=== PATIENT | female | born 1995 | race Caucasian/White ===

== ENCOUNTER 2017-10-11 16:46 | Emergency (ER) | payer OTHER ==
[2017-10-11 16:55] VITALS: BP 107/71
--- NOTE | 2017-10-11 17:21 | ED ---
General Adult HPI - General Chief complaint: Fever Stated complaint: poss MRSA problem Source: patient Mode of arrival: ambulatory Limitations: no limitations - History of Present Illness Initial comments: Dictation was produced using [employer] dictation software. please excuse any grammatical, word or spelling errors. Chief Complaint: 21-year-old with past medical history of dwarfism presents with URI symptoms. History of Present Illness: Patient states she's been having these symptoms for approximately 2 days. Her symptoms started off as nasal congestion. She states that today she has been having worsening nasal congestion, cough. States she's been feeling hot for which she took Tylenol and Motrin. Patient has no other complaints at this time. Patient denies any chest pain. The ROS documented in this emergency department record has been reviewed and confirmed by me. Those systems with pertinent positive or negative responses have been documented in the HPI. All other systems are other negative and/or noncontributory. - Related Data Home Medications Medication Instructions Recorded Confirmed Ciprofloxacin-Dexameth [Ciprodex 3 drops BOTH EARS DAILY PRN 10/11/17 10/11/17 Otic Susp] Loratadine-Pseudoeph 10-240 mg 1 tab PO DAILY PRN 10/11/17 10/11/17 [Claritin-D 24 Hr] Sertraline HCl [Zoloft] 25 mg PO HS 10/11/17 10/11/17 diphenhydrAMINE HCL [Children's 50 mg PO HS PRN 10/11/17 10/11/17 Benadryl Allergy] Previous Rx's Medication Instructions Recorded Amoxic-Pot Clav 875-125Mg 1 tab PO Q12HR 5 Days #10 tablet 10/11/17 [Augmentin 875-125] Fluticasone Nasal [place] [Flonase 1 spray EA NOSTRIL DAILY #1 bottle 10/11/17 Nasal [place]] Allergies Allergy/AdvReac Type Severity Reaction Status Date / Time Iodinated Contrast- Oral and Allergy Anaphylaxis Verified 10/11/17 17:03 IV Dye [Iodinated Contrast Media - IV Dye] Review of Systems ROS Statement: Those systems with pertinent positive or pertinent negative responses have been documented in the HPI. ROS Other: All systems not noted in ROS Statement are negative. Past Medical History Past Medical History: No Reported History Additional Past Medical History / Comment(s): ANXIETY History of Any Multi-Drug Resistant Organisms: None Reported Past Surgical History: Back Surgery, Ear Surgery Past Psychological History: Anxiety Smoking Status: Never smoker Past Alcohol Use History: None Reported Past Drug Use History: None Reported General Exam - General Exam Comments Initial Comments: PHYSICAL EXAM: General Impression: Alert and oriented x3, not in acute distress HEENT: Normocephalic atraumatic, extra-ocular movements intact, pupils equal and reactive to light bilaterally, mucous membranes moist, dried mucus around the naris, TMs show no effusion Cardiovascular: Heart regular rate and rhythm, S1&S2 audible, no murmurs, rubs or gallops Chest: Lungs clear to auscultation bilaterally, no rhonchi, no wheeze, no rales Abdomen: Bowel sounds present, abdomen soft, non-tender, non-distended, no organomegaly Musculoskeletal: Pulses present and equal in all extremities, no peripheral edema, midline lower lumbar scar without any erythema or drainage Motor: Power 5/5 bilaterally, no focal deficits noted Neurological: CN II-XII grossly intact, no focal motor or sensory deficits noted Skin: Intact with no visualized rashes Psych: Normal affect and mood Limitations: no limitations Course Vital Signs 10/11/17 16:50 Temperature 98.4 F Pulse Rate 104 H Respiratory 18 Rate Blood Pressure 107/71 O2 Sat by Pulse 100 Oximetry Medical Decision Making - Medical Decision Making ED course: 21-year-old female with clinical presentation consistent with viral URI. Patient has been having symptoms for 2 days. Vital signs upon arrival shows heart rate of 104, rest of vital signs within acceptable limits. Patient is well-appearing. Repeat vital signs are improved. She prescription for Flonase. She is given a prescription for Augmentin to be taken in a wait-and- see approach. She is told to fill prescription should she continue worsening or persistent symptoms in 5 days. She is understandable agreeable to disposition. She is told to follow-up with primary care physician upon discharge. Disposition Clinical Impression: URI (upper respiratory infection) Disposition: HOME SELF-CARE Condition: Good Instructions: Upper Respiratory Infection (ED) Prescriptions: Amoxic-Pot Clav 875-125Mg [Augmentin 875-125] 1 tab PO Q12HR 5 Days #10 tablet Fluticasone Nasal [place] [Flonase Nasal [place]] 1 spray EA NOSTRIL DAILY #1 bottle Is patient prescribed a controlled substance at d/c from ED?: No Referrals: Nieves,Lyla, MD [Primary Care Provider] - 1-2 days Decision Time: 17:21
[2017-10-11 17:26] VITALS: PULSE 86; TEMP 100.4
[2017-10-11 17:29] VITALS: RESP 16
== END 2017-10-11 17:30 | disposition home or self-care (01) ==
LOC: EC 16:46
DX: J06.9 Acute upper respiratory infection, unspecified (principal); F41.9 Anxiety disorder, unspecified; Z79.899 Other long term (current) drug therapy; Z91.041 Radiographic dye allergy status
CPT/HCPCS: 99283

== ENCOUNTER → 2017-11-09 | Outpatient (CLI) | payer OTHER ==
--- NOTE | 2017-11-09 09:18 | US ---
EXAMINATION TYPE: US abdomen complete DATE OF EXAM: 11/09/2017 COMPARISON: NONE CLINICAL HISTORY: R10.11 Right upper quadrant pain. Diarrhea for 3 weeks, abdominal pain, vomiting EXAM MEASUREMENTS: Liver Length: 11.4 cm Gallbladder Wall: 0.2 cm CBD: 0.3 cm Spleen: 10.2 cm Right Kidney: 10.2 x 4.0 x 4.7 cm Left Kidney: 9.7 x 4.8 x 5.2 cm Pancreas: Head and proximal body appear normal. Pills. Bowel gas. Liver: appears wnl Gallbladder: no evidence of stones Evidence for sonographic Fernandez's sign: no CBD: wnl Spleen: isoechoic area near hilum = 1.6 x 1.3 x 1.5cm, probable accessory spleen Right Kidney: Simple cystic area mid kidney = 2.3 x 1.9 x 2.1cm Left Kidney: no evidence of hydronephrosis or mass as visualized Upper IVC: wnl Abd Aorta: visualized portions appear wnl IMPRESSION: 1. Right renal cyst.
== END | disposition home or self-care (01) ==
LOC: RADUSWWP 08:05
PROVIDERS: ATTEND Internal Medicine
DX: N28.1 Cyst of kidney, acquired (principal)
CPT/HCPCS: 76700

== ENCOUNTER → 2018-01-18 | Outpatient (CLI) | payer OTHER ==
[2018-01-18 16:38] LABS: Gliadin AB IgA, Unit 0.6 U/mL
== END | disposition home or self-care (01) ==
LOC: LABWHC1 07:38
PROVIDERS: ATTEND Internal Medicine Gastroenterology
DX: K52.9 Noninfective gastroenteritis and colitis, unspecified (principal)
CPT/HCPCS: 36415; 83516

== ENCOUNTER 2020-08-24 | Inpatient (IN) | payer OTHER, MEDICAID | END 2020-08-30 12:05 | disposition home or self-care (01) | DRG 885 | PROVIDERS: ADMIT Psychiatry & Neurology Psychiatry | CPT/HCPCS: 36415; 80053; 80143; 80179; 80306; 80320; 81025; 82075; 85025; 87635; 93005; 96360; 96361; 99285 ==

== ENCOUNTER 2023-07-16 13:28 | Inpatient (IN) | payer MEDICAID, OTHER ==
--- NOTE | 2023-07-16 14:36 | ED ---
General Adult HPI - General Chief complaint: Psychiatric Symptoms Stated complaint: Suicidal Time Seen by Provider: 07/16/23 13:40 Source: patient, RN notes reviewed, old records reviewed Mode of arrival: EMS Limitations: no limitations - History of Present Illness Initial comments: This is a 27-year-old female who presents to the emergency department stating that she has been contemplating suicide lately. Patient states her mother 2 years ago and she immediately moved to [place] and now that she is back in town and reminds her that her mother has gone and she is trying to deal with it but she states she is unable to do anything because she is nonstop crying. Patient went to [facility] today and they sent her to the emergency department. Patien t denies any physical complaints today. Patient denies being sick in any way patient denies any nausea vomiting. Patient Nuys chest pain difficulty breathing or shortness of breath. Patient has any abdominal pain. Patient states she does not have any specific plan and she has made no attempt to harm herself but she cannot stop thinking about trying to hurt herself. - Related Data Home Medications Medication Instructions Recorded Confirmed Albuterol Sulfate [Proair Hfa] 2 puff INHALATION RT-Q6H PRN 08/24/20 07/16/23 Acamprosate Calcium [Campral] 666 mg PO TID 07/16/23 07/16/23 Cholecalciferol (Vitamin D3) 50 mcg PO DAILY 07/16/23 07/16/23 [Vitamin D3 (50 Mcg = 2000 Iu)] Fluticasone/Vilanterol 1 puff INHALATION RT-DAILY 07/16/23 07/16/23 [Fluticasone-Vilanterol 100-25] Meloxicam [Mobic] 15 mg PO DAILY 07/16/23 07/16/23 Omeprazole 20 mg PO DAILY 07/16/23 07/16/23 Ondansetron [Zofran] 4 mg PO DAILY 07/16/23 07/16/23 Rimegepant Sulfate [Nurtec Odt] 75 mg PO DAILY PRN 07/16/23 07/16/23 Sertraline [Zoloft] 75 mg PO DAILY 07/16/23 07/16/23 lamoTRIgine [lamoTRIgine ODT See Taper PO DIRECTED 07/16/23 07/16/23 ([place]) Dose Pack] tiZANidine [Zanaflex] 2 mg PO HS PRN 07/16/23 07/16/23 Allergies Allergy/AdvReac Type Severity Reaction Status Date / Time Iodinated Contrast Media Allergy Anaphylaxis Verified 07/16/23 14:28 [Iodinated Contrast Media - IV Dye] Review of Systems ROS Statement: Those systems with pertinent positive or pertinent negative responses have been documented in the HPI. ROS Other: All systems not noted in ROS Statement are negative. Past Medical History Past Medical History: No Reported History Additional Past Medical History / Comment(s): ANXIETY History of Any Multi-Drug Resistant Organisms: None Reported Date of last positivie culture/infection: 2016 Past Surgical History: Back Surgery, Ear Surgery Past Psychological History: Anxiety Smoking Status: Never smoker General Exam - General Exam Comments Initial Comments: GENERAL: Patient is well-developed and well-nourished. Patient is nontoxic and well- hydrated and is in no acute distress. ENT: Neck is soft and supple. No significant lymphadenopathy is noted. Oropharynx is clear. Moist mucous membranes. Neck has full range of motion without eliciting any pain. EYES: The sclera were anicteric and conjunctiva were pink and moist. Extraocular movements were intact and pupils were equal round and reactive to light. Eyelids were unremarkable. PULMONARY: Unlabored respirations. Good breath sounds bilaterally. No audible rales rhonchi or wheezing was noted. CARDIOVASCULAR: There is a regular rate and rhythm without any murmurs gallops or rubs. ABDOMEN: Soft and nontender with normal bowel sounds. SKIN: Skin is clear with no lesions or rashes and otherwise unremarkable. NEUROLOGIC: Patient is alert and oriented x3. Cranial nerves II through XII are grossly intact. Motor and sensory are also intact. Normal speech, volume and content. Symmetrical smile. MUSCULOSKELETAL: Normal extremities with adequate strength and full range of motion. LYMPHATICS: No significant lymphadenopathy is noted PSYCHIATRIC: Patient states she is suicidal and cannot stop crying. Patient has no plan Limitations: no limitations Course Vital Signs 07/16/23 13:31 Temperature 98.4 F Pulse Rate 74 Respiratory 12 Rate Blood Pressure 108/67 O2 Sat by Pulse 96 Oximetry Medical Decision Making - Medical Decision Making Was pt. sent in by a medical professional or institution (, PA, COMPUTER BUILDER, urgent care, hospital, or detention...) When possible be specific @ -No Did you speak to anyone other than the patient for history (EMS, parent, family, police, friend...)? What history was obtained from this source @ -No Did you review nursing and triage notes (agree or disagree)? Why? @ -I reviewed and agree with nursing and triage notes Were old charts reviewed (outside hosp., previous admission, EMS record, old EKG, old radiological studies, urgent care reports/EKG's, detention records)? Report findings @ -No old charts were reviewed Differential Diagnosis (chest pain, altered mental status, abdominal pain women, abdominal pain men, vaginal bleeding, weakness, fever, dyspnea, syncope, headache, dizziness, GI bleed, back pain, seizure, CVA, palpatations, mental health, musculoskeletal)? @ -Differential Mental Health Depression, anxiety, bipolar, psychosis, schizophrenia, borderline personality, situational depression, adjustment disorder, behavioral disorder, brain tumor, malingering, substance abuse, encephalopathy, medication reaction, dementia, hypothyroidism, degenerative neurologic disorder, lupus.... This is not meant to be all-inclusive list EKG interpreted by me (3pts min.). @ -As above X-rays interpreted by me (1pt min.). @ -None done CT interpreted by me (1pt min.). @ -None done U/S interpreted by me (1pt. min.). @ -None done What testing was considered but not performed or refused? (CT, X-rays, U/S, labs)? Why? @ -None What meds were considered but not given or refused? Why? @ -None Did you discuss the management of the patient with other professionals (professionals i.e. , PA, COMPUTER BUILDER, lab, RT, psych nurse, social science analyst, driller multiple spindle, teacher, small business banking officer, caseworker intake)? Give summary @ -I spoke with the EPS nurse and she spoke with a psychiatrist and it was determined the patient needed to be admitted Was smoking cessation discussed for >3mins.? @ -No Was critical care preformed (if so, how long)? @ -35 minutes Were there social determinants of health that impacted care today? How? (Homelessness, low income, unemployed, alcoholism, drug addiction, transporta tion, low edu. Level, literacy, decrease access to med. care, long-term, rehab)? @ -No Was there de-escalation of care discussed even if they declined (Discuss DNR or withdrawal of care, Hospice)? DNR status @ -No What co-morbidities impacted this encounter? (DM, HTN, Smoking, COPD, CAD, Cancer, CVA, ARF, Chemo, Hep., AIDS, mental health diagnosis, sleep apnea, morbid obesity)? @ -None Was patient admitted / discharged? Hospital course, mention meds given and route, prescriptions, significant lab abnormalities, going to OR and other pertinent info. @ -Patient will be admitted to the psychiatric rubin Undiagnosed new problem with uncertain prognosis? @ -No Drug Therapy requiring intensive monitoring for toxicity (Heparin, Nitro, Insulin, Cardizem)? @ -No Were any procedures done? @ -No Diagnosis/symptom? @ -Suicidal ideations, depression Acute, or Chronic, or Acute on Chronic? @ -Acute Uncomplicated (without systemic symptoms) or Complicated (systemic symptoms)? @ -Complicated Side effects of treatment? @ -No Exacerbation, Progression, or Severe Exacerbation? @ -No Poses a threat to life or bodily function? How? (Chest pain, [place], [place], pneumonia, PE, COPD, DKA, ARF, appy, cholecystitis, CVA, Diverticulitis, Homicidal, Suicidal, threat to staff... and all critical care pts) @ -Wrist this can lead to a patient making a suicidal attempt and dying Disposition Clinical Impression: Suicidal ideations, Depression Disposition: ADMITTED IP TO THIS HOSP Referrals: Ludmila Christiansen MD [Primary Care Provider] - 1-2 days Time of Disposition: 16:49
[2023-07-16] MEDS ORDERED: MAGNESIUM HYDROXIDE 2,400 MG/30 ML CUP PO PRN (18:49)
[2023-07-16] MEDS ORDERED: ACETAMINOPHEN TAB 325 MG TAB PO PRN (18:49)
[2023-07-16] MEDS ORDERED: MAG HYDROX/AL HYDROX/SIMETH 355 ML BOTTLE PO PRN (18:49)
[2023-07-16] MEDS ORDERED: IBUPROFEN 600 MG TAB PO PRN (18:49)
[2023-07-16] MEDS ORDERED: LORazepam 2 MG/ML INJ IM PRN (18:53)
[2023-07-16] MEDS ORDERED: HALOPERIDOL LACTATE 5 MG/ML 1 ML VIAL IM PRN (18:53)
[2023-07-16] MEDS ORDERED: haloperidoL 5 MG TAB PO PRN (18:53)
[2023-07-16] MEDS ORDERED: methocarbamoL 750 MG TAB PO PRN (18:57)
[2023-07-16] MEDS: LORazepam 1 MG TAB PO PRN (20:10)
[2023-07-16 20:15] VITALS: RESP 16
[2023-07-16] MEDS: SERTRALINE 25 MG TAB PO SCH (21:22)
[2023-07-16] MEDS: ACAMPROSATE CALCIUM 333 MG TABLET.DR PO SCH (21:23)
[2023-07-16 21:30] LABS: Appearance,Urine Cloudy (Clear); Bacteria,Urine Occasional /hpf; Bilirubin,Urine Negative (Negative); Blood,Urine Moderate (Negative); Color,Urine Yellow; Glucose,Urine (UA) Negative (Negative); Leukocyte Esterase,Urine Trace (Negative); Mucus,Urine Many /hpf; Nitrite,Urine Negative (Negative); PH, Urine 5.5 (5.0-8.0); Protein,Urine Trace (Negative); RBC,Urine 11 /hpf (0-5); Specific Gravity,Urine 1.023 (1.001-1.035); Urobilinogen,Urine <2.0 mg/dL (<2.0)
[2023-07-16 21:33] LABS: Squamous Epithelial Cell,Urine 6 /hpf (0-4); WBC,Urine 1 /hpf (0-5)
[2023-07-16 21:36] LABS: Ketones,Urine 3+ (Negative)
[2023-07-16 21:40] LABS: Amphetamine Screen,Urine Not Detected (NotDetected); Barbiturate Screen,Urine Not Detected (NotDetected); Benzodiazepines Screen,Urine Not Detected (NotDetected); Cocaine Screen,Urine Not Detected (NotDetected); Methadone Screen, Urine Not Detected (NotDetected); Opiate Screen,Urine Not Detected (NotDetected); Oxycodone Screen, Urine Not Detected (NotDetected); Phencyclidine Screen,Urine Not Detected (NotDetected); Tricyclic Antidepressant,Urine Not Detected (NotDetected); Urn Cannabinoid Scrn Detected (NotDetected)
--- NOTE | 2023-07-17 01:20 | P.CONS ---
History of Present Illness - Reason for Consult Consult date: 07/17/23 - History of Present Illness The patient is a 27-year-old female with a PMH of hydrocephalus (unknown cause) status post LP shunt placement, asthma, and bipolar disorder who had presented to the emergency room with complaints of depression and suicidal ideation. The patient was admitted to the mental health unit where she was seen and evaluated accompanied by mental health unit RN. Patient reports that her mother recently passed and that she has been having a hard time coping. She reported long-term unchanged lower back pain for which she has been following with her neurologist who also manages her outpatient. She denied experiencing any additional complaints. Reports recreational tobacco, marijuana, and alcohol use. States that she drinks too much but did not wish to quantify but states that she drinks daily. Reports smoking 1 to 2 packs of cigarettes daily. Denied experiencing chest discomfort, shortness of breath, fever, chills, cough, nausea, vomiting, abdominal pain, diarrhea. Review of systems: Pertinent positives and negatives as discussed in HPI, a complete review of systems was performed and all other systems are negative. Physical examination: General: non toxic, no distress, appears at stated age, morbidly obese Derm: no unusual rashes/lesions, no unusual ecchymoses, warm, dry Head: atraumatic, normocephalic, symmetric Eyes: EOMI, no lid lag, anicteric sclera ENT: Nose and ears atraumatic, no thrush, no pharyngeal erythema Neck: trachea midline, supple Mouth: no lip lesion, mucus membranes moist Cardiovascular: S1S2 reg, no murmur, no edema Lungs: CTA bilateral, no rhonchi, no rales , no accessory muscle use Abdominal: soft, nontender to palpation, no guarding Ext: no gross muscle atrophy, no contractures, Neuro: No gross focal neuro deficits noted Psych: Alert, oriented, appropriate affect Assessment: Marijuana and alcohol abuse Chronic conditions: Hydrocephalus status post LP shunt placement, asthma Depression and suicidal ideation and history of bipolar disorder Imaging: None performed Data Review: Reviewed with urine toxicology positive for marijuana Plan: Advised patient on importance of cessation Monitor for signs of withdrawal from alcohol Resume patient's home inhaler doses Defer management of depression and suicidal ideation to the primary psychiatry service Thank you for allowing us to participate in the care of this patient. We will follow peripherally. Do not hesitate to contact us with questions. Someone can be reached from the [facility] hospitalist group at all hours of the day at [phone]. Past Medical History Past Medical History: Asthma Additional Past Medical History / Comment(s): ANXIETY, back surgery, shunt d/t hydrocephalus History of Any Multi-Drug Resistant Organisms: None Reported Year Discovered:: 2016 Past Surgical History: Back Surgery, Ear Surgery Past Psychological History: Anxiety Additional Psychological History / Comment(s): BPD Smoking Status: Current every day smoker Past Drug Use History: Marijuana Medications and Allergies Home Medications Medication Instructions Recorded Confirmed Type Albuterol Sulfate [Proair Hfa] 2 puff INHALATION RT-Q6H PRN 08/24/20 07/16/23 History Acamprosate Calcium [Campral] 666 mg PO TID 07/16/23 07/16/23 History Cholecalciferol (Vitamin D3) 50 mcg PO DAILY 07/16/23 07/16/23 History [Vitamin D3 (50 Mcg = 2000 Iu)] Fluticasone/Vilanterol 1 puff INHALATION RT-DAILY 07/16/23 07/16/23 History [Fluticasone-Vilanterol 100-25] Meloxicam [Mobic] 15 mg PO DAILY 07/16/23 07/16/23 History Omeprazole 20 mg PO DAILY 07/16/23 07/16/23 History Ondansetron [Zofran] 4 mg PO DAILY 07/16/23 07/16/23 History Rimegepant Sulfate [Nurtec Odt] 75 mg PO DAILY PRN 07/16/23 07/16/23 History Sertraline [Zoloft] 75 mg PO DAILY 07/16/23 07/16/23 History lamoTRIgine [lamoTRIgine ODT See Taper PO DIRECTED 07/16/23 07/16/23 History ([place]) Dose Pack] tiZANidine [Zanaflex] 2 mg PO HS PRN 07/16/23 07/16/23 History Allergies Allergy/AdvReac Type Severity Reaction Status Date / Time Iodinated Contrast Media Allergy Anaphylaxis Verified 07/16/23 14:28 [Iodinated Contrast Media - IV Dye] Physical Exam Vitals: Vital Signs Temp Pulse Pulse Resp BP BP Pulse Ox 07/16/23 19:47 97.8 F 70 16 118/73 96 07/16/23 18:53 76 18 111/69 96 07/16/23 13:31 98.4 F 74 12 108/67 96 Intake and Output 07/16/23 07/16/23 07/17/23 14:59 22:59 06:59 Other: Weight 59.874 kg 59.024 kg Results Labs: Abnormal Lab Results - Last 24 Hours (Table) 07/16/23 07/16/23 Range/Units 21:11 21:11 Urine Appearance Cloudy H (Clear) Urine Protein Trace H (Negative) Urine Ketones 3+ H (Negative) Urine Blood Moderate H (Negative) Ur Leukocyte Esterase Trace H (Negative) Urine RBC 11 H (0-5) /hpf Ur Squamous Epith Cells 6 H (0-4) /hpf Urine Bacteria Occasional H (None) /hpf Urine Mucus Many H (None) /hpf U Marijuana (THC) Screen Detected H (NotDetected)
[2023-07-17 05:19] VITALS: BP 110/81; PULSE 99; TEMP 98.2
[2023-07-17] MEDS: NICOTINE 14MG/24HR PATCH TRANSDERM SCH (08:14)
[2023-07-17] MEDS: CHOLECALCIFEROL 25 MCG (1000 IU) TABLET PO SCH (08:15)
[2023-07-17] MEDS ORDERED: PROCHLORPERAZINE 5 MG TAB PO PRN (08:33)
[2023-07-17] MEDS: ONDANSETRON ODT 4 MG TAB PO PRN (08:40)
[2023-07-17] MEDS: PANTOPRAZOLE 40 MG TABLET PO SCH (08:45)
[2023-07-17] MEDS ORDERED: HALOPERIDOL LACTATE 5 MG/ML 1 ML VIAL IM PRN (09:13)
[2023-07-17] MEDS ORDERED: LORazepam 2 MG/ML INJ IM PRN (09:16)
[2023-07-17] MEDS: MELOXICAM 7.5 MG TAB PO SCH (11:47)
[2023-07-17 11:48] LABS: Basophils % (A) 0 %; Eosinophils # (A) 0.1 k/uL (0-0.7); Eosinophils % (A) 1 %; HCT 42.3 % (34.0-46.0); HGB 13.5 gm/dL (11.4-16.0); Lymphocytes # (A) 1.8 k/uL (1.0-4.8); Lymphocytes % (A) 17 %; MCH 29.9 pg (25.0-35.0); MCHC 31.8 g/dL (31.0-37.0); MCV 94.1 fL (80.0-100.0); Mean Platelet Volume 8.4; Monocytes # (A) 0.5 k/uL (0-1.0); Monocytes % (A) 5 %; Neutrophils # (A) 7.9 k/uL (1.3-7.7); Neutrophils % (A) 75 %; Platelet Count 334 k/uL (150-450); RBC 4.49 m/uL (3.80-5.40); RDW 13.5 % (11.5-15.5); WBC 10.5 k/uL (3.8-10.6)
[2023-07-17 12:12] LABS: ALT 14 U/L (4-34); AST 28 U/L (14-36); African American GFR (CKD) >90 (>60 ml/min/1.73 sqM); Albumin 4.7 g/dL (3.5-5.0); Alkaline Phosphatase 81 U/L (38-126); Anion Gap 13 mmol/L; Blood Urea Nitrogen 13 mg/dL (7-17); Calcium 9.5 mg/dL (8.4-10.2); Carbon Dioxide 16 mmol/L (22-30); Chloride 112 mmol/L (98-107); Glucose 77 mg/dL (74-99); Non-African American GFR(CKD) >90 (>60 ml/min/1.73 sqM); Sodium 141 mmol/L (137-145); Total Bilirubin 0.9 mg/dL (0.2-1.3); Total Protein 8.2 g/dL (6.3-8.2)
[2023-07-17 12:31] LABS: Potassium 4.9 mmol/L (3.5-5.1)
[2023-07-17] MEDS: LORazepam 0.5 MG TAB PO PRN (14:14)
[2023-07-17 15:53] LABS: Chol/HDL Ratio 3.38 Ratio; LDL Cholesterol,Calculated 95.4 mg/dL (0.0-131.0); VLDL Calculation 18.64 mg/dL (5.00-40.00)
[2023-07-17] MEDS ORDERED: hydrOXYzine HCL 10 MG TAB PO PRN (16:00)
[2023-07-17] MEDS: busPIRone HCl 10 MG TAB PO SCH (16:08)
[2023-07-17] MEDS: ALBUTEROL INHALER 60 PUFF/8 GM INHALER (MHU) INHALATION PRN (20:40)
--- NOTE | 2023-07-17 21:56 | P.HP ---
Psychiatric H&P - . H&P Date: 07/17/23 History & Physical: Allergies Allergy/AdvReac Type Severity Reaction Status Date / Time Iodinated Contrast Media Allergy Anaphylaxis Verified 07/16/23 14:28 [Iodinated Contrast Media - IV Dye] Vital Signs Temp 98.2 F 07/17/23 05:09 Pulse 99 07/17/23 05:09 Resp 16 07/17/23 05:09 BP 110/81 07/17/23 05:09 Pulse Ox 97 07/17/23 05:09 FiO2 Intake & Output 07/17/23 07/17/23 07/18/23 06:59 18:59 06:59 Weight 59.024 kg Laboratory Last Values WBC 10.5 k/uL (3.8-10.6) 07/17/23 11:28 RBC 4.49 m/uL (3.80-5.40) 07/17/23 11:28 Hgb 13.5 gm/dL (11.4-16.0) 07/17/23 11:28 Hct 42.3 % (34.0-46.0) 07/17/23 11:28 MCV 94.1 fL (80.0-100.0) 07/17/23 11:28 MCH 29.9 pg (25.0-35.0) 07/17/23 11:28 MCHC 31.8 g/dL (31.0-37.0) 07/17/23 11:28 RDW 13.5 % (11.5-15.5) 07/17/23 11:28 Plt Count 334 k/uL (150-450) 07/17/23 11:28 MPV 8.4 07/17/23 11:28 Neutrophils % 75 % 07/17/23 11:28 Lymphocytes % 17 % 07/17/23 11:28 Monocytes % 5 % 07/17/23 11:28 Eosinophils % 1 % 07/17/23 11:28 Basophils % 0 % 07/17/23 11:28 Neutrophils # 7.9 k/uL (1.3-7.7) H 07/17/23 11:28 Lymphocytes # 1.8 k/uL (1.0-4.8) 07/17/23 11:28 Monocytes # 0.5 k/uL (0-1.0) 07/17/23 11:28 Eosinophils # 0.1 k/uL (0-0.7) 07/17/23 11:28 Basophils # 0.0 k/uL (0-0.2) 07/17/23 11:28 Sodium 141 mmol/L (137-145) 07/17/23 11:28 Potassium 4.9 mmol/L (3.5-5.1) 07/17/23 11:28 Chloride 112 mmol/L (98-107) H 07/17/23 11:28 Carbon Dioxide 16 mmol/L (22-30) L 07/17/23 11:28 Anion Gap 13 mmol/L 07/17/23 11:28 BUN 13 mg/dL (7-17) 07/17/23 11:28 Creatinine 0.43 mg/dL (0.52-1.04) L 07/17/23 11:28 Est GFR (CKD-EPI)AfAm >90 (>60 ml/min/1.73 sqM) 07/17/23 11:28 Est GFR (CKD-EPI)NonAf >90 (>60 ml/min/1.73 sqM) 07/17/23 11:28 Glucose 77 mg/dL (74-99) 07/17/23 11:[address] Glu mg/dL 103 mg/dL 07/17/23 11:28 Hemoglobin A1c 5.2 % (<=6.0) 07/17/23 11:28 Calcium 9.5 mg/dL (8.4-10.2) 07/17/23 11:28 Total Bilirubin 0.9 mg/dL (0.2-1.3) 07/17/23 11:28 AST 28 U/L (14-36) 07/17/23 11:28 ALT 14 U/L (4-34) 07/17/23 11:28 Alkaline Phosphatase 81 U/L (38-126) 07/17/23 11:28 Total Protein 8.2 g/dL (6.3-8.2) 07/17/23 11:28 Albumin 4.7 g/dL (3.5-5.0) 07/17/23 11:28 Triglycerides 93.20 mg/dL (0.00-149.00) 07/17/23 11:28 Cholesterol 162.00 mg/dL (0.00-200.00) 07/17/23 11:28 LDL Cholesterol, Calc 95.4 mg/dL (0.0-131.0) 07/17/23: VLDL Cholesterol, Calc 18.64 mg/dL (5.00-40.00) 07/17/23 11: HDL Cholesterol 48.00 mg/dL (40.00-60.00) 07/17/23: Cholesterol/HDL Ratio 3.38 Ratio 07/17/23: TSH 0.692 mIU/L (0.465-4.680) 07/17/23 11:28 Urine Color Yellow 07/16/23 21:11 Urine Appearance Cloudy (Clear) H 07/16/23 21:11 Urine pH 5.5 (5.0-8.0) 07/16/23 21:11 Ur Specific [place] 1.023 (1.001-1.035) 07/16/23 21:11 Urine Protein Trace (Negative) H 07/16/23 21:11 Urine Glucose (UA) Negative (Negative) 07/16/23 21:11 Urine Ketones 3+ (Negative) H 07/16/23 21:11 Urine Blood Moderate (Negative) H 07/16/23 21:11 Urine Nitrite Negative (Negative) 07/16/23 21:11 Urine Bilirubin Negative (Negative) 07/16/23 21:11 Urine Urobilinogen <2.0 mg/dL (<2.0) 07/16/23 21:11 Ur Leukocyte Esterase Trace (Negative) H 07/16/23 21:11 Urine RBC 11 /hpf (0-5) H 07/16/23 21:11 Urine WBC 1 /hpf (0-5) 07/16/23 21:11 Ur Squamous Epith Cells 6 /hpf (0-4) H 07/16/23 21:11 Urine Bacteria Occasional /hpf (None) H 07/16/23 21:11 Urine Mucus Many /hpf (None) H 07/16/23 21:11 Urine HCG, Qual Not Detected (Not Detectd) 07/16/23 21:11 Urine Opiates Screen Not Detected (NotDetected) 07/16/23 21:11 Ur Oxycodone Screen Not Detected (NotDetected) 07/16/23 21:11 Urine Methadone Screen Not Detected (NotDetected) 07/16/23 21:11 Ur Barbiturates Screen Not Detected (NotDetected) 07/16/23 21:11 U Tricyclic Antidepress Not Detected (NotDetected) 07/16/23 21:11 Ur Phencyclidine Scrn Not Detected (NotDetected) 07/16/23 21:11 Ur Amphetamines Screen Not Detected (NotDetected) 07/16/23 21:11 U Methamphetamines Scrn Not Detected (NotDetected) 07/16/23 21:11 U Benzodiazepines Scrn Not Detected (NotDetected) 07/16/23 21:11 Urine Cocaine Screen Not Detected (NotDetected) 07/16/23 21:11 U Marijuana (THC) Screen Detected (NotDetected) H 07/16/23 21:11 SARS-CoV-2 (PCR) Not Detected (Not Detectd) 07/16/23 16:13 07/17/23 21:55 Psychiatric Evaluation Identifying Data: Ms. Skinner is a 27 years old, single female, who is currently homeless. Chief Complaint: I cant stop crying History of Psychiatric Illness- History of Present Illness: The patient noted that she has been crying all the time. She indicated that she was staying with her sister but she kicked her out of the home. The patient noted that she has been experiencing symptoms of crying spells, low mood, decreased appetite, poor sleep, loss of motivation, loss of interest, guilt feelings, feelings of worthless and suicidal ideations. The patient noted she has been taking Zoloft 75 mg once a day and Lamictal. She noted that she takes Lamictal for her mood disorder and Absence seizures. Her Lamictal has been held at this time because she has to get an EEG. The patient noted that she started s eeking help for depression at age 13. She has been under out-pt treatment since then. She has been to [facility] and [facility]. She has gone to out-pt follow-up off and on. The patient noted that she has had multiple psychiatric admissions in the past. She has been admitted for depression and suicidal behavior. The patient noted that her last suicidal behavior was 2 years ago. The patient noted that her adopted mother then. She moved to her mothers best friend in [place]. As per patient, she got kicked out by her because she did not get SSI. She came back and started living with her, who put her out and does not want her back. The patient is trying to get SSI. She also wants to go to senior care, I have no place to live. The patient noted that she has been diagnosed with depressive disorder and BPD. She has been on Li, Trazodone, Zoloft, Prozac and Paxil in the past. Past Psychiatric History: As stated above. Leading questions: The patient admitted to Depression and Anxiety. Denied SI or HI. Admitted to paranoia people are watching her, out to get her. Denied A/V hallucinations. Drugs and alcohol history: Admitted to Alcohol and THC abuse. Tobacco use: Past Medical history: Seizure Disorder, Hydrocephalus post shunt placement. Chronic backache, Asthma. Family History of Psychiatric Disorder: One cousin suffered from depression and committed suicide. Sister suffers from depression. Social History and Family History: The patient was born and raised in [place]. She grew-up with 3 biological sisters and here adopted sisters. She was taken away from her parents at age [age]. OTC: Allergies Objective: MSE: Alert and attentive. Orientation times three Dressed and Groomed: Appropriately. Pleasant and cooperative. Psychomotor Activity: Normal. Speech: Normal in tone, quality, and quantity. Mood: Depressed. Affect: Sad and labile. SI or HI: None. Perceptual disturbance: None. Thought Content: The patient feels Paranoid. No other delusional thinking noted. Thought Process: Normal. Cognition: Intact Judgment and Insight: Poor. AIMS: Normal Labs: Available labs reviewed. Diagnosis: Depressive disorder, Unspecified. BPD Plan and Recommendations: Continue current Medications. Monitor MS and side effects of medications and adjust medications accordingly. Provide supportive psychotherapy and psychoeducation. The patient provided Substance abuse counseling. Smoke cessation therapy. The patient to see a therapist on a regular basis once a week/ attend [facility]. CBC with Diff, CMP, TSH, Lipid Profile, HbA1c, EKG, Test ordered. Medication Consent with explanation of risk/benefits and side effects: Explained and obtained.
[2023-07-17] MEDS: LORazepam 2 MG/ML INJ IM STA (22:04)
== END 2023-07-17 21:44 | disposition home or self-care (01) | DRG 753 ==
LOC: EC 13:28 → 3MHU 18:44 → UNDODISIN 07-17 21:49
PROVIDERS: ADMIT Psychiatry & Neurology Psychiatry; ATTEND Psychiatry & Neurology Psychiatry
DX: F31.9 Bipolar disorder, unspecified (principal); G91.9 Hydrocephalus, unspecified; G40.A09 Absence epileptic syndrome, not intractable, without status epilepticus; R45.851 Suicidal ideations; J45.909 Unspecified asthma, uncomplicated; F12.10 Cannabis abuse, uncomplicated; F10.10 Alcohol abuse, uncomplicated; E66.01 Morbid (severe) obesity due to excess calories; Z68.39 Body mass index [BMI] 39.0-39.9, adult; F60.3 Borderline personality disorder; Z11.52 Encounter for screening for COVID-19; F41.9 Anxiety disorder, unspecified; G89.29 Other chronic pain; M54.50 Low back pain, unspecified; F17.210 Nicotine dependence, cigarettes, uncomplicated; Z71.6 Tobacco abuse counseling; Z59.00 Homelessness unspecified; Z59.12 Inadequate housing utilities; Z59.41 Food insecurity; Z59.82 Transportation insecurity; Z79.51 Long term (current) use of inhaled steroids; Z79.1 Long term (current) use of non-steroidal anti-inflammatories (NSAID); Z79.899 Other long term (current) drug therapy; Z98.2 Presence of cerebrospinal fluid drainage device; Z91.041 Radiographic dye allergy status
CPT/HCPCS: 80053; 80061; 80306; 81001; 81025; 82075; 83036; 84443; 85025; 87635; 93005; 99291

== ENCOUNTER 2023-07-17 21:36 | Inpatient (IN) | payer OTHER ==
[2023-07-17] MEDS ORDERED: NALOXONE 0.4 MG/ML 1 ML VIAL IV PRN (22:27)
[2023-07-17] MEDS ORDERED: ALPRAZolam 0.5 MG TAB PO PRN (22:28)
[2023-07-17] MEDS ORDERED: IPRATROPIUM-ALBUTEROL 3 ML NEB INHALATION PRN (22:28)
[2023-07-17] MEDS ORDERED: Potassium Replacement Protocol 1 EACH MISC MISCELLANE PRN (22:28)
[2023-07-17] MEDS ORDERED: Magnesium Replacement Protocol 1 EACH MISC MISCELLANE PRN (22:28)
[2023-07-17] MEDS: LORazepam 1 MG/0.5 ML VIAL ONE (22:32)
[2023-07-17] MEDS: levETIRAcetam IV 2,000 MG in SODIUM CHLORIDE 0.9% 250 ML IVPB ONE (22:49)
[2023-07-17] MEDS ORDERED: LORazepam 2 MG/ML INJ IV STA (22:59)
--- NOTE | 2023-07-17 22:59 | CT ---
EXAMINATION TYPE: CT brain wo con CT DLP: 1183.4 mGycm, Automated exposure control for dose reduction was used. DATE OF EXAM: 07/17/2023 9:58 PM COMPARISON: 01/26/2014. CLINICAL INDICATION:Female, 27 years old with history of seizure, fall, pt has h/o absent seizures an d had 3-4 seizures tonight and then had a grand mal seizure. unsure if she has hit her head at all. TECHNIQUE: Brain: Axial CT images of the brain were obtained with coronal and sagittal reformats created and rev iewed. Contrast used: None. Oral contrast used: None. FINDINGS: Brain: Extra-axial spaces: No abnormal extra-axial fluid collections. Dural calcifications are present. Ventricular system: Ventriculostomy tubing tip terminating near midline in the right lateral ventricl e. Tubing appears intact. No evidence of hydrocephalus Cerebral parenchyma: No acute intraparenchymal hemorrhage or mass effect. The pickett-white junction is well differentiated. Cerebellum: Unremarkable. Mass effect: No evidence of midline shift. Intracranial vasculature: Atherosclerotic calcifications of the intracranial vessels. Soft tissues: Normal. Calvarium/osseous structures: No depressed skull fracture. Paranasal sinuses and mastoid air cells: Mild scattered paranasal sinus disease. Visualized orbits: Orbital contents are intact. IMPRESSION: 1. No acute intracranial process. 2. Ventriculostomy changes without evidence for hydrocephalus.
--- NOTE | 2023-07-17 23:00 | P.HPIM ---
History of Present Illness H&P Date: 07/17/23 Chief Complaint: Status epilepticus 27-year-old female with bipolar disorder, hydrocephalus status post shunt, seizure disorder off antiseizure meds Patient was admitted to the mental health unit last night for depression and suicidal ideation for further management by psych She is known to have hydrocephalus status post shunt she also reported history of seizure type absence seizure currently off medications due to schedule testing as an outpatient. While on the mental health unit 18 was activated for a unwitnessed seizure patient was found in the hallway assumed that she hit her head on the ground she seemed to have an absence seizure but then was followed by tonic-clonic seizure it was aborted by IM Ativan but then patient continues to have absent seizures or witnessed while 18 and myself at bedside followed by postictal confusion Patient reports some headache over the right occipital region and left temporal region, denies any new or focal neurodeficits. Patient currently not on any antiseizure meds she reports that they have been held for scheduled outpatient treatment she has not had any seizures in a while Patient denies any fevers chills upper respiratory infection symptoms abdominal pain chest pain nausea vomiting changes in bowel or urinary habits review of systems Pertinent positives as noted in HPI. All other systems were reviewed and are negative on exam Patient had multiple witnessed absence seizure while at bedside doing physical exam and assessment these episodes were followed by postictal confusion Constitutional: No acute distress, conversant, pleasant Eyes: Anicteric sclerae, moist conjunctiva, Pupils equal round reactive to light ENMT: NC/AT Oropharynx clear, no erythema, or exudates Neck: Supple, no masses, or JVD No carotid bruits No thyromegaly Lungs: Clear to auscultation Clear to percussion Normal respiratory effort, no accessory muscle use Cardiovascular: Heart regular in rate and rhythm, No murmurs, gallops, or rubs No peripheral edema Abdominal: Soft Nontender, no guarding, rebound or rigidity Abdomen moving with respiration Normoactive bowel sounds Extremities: No digital cyanosis No clubbing Pedal pulses intact and symmetrical Radial pulses intact and symmetrical No calf tenderness Psychiatric: Alert and oriented to person, place and time Neuro Muscles Strength 4/5 in all 4 extremities Sensation to light touch grossly present throughout Cranial nerves II-XII grossly intact Past Medical History Past Medical History: Asthma Additional Past Medical History / Comment(s): ANXIETY, back surgery, shunt d/t hydrocephalus History of Any Multi-Drug Resistant Organisms: None Reported Date of last positivie culture/infection: 2016 Past Surgical History: Back Surgery, Ear Surgery Past Psychological History: Anxiety Additional Psychological History / Comment(s): BPD Smoking Status: Current every day smoker Past Drug Use History: Marijuana Medications and Allergies Home Medications Medication Instructions Recorded Confirmed Type Albuterol Sulfate [Proair Hfa] 2 puff INHALATION RT-Q6H PRN 08/24/20 07/16/23 History Acamprosate Calcium [Campral] 666 mg PO TID 07/16/23 07/16/23 History Cholecalciferol (Vitamin D3) 50 mcg PO DAILY 07/16/23 07/16/23 History [Vitamin D3 (50 Mcg = 2000 Iu)] Fluticasone/Vilanterol 1 puff INHALATION RT-DAILY 07/16/23 07/16/23 History [Fluticasone-Vilanterol 100-25] Meloxicam [Mobic] 15 mg PO DAILY 07/16/23 07/16/23 History Omeprazole 20 mg PO DAILY 07/16/23 07/16/23 History Ondansetron [Zofran] 4 mg PO DAILY 07/16/23 07/16/23 History Rimegepant Sulfate [Nurtec Odt] 75 mg PO DAILY PRN 07/16/23 07/16/23 History Sertraline [Zoloft] 75 mg PO DAILY 07/16/23 07/16/23 History lamoTRIgine [lamoTRIgine ODT See Taper PO DIRECTED 07/16/23 07/16/23 History ([place]) Dose Pack] tiZANidine [Zanaflex] 2 mg PO HS PRN 07/16/23 07/16/23 History Allergies Allergy/AdvReac Type Severity Reaction Status Date / Time Iodinated Contrast Media Allergy Anaphylaxis Verified 07/16/23 14:28 [Iodinated Contrast Media - IV Dye] Physical Exam Vitals: Intake and Output 07/17/23 07/17/23 07/17/23 06:59 14:59 22:59 Other: Weight 59.02 kg Assessment and Plan Assessment: 27-year-old female hydrocephalus status post shunt, seizure disorder of antiseizure meds, depression suicidal ideation had witnessed seizure on the mental health unit I evaluated the patient at bedside discussed the case with on-call mental health unit staff accepted the admission for status epilepticus for further neurologic workup with anticipated length of stay more than 2 midnights Status epilepticus [id number] episodes of absence seizure followed by postictal confusion Ativan 2 mg IV push as needed Loading with Keppra IV piggyback 2000 mg Start Keppra 1000 mg p.o. twice daily Psych eval Neuro evaluation CT of the brain without contrast pending Fall precautions Suicide precautions Continue with neurochecks every hour Check CBC BMP liver enzymes Depression with suicidal ideation Management per psych Continue psych medications the patient was taking on the mental health unit History of asthma DuoNeb as needed Full code DVT prophylaxis heparin subcu 3 times daily GI prophylaxis Protonix 40 mg p.o. daily
[2023-07-17] MEDS ORDERED: LORazepam 1 MG/0.5 ML VIAL IV PRN (23:01)
[2023-07-17] MEDS: LORazepam 1 MG/0.5 ML VIAL IV STA ×2 (23:10→23:27)
[2023-07-17] MEDS: SODIUM CHLORIDE 0.9% IVPB ONE (23:28)
[2023-07-17] MEDS: PHENYTOIN SODIUM IVPB ONE (23:28)
[2023-07-17] MEDS: HEPARIN SODIUM,PORCINE 5,000 UNIT/ML 1 ML VIAL SQ SCH (23:51)
[2023-07-18 00:07] LABS: Basophils % (A) 0 %; Eosinophils # (A) 0.1 k/uL (0-0.7); Eosinophils % (A) 1 %; HCT 37.4 % (34.0-46.0); HGB 12.4 gm/dL (11.4-16.0); Lymphocytes # (A) 3.3 k/uL (1.0-4.8); Lymphocytes % (A) 32 %; MCH 30.8 pg (25.0-35.0); MCHC 33.1 g/dL (31.0-37.0); Monocytes # (A) 0.7 k/uL (0-1.0); Monocytes % (A) 7 %; Neutrophils # (A) 6.1 k/uL (1.3-7.7); Neutrophils % (A) 59 %; Platelet Count 263 k/uL (150-450); RBC 4.02 m/uL (3.80-5.40); RDW 13.4 % (11.5-15.5); WBC 10.3 k/uL (3.8-10.6)
[2023-07-18 00:23] LABS: African American GFR (CKD) >90 (>60 ml/min/1.73 sqM); Anion Gap 9 mmol/L; Blood Urea Nitrogen 13 mg/dL (7-17); Calcium 8.8 mg/dL (8.4-10.2); Carbon Dioxide 20 mmol/L (22-30); Chloride 111 mmol/L (98-107); Glucose 82 mg/dL (74-99); Non-African American GFR(CKD) >90 (>60 ml/min/1.73 sqM); Potassium 3.4 mmol/L (3.5-5.1); Sodium 140 mmol/L (137-145)
[2023-07-18] MEDS ORDERED: Potassium Replacement Protocol 1 EACH MISC MISCELLANE PRN (01:13)
[2023-07-18] MEDS: propofoL 100 ML IV ONE (01:21)
[2023-07-18 01:28] LABS: ABG Base Excess -4.4 mmol/L; ABG HCO3 22 mmol/L (21-25); ABG Oxygen Saturation 100.2 % (94-97); ABG PCO2 45 mmHg (35-45); ABG PO2 311 mmHg (83-108); Allen Test Performed? Yes
[2023-07-18] MEDS: MIDAZOLAM HCL 50 MG in SODIUM CHLORIDE 0.9% 40 ML IV SCH (01:30)
[2023-07-18] MEDS: SODIUM CHLORIDE 0.9% 500 ML 500 ML IV ONE ×2 (01:49→04:49)
--- NOTE | 2023-07-18 01:59 | XR ---
EXAM: XR Chest, 1 View CLINICAL HISTORY: ITS.REASON XR Reason: intubation TECHNIQUE: Frontal view of the chest. COMPARISON: No relevant prior studies available. FINDINGS: There is an endotracheal tube in place proximally 49 mm above the carroll. There is a NG tube in place at the distal tip in the body of the stomach. There is a right LAW WRITER shunt tubing overlying the chest wall and abdomen. Lungs: Moderate to heavy peribronchial thickening of the central and lower lobe bronchi with patchy opacities at the lung bases. No consolidation. Pleural space: Unremarkable. No pneumothorax. Heart: Unremarkable. No cardiomegaly. Mediastinum: Unremarkable. Normal mediastinal contour. Bones/joints: Unremarkable. No acute fracture. IMPRESSION: Findings concerning for bronchitis with mild lower lobe infiltrates. Tubes and lines as above.
[2023-07-18 02:02] LABS: Glucose,Whole Blood 107 mg/dL (70-110)
[2023-07-18] MEDS: POTASSIUM BICARBONATE/CIT AC 20 MEQ TABLET.EFF NG-TUBE SCH ×2 (02:09→09:36)
--- NOTE | 2023-07-18 02:45 | P.CNPUL ---
History of Present Illness Consult date: 07/18/23 Requesting physician: Romero Schmidt Reason for consult: other (Status epilepticus, ICU management) Chief complaint: Suicidal ideation, seizures History of present illness: Patient is a 27-year-old white female with past medical history significant for asthma, seizure disorder, hydrocephalus status post BACK GRINDER shunt, bipolar disorder and major depression, migraines, and alcohol use disorder. Patient presented to the emergency room back on 07/16/2023 with suicidal ideation. She was sent in from [facility] to be admitted for inpatient psych evaluation. No actual suicidal attempts were reported. Patient was admitted to the [facility] unit. Late last night, a rapid response was called for seizures. Patient reportedly was found on the ground in the hallway. The sound physician that responded to the event, noted possible absence seizure's. These progressed to generalized tonic-clonic activity. She was given several doses of Ativan, a total of 7 mg, with no significant response. She was also loaded with Keppra and Dilantin per direction of the neurologist. Despite these pharmacological interventions, she continues to have seizure like activity. She is currently moved to the intensive care unit. She continues to have intermittent generalized tonic-clonic seizures every 2 to 5 minutes. Lasting approximately 30 seconds to 1 minute. No complete recovery in between. Moving all 4 extremities. Eyes are midline without nystagmus. No tongue biting. No urinary or fecal incontinence. Currently, appears postictal and will occasionally answer simple commands. On room air. SpO2 96%. No reported aspiration events. Remaining vital signs are also stable. Neurologist was consulted, who recommends intubation and sedation until seizures can be controlled. MONUMENT SETTER responded the bedside, performed rapid sequence intubation. Postintubation chest x-ray demonstrates endotracheal tube tip above the carroll and below the clavicle. Nasogastric tube courses below the diaphragm could be advanced at least 5 cm. Current ventilator settings include assist-control, respiratory rate 16, tidal volume 300, FiO2 100%, PEEP of 5. Postintubation ABG shows a PaO2 of 311, pCO2 of 45, pH of 7.3. FiO2 was appropriately weaned. She is sedated with propofol which is currently at 50 mcg/kg/min. She is currently asynchronous with mechanical ventilator and breath stacking. Peak airway pressures 28. CT of the brain was carried out which did not show any acute intracranial process. There was a ventriculostomy changes without evidence of hydrocephalus list. Urine toxicology screen positive for marijuana, but are otherwise unremarkable. No fevers. Recently started on BuSpar, and also on Zoloft. CBC unremarkable, no leukocytosis. Most recent BMP: Includes a sodium 140, potassium 3.4, chloride 111, serum bicarb 20, BUN 13, creatinine 0.46, glucose 82. Patient has no family or next of kin listed in the EMR. She is listed as homeless. We will attempt to reach out for possible contacts. Review of Systems ROS unobtainable: due to mental status Past Medical History Past Medical History: Asthma Additional Past Medical History / Comment(s): ANXIETY, back surgery, shunt d/t hydrocephalus History of Any Multi-Drug Resistant Organisms: None Reported Date of last positivie culture/infection: 2016 Past Surgical History: Back Surgery, Ear Surgery Past Psychological History: Anxiety Additional Psychological History / Comment(s): BPD Smoking Status: Current every day smoker Past Drug Use History: Marijuana Medications and Allergies Home Medications Medication Instructions Recorded Confirmed Type Albuterol Sulfate [Proair Hfa] 2 puff INHALATION RT-Q6H PRN 08/24/20 07/18/23 History Acamprosate Calcium [Campral] 666 mg PO TID 07/16/23 07/18/23 History Cholecalciferol (Vitamin D3) 50 mcg PO DAILY 07/16/23 07/18/23 History [Vitamin D3 (50 Mcg = 2000 Iu)] Fluticasone/Vilanterol 1 puff INHALATION RT-DAILY 07/16/23 07/18/23 History [Fluticasone-Vilanterol 100-25] Meloxicam [Mobic] 15 mg PO DAILY 07/16/23 07/18/23 History Omeprazole 20 mg PO DAILY 07/16/23 07/18/23 History Ondansetron [Zofran] 4 mg PO DAILY 07/16/23 07/18/23 History Rimegepant Sulfate [Nurtec Odt] 75 mg PO DAILY PRN 07/16/23 07/18/23 History Sertraline [Zoloft] 75 mg PO DAILY 07/16/23 07/18/23 History lamoTRIgine [lamoTRIgine ODT See Taper PO DIRECTED 07/16/23 07/18/23 History ([place]) Dose Pack] tiZANidine [Zanaflex] 2 mg PO HS PRN 07/16/23 07/18/23 History Allergies Allergy/AdvReac Type Severity Reaction Status Date / Time Iodinated Contrast Media Allergy Anaphylaxis Verified 07/16/23 14:28 [Iodinated Contrast Media - IV Dye] Physical Exam Vitals: Vital Signs FiO2 07/18/23 01:34 50 07/18/23 00:46 100 07/18/23 00:07 100 07/18/23 00:00 100 Intake and Output 07/17/23 07/17/23 07/18/23 14:59 22:59 06:59 Intake Total 30 Output Total 60 Balance -30 Intake: IV 30 KVO NS 30 Output: Urine 60 Other: Weight 59.02 kg GENERAL EXAM: 27-year-old white female with dwarfism. Currently, lethargic and will follow simple commands alternating with periods of generalized tonic-clonic activity as described in HPI. HEAD: Normocephalic and atraumatic EYES: Normal reaction of pupils, equal size. No nystagmus. NOSE: Clear with pink turbinates. THROAT: No erythema or exudates. NECK: No masses, no JVD. CHEST: No chest wall deformity. LUNGS: Equal air entry with no crackles, wheeze, rhonchi or dullness. On room air. No conversational dyspnea or accessory muscle use.. CVS: S1 and S2 normal with no audible murmur, regular rhythm. No extra heart sounds ABDOMEN: No hepatosplenomegaly, active bowel sounds, no guarding or rigidity. SPINE: No scoliosis or deformity SKIN: No rashes CENTRAL NERVOUS SYSTEM: Generalized tonic-clonic activity noted, all 4 extremities involved, no tongue biting, no urinary or fecal incontinence. Seizure activity last 30 seconds to 1 minute. Recurring every 2 to 5 minutes and alternating with periods of minimal responsiveness. Pupils midline without nystagmus. Reactive to light. No nuchal rigidity. Afebrile. EXTREMITIES: There is no peripheral edema, clubbing, or cyanosis. Peripheral pulses are intact. Results - Laboratory Findings CBC and BMP: 07/18/23 05:51 07/18/23 05:51 ABG ABG pH 7.30 (7.35-7.45) L 07/18/23 01:20 ABG pCO2 45 mmHg (35-45) 07/18/23 01:20 ABG pO2 311 mmHg (83-108) H 07/18/23 01:20 ABG O2 Saturation 100.2 % (94-97) H 07/18/23 01:20 Abnormal lab findings: Abnormal Labs 07/17/23 07/18/23 23:07 01:20 ABG pH 7.30 L ABG pO2 311 H ABG O2 Saturation 100.2 H Potassium 3.4 L Chloride 111 H Carbon Dioxide 20 L Creatinine 0.46 L - Diagnostic Findings Chest x-ray: image reviewed Assessment and Plan Assessment: Status epilepticus, patient was reportedly instructed to stop outpatient antiepileptic medications, while admitted to inpatient mental health unit, she developed intermittent generalized tonic-clonic activity without complete recovery between episodes. She was initially treated with multiple doses of Ativan, total of 7 mg, without significant response. She was also loaded with 1 g of Keppra and 1 g of Dilantin by direction of her neurologist. This failed to terminate patient's seizure activity. Patient was transferred to the intensive care unit where she was intubated for airway protection and sedated. Mechanical ventilator management, secondary to above History of seizure disorder, reportedly not on any antiepileptic medications on arrival to the hospital. History of hydrocephalus, status post BACK GRINDER shunt History of alcohol use disorder, acamprosate listed as home medication Suicidal ideation History of bipolar disorder and major depression History of migraines History of asthma, not currently active Marijuana use Dwarfism and short stature Plan: Patient was transferred to the intensive care unit and ultimately intubated for airway protection Patient will remain on the mechanical ventilator until we can get adequate control of seizures. Postintubation chest x-ray reviewed, endotracheal tube in satisfactory position, advance NG tube approximately 5-10 cm. Continue current ventilator settings. Ventilator order set ordered. Propofol for sedation, may need adjunct sedation if she remains asynchronous with the ventilator. Neurologist was consulted for management of patient's antiepileptic medications CT of the brain noted, obtain EEG, Initiate seizure precautions, Urine toxicology screen only positive for marijuana, Afebrile Prognosis is guarded. Unfortunately, no family or contacts are listed. My supervising physician was updated on patient condition and plan I have personally seen and examined the patient, performed the documentation and the assessment and plan as written. Number of minutes spent on the visit:20 This is a joint evaluation that was done along with the nurse practitioner. I was involved in the patient's care yesterday evening after the patient was noted to have repeated episodes of seizures on the psychiatric floor. The patient received a total of 7 mg of Ativan and the patient was also loaded with Dilantin and Keppra and despite that she continues to have episodes of intermittent tonic-clonic seizure activity. At that point, the patient was intubated and placed on mechanical ventilator this morning the patient is on a combination of propofol which is running at 50 mcg/kg/min and Versed running at 3 mg an hour. The patient did encounter some hypotension the patient is currently on low-dose norepinephrine at 0.04 mcg/kg/min. She is currently on a mechanical ventilator on assist-control mode at rate of 16 with a tidal volume of 300 and FiO2 of 40% with a PEEP of 5. The patient is also normal sed rate of 75 cc an hour. She was given total of 2 L of IV fluid bolus following intubation. Morning blood gas showed a pH of 7.3 with a pCO2 of 45 and a pO2 of 311 and FiO2 is being weaned down. EEG is in progress. No active tonic clonic seizure activity is witnessed this morning. Neurology has been consulted. The patient is currently intubated on mechanical ventilator. To be continued for now. She is receiving 1.5 g every 12 hours. This is a critical care evaluation. Line will be established. Time with Patient: Greater than 30
[2023-07-18] MEDS: SODIUM CHLORIDE 0.9% 1,000 ML IV ONE (03:07)
[2023-07-18] MEDS: IPRATROPIUM-ALBUTEROL 3 ML NEB INHALATION SCH (04:01)
[2023-07-18] MEDS: NOREPINEPHRINE 4 MG in SODIUM CHLORIDE 0.9% 250 ML IV SCH (06:18)
[2023-07-18] MEDS: PANTOPRAZOLE 40 MG TABLET PO SCH (06:27)
[2023-07-18 06:49] LABS: Basophils # (A) 0.1 k/uL (0-0.2); Basophils % (A) 1 %; Eosinophils % (A) 0 %; HCT 34.3 % (34.0-46.0); HGB 10.8 gm/dL (11.4-16.0); Lymphocytes # (A) 1.6 k/uL (1.0-4.8); Lymphocytes % (A) 16 %; MCH 30.5 pg (25.0-35.0); MCHC 31.4 g/dL (31.0-37.0); Mean Platelet Volume 7.6; Monocytes # (A) 0.5 k/uL (0-1.0); Monocytes % (A) 5 %; Neutrophils # (A) 7.6 k/uL (1.3-7.7); Neutrophils % (A) 78 %; Platelet Count 235 k/uL (150-450); RBC 3.54 m/uL (3.80-5.40); RDW 13.5 % (11.5-15.5); WBC 9.8 k/uL (3.8-10.6)
[2023-07-18 06:51] LABS: Glucose,Whole Blood 110 mg/dL (70-110)
[2023-07-18 06:57] LABS: African American GFR (CKD) >90 (>60 ml/min/1.73 sqM); Anion Gap 7 mmol/L; Blood Urea Nitrogen 9 mg/dL (7-17); Calcium 7.5 mg/dL (8.4-10.2); Carbon Dioxide 16 mmol/L (22-30); Chloride 119 mmol/L (98-107); Glucose 103 mg/dL (74-99); Non-African American GFR(CKD) >90 (>60 ml/min/1.73 sqM); Potassium 3.6 mmol/L (3.5-5.1); Sodium 142 mmol/L (137-145)
[2023-07-18] MEDS ORDERED: levETIRAcetam 500 MG TAB PO SCH (09:00)
[2023-07-18] MEDS ORDERED: LORazepam 1 MG/0.5 ML VIAL IV PRN ×2 (09:14→14:53)
[2023-07-18] MEDS: levETIRAcetam IV 500 MG/5 ML VIAL IVP SCH (09:33)
[2023-07-18] MEDS: CHLORHEXIDINE GLUCONATE 15 ML CUP MUCOUS MEM SCH (09:38)
[2023-07-18] MEDS: SERTRALINE 50 MG TAB PO SCH (09:39)
[2023-07-18] MEDS: THIAMINE 100 MG TAB PO SCH (09:39)
[2023-07-18] MEDS: busPIRone HCl 10 MG TAB PO SCH (09:39)
[2023-07-18] MEDS: ACAMPROSATE CALCIUM 333 MG TABLET.DR PO SCH (09:40)
[2023-07-18] MEDS: SODIUM CHLORIDE 0.9% 1,000 ML IV SCH (09:45)
[2023-07-18 11:43] LABS: Glucose,Whole Blood 96 mg/dL (70-110)
--- NOTE | 2023-07-18 12:17 | P.PN ---
Subjective Progress Note Date: 07/18/23 Hospital Course: 27-year-old female with history of seizure disorder off of antiepileptics, hyd rocephalus status post shunt, bipolar disorder presented from mental health unit for status epilepticus. Patient was admitted to mental health unit for depression and suicidal ideation on 07/16/2023. Patient was noted to have multiple episodes of absence seizure, rapid response was called. She was given multiple doses of IV Ativan, and continued to have seizure-like activity, and also has some generalized tonic-clonic activity. She was taken to the ICU, loaded with Keppra and Dilantin, and was intubated for airway protection. Currently patient is in the medical ICU intubated and sedated. Undergoing further workup. Head CT was completed, did not show any acute process, ventriculostomy changes without evidence of hydrocephalus. Subjective: Seen and examined at bedside. Currently intubated and sedated. Pertinent positives and negatives as discussed above, a complete review of sys tems was performed and all other systems are negative. Vitals Signs Reviewed. General: Intubated sedated Derm: Warm, dry Head: Atraumatic, normocephalic, symmetric Eyes: Pupils equal and reactive Mouth: No lip lesion, mucus membranes moist Cardiovascular: S1S2 reg, no murmur Lungs: CTA bilateral, no rhonchi, no rales, no accessory muscle use, intubated mechanically ventilated Abdominal: Soft, no appreciable organomegaly Ext: No contractures Neuro: Sedated Psych: Unable to assess Data Reviewed Today: Pertinent Labs: WBC 9.8, hemoglobin 10.8, bicarb 16, no anion gap 7, creatinine 0.4, glucose range between 96-1 03, lactate 0.7 Imaging: Chest x-ray independently interpreted no significant opacities noted. EKG independently interpreted, shows sinus rhythm. Assessment and Plan: Active: Status epilepticus History of seizure disorder, reportedly off of her antiepileptics History of hydrocephalus status post shunt -Discussed management with neurology, EEG was negative, however patient was on Versed and propofol drip. -Will continue to wean down propofol and Versed and monitor for any seizure activities, if there are seizure activities, patient may need to be transferred for long-term EEG monitoring -On Keppra IV 1500 mg every 12 hours -Also on Levophed, likely in the setting of propofol use, continue to wean -On normal saline at 75 cc an hour -Ativan as needed IV for seizures Bipolar disorder Anxiety disorder Depression with suicidal ideation -On BuSpar 10 3 times daily, Zoloft 75 daily -Thiamine 100 mg daily Asthma -DuoNebs every 4 hours, and as needed DVT ppx: Subcu heparin Code status: Full code Anticipated discharge place: Pending clinical course Anticipated discharge time: Pending clinical course Objective - Vital Signs Vital signs: Vital Signs Temp 97.7 F 07/18/23 07:45 Pulse 76 07/18/23 12:03 Resp 24 07/18/23 11:00 BP 102/63 07/18/23 11:00 Pulse Ox 100 07/18/23 11:00 FiO2 40 07/18/23 12:06 Intake & Output 07/17/23 07/18/23 07/18/23 18:59 06:59 18:59 Intake Total 2165.608 192.524 Output Total 265 140 Balance 1900.608 52.524 Weight 60 kg Intake: IV 2100 20 KVO NS 100 20 Sodium Chloride 0.9% 1, 1000 000 ml @ 999 mls/hr IV . Q1H1M ONE Rx#:[id number] Sodium Chloride 0.9% 500 1000 ml 500 ml @ 999 mls/hr IV .Q31M ONE Rx#:[id number] Intake, IV Titration 65.608 172.524 Amount Midazolam HCl 50 mg In 7.0 Sodium Chloride 0.9% 40 ml @ 1 MG/HR 1 mls/hr IV .Q24H LA NENA Rx#:[id number] Norepinephrine 4 mg In 22.524 Sodium Chloride 0.9% 250 ml @ 0.03 MCG/KG/MIN 6. 746 mls/hr IV .Q24H LA NENA Rx#:[id number] Sodium Chloride 0.9% 1, 150 000 ml @ 75 mls/hr IV . [id number] LA NENA Rx#:[id number] propofoL 1,000 mg In 58.608 Empty Bag 1 bag @ 15 MCG/ KG/MIN 5.312 mls/hr IV . [id number] LA NENA Rx#:[id number] Output: Urine 265 140 Other: Voiding Method Indwelling Catheter - Labs CBC & Chem 7: 07/18/23 05:51 07/18/23 05:51 Labs: Abnormal Lab Results - Last 24 Hours (Table) 07/17/23 07/18/23 07/18/23 Range/Units 23:07 01:20 05:51 RBC 3.54 L (3.80-5.40) m/uL Hgb 10.8 L (11.4-16.0) gm/dL ABG pH 7.30 L (7.35-7.45) ABG pO2 311 H (83-108) mmHg ABG O2 Saturation 100.2 H (94-97) % Potassium 3.4 L (3.5-5.1) mmol/L Chloride 111 H (98-107) mmol/L Carbon Dioxide 20 L (22-30) mmol/L Creatinine 0.46 L (0.52-1.04) mg/dL Glucose (74-99) mg/dL Calcium (8.4-10.2) mg/dL 07/18/23 Range/Units 05:51 RBC (3.80-5.40) m/uL Hgb (11.4-16.0) gm/dL ABG pH (7.35-7.45) ABG pO2 (83-108) mmHg ABG O2 Saturation (94-97) % Potassium (3.5-5.1) mmol/L Chloride 119 H (98-107) mmol/L Carbon Dioxide 16 L (22-30) mmol/L Creatinine 0.40 L (0.52-1.04) mg/dL Glucose 103 H (74-99) mg/dL Calcium 7.5 L (8.4-10.2) mg/dL Microbiology - Last 24 Hours (Table) 07/18/23 00:45 Gram Stain - Preliminary Sputum
--- NOTE | 2023-07-18 13:44 | P.PCN ---
Date of Procedure: 07/18/23 Operative Findings: Central Line Procedure Note Central Line Location: [x] Right or [_] Left [_] Internal Jugular Vein or [_] Subclavian Vein or [x] Femoral Vein Consent: [_] Consent was obtained from prior to the procedure. Indications, risks and benefits were discussed prior to the procedure. [x_] The procedure was performed emergently and the permission was implied because of the emergent nature. The [facility] Central Line Insertion Practices form was completed during and immediately following the procedure. A time out was performed. My hands were washed immediately prior to the procedure. I wore a surgical cap, mask with protective eyewear, full gown and sterile gloves throughout the procedure. The patient was placed in Trendelenburg position. The Left chest was prepped using chlorhexidine scrub and draped in sterile fashion using a three quarter sheet drape and sterile towels. Skin preparation was allowed to dry prior to skin puncture. Anatomic landmarks were identified. Anesthesia was achieved over the vein using 1% lidocaine. The introducer needle was inserted into the vein. Venous blood was withdrawn. The syringe was removed and a guidewire was advanced into the introducer needle. A small incision was made at the skin surface with a scalpel and the introducer needle was exchanged for a dilator over the guidewire. After appropriate dilation was obtained, the dilator was exchanged over the wire for an antimicrobial coated central venous catheter. The wire was removed and the catheter was sutured in place . A biopatch was placed at the insertion site. A sterile op-site was placed over the catheter and biopatch. The patient tolerated the procedure without any hemodynamic compromise. At time of procedure completion, all ports aspirated and flushed properly.
--- NOTE | 2023-07-18 14:08 | P.CNNES ---
History of Present Illness Consult date: 07/18/23 Requesting physician: Romero Schmidt Reason for Consult: seizures History of Present Illness: This is a 27-year-old woman with history of seizure disorder, hydrocephalus status post shunt, bipolar, depression, migraine and alcohol disorder who initially presented emergency department on 07/16/2023 for suicidal ideation that was admitted to inpatient psych then was had to be transferred to the ICU for seizure. History was obtained from medical record and ICU team. Patient was sent from [facility] to be admitted to inpatient psychiatry evaluation. As a result the patient was admitted to the inpatient mental health and it seems that today at nighttime rapid response was called for seizure. It is reported that she was found on the ground in the hallway in the inpatient psych and it was felt the patient was having possible absence seizure. The seizures has progressed to tonic-clonic seizure-like activity and she was giving several Ativan without any improvement. She received a total of 7 mg as well as was given Keppra 2 g. I was notified by the ICU team about this patient when she was transferred to the unit and I notified them that if she continues to have seizure to give 3 mg of Ativan and she repeated within 5 minutes and she continues to give her Dilantin and to intubate and sedate the patient. Seems the patient continued to have seizure-like activity and she was having intermitt ent generalized tonic-clonic seizures every 2 to 5 minutes lasting 30 seconds to 1 minute and no complete recovery in between. She was moving all extremities. Seems that her eyes were midline without nystagmus no tongue biting no urinary or bowel incontinence and it was appeared that she was in postictal with occasional answers simple commands. As a result the patient was intubated on vent and she was placed on IV propofol and IV Versed. The IV Propofol was at 50mcg/kg/min and IV Versed was at 3mg/hour. No further seizure activity this morning. I was notified by the ICU team yesterday night that her seizure medication was being tapered to discontinued and she is can to get an EEG as an outpatient. She has underlying history of hydrocephalus with a shunt. She is on lamotrigine with a taper dose. Some of the workup during this hospital visit consisted of: Patient is afebrile Sodium is 142, serum glucose is 103, plasma lactic acid vein is 0.7 today at 3 AM Calcium on presentation was 8.8. Magnesium is 2.0. The head is reported as no acute intracranial process. Ventriculostomy changes without evidence for hydrocephalus. History reviewed the CT and I agree there is no acute or subacute changes. The patient does have tape of the ventriculostomy on the right side Review of Systems Limited but the positive and negative as per HPI. Past Medical History Past Medical History: Asthma Additional Past Medical History / Comment(s): ANXIETY, back surgery, shunt d/t hydrocephalus History of Any Multi-Drug Resistant Organisms: None Reported Date of last positivie culture/infection: 2017 MDRO Source:: back Past Surgical History: Back Surgery, Ear Surgery Additional Past Surgical History / Comment(s): Back surgery X2; one when she was 7; another when she ws 20 Past Anesthesia/Blood Transfusion Reactions: No Reported Reaction Past Psychological History: Anxiety Additional Psychological History / Comment(s): BPD Smoking Status: Current every day smoker Past Drug Use History: Marijuana - Past Family History Father History Unknown: Yes Mother History Unknown: Yes Medications and Allergies Home Medications Medication Instructions Recorded Confirmed Type Albuterol Sulfate [Proair Hfa] 2 puff INHALATION RT-Q6H PRN 08/24/20 07/18/23 History Acamprosate Calcium [Campral] 666 mg PO TID 07/16/23 07/18/23 History Cholecalciferol (Vitamin D3) 50 mcg PO DAILY 07/16/23 07/18/23 History [Vitamin D3 (50 Mcg = 2000 Iu)] Fluticasone/Vilanterol 1 puff INHALATION RT-DAILY 07/16/23 07/18/23 History [Fluticasone-Vilanterol 100-25] Meloxicam [Mobic] 15 mg PO DAILY 07/16/23 07/18/23 History Omeprazole 20 mg PO DAILY 07/16/23 07/18/23 History Ondansetron [Zofran] 4 mg PO DAILY 07/16/23 07/18/23 History Rimegepant Sulfate [Nurtec Odt] 75 mg PO DAILY PRN 07/16/23 07/18/23 History Sertraline [Zoloft] 75 mg PO DAILY 07/16/23 07/18/23 History lamoTRIgine [lamoTRIgine ODT See Taper PO DIRECTED 07/16/23 07/18/23 History ([place]) Dose Pack] tiZANidine [Zanaflex] 2 mg PO HS PRN 07/16/23 07/18/23 History Allergies Allergy/AdvReac Type Severity Reaction Status Date / Time Iodinated Contrast Media Allergy Anaphylaxis Verified 07/16/23 14:28 [Iodinated Contrast Media - IV Dye] Physical Examination - Vital Signs Vital Signs: Vital Signs Temp Pulse Pulse Resp BP BP Pulse Ox 07/18/23 13:00 117 H 23 112/57 100 07/18/23 12:30 98 22 104/58 100 07/18/23 12:19 99 07/18/23 12:06 07/18/23 12:03 76 07/18/23 12:00 98.5 F 79 17 97/61 99 07/18/23 11:30 82 20 102/58 100 07/18/23 11:00 89 24 102/63 100 07/18/23 10:40 93 30 H 115/83 95 07/18/23 10:20 73 16 103/66 99 07/18/23 10:00 73 16 103/61 98 07/18/23 09:40 81 16 101/57 100 07/18/23 09:20 81 20 107/62 100 07/18/23 09:00 77 22 107/61 100 07/18/23 08:45 87 22 115/61 100 07/18/23 08:30 90 19 109/64 100 07/18/23 08:15 86 23 76/59 100 07/18/23 08:03 07/18/23 08:00 80 18 97/58 100 07/18/23 07:54 74 07/18/23 07:53 07/18/23 07:45 97.7 F 65 16 100/59 99 07/18/23 07:30 64 16 95/56 100 07/18/23 07:15 66 16 98/56 99 07/18/23 07:00 66 16 93/57 99 07/18/23 06:45 70 16 93/56 99 07/18/23 06:30 71 16 89/45 99 07/18/23 06:00 85 17 93/65 98 07/18/23 05:30 81 16 86/48 100 07/18/23 05:00 87 16 91/51 99 07/18/23 04:44 85 07/18/23 04:30 91 16 98/54 99 07/18/23 04:01 67 07/18/23 04:00 64 16 93/52 100 07/18/23 03:00 75 17 81/52 99 07/18/23 02:00 79 74 15 84/48 79/46 99 07/18/23 01:34 07/18/23 01:00 98 19 100/72 99 07/18/23 00:46 07/18/23 00:00 91 19 100/72 96 07/17/23 23:00 76 20 105/89 96 07/17/23 22:15 98.5 F 110 H 20 105/73 95 FiO2 07/18/23 13:00 07/18/23 12:30 07/18/23 12:19 07/18/23 12:06 40 07/18/23 12:03 07/18/23 12:00 40 07/18/23 11:30 07/18/23 11:00 07/18/23 10:40 07/18/23 10:20 07/18/23 10:00 07/18/23 09:40 07/18/23 09:20 07/18/23 09:00 07/18/23 08:45 07/18/23 08:30 07/18/23 08:15 40 07/18/23 08:03 40 07/18/23 08:00 50 07/18/23 07:54 07/18/23 07:53 40 07/18/23 07:45 07/18/23 07:30 07/18/23 07:15 07/18/23 07:00 07/18/23 06:45 07/18/23 06:30 07/18/23 06:00 07/18/23 05:30 07/18/23 05:00 07/18/23 04:44 07/18/23 04:30 07/18/23 04:01 07/18/23 04:00 50 07/18/23 03:00 07/18/23 02:00 50 07/18/23 01:34 50 07/18/23 01:00 50 07/18/23 00:46 100 07/18/23 00:00 100 07/17/23 23:00 07/17/23 22:15 Intake and Output 07/17/23 07/18/23 07/18/23 22:59 06:59 14:59 Intake Total 2165.608 410.623 Output Total 265 180 Balance 1900.608 230.623 Intake: IV 2100 20 KVO NS 100 20 Sodium Chloride 0.9% 1, 1000 000 ml @ 999 mls/hr IV . Q1H1M [facility] Rx#:[id number] Sodium Chloride 0.9% 500 1000 ml 500 ml @ 999 mls/hr IV .Q31M [facility] Rx#:[id number] Intake, IV Titration 65.608 390.623 Amount Midazolam HCl 50 mg In 7.0 20.5 Sodium Chloride 0.9% 40 ml @ 1 MG/HR 1 mls/hr IV .Q24H [facility] Rx#:[id number] Norepinephrine 4 mg In 45.123 Sodium Chloride 0.9% 250 ml @ 0.03 MCG/KG/MIN 6. 746 mls/hr IV .Q24H [facility] Rx#:[id number] Sodium Chloride 0.9% 1, 225 000 ml @ 75 mls/hr IV . [id number] [facility] Rx#:[id number] propofoL 1,000 mg In 58.608 100 Empty Bag 1 bag @ 15 MCG/ KG/MIN 5.312 mls/hr IV . [id number] [facility] Rx#:[id number] Output: Urine 265 180 Other: Voiding Method Indwelling Catheter Weight 59.02 kg 60 kg 60 kg General: Lying in bed and does not appear in acute distress. Resp: Intubated on ventilator. Neuro: Patient is comatose. Is on IV Versed and IV Propofol. Pupils are midline and is 2mm and reactive to light. No facial weakness. Is breathing over the vent. Has positive adolph and cough. Decrease tone throughout. No jerking or spontaneous movement. Results - Laboratory Findings CBC and BMP: 07/18/23 05:51 07/18/23 05:51 Abnormal Lab Findings: Abnormal Labs 07/17/23 07/18/23 07/18/23 23:07 01:20 05:51 RBC 3.54 L Hgb 10.8 L ABG pH 7.30 L ABG pO2 311 H ABG O2 Saturation 100.2 H Potassium 3.4 L Chloride 111 H Carbon Dioxide 20 L Creatinine 0.46 L Glucose Calcium 07/18/23 05:51 RBC Hgb ABG pH ABG pO2 ABG O2 Saturation Potassium Chloride 119 H Carbon Dioxide 16 L Creatinine 0.40 L Glucose 103 H Calcium 7.5 L Assessment and Plan Assessment: This is a 27-year-old woman with history of seizure disorder off antiepileptic, hydrocephalus s/p shunt, bipolar who initially was admitted to the mental health unit for depression and suicidal ideation on 07/16/2023 was transferred to the ICU recurrent seizure-like activity and was reported she had numerous ones and she reported she had absence seizure that led into a generalized tonic-clonic seizure without any resolution of her seizure with Ativan or Keppra seem that the patient was and clinical status epilepticus. Status epilepticus (clinically). So far her labs so remarkable for patient to be with status epilepticus and had GTC and plasma lactic acid vein is normal. CT head is unremarkable for acute process. Intubated on a ventilator and is on sedation due to above History of seizure disorder and is not on any antiepileptic drugs. Recent depression and suicidal ideation Hydrocephalus s/p shunt Dwarf Bipolar Major depression Alcohol use Plan: Routine EEG is completed and preliminary report is no seizure. I notified the nurse to start tapering off the sedation and if any continued seizure will consider transfer for extermination supervisor EEG. Yesterday the patient received Keppra 2 g as well as Dilantin 1000 mg. Currently she is on Keppra 1500 mg IV every 12 hours. Seizure precautions seizure pads Will defer the rest of the medical management to primary and other specialists Plan discussed with ICU team as well as her primary team Thank for the consultation I spent a total of 60 minutes on care. Time with Patient: Greater than 30
[2023-07-18] MEDS: ACETAMINOPHEN TAB 325 MG TAB PO PRN (16:00)
[2023-07-18 17:46] LABS: Glucose,Whole Blood 129 mg/dL (70-110)
--- NOTE | 2023-07-18 23:01 | EEG ---
ELECTROENCEPHALOGRAM REPORT CLINICAL HISTORY: This is a 27-year-old woman with history of seizure, who was in the mental health unit and had recurrent seizures and was felt she was in status epilepticus. As a result, the patient was intubated on a ventilator and placed on sedation. EEG is obtained to evaluate for seizure epileptiform activity. RELEVANT MEDICATIONS: 1. IV propofol. 2. IV Versed. 3. Phenytoin. 4. Keppra. 5. Ativan. EEG TYPE: A routine 21-channel EEG with video using the 10/20 electrode placement system. DESCRIPTION: The patient is intubated on a ventilator. The background consists of nyh-ed-sdwrckno voltage of 11 hertz activity and sometimes intermixed with delta activity. There is no physiological stage 2 sleep architecture. There is no focal slowing. Diffuse excessive beta activity. Interictal and ictal is none. ACTIVATION PROCEDURE: Photic stimulation did not evoke a posterior driving response. There is no abnormality during the photic stimulation. Hyperventilation is not performed. CLINICAL INTERPRETATION: This is an abnormal routine EEG. The background slowing is suggestive of mild encephalopathy. There is no focal slowing, epileptiform discharge, or seizure on the EEG. The excessive beta activity is likely due to medication effect (Ativan, Versed, and propofol). Clinical correlation is recommended. MMODL / IJN: [id number] / MTDD
[2023-07-18 23:45] LABS: Glucose,Whole Blood 130 mg/dL (70-110)
[2023-07-19] MEDS: SODIUM CHLORIDE 0.9% 250 ML IV SCH (04:44)
[2023-07-19 05:47] LABS: Basophils % (A) 0 %; Eosinophils # (A) 0.2 k/uL (0-0.7); Eosinophils % (A) 2 %; HCT 30.9 % (34.0-46.0); HGB 10.3 gm/dL (11.4-16.0); Lymphocytes # (A) 1.8 k/uL (1.0-4.8); Lymphocytes % (A) 20 %; MCH 31.8 pg (25.0-35.0); MCHC 33.5 g/dL (31.0-37.0); Mean Platelet Volume 9.2; Monocytes # (A) 0.6 k/uL (0-1.0); Monocytes % (A) 6 %; Neutrophils % (A) 70 %; Platelet Count 187 k/uL (150-450); RBC 3.25 m/uL (3.80-5.40); RDW 13.7 % (11.5-15.5); WBC 8.6 k/uL (3.8-10.6)
[2023-07-19 06:44] LABS: African American GFR (CKD) >90 (>60 ml/min/1.73 sqM); Anion Gap 5 mmol/L; Blood Urea Nitrogen 4 mg/dL (7-17); Calcium 8.5 mg/dL (8.4-10.2); Carbon Dioxide 21 mmol/L (22-30); Chloride 118 mmol/L (98-107); Glucose 76 mg/dL (74-99); Non-African American GFR(CKD) >90 (>60 ml/min/1.73 sqM); Potassium 3.5 mmol/L (3.5-5.1); Sodium 144 mmol/L (137-145)
[2023-07-19 06:44] LABS: Glucose,Whole Blood 81 mg/dL (70-110)
[2023-07-19] MEDS: POTASSIUM BICARBONATE/CIT AC 20 MEQ TABLET.EFF NG-TUBE SCH (08:30)
[2023-07-19] MEDS: PANTOPRAZOLE 40 MG/10 ML VIAL IVP SCH (08:31)
--- NOTE | 2023-07-19 09:18 | XR ---
EXAMINATION TYPE: XR chest 1V portable DATE OF EXAM: 07/19/2023 5:43 AM CLINICAL INDICATION:Female, 27 years old with history of Tube placement; [facility] COMPARISON: Chest radiographs from 17/04/2023 TECHNIQUE: XR chest 1V portable Frontal view of the chest. FINDINGS: Lungs/Pleura: There is no evidence of pleural effusion, focal consolidation, or pneumothorax. Pulmonary vascularity: Unremarkable. Heart/mediastinum: Cardiomediastinal silhouette is prominent in size. Musculoskeletal: No acute osseous pathology. Other findings: None Lines/Tubes: Endotracheal tube with distal tip 5.5 cm above the carroll. Nasogastric tube with its distal tip and side-port projecting under the diaphragm. Ventriculoperitoneal shunt tubing noted along the right aspect of the radiograph. IMPRESSION: Low lung volumes with a generalized hazy appearance which could represent atelectasis versus pulmonar y edema correlate with serum BNP.
[2023-07-19] MEDS: ONDANSETRON 4 MG/2 ML VIAL IVP PRN (11:43)
[2023-07-19 12:04] LABS: Glucose,Whole Blood 87 mg/dL (70-110)
--- NOTE | 2023-07-19 12:50 | P.PN ---
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 Patient presented to the emergency room back on 07/16/2023 with suicidal ideation. She was sent in from [facility] to be admitted for inpatient psych evaluation. No actual suicidal attempts were reported. Patient was admitted to the [facility] mental health unit. Late last night, a rapid response was called for seizures. Patient reportedly was found on the ground in the hallway. The sound physician that responded to the event, noted possible absence seizure's. These progressed to generalized tonic-clonic activity. She was given several doses of Ativan, a total of 7 mg, with no significant response. She was also loaded with Keppra and Dilantin per direction of the neurologist. Despite these pharmacological interventions, she continues to have seizure like activity. She is currently moved to the intensive care unit. She continues to have intermittent generaliz ed tonic-clonic seizures every 2 to 5 minutes. Lasting approximately 30 seconds to 1 minute. No complete recovery in between. Moving all 4 extremities. Eyes are midline without nystagmus. No tongue biting. No urinary or fecal incontinence. Currently, appears postictal and will occasionally answer simple commands. On room air. SpO2 96%. No reported aspiration events. Remaining vital signs are also stable. Neurologist was consulted, who recommends intubation and sedation until seizures can be controlled. CHIEF COMMERCIAL OFFICER responded the bedside, performed rapid sequence intubation. Postintubation chest x-ray demonstrates endotracheal tube tip above the carroll and below the clavicle. Nasogastric tube courses below the diaphragm could be advanced at least 5 cm. Current ventilator settings include assist-control, respiratory rate 16, tidal volume 300, FiO2 100%, PEEP of 5. Postintubation ABG shows a PaO2 of 311, pCO2 of 45, pH of 7.3. FiO2 was appropriately weaned. She is sedated with propofol which is currently at 50 mcg/kg/min. She is currently asynchronous with mechanical ventilator and breath stacking. Peak airway pressures 28. CT of the brain was carried out which did not show any acute intracranial process. There was a ventriculostomy changes without evidence of hydrocephalus list. Urine toxicology screen positive for marijuana, but are otherwise unremarkable. No fevers. Recently started on BuSpar, and also on Zoloft. CBC unremarkable, no leukocytosis. Most recent BMP: Includes a sodium 140, potassium 3.4, chloride 111, serum bicarb 20, BUN 13, creatinine 0.46, glucose 82. Patient has no family or next of kin listed in the EMR. She is listed as homeless. We will attempt to reach out for possible contacts. On today's evaluation of 07/19/2023, patient is being seen for a follow-up. Remains dependent on mechanical ventilator. Remains on propofol which is running at 50 mcg/kg/min. No seizure activity has been noted. No tonic or clonic activity. The patient has some tremor especially when she is stimulated. Nurse at infusion has been discontinued. Pressors have been discontinued and the patient is currently off norepinephrine and she is on normal citrate of 75 cc an hour. While being on the mechanical ventilator, she is on assist-control mode with a rate of 60, tidal volume of 300, FiO2 of 40% with a PEEP of 5. Overall fluid balance is +835 cc over the past 24 hours. Blood gas was not obtained this morning as the patient is a difficult poke. Will monitor the end- tidal CO2. The patient remains on Keppra 1.5 g every 12 hours. IV fluids are in the form of normal saline at 75 cc an hour. She is afebrile. Blood work from today shows a white cell count of 8.6 with a hemoglobin 10.3 and a platelet count of 187. BUN is at 4 mg of 0.31 and a sodium level is at 144. EEG from yesterday showed no seizure activity. Neurology on the case. Objective - Vital Signs Vital signs: Vital Signs Temp 99.3 F 07/18/23 15:30 Pulse 62 07/19/23 08:00 Resp 16 07/19/23 07:00 BP 92/61 07/19/23 07:00 Pulse Ox 100 07/19/23 07:00 FiO2 40 07/19/23 07:24 Intake & Output 07/18/23 07/19/23 07/19/23 18:59 06:59 18:59 Intake Total 7132.647 8119.879 116.55 Output Total 1135 403 20 Balance -85.530 910.879 96.55 Weight 60 kg Intake: IV 20 1075 75 KVO NS 20 Sodium Chloride 0.9% 1, 1075 75 000 ml @ 75 mls/hr IV . [id number] [facility] Rx#:[id number] Intake, IV Titration 1029.470 158.879 31.55 Amount Midazolam HCl 50 mg In 23.067 25.15 31.55 Sodium Chloride 0.9% 40 ml @ 1 MG/HR 1 mls/hr IV .Q24H [facility] Rx#:[id number] Norepinephrine 4 mg In 56.403 33.729 Sodium Chloride 0.9% 250 ml @ 0.03 MCG/KG/MIN 6. 746 mls/hr IV .Q24H [facility] Rx#:[id number] Sodium Chloride 0.9% 1, 750 000 ml @ 75 mls/hr IV . [id number] [facility] Rx#:[id number] propofoL 1,000 mg In 200 100 Empty Bag 1 bag @ 15 MCG/ KG/MIN 5.312 mls/hr IV . 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 Currently, lethargic and will follow simple commands alternating with periods of generalized tonic-clonic activity as described in HPI. HEAD: Normocephalic and atraumatic EYES: Normal reaction of pupils, equal size. No nystagmus. NOSE: Clear with pink turbinates. THROAT: No erythema or exudates. NECK: No masses, no JVD. CHEST: No chest wall deformity. LUNGS: Equal air entry with no crackles, wheeze, rhonchi or dullness. On room air. No conversational dyspnea or accessory muscle use.. CVS: S1 and S2 normal with no audible murmur, regular rhythm. No extra heart sounds ABDOMEN: No hepatosplenomegaly, active bowel sounds, no guarding or rigidity. SPINE: No scoliosis or deformity SKIN: No rashes CENTRAL NERVOUS SYSTEM: Generalized tonic-clonic activity noted, all 4 extremities involved, no tongue biting, no urinary or fecal incontinence. Seizure activity last 30 seconds to 1 minute. Recurring every 2 to 5 minutes and alternating with periods of minimal responsiveness. Pupils midline without nystagmus. Reactive to light. No nuchal rigidity. Afebrile. EXTREMITIES: There is no peripheral edema, clubbing, or cyanosis. Peripheral pulses are intact. - Labs CBC & Chem 7: 07/19/23 05:35 07/19/23 05:35 Labs: Abnormal Lab Results - Last 24 Hours (Table) 07/18/23 07/18/23 07/18/23 Range/Units 05:51 17:45 23:44 RBC (3.80-5.40) m/uL Hgb (11.4-16.0) gm/dL Hct (34.0-46.0) % Chloride (98-107) mmol/L Carbon Dioxide (22-30) mmol/L BUN (7-17) mg/dL Creatinine (0.52-1.04) mg/dL POC Glucose (mg/dL) 129 H 130 H (70-110) mg/dL Prolactin 40.700 H (2.800-29.200) ng/mL 07/19/23 07/19/23 Range/Units 05:35 05:35 RBC 3.25 L (3.80-5.40) m/uL Hgb 10.3 L (11.4-16.0) gm/dL Hct 30.9 L (34.0-46.0) % Chloride 118 H (98-107) mmol/L Carbon Dioxide 21 L (22-30) mmol/L BUN 4 L (7-17) mg/dL Creatinine 0.31 L (0.52-1.04) mg/dL POC Glucose (mg/dL) (70-110) mg/dL Prolactin (2.800-29.200) ng/mL Microbiology - Last 24 Hours (Table) 07/18/23 00:45 Gram Stain - Preliminary Sputum Assessment and Plan Assessment: Status epilepticus, patient was reportedly instructed to stop outpatient antiepileptic medications, while admitted to inpatient mental health unit, she developed intermittent generalized tonic-clonic activity without complete recovery between episodes. She was initially treated with multiple doses of Ativan, total of 7 mg, without significant response. She was also loaded with 1 g of Keppra and 1 g of Dilantin by direction of her neurologist. This failed to terminate patient's seizure activity. Patient was transferred to the intensive care unit where she was intubated for airway protection and sedated. This morning, the patient remains intubated on the mechanical ventilator. Versed drip has been discontinued and the patient is on propofol. The patient on IV Keppra. EEG was done yesterday that showed no evidence of any active seizures. Mechanical ventilator management, secondary to above, currently stable with adequate oxygenation History of seizure disorder, reportedly not on any antiepileptic medications on arrival to the hospital. 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 CT of the brain noted, EEG was negative for any active seizures, continue seizure precautions, Urine toxicology screen only positive for marijuana, Afebrile We may start enteral feeding if the patient is unable to wean off the mechanical ventilator today. Neurology on the case Continue supportive care This is a critical care evaluation. Will collaborate care with neurology. Will make further recommendations based on her progress. This evaluation was done more than 30 minutes. Time with Patient: Greater than 30
--- NOTE | 2023-07-19 13:34 | P.PN ---
Subjective Progress Note Date: 07/19/23 I am following with patient and she continues to be intubated on ventilator and is on IV sedation (IV Propofol and Versed). Per nurse she has intermittent episode of arms shaking and dilated pupils even with sedation off. Objective - Vital Signs Vital signs: Vital Signs Temp 98 F 07/19/23 12:00 Pulse 78 07/19/23 13:00 Resp 16 07/19/23 13:00 BP 92/62 07/19/23 13:00 Pulse Ox 99 07/19/23 13:00 FiO2 40 07/19/23 12:00 Intake & Output 07/18/23 07/19/23 07/19/23 18:59 06:59 18:59 Intake Total 0581.848 3813.879 799.932 Output Total 1135 403 455 Balance -85.530 910.879 344.932 Weight 60 kg Intake: IV 20 1075 525 KVO NS 20 Sodium Chloride 0.9% 1, 1075 525 000 ml @ 75 mls/hr IV . [id number] [facility] Rx#:[id number] Intake, IV Titration 1029.470 158.879 88.932 Amount Midazolam HCl 50 mg In 23.067 25.15 35.40 Sodium Chloride 0.9% 40 ml @ 1 MG/HR 1 mls/hr IV .Q24H [facility] Rx#:[id number] Norepinephrine 4 mg In 56.403 33.729 Sodium Chloride 0.9% 250 ml @ 0.03 MCG/KG/MIN 6. 746 mls/hr IV .Q24H [facility] Rx#:[id number] Sodium Chloride 0.9% 1, 750 000 ml @ 75 mls/hr IV . [id number] [facility] Rx#:[id number] propofoL 1,000 mg In 200 100 53.532 Empty Bag 1 bag @ 15 MCG/ KG/MIN 5.312 mls/hr IV . [id number] [facility] Rx#:[id number] Tube Feeding 50 56 Other 30 130 Output: Urine 535 403 255 Emesis 200 Oral Regurgitation 600 Other: Voiding Method Indwelling Catheter Indwelling Catheter Indwelling Catheter - Exam General: Lying in bed and does not appear in acute distress. Resp: Intubated on ventilator. Neuro: Patient is comatose. Is on IV Propofol. IV Versed is held for few hours. Pupils are midline and is 2mm and reactive to light. Then with suctioning the pupils are 5mm and reactive to light. No facial weakness. Is breathing over the vent. Has positive adolph and cough. Decrease tone throughout. No jerking or spontaneous movement. Some of the workup during this hospital visit consisted of: Patient is afebrile Sodium is 142, serum glucose is 103, plasma lactic acid vein is 0.7 Prolactin is 40.7 Calcium on presentation was 8.8. Magnesium is 2.0. CT head is reported as no acute intracranial process. Ventriculostomy changes without evidence for hydrocephalus. History reviewed the CT and I agree there is no acute or subacute changes. The patient does have tape of the ventriculostomy on the right side Routine EEG: Is abnormal. The background slowing is suggestive of mild encephalopathy. There is no focal slowing, epileptiform discharge or seizure on EEG. The excessive beta activity is likely due to medication effect (Ativan, Versed and Propofol). - Labs CBC & Chem 7: 07/19/23 05:35 07/19/23 05:35 Labs: Abnormal Lab Results - Last 24 Hours (Table) 07/18/23 07/18/23 07/18/23 Range/Units 05:51 17:45 23:44 RBC (3.80-5.40) m/uL Hgb (11.4-16.0) gm/dL Hct (34.0-46.0) % Chloride (98-107) mmol/L Carbon Dioxide (22-30) mmol/L BUN (7-17) mg/dL Creatinine (0.52-1.04) mg/dL POC Glucose (mg/dL) 129 H 130 H (70-110) mg/dL Prolactin 40.700 H (2.800-29.200) ng/mL 07/19/23 07/19/23 Range/Units 05:35 05:35 RBC 3.25 L (3.80-5.40) m/uL Hgb 10.3 L (11.4-16.0) gm/dL Hct 30.9 L (34.0-46.0) % Chloride 118 H (98-107) mmol/L Carbon Dioxide 21 L (22-30) mmol/L BUN 4 L (7-17) mg/dL Creatinine 0.31 L (0.52-1.04) mg/dL POC Glucose (mg/dL) (70-110) mg/dL Prolactin (2.800-29.200) ng/mL Microbiology - Last 24 Hours (Table) 07/18/23 00:45 Gram Stain - Preliminary Sputum Assessment and Plan Assessment: This is a 27-year-old woman with history of seizure disorder off antiepileptic, hydrocephalus s/p shunt, bipolar who initially was admitted to the mental health unit for depression and suicidal ideation on 07/16/2023 was transferred to the ICU recurrent seizure-like activity and was reported she had numerous ones and she reported she had absence seizure that led into a generalized tonic-clonic seizure without any resolution of her seizure with Ativan or Keppra seem that the patient was and clinical status epilepticus. Status epilepticus (clinically). So far her labs so remarkable for patient to be with status epilepticus and had GTC and plasma lactic acid vein is normal and unsure if patient had nonepileptic seizures. CT head is unremarkable for acute process. EEG was mild encephalopathy but no seizure or discharges. Intubated on a ventilator and is on sedation due to above History of seizure disorder and is not on any antiepileptic drugs. It seems she had blank stares and work-up and was told no seizures (adopted father notified nurse). Recent depression and suicidal ideation Hydrocephalus s/p shunt Dwarf Bipolar Major depression Alcohol use Plan: Will get a repeat EEG. Please hold sedation as much as possible. If any continued seizure will consider transfer for manager intermediate EEG.Currently she is on Keppra 1500 mg IV every 12 hours. Seizure precautions seizure pads Will defer the rest of the medical management to primary and other specialists Plan discussed with ICU team as well as her primary team. Time with Patient: Less than 30
--- NOTE | 2023-07-19 13:53 | P.PN ---
Subjective Progress Note Date: 07/19/23 Hospital Course: 27-year-old female with history of seizure disorder off of antiepileptics, hydr ocephalus status post shunt, bipolar disorder presented from mental health unit for status epilepticus. Patient was admitted to mental health unit for depression and suicidal ideation on 07/16/2023. Patient was noted to have multiple episodes of absence seizure, rapid response was called. She was given multiple doses of IV Ativan, and continued to have seizure-like activity, and also has some generalized tonic-clonic activity. She was taken to the ICU, loaded with Keppra and Dilantin, and was intubated for airway protection. Currently patient is in the medical ICU intubated and sedated. Undergoing further workup. Head CT was completed, did not show any acute process, ventriculostomy changes without evidence of hydrocephalus. Patient does have a prior history of pseudoseizures. Was extensively worked up outpatient, negative for any seizure disorder. Currently weaning off of sedation, repeat EEG pending. Subjective: Seen and examined at bedside. Currently intubated and sedated. Pertinent positives and negatives as discussed above, a complete review of systems was performed and all other systems are negative. Vitals Signs Reviewed. General: Intubated sedated Derm: Warm, dry Head: Atraumatic, normocephalic, symmetric Eyes: Pupils equal and reactive Mouth: No lip lesion, mucus membranes moist Cardiovascular: S1S2 reg, no murmur Lungs: CTA bilateral, no rhonchi, no rales, no accessory muscle use, intubated mechanically ventilated Abdominal: Soft, no appreciable organomegaly Ext: No contractures Neuro: Sedated Psych: Unable to assess Data Reviewed Today: Pertinent Labs: WBC 8.6, hemoglobin 10.3, creatinine 0.31, bicarb 21, blood sugars range between 81-1 30, prolactin 40.7 Imaging: Chest x-ray independently interpreted, shows interstitial opacities Assessment and Plan: Active: Questionable status epilepticus History of pseudoseizures History of hydrocephalus status post shunt Normocytic anemia, likely related to frequent blood draws, acute illness -Discussed management with neurology, wean off of propofol, patient already off of Versed, repeat EEG. Continue Keppra 1500 IV every 12 hours, -Vasopressors -On normal saline at 75 cc an hour, consider discontinuing if worsening respiratory function -Ativan as needed IV for seizures Bipolar disorder Anxiety disorder Depression with suicidal ideation -On BuSpar 10 3 times daily, Zoloft 75 daily -Thiamine 100 mg daily -Psychiatry consulted Asthma -DuoNebs every 4 hours, and as needed DVT ppx: Subcu heparin Code status: Full code Anticipated discharge place: Pending clinical course Anticipated discharge time: Pending clinical course Objective - Vital Signs Vital signs: Vital Signs Temp 98 F 07/19/23 12:00 Pulse 78 07/19/23 13:00 Resp 16 07/19/23 13:00 BP 92/62 07/19/23 13:00 Pulse Ox 99 07/19/23 13:00 FiO2 40 07/19/23 12:00 Intake & Output 07/18/23 07/19/23 07/19/23 18:59 06:59 18:59 Intake Total 7237.990 7134.879 799.932 Output Total 1135 403 455 Balance -85.530 910.879 344.932 Weight 60 kg 60 kg Intake: IV 20 1075 525 KVO NS 20 Sodium Chloride 0.9% 1, 1075 525 000 ml @ 75 mls/hr IV . [id number] [facility] Rx#:[id number] Intake, IV Titration 1029.470 158.879 88.932 Amount Midazolam HCl 50 mg In 23.067 25.15 35.40 Sodium Chloride 0.9% 40 ml @ 1 MG/HR 1 mls/hr IV .Q24H [facility] Rx#:[id number] Norepinephrine 4 mg In 56.403 33.729 Sodium Chloride 0.9% 250 ml @ 0.03 MCG/KG/MIN 6. 746 mls/hr IV .Q24H [facility] Rx#:[id number] Sodium Chloride 0.9% 1, 750 000 ml @ 75 mls/hr IV . [id number] [facility] Rx#:[id number] propofoL 1,000 mg In 200 100 53.532 Empty Bag 1 bag @ 15 MCG/ KG/MIN 5.312 mls/hr IV . [id number] [facility] Rx#:[id number] Tube Feeding 50 56 Other 30 130 Output: Urine 535 403 255 Emesis 200 Oral Regurgitation 600 Other: Voiding Method Indwelling Catheter Indwelling Catheter Indwelling Catheter - Labs CBC & Chem 7: 07/19/23 05:35 07/19/23 05:35 Labs: Abnormal Lab Results - Last 24 Hours (Table) 07/18/23 07/18/23 07/18/23 Range/Units 05:51 17:45 23:44 RBC (3.80-5.40) m/uL Hgb (11.4-16.0) gm/dL Hct (34.0-46.0) % Chloride (98-107) mmol/L Carbon Dioxide (22-30) mmol/L BUN (7-17) mg/dL Creatinine (0.52-1.04) mg/dL POC Glucose (mg/dL) 129 H 130 H (70-110) mg/dL Prolactin 40.700 H (2.800-29.200) ng/mL 07/19/23 07/19/23 Range/Units 05:35 05:35 RBC 3.25 L (3.80-5.40) m/uL Hgb 10.3 L (11.4-16.0) gm/dL Hct 30.9 L (34.0-46.0) % Chloride 118 H (98-107) mmol/L Carbon Dioxide 21 L (22-30) mmol/L BUN 4 L (7-17) mg/dL Creatinine 0.31 L (0.52-1.04) mg/dL POC Glucose (mg/dL) (70-110) mg/dL Prolactin (2.800-29.200) ng/mL Microbiology - Last 24 Hours (Table) 07/18/23 00:45 Gram Stain - Preliminary Sputum
[2023-07-19 17:47] LABS: Glucose,Whole Blood 77 mg/dL (70-110)
--- NOTE | 2023-07-19 20:34 | EEG ---
ELECTROENCEPHALOGRAM REPORT CLINICAL HISTORY: This is a 27-year-old woman with history of seizure, who is in the mental health unit and had recurrent seizures and was felt to be in status epilepticus. As a result, she was intubated on a ventilator and is placed on sedation. The video EEG is obtained to evaluate for seizure epileptiform activity. RELEVANT MEDICATIONS: IV propofol and IV Versed, which was briefly discontinued during this examination. Also, the patient is on Keppra. EEG TYPE: A routine 21-channel EEG with video using the 10/20 electrode placement system. DESCRIPTION: The patient is intubated on a ventilator. The background consists of var-qy-opjejuqd voltage of 9.5 to 10.5 hertz activity that is well modulated, and well sustained. There is no physiological stage 2 sleep architecture. At times, the background consists of diffuse nonrhythmic delta activity. There is no focal slowing. Interictal and ictal is, during the study, the patient has bilateral arm shaken as well as leg shaken, but arms were more prominent than the legs and she opened her eyes during the study. Episode of arm shaking and leg shaking happened around 14.50 minutes of recording of the study. Electrographically, background consists of 8.5 to 9.5 hertz activity intermixed with delta activity. No electrographic seizure noted or epileptiform discharges. ACTIVATION PROCEDURE: Photic stimulation and hyperventilation are not performed. CLINICAL INTERPRETATION: This is an abnormal routine EEG. The background slowing is suggestive of mild encephalopathy. The patient's episode that was recorded is not epileptic, in which the patient had arm shaking as well as leg shaking and again it was nonepileptic in nature. No seizures noted during the study or epileptiform discharges. Clinical correlation is recommended. MMODL / IJN: [id number] / MTDD
[2023-07-20 00:26] LABS: Glucose,Whole Blood 78 mg/dL (70-110)
[2023-07-20 05:03] LABS: Basophils % (A) 0 %; Eosinophils # (A) 0.1 k/uL (0-0.7); Eosinophils % (A) 1 %; HCT 31.2 % (34.0-46.0); HGB 10.4 gm/dL (11.4-16.0); Lymphocytes # (A) 1.3 k/uL (1.0-4.8); Lymphocytes % (A) 15 %; MCH 32.2 pg (25.0-35.0); MCHC 33.5 g/dL (31.0-37.0); Mean Platelet Volume 7.9; Monocytes # (A) 0.5 k/uL (0-1.0); Monocytes % (A) 5 %; Neutrophils % (A) 78 %; Platelet Count 206 k/uL (150-450); RBC 3.25 m/uL (3.80-5.40); RDW 13.8 % (11.5-15.5); WBC 8.9 k/uL (3.8-10.6)
[2023-07-20 05:21] LABS: African American GFR (CKD) >90 (>60 ml/min/1.73 sqM); Anion Gap 7 mmol/L; Blood Urea Nitrogen <2 mg/dL (7-17); Calcium 7.9 mg/dL (8.4-10.2); Carbon Dioxide 20 mmol/L (22-30); Chloride 113 mmol/L (98-107); Glucose 69 mg/dL (74-99); Non-African American GFR(CKD) >90 (>60 ml/min/1.73 sqM); Sodium 140 mmol/L (137-145)
[2023-07-20 05:24] LABS: Potassium 2.7 mmol/L (3.5-5.1)
[2023-07-20 05:47] LABS: Glucose,Whole Blood 72 mg/dL (70-110)
[2023-07-20] MEDS: POTASSIUM CHLORIDE 20 MEQ in WATER FOR INJECTION 1 100ML.BAG IVPB SCH ×2 (05:57→16:09)
[2023-07-20] MEDS: SODIUM CHLORIDE 0.9% 1,000 ML IV SCH (09:44)
[2023-07-20] MEDS: FUROSEMIDE 10 MG/ML 4 ML VIAL IV STA (09:44)
[2023-07-20] MEDS: MAGNESIUM SULFATE-D5W PMX 1 GM in DEXTROSE/WATER 1 100ML.BAG IVPB ONE (09:44)
[2023-07-20] MEDS: DEXMEDETOMIDINE/0.9% NACL(PMX) 400 MCG in EMPTY BAG 1 BAG IV SCH (10:39)
--- NOTE | 2023-07-20 11:00 | XR ---
EXAMINATION TYPE: XR chest 1V portable DATE OF EXAM: 07/20/2023 5:40 AM CLINICAL INDICATION:Female, 27 years old with history of Tube placement; [facility] COMPARISON: Chest radiographs from 07/16/2023. TECHNIQUE: XR chest 1V portable Frontal view of the chest. FINDINGS: Lungs/Pleura: There is no evidence of pleural effusion, focal consolidation, or pneumothorax. Pulmonary vascularity: Pulmonary vascular congestion. Heart/mediastinum: Cardiomediastinal silhouette is unremarkable. Musculoskeletal: No acute osseous pathology. Other findings: None Lines/Tubes: Endotracheal tube with distal tip 5.8 cm above the carroll. Nasogastric tube with its distal tip and side-port projecting under the diaphragm. Ventriculoperitoneal shunt tubing noted along the right aspect of the radiograph. IMPRESSION: 1. Endotracheal tube in high position consider advancement of 3 submitted images for optimal placeme nt. 2. Nasogastric tube in appropriate position. 3. Diffuse haziness the lungs correlate for pulmonary edema
[2023-07-20 11:59] LABS: Glucose,Whole Blood 73 mg/dL (70-110)
[2023-07-20 12:09] LABS: Glucose,Whole Blood 75 mg/dL (70-110)
[2023-07-20 12:09] LABS: Glucose,Whole Blood 110 mg/dL (70-110)
--- NOTE | 2023-07-20 12:36 | P.PN ---
Subjective Progress Note Date: 07/20/23 Patient is a 27-year-old white female with past medical history significant for asthma, seizure disorder, hydrocephalus status post [employer] shunt, bipolar disorder and major depression, migraines, and alcohol use disorder. Patient presented to the emergency room back on 07/16/2023 with suicidal ideation. She was sent in from [facility] to be admitted for inpatient psych evaluation. No actual suicidal attempts were reported. Patient was admitted to the [facility] mental health unit. Late last night, a rapid response was called for seizures. Patient reportedly was found on the ground in the hallway. The sound physician that responded to the event, noted possible absence seizure's. These progressed to generalized tonic-clonic activity. She was given several doses of Ativan, a total of 7 mg, with no significant response. She was also loaded with Keppra and Dilantin per direction of the neurologist. Despite these pharmacological interventions, she continues to have seizure like activity. She is currently moved to the intensive care unit. She continues to have intermittent generaliz ed tonic-clonic seizures every 2 to 5 minutes. Lasting approximately 30 seconds to 1 minute. No complete recovery in between. Moving all 4 extremities. Eyes are midline without nystagmus. No tongue biting. No urinary or fecal incontinence. Currently, appears postictal and will occasionally answer simple commands. On room air. SpO2 96%. No reported aspiration events. Remaining vital signs are also stable. Neurologist was consulted, who recommends intubation and sedation until seizures can be controlled. PEDIATRIC GENETIC COUNSELOR responded the bedside, performed rapid sequence intubation. Postintubation chest x-ray demonstrates endotracheal tube tip above the carroll and below the clavicle. Nasogastric tube courses below the diaphragm could be advanced at least 5 cm. Current ventilator settings include assist-control, respiratory rate 16, tidal volume 300, FiO2 100%, PEEP of 5. Postintubation ABG shows a PaO2 of 311, pCO2 of 45, pH of 7.3. FiO2 was appropriately weaned. She is sedated with propofol which is currently at 50 mcg/kg/min. She is currently asynchronous with mechanical ventilator and breath stacking. Peak airway pressures 28. CT of the brain was carried out which did not show any acute intracranial process. There was a ventriculostomy changes without evidence of hydrocephalus list. Urine toxicology screen positive for marijuana, but are otherwise unremarkable. No fevers. Recently started on BuSpar, and also on Zoloft. CBC unremarkable, no leukocytosis. Most recent BMP: Includes a sodium 140, potassium 3.4, chloride 111, serum bicarb 20, BUN 13, creatinine 0.46, glucose 82. Patient has no family or next of kin listed in the EMR. She is listed as homeless. We will attempt to reach out for possible contacts. On today's evaluation of 07/19/2023, patient is being seen for a follow-up. Remains dependent on mechanical ventilator. Remains on propofol which is running at 50 mcg/kg/min. No seizure activity has been noted. No tonic or clonic activity. The patient has some tremor especially when she is stimulated. Nurse at infusion has been discontinued. Pressors have been discontinued and the patient is currently off norepinephrine and she is on normal citrate of 75 cc an hour. While being on the mechanical ventilator, she is on assist-control mode with a rate of 60, tidal volume of 300, FiO2 of 40% with a PEEP of 5. Overall fluid balance is +835 cc over the past 24 hours. Blood gas was not obtained this morning as the patient is a difficult poke. Will monitor the end- tidal CO2. The patient remains on Keppra 1.5 g every 12 hours. IV fluids are in the form of normal saline at 75 cc an hour. She is afebrile. Blood work from today shows a white cell count of 8.6 with a hemoglobin 10.3 and a platelet count of 187. BUN is at 4 mg of 0.31 and a sodium level is at 144. EEG from yesterday showed no seizure activity. Neurology on the case. 07/20/2023, the patient is being seen for a follow-up. Remains intubated on the mechanical ventilator. Sedation holiday was given and the patient became quite restless, asynchronous with mechanical ventilator, tachypneic and tachycardic and was having excessive tremors. Based on that, the patient was placed back on sedation and this morning she remains on propofol at 40 mcg/kg/min and Versed 4 mg an hour. A repeat EEG was done while the patient on the Versed and the patient does not show any seizure activity. While on the mechanical ventilator, she is on assist-control mode with rate of 60, tidal volume 300, FiO2 of 40% with a PEEP of 5. End-tidal CO2 is 37. IV fluids currently running at 75 cc an hour and the patient is on vital high-protein at rate of 16 cc an hour. The patient had a follow-up chest x-ray today that showed smaller lung volumes and evidence of increased pulm vascular markings. ET tube is around 5 cm above the carroll. NG tube is in place. There is also a [employer] shunt in place. There is diffuse bilateral pulmonary haziness. Blood work shows a white cell count of 8.9, hemoglobin of 10.4, potassium is at 2.7, bicarb is at 22 with a sodium level of 140, BUN is at 2 with a creatinine of 0.4. Hemodynamically stable and she is currently on no pressors. Objective - Vital Signs Vital signs: Vital Signs Temp 98.6 F 07/20/23 12:00 Pulse 105 H 07/20/23 12:00 Resp 19 07/20/23 12:00 BP 108/77 07/20/23 12:00 Pulse Ox 95 07/20/23 12:00 FiO2 40 07/20/23 12:00 Intake & Output 07/19/23 07/20/23 07/20/23 18:59 06:59 18:59 Intake Total 1159.917 8164.907 583.775 Output Total 1887 372 8051 Balance 59.550 564.907 -1426.225 Weight 60 kg 66 kg Intake: IV 900 975 Sodium Chloride 0.9% 1, 900 975 000 ml @ 75 mls/hr IV . [id number] [facility] Rx#:[id number] Intake, IV Titration 143.550 220.907 443.775 Amount Dexmedetomidine/0.9% NaCl 6.105 (Pmx) 400 mcg In Empty Bag 1 bag @ 0.2 MCG/KG/HR 3.3 mls/hr IV .Q24H [facility] Rx#:[id number] Magnesium Sulfate-D5w Pmx 100 1 gm In Dextrose/Water 1 100ml.bag @ 100 mls/hr IVPB ONCE ONE Rx#: [id number] Midazolam HCl 50 mg In 43.55 40.067 28.667 Sodium Chloride 0.9% 40 ml @ 1 MG/HR 1 mls/hr IV .Q24H [facility] Rx#:[id number] Potassium Chloride 20 meq 200 In Water For Injection 1 100ml.bag @ 50 mls/hr IVPB Q2H [facility] Rx#: [id number] Sodium Chloride 0.9% 1, 20 000 ml @ 20 mls/hr IV . Q24H [facility] Rx#:[id number] propofoL 1,000 mg In 100.000 180.840 89.003 Empty Bag 1 bag @ 15 MCG/ KG/MIN 5.312 mls/hr IV . 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 Currently, lethargic and will follow simple commands alternating with periods of generalized tonic-clonic activity as described in HPI. HEAD: Normocephalic and atraumatic EYES: Normal reaction of pupils, equal size. No nystagmus. NOSE: Clear with pink turbinates. THROAT: No erythema or exudates. NECK: No masses, no JVD. CHEST: No chest wall deformity. LUNGS: Equal air entry with no crackles, wheeze, rhonchi or dullness. On room air. No conversational dyspnea or accessory muscle use.. CVS: S1 and S2 normal with no audible murmur, regular rhythm. No extra heart sounds ABDOMEN: No hepatosplenomegaly, active bowel sounds, no guarding or rigidity. SPINE: No scoliosis or deformity SKIN: No rashes CENTRAL NERVOUS SYSTEM: Generalized tonic-clonic activity noted, all 4 extremities involved, no tongue biting, no urinary or fecal incontinence. Seiz ure activity last 30 seconds to 1 minute. Recurring every 2 to 5 minutes and alternating with periods of minimal responsiveness. Pupils midline without nystagmus. Reactive to light. No nuchal rigidity. Afebrile. EXTREMITIES: There is no peripheral edema, clubbing, or cyanosis. Peripheral pulses are intact. - Labs CBC & Chem 7: 07/20/23 04:55 07/20/23 04:55 Labs: Abnormal Lab Results - Last 24 Hours (Table) 07/20/23 07/20/23 Range/Units 04:55 04:55 RBC 3.25 L (3.80-5.40) m/uL Hgb 10.4 L (11.4-16.0) gm/dL Hct 31.2 L (34.0-46.0) % Potassium 2.7 L* (3.5-5.1) mmol/L Chloride 113 H (98-107) mmol/L Carbon Dioxide 20 L (22-30) mmol/L BUN <2 L (7-17) mg/dL Creatinine 0.40 L (0.52-1.04) mg/dL Glucose 69 L (74-99) mg/dL Calcium 7.9 L (8.4-10.2) mg/dL Microbiology - Last 24 Hours (Table) 07/18/23 00:45 Gram Stain - Final Sputum Sputum Culture - Final Assessment and Plan Assessment: Status epilepticus, patient was reportedly instructed to stop outpatient antiepileptic medications, while admitted to inpatient mental health unit, she developed intermittent generalized tonic-clonic activity without complete recovery between episodes. She was initially treated with multiple doses of Ativan, total of 7 mg, without significant response. She was also loaded with 1 g of Keppra and 1 g of Dilantin by direction of her neurologist. This failed to terminate patient's seizure activity. Patient was transferred to the intensive care unit where she was intubated for airway protection and sedated. This morning, the patient remains intubated on the mechanical ventilator. The patient was given another EEG while being on Versed. No seizure activity has been noted. At the same time, no witnessed seizures while being on Keppra on propofol. Mechanical ventilator management, secondary to above, currently stable with adequate oxygenation History of seizure disorder, reportedly not on any antiepileptic medications on arrival to the hospital. History of hydrocephalus, status post [employer] shunt History of alcohol use disorder, acamprosate listed as home medication Suicidal ideation History of bipolar disorder and major depression History of migraines History of asthma, not currently active Marijuana use Dwarfism and short stature Plan: Continue ventilator support Continue IV Keppra No active seizures on follow-up EEG Give another sedation holiday and use Precedex if needed CT of the brain noted, EEG was negative for any active seizures, continue seizure precautions, Urine toxicology screen only positive for marijuana, Afebrile Continue enteral feeding IV fluids to KVO Replace potassium Give the patient a dose of Lasix 40 mg IV push Neurology on the case Continue supportive care This is a critical care evaluation. Will collaborate care with neurology. Will make further recommendations based on her progress. This evaluation was done more than 30 minutes. Time with Patient: Greater than 30
--- NOTE | 2023-07-20 13:43 | P.PN ---
Subjective Progress Note Date: 07/20/23 Hospital Course: 27-year-old female with history of seizure disorder off of antiepileptics, hyd rocephalus status post shunt, bipolar disorder presented from mental health unit for status epilepticus. Patient was admitted to mental health unit for depression and suicidal ideation on 07/16/2023. Patient was noted to have multiple episodes of absence seizure, rapid response was called. She was given multiple doses of IV Ativan, and continued to have seizure-like activity, and also has some generalized tonic-clonic activity. She was taken to the ICU, loaded with Keppra and Dilantin, and was intubated for airway protection. Currently patient is in the medical ICU intubated and sedated. Undergoing further workup. Head CT was completed, did not show any acute process, ventriculostomy changes without evidence of hydrocephalus. Patient does have a prior history of pseudoseizures. Was extensively worked up outpatient, negative for any seizure disorder. Currently weaning off of sedation. Repeat EEG did not show any seizure-like activity. Subjective: Seen and examined at bedside. Currently intubated and sedated. Pertinent positives and negatives as discussed above, a complete review of systems was performed and all other systems are negative. Vitals Signs Reviewed. General: Intubated sedated Derm: Warm, dry Head: Atraumatic, normocephalic, symmetric Eyes: Pupils equal and reactive Mouth: No lip lesion, mucus membranes moist Cardiovascular: S1S2 reg, no murmur Lungs: CTA bilateral, no rhonchi, no rales, no accessory muscle use, intubated mechanically ventilated Abdominal: Soft, no appreciable organomegaly Ext: No contractures Neuro: Sedated Psych: Unable to assess Data Reviewed Today: Pertinent Labs: WBC 8.9, hemoglobin 10.4, potassium 2.7, magnesium 1.8, glucose range from 69-78 Imaging: Chest x-ray independently interpreted, shows interstitial opacities Assessment and Plan: Active: Questionable status epilepticus History of pseudoseizures History of hydrocephalus status post shunt Normocytic anemia, likely related to frequent blood draws, acute illness Hypokalemia Hypomagnesemia Acute pulmonary edema -Discussed management with neurology, wean off of Versed. Continue Keppra 1500 IV every 12 hours, -Off of vasopressors -ICU note reviewed, replacing potassium and magnesium, wean Versed, start on Precedex, assess for possible extubation. -IV fluids discontinued, given 40 of IV Lasix once, monitor electrolytes -Ativan as needed IV for seizures Bipolar disorder Anxiety disorder Depression with suicidal ideation -On BuSpar 10 3 times daily, Zoloft 75 daily -Thiamine 100 mg daily -Psychiatry consulted Asthma -DuoNebs every 4 hours, and as needed DVT ppx: Subcu heparin Code status: Full code Anticipated discharge place: Pending clinical course Anticipated discharge time: Pending clinical course Objective - Vital Signs Vital signs: Vital Signs Temp 98.6 F 07/20/23 12:00 Pulse 104 H 07/20/23 13:00 Resp 20 07/20/23 13:00 BP 90/61 07/20/23 13:00 Pulse Ox 96 07/20/23 13:00 FiO2 40 07/20/23 13:35 Intake & Output 07/19/23 07/20/23 07/20/23 18:59 06:59 18:59 Intake Total 9866.820 3504.907 627.626 Output Total 2337 977 2464 Balance 59.550 564.907 -1582.374 Weight 60 kg 66 kg Intake: IV 900 975 Sodium Chloride 0.9% 1, 900 975 000 ml @ 75 mls/hr IV . [id number] [facility] Rx#:[id number] Intake, IV Titration 143.550 220.907 487.626 Amount Dexmedetomidine/0.9% NaCl 24.998 (Pmx) 400 mcg In Empty Bag 1 bag @ 0.2 MCG/KG/HR 3.3 mls/hr IV .Q24H [facility] Rx#:[id number] Magnesium Sulfate-D5w Pmx 100 1 gm In Dextrose/Water 1 100ml.bag @ 100 mls/hr IVPB ONCE ONE Rx#: [id number] Midazolam HCl 50 mg In 43.55 40.067 28.667 Sodium Chloride 0.9% 40 ml @ 1 MG/HR 1 mls/hr IV .Q24H [facility] Rx#:[id number] Potassium Chloride 20 meq 200 In Water For Injection 1 100ml.bag @ 50 mls/hr IVPB Q2H [facility] Rx#: [id number] Sodium Chloride 0.9% 1, 40 000 ml @ 20 mls/hr IV . Q24H [facility] Rx#:[id number] propofoL 1,000 mg In 100.000 180.840 93.961 Empty Bag 1 bag @ 15 MCG/ KG/MIN 5.312 mls/hr IV . [id number] [facility] Rx#:[id number] Tube Feeding 66 144 80 Other 130 90 60 Output: Gastric Drainage 250 Urine 823 793 4197 Emesis 200 Other: Voiding Method Indwelling Catheter Indwelling Catheter Indwelling Catheter # Bowel Movements 1 - Labs CBC & Chem 7: 07/20/23 04:55 07/20/23 04:55 Labs: Abnormal Lab Results - Last 24 Hours (Table) 07/20/23 07/20/23 Range/Units 04:55 04:55 RBC 3.25 L (3.80-5.40) m/uL Hgb 10.4 L (11.4-16.0) gm/dL Hct 31.2 L (34.0-46.0) % Potassium 2.7 L* (3.5-5.1) mmol/L Chloride 113 H (98-107) mmol/L Carbon Dioxide 20 L (22-30) mmol/L BUN <2 L (7-17) mg/dL Creatinine 0.40 L (0.52-1.04) mg/dL Glucose 69 L (74-99) mg/dL Calcium 7.9 L (8.4-10.2) mg/dL Microbiology - Last 24 Hours (Table) 07/18/23 00:45 Gram Stain - Final Sputum Sputum Culture - Final
--- NOTE | 2023-07-20 14:08 | P.CN ---
Psychiatric Consult - . Consult date: 07/20/23 Consult:: I attempted to see patient today for a psychiatry consult however she continues to be intubated and sedated. Please contact psychiatry when patient is extubated and able to engage in assessment.
--- NOTE | 2023-07-20 14:50 | P.PN ---
Subjective Progress Note Date: 07/20/23 I am following-up with patient and per nurse she was transitioned from IV Versed to IV Precedex. Continues to be on IV Propofol. I spoke with the adopted father who is at bedside and he stated he had seizure work-up at younger age and was negative. He stated she would always have episodes of acting out in the past. He stated when she in mental health this time around he gave her tough love about 10 minutes prior to having seizure-like activity. Objective - Vital Signs Vital signs: Vital Signs Temp 98.6 F 07/20/23 12:00 Pulse 98 07/20/23 14:01 Resp 19 07/20/23 14:01 BP 107/75 07/20/23 14:01 Pulse Ox 96 07/20/23 14:01 FiO2 40 07/20/23 13:35 Intake & Output 07/19/23 07/20/23 07/20/23 18:59 06:59 18:59 Intake Total 7704.606 4515.907 630.816 Output Total 5640 463 7284 Balance 59.550 564.907 -1579.184 Weight 60 kg 66 kg Intake: IV 900 975 Sodium Chloride 0.9% 1, 900 975 000 ml @ 75 mls/hr IV . [id number] [facility] Rx#:[id number] Intake, IV Titration 143.550 220.907 490.816 Amount Dexmedetomidine/0.9% NaCl 28.188 (Pmx) 400 mcg In Empty Bag 1 bag @ 0.2 MCG/KG/HR 3.3 mls/hr IV .Q24H [facility] Rx#:[id number] Magnesium Sulfate-D5w Pmx 100 1 gm In Dextrose/Water 1 100ml.bag @ 100 mls/hr IVPB ONCE ONE Rx#: [id number] Midazolam HCl 50 mg In 43.55 40.067 28.667 Sodium Chloride 0.9% 40 ml @ 1 MG/HR 1 mls/hr IV .Q24H [facility] Rx#:[id number] Potassium Chloride 20 meq 200 In Water For Injection 1 100ml.bag @ 50 mls/hr IVPB Q2H [facility] Rx#: [id number] Sodium Chloride 0.9% 1, 40 000 ml @ 20 mls/hr IV . Q24H [facility] Rx#:[id number] propofoL 1,000 mg In 100.000 180.840 93.961 Empty Bag 1 bag @ 15 MCG/ KG/MIN 5.312 mls/hr IV . [id number] [facility] Rx#:[id number] Tube Feeding 66 144 80 Other 130 90 60 Output: Gastric Drainage 250 Urine 266 155 1301 Emesis 200 Other: Voiding Method Indwelling Catheter Indwelling Catheter Indwelling Catheter # Bowel Movements 1 - Exam General: Lying in bed and does not appear in acute distress. Resp: Intubated on ventilator. Neuro: Patient is comatose. Is on IV Propofol. IV Precedex. Pupils are midline and is 2mm and reactive to light. Then with suctioning the pupils are 5mm and reactive to light. No facial weakness. Is breathing over the vent. Has positive adolph and cough. Decrease tone throughout. No jerking or spontaneous movement. Some of the workup during this hospital visit consisted of: Patient is afebrile Sodium is 142, serum glucose is 103, plasma lactic acid vein is 0.7 Prolactin is 40.7 Calcium on presentation was 8.8. Magnesium is 2.0. CT head is reported as no acute intracranial process. Ventriculostomy changes without evidence for hydrocephalus. History reviewed the CT and I agree there is no acute or subacute changes. The patient does have tape of the ventriculostomy on the right side Routine EEG: Is abnormal. The background slowing is suggestive of mild encephalopathy. There is no focal slowing, epileptiform discharge or seizure on EEG. The excessive beta activity is likely due to medication effect (Ativan, Versed and Propofol). Repeat Routine EEG on 07/19/2023: Is abnormal. The background slowing is suggestive of mild encepahlopathy. The episode that was recorded is non- epileptic in nature. No seizure or epileptiform discharges. - Labs CBC & Chem 7: 07/20/23 04:55 07/20/23 04:55 Labs: Abnormal Lab Results - Last 24 Hours (Table) 07/20/23 07/20/23 Range/Units 04:55 04:55 RBC 3.25 L (3.80-5.40) m/uL Hgb 10.4 L (11.4-16.0) gm/dL Hct 31.2 L (34.0-46.0) % Potassium 2.7 L* (3.5-5.1) mmol/L Chloride 113 H (98-107) mmol/L Carbon Dioxide 20 L (22-30) mmol/L BUN <2 L (7-17) mg/dL Creatinine 0.40 L (0.52-1.04) mg/dL Glucose 69 L (74-99) mg/dL Calcium 7.9 L (8.4-10.2) mg/dL Microbiology - Last 24 Hours (Table) 07/18/23 00:45 Gram Stain - Final Sputum Sputum Culture - Final Assessment and Plan Assessment: This is a 27-year-old woman with history of seizure disorder off antiepileptic, hydrocephalus s/p shunt, bipolar who initially was admitted to the mental health unit for depression and suicidal ideation on 07/16/2023 was transferred to the ICU recurrent seizure-like activity and was reported she had numerous ones and she reported she had absence seizure that led into a generalized tonic-clonic seizure without any resolution of her seizure with Ativan or Keppra seem that the patient was and clinical status epilepticus. Recurrent seizure-like activity and initially clinical status epilepticus. But the EEG captures the episodes are non-epileptic in nature. Had total two EEG whi ch are negative for seizure. Intubated on a ventilator and is on sedation due to above History of seizure disorder and is not on any antiepileptic drugs. It seems she had blank stares and work-up and was told no seizures (adopted father notified nurse). Recent depression and suicidal ideation Hydrocephalus s/p shunt Dwarf Bipolar Major depression Alcohol use Plan: Currently she is on Keppra 1500 mg IV every 12 hours. I would recommend starting Lamictal or Depakote which has both mood benefit and antiepileptic benefit. Then stop Keppra. Seizure precautions seizure pads Will defer the rest of the medical management to primary and other specialists Recommend to titrating down the sedation. Plan discussed with adopted father, ICU team as well as her primary team. Time with Patient: Less than 30
[2023-07-20] MEDS ORDERED: Potassium Replacement Protocol 1 EACH MISC MISCELLANE PRN (15:36)
[2023-07-20] MEDS: IPRATROPIUM-ALBUTEROL 3 ML NEB INHALATION SCH (17:47)
[2023-07-20 18:23] LABS: Glucose,Whole Blood 66 mg/dL (70-110)
[2023-07-20] MEDS: DEXTROSE 50% SYRINGE 50 ML IVP STA (19:01)
[2023-07-20] MEDS: DEXTROSE 50% SYRINGE 50 ML IVP ONE (19:09)
[2023-07-20 19:15] LABS: Glucose,Whole Blood 154 mg/dL (70-110)
[2023-07-21 04:20] LABS: Basophils % (A) 0 %; Eosinophils # (A) 0.2 k/uL (0-0.7); Eosinophils % (A) 1 %; HCT 36.2 % (34.0-46.0); HGB 11.8 gm/dL (11.4-16.0); Lymphocytes # (A) 1.3 k/uL (1.0-4.8); Lymphocytes % (A) 10 %; MCH 31.6 pg (25.0-35.0); MCHC 32.6 g/dL (31.0-37.0); Mean Platelet Volume 7.6; Monocytes % (A) 8 %; Neutrophils # (A) 9.9 k/uL (1.3-7.7); Neutrophils % (A) 79 %; Platelet Count 238 k/uL (150-450); RBC 3.74 m/uL (3.80-5.40); RDW 13.7 % (11.5-15.5); WBC 12.6 k/uL (3.8-10.6)
[2023-07-21 04:37] LABS: African American GFR (CKD) >90 (>60 ml/min/1.73 sqM); Anion Gap 11 mmol/L; Blood Urea Nitrogen 4 mg/dL (7-17); Calcium 8.7 mg/dL (8.4-10.2); Carbon Dioxide 17 mmol/L (22-30); Chloride 112 mmol/L (98-107); Glucose 56 mg/dL (74-99); Magnesium 1.9 mg/dL (1.6-2.3); Non-African American GFR(CKD) >90 (>60 ml/min/1.73 sqM); Potassium 4.1 mmol/L (3.5-5.1); Sodium 140 mmol/L (137-145)
[2023-07-21 04:37] LABS: Glucose,Whole Blood 60 mg/dL (70-110)
[2023-07-21 05:14] LABS: Glucose,Whole Blood 144 mg/dL (70-110)
[2023-07-21 07:15] LABS: Glucose,Whole Blood 86 mg/dL (70-110)
[2023-07-21] MEDS: AMPICILLIN-SULBACTAM 1.5 GM in SODIUM CHLORIDE 0.9% 50 ML IVPB SCH (09:10)
[2023-07-21] MEDS: FUROSEMIDE 10 MG/ML 4 ML VIAL IV STA ×2 (09:10→09:17)
--- NOTE | 2023-07-21 09:26 | XR ---
EXAMINATION TYPE: XR chest 1V portable DATE OF EXAM: 07/21/2023 COMPARISON: 07/20/2023 INDICATION: Secretions TECHNIQUE: Single frontal view of the chest is obtained. FINDINGS: The heart size is prominent. The pulmonary vasculature is normal. Right lower lobe infiltrate is present. Correlate for pneumonia. Catheters been removed. Shunt tubing crosses the thorax. IMPRESSION: 1. Right lower lobe infiltrate. Correlate for pneumonia. Follow-up is recommended.
[2023-07-21] MEDS: ACETAMINOPHEN IV (For NPO) 1,000 MG in EMPTY BAG 1 BAG IVPB PRN (11:06)
--- NOTE | 2023-07-21 12:15 | P.PN ---
Subjective Progress Note Date: 07/21/23 Hospital Course: 27-year-old female with history of seizure disorder off of antiepileptics, hyd rocephalus status post shunt, bipolar disorder presented from mental health unit for status epilepticus. Patient was admitted to mental health unit for depression and suicidal ideation on 07/16/2023. Patient was noted to have multiple episodes of absence seizure, rapid response was called. She was given multiple doses of IV Ativan, and continued to have seizure-like activity, and also has some generalized tonic-clonic activity. She was taken to the ICU, loaded with Keppra and Dilantin, and was intubated for airway protection. Currently patient is in the medical ICU intubated and sedated. Undergoing further workup. Head CT was completed, did not show any acute process, ventriculostomy changes without evidence of hydrocephalus. Patient does have a prior history of pseudoseizures. Was extensively worked up outpatient, negative for any seizure disorder. Currently weaning off of sedation. Repeat EEG did not show any seizure-like activity. Patient is now extubated. Likely had asp iration pneumonia as well as acute pulmonary edema. Receiving occasional IV Lasix, and also on IV Unasyn. Subjective: Seen and examined at bedside. Denies any new complaints. Denies any chest pa in, shortness of breath, abdominal pain. Courtney catheter in place. On nasal cannula. Pertinent positives and negatives as discussed above, a complete review of systems was performed and all other systems are negative. Vitals Signs Reviewed. General: Not in acute distress, dwarfism Derm: Warm, dry Head: Atraumatic, normocephalic, symmetric Eyes: Pupils equal and reactive, EOMI Mouth: No lip lesion, mucus membranes moist Cardiovascular: S1S2 reg, no murmur Lungs: Bilateral Rales, supplemental oxygen, no accessory muscle use Abdominal: Soft, no appreciable organomegaly, nontender to palpation, nondistended Ext: No contractures, moving all extremities Neuro: CN II to XII grossly normal, no focal deficits Psych: Alert and oriented, cooperative Data Reviewed Today: Pertinent Labs: WBC 12.6, hemoglobin 11.8, bicarb 17, anion gap 11, creatinine 0.48, glucose range between 56-1 44 Imaging: Chest x-ray independently interpreted, shows interstitial opacities, worsening right lower lobe opacity Assessment and Plan: Patient is critically ill, in medical ICU, prognosis guarded. Active: Questionable status epilepticus History of pseudoseizures History of hydrocephalus status post shunt -Discussed management with neurology, patient currently on IV Keppra 1500 every 12 hours, may consider Lamictal to help with mood as well as possible seizure- like activity -On IV Ativan as needed for seizures, monitor for sedation Acute hypoxic respiratory failure Aspiration pneumonia Acute pulmonary edema -Given 2 doses of IV Lasix 40 mg today, also on IV Unasyn 1.5 g every 6 hours per pulmonology -Continue to wean oxygen Asthma -DuoNebs every 4 hours, and as needed Bipolar disorder Anxiety disorder Depression with suicidal ideation -On BuSpar 10 3 times daily, Zoloft 75 daily -Thiamine 100 mg daily -Psychiatry consulted Normocytic anemia, resolved Hypokalemia, resolved Hypomagnesemia, resolved DVT ppx: Subcu heparin Code status: Full code Anticipated discharge place: Pending clinical course Anticipated discharge time: Pending clinical course Objective - Vital Signs Vital signs: Vital Signs Temp 100.9 F H 07/21/23 09:00 Pulse 122 H 07/21/23 11:39 Resp 30 H 07/21/23 11:39 BP 111/67 07/21/23 09:00 Pulse Ox 91 L 07/21/23 11:27 FiO2 90 07/21/23 11:27 Intake & Output 07/20/23 07/21/23 07/21/23 18:59 06:59 18:59 Intake Total 871.971 283.882 71.275 Output Total 3160 700 250 Balance -2288.029 -416.118 -178.725 Intake: IV 220 60 Sodium Chloride 0.9% 1, 220 60 000 ml @ 20 mls/hr IV . Q24H [facility] Rx#:[id number] Intake, IV Titration 731.971 63.882 11.275 Amount Dexmedetomidine/0.9% NaCl 29.343 63.882 11.275 (Pmx) 400 mcg In Empty Bag 1 bag @ 0.2 MCG/KG/HR 3.3 mls/hr IV .Q24H [facility] Rx#:[id number] Magnesium Sulfate-D5w Pmx 100 1 gm In Dextrose/Water 1 100ml.bag @ 100 mls/hr IVPB ONCE ONE Rx#: [id number] Midazolam HCl 50 mg In 28.667 Sodium Chloride 0.9% 40 ml @ 1 MG/HR 1 mls/hr IV .Q24H [facility] Rx#:[id number] Potassium Chloride 20 meq 200 In Water For Injection 1 100ml.bag @ 50 mls/hr IVPB Q2H [facility] Rx#: [id number] Potassium Chloride 20 meq 200 In Water For Injection 1 100ml.bag @ 50 mls/hr IVPB Q2H [facility] Rx#: [id number] Sodium Chloride 0.9% 1, 80 000 ml @ 20 mls/hr IV . Q24H [facility] Rx#:[id number] propofoL 1,000 mg In 93.961 Empty Bag 1 bag @ 15 MCG/ KG/MIN 5.312 mls/hr IV . [id number] [facility] Rx#:[id number] Tube Feeding 80 Other 60 Output: Gastric Drainage 350 Urine 2810 700 250 Other: Voiding Method Indwelling Catheter Indwelling Catheter - Labs CBC & Chem 7: 07/21/23 03:41 07/21/23 03:36 Labs: Abnormal Lab Results - Last 24 Hours (Table) 07/20/23 07/20/23 07/20/23 Range/Units 15:05 18:21 19:11 WBC (3.8-10.6) k/uL RBC (3.80-5.40) m/uL Neutrophils # (1.3-7.7) k/uL Potassium 3.2 L (3.5-5.1) mmol/L Chloride (98-107) mmol/L Carbon Dioxide (22-30) mmol/L BUN (7-17) mg/dL Creatinine (0.52-1.04) mg/dL Glucose (74-99) mg/dL POC Glucose (mg/dL) 66 L 154 H (70-110) mg/dL 07/21/23 07/21/23 07/21/23 Range/Units 03:36 03:41 04:35 WBC 12.6 H (3.8-10.6) k/uL RBC 3.74 L (3.80-5.40) m/uL Neutrophils # 9.9 H (1.3-7.7) k/uL Potassium (3.5-5.1) mmol/L Chloride 112 H (98-107) mmol/L Carbon Dioxide 17 L (22-30) mmol/L BUN 4 L (7-17) mg/dL Creatinine 0.48 L (0.52-1.04) mg/dL Glucose 56 L (74-99) mg/dL POC Glucose (mg/dL) 60 L (70-110) mg/dL 07/21/23 Range/Units 05:11 WBC (3.8-10.6) k/uL RBC (3.80-5.40) m/uL Neutrophils # (1.3-7.7) k/uL Potassium (3.5-5.1) mmol/L Chloride (98-107) mmol/L Carbon Dioxide (22-30) mmol/L BUN (7-17) mg/dL Creatinine (0.52-1.04) mg/dL Glucose (74-99) mg/dL POC Glucose (mg/dL) 144 H (70-110) mg/dL Microbiology - Last 24 Hours (Table) 07/18/23 00:45 Gram Stain - Final Sputum Sputum Culture - Final
--- NOTE | 2023-07-21 12:56 | P.PN ---
Subjective Progress Note Date: 07/21/23 Patient is a 27-year-old white female with past medical history significant for asthma, seizure disorder, hydrocephalus status post SLIDE FA[employer] shunt, bipolar disorder and major depression, migraines, and alcohol use disorder. Patient presented to the emergency room back on 07/16/2023 with suicidal ideation. She was sent in from [facility] to be admitted for inpatient psych evaluation. No actual suicidal attempts were reported. Patient was admitted to the [facility] mental health unit. Late last night, a rapid response was called for seizures. Patient reportedly was found on the ground in the hallway. The sound physician that responded to the event, noted possible absence seizure's. These progressed to generalized tonic-clonic activity. She was given several doses of Ativan, a total of 7 mg, with no significant response. She was also loaded with Keppra and Dilantin per direction of the neurologist. Despite these pharmacological interventions, she continues to have seizure like activity. She is currently moved to the intensive care unit. She continues to have intermittent generaliz ed tonic-clonic seizures every 2 to 5 minutes. Lasting approximately 30 seconds to 1 minute. No complete recovery in between. Moving all 4 extremities. Eyes are midline without nystagmus. No tongue biting. No urinary or fecal incontinence. Currently, appears postictal and will occasionally answer simple commands. On room air. SpO2 96%. No reported aspiration events. Remaining vital signs are also stable. Neurologist was consulted, who recommends intubation and sedation until seizures can be controlled. MATERIAL CHASER responded the bedside, performed rapid sequence intubation. Postintubation chest x-ray demonstrates endotracheal tube tip above the carroll and below the clavicle. Nasogastric tube courses below the diaphragm could be advanced at least 5 cm. Current ventilator settings include assist-control, respiratory rate 16, tidal volume 300, FiO2 100%, PEEP of 5. Postintubation ABG shows a PaO2 of 311, pCO2 of 45, pH of 7.3. FiO2 was appropriately weaned. She is sedated with propofol which is currently at 50 mcg/kg/min. She is currently asynchronous with mechanical ventilator and breath stacking. Peak airway pressures 28. CT of the brain was carried out which did not show any acute intracranial process. There was a ventriculostomy changes without evidence of hydrocephalus list. Urine toxicology screen positive for marijuana, but are otherwise unremarkable. No fevers. Recently started on BuSpar, and also on Zoloft. CBC unremarkable, no leukocytosis. Most recent BMP: Includes a sodium 140, potassium 3.4, chloride 111, serum bicarb 20, BUN 13, creatinine 0.46, glucose 82. Patient has no family or next of kin listed in the EMR. She is listed as homeless. We will attempt to reach out for possible contacts. On today's evaluation of 07/19/2023, patient is being seen for a follow-up. Remains dependent on mechanical ventilator. Remains on propofol which is running at 50 mcg/kg/min. No seizure activity has been noted. No tonic or clonic activity. The patient has some tremor especially when she is stimulated. Nurse at infusion has been discontinued. Pressors have been discontinued and the patient is currently off norepinephrine and she is on normal citrate of 75 cc an hour. While being on the mechanical ventilator, she is on assist-control mode with a rate of 60, tidal volume of 300, FiO2 of 40% with a PEEP of 5. Overall fluid balance is +835 cc over the past 24 hours. Blood gas was not obtained this morning as the patient is a difficult poke. Will monitor the end- tidal CO2. The patient remains on Keppra 1.5 g every 12 hours. IV fluids are in the form of normal saline at 75 cc an hour. She is afebrile. Blood work from today shows a white cell count of 8.6 with a hemoglobin 10.3 and a platelet count of 187. BUN is at 4 mg of 0.31 and a sodium level is at 144. EEG from yesterday showed no seizure activity. Neurology on the case. 07/20/2023, the patient is being seen for a follow-up. Remains intubated on the mechanical ventilator. Sedation holiday was given and the patient became quite restless, asynchronous with mechanical ventilator, tachypneic and tachycardic and was having excessive tremors. Based on that, the patient was placed back on sedation and this morning she remains on propofol at 40 mcg/kg/min and Versed 4 mg an hour. A repeat EEG was done while the patient on the Versed and the patient does not show any seizure activity. While on the mechanical ventilator, she is on assist-control mode with rate of 60, tidal volume 300, FiO2 of 40% with a PEEP of 5. End-tidal CO2 is 37. IV fluids currently running at 75 cc an hour and the patient is on vital high-protein at rate of 16 cc an hour. The patient had a follow-up chest x-ray today that showed smaller lung volumes and evidence of increased pulm vascular markings. ET tube is around 5 cm above the carroll. NG tube is in place. There is also a SLIDE [employer] shunt in place. There is diffuse bilateral pulmonary haziness. Blood work shows a white cell count of 8.9, hemoglobin of 10.4, potassium is at 2.7, bicarb is at 22 with a sodium level of 140, BUN is at 2 with a creatinine of 0.4. Hemodynamically stable and she is currently on no pressors. 07/21/2023, the patient is extubated. The patient was kept on Precedex. Earlier this morning, the patient was found to be more lethargic and based on that, the Precedex was discontinued and the mental status improved. Nevertheless, the patient had some difficulty in breathing and excessive respiratory congestion and mucus production. Initially she was on 5 L and she was brought up to 11 L and later on placed on 100% nonrebreather facemask. Aggressive pulmonary toileting was done. Cough subsequently subsided and the patient is currently on 11 L of oxygen nasal cannula. Precedex is currently off. Fluid balance is -2.7 L over the past 24 hours. Chest x-ray shows small lung volumes and the patient has increased pulm vascular markings and congestion and possibly right lower lobe pulm infiltrates. She has a recent cough and based on excessive respiratory secretions, the patient was started on IV Unasyn. IV fluids were placed on KVO. No seizure activity has been noted and the patient remains on Keppra. She is communicating. Hemodynamically stable on no pressors. Will go 4 extremities without any limitation. Objective - Vital Signs Vital signs: Vital Signs Temp 98.2 F 07/21/23 00:00 Pulse 115 H 07/21/23 08:00 Resp 53 H 07/21/23 08:00 BP 116/76 07/21/23 08:00 Pulse Ox 96 07/21/23 08:00 FiO2 40 07/20/23 13:35 Intake & Output 07/20/23 07/21/23 07/21/23 18:59 06:59 18:59 Intake Total 871.971 283.882 31.275 Output Total 3160 700 50 Balance -2288.029 -416.118 -18.725 Intake: IV 220 20 Sodium Chloride 0.9% 1, 220 20 000 ml @ 20 mls/hr IV . Q24H [facility] Rx#:[id number] Intake, IV Titration 731.971 63.882 11.275 Amount Dexmedetomidine/0.9% NaCl 29.343 63.882 11.275 (Pmx) 400 mcg In Empty Bag 1 bag @ 0.2 MCG/KG/HR 3.3 mls/hr IV .Q24H [facility] Rx#:[id number] Magnesium Sulfate-D5w Pmx 100 1 gm In Dextrose/Water 1 100ml.bag @ 100 mls/hr IVPB ONCE ONE Rx#: [id number] Midazolam HCl 50 mg In 28.667 Sodium Chloride 0.9% 40 ml @ 1 MG/HR 1 mls/hr IV .Q24H [facility] Rx#:[id number] Potassium Chloride 20 meq 200 In Water For Injection 1 100ml.bag @ 50 mls/hr IVPB Q2H [facility] Rx#: [id number] Potassium Chloride 20 meq 200 In Water For Injection 1 100ml.bag @ 50 mls/hr IVPB Q2H [facility] Rx#: [id number] Sodium Chloride 0.9% 1, 80 000 ml @ 20 mls/hr IV . Q24H [facility] Rx#:[id number] propofoL 1,000 mg In 93.961 Empty Bag 1 bag @ 15 MCG/ KG/MIN 5.312 mls/hr IV . 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 Patient is currently extubated and she is on high flow oxygen at 10 to 11 L/min nasal cannula EYES: Normal reaction of pupils, equal size. No nystagmus. NOSE: Clear with pink turbinates. THROAT: No erythema or exudates. NECK: No masses, no JVD. CHEST: No chest wall deformity. LUNGS: Equal air entry with no crackles, scattered rhonchi heard throughout the lung deleon bilaterally. No conversational dyspnea or accessory muscle use.. Excessive coughing and respiratory rhonchi and congestion the patient is having recent cough with ability to cough or respiratory secretions. CVS: S1 and S2 normal with no audible murmur, regular rhythm. No extra heart sounds ABDOMEN: No hepatosplenomegaly, active bowel sounds, no guarding or rigidity. SPINE: No scoliosis or deformity SKIN: No rashes CENTRAL NERVOUS SYSTEM: Awake and alert and communicating and moving all 4 extremities without any limitations. - Labs CBC & Chem 7: 07/21/23 03:41 07/21/23 03:36 Labs: Abnormal Lab Results - Last 24 Hours (Table) 07/20/23 07/20/23 07/20/23 Range/Units 15:05 18:21 19:11 WBC (3.8-10.6) k/uL RBC (3.80-5.40) m/uL Neutrophils # (1.3-7.7) k/uL Potassium 3.2 L (3.5-5.1) mmol/L Chloride (98-107) mmol/L Carbon Dioxide (22-30) mmol/L BUN (7-17) mg/dL Creatinine (0.52-1.04) mg/dL Glucose (74-99) mg/dL POC Glucose (mg/dL) 66 L 154 H (70-110) mg/dL 07/21/23 07/21/23 07/21/23 Range/Units 03:36 03:41 04:35 WBC 12.6 H (3.8-10.6) k/uL RBC 3.74 L (3.80-5.40) m/uL Neutrophils # 9.9 H (1.3-7.7) k/uL Potassium (3.5-5.1) mmol/L Chloride 112 H (98-107) mmol/L Carbon Dioxide 17 L (22-30) mmol/L BUN 4 L (7-17) mg/dL Creatinine 0.48 L (0.52-1.04) mg/dL Glucose 56 L (74-99) mg/dL POC Glucose (mg/dL) 60 L (70-110) mg/dL 07/21/23 Range/Units 05:11 WBC (3.8-10.6) k/uL RBC (3.80-5.40) m/uL Neutrophils # (1.3-7.7) k/uL Potassium (3.5-5.1) mmol/L Chloride (98-107) mmol/L Carbon Dioxide (22-30) mmol/L BUN (7-17) mg/dL Creatinine (0.52-1.04) mg/dL Glucose (74-99) mg/dL POC Glucose (mg/dL) 144 H (70-110) mg/dL Microbiology - Last 24 Hours (Table) 07/18/23 00:45 Gram Stain - Final Sputum Sputum Culture - Final Assessment and Plan Assessment: Acute hypoxic respiratory failure, suspected right lower lobe pneumonia with a component of pulm vessel congestion. Patient was started on IV Unasyn. The patient is currently on high flow oxygen. She may possibly need Airvo. She is also having excessive respiratory secretions with adequate ability to cough and perform pulmonary toileting. Status epilepticus, stable for now, free of any seizures and the patient is currently on Keppra History of seizure disorder History of hydrocephalus, status post SLIDE FA[employer] shunt History of alcohol use disorder, acamprosate listed as home medication Suicidal ideation History of bipolar disorder and major depression History of migraines History of asthma, not currently active Marijuana use Dwarfism and short stature Plan: Aggressive pulmonary toileting Provide incentive spirometer Use Airvo if needed Unasyn was added suspecting an aspiration pneumonia Give the patient dose of Lasix 40 mg IV push and keep the patient's IV fluids at KVO. The patient off Precedex Continue IV Keppra No active seizures on follow-up EEG CT of the brain noted, EEG was negative for any active seizures, continue seizure precautions, Urine toxicology screen only positive for marijuana, Afebrile Continue enteral feeding Neurology on the case Continue supportive care This is a critical care evaluation.es.
--- NOTE | 2023-07-21 14:11 | P.PN ---
Subjective Progress Note Date: 07/21/23 I am following up with the patient and the patient is extubated. Per the nurse he continues to have these body tremors. Per the nurse she is nausea and having retching episodes. I spoke with the primary team and it seems the patient had one-time low-grade fever today and he feels as aspiration pneumonia. Objective - Vital Signs Vital signs: Vital Signs Temp 100.9 F H 07/21/23 09:00 Pulse 122 H 07/21/23 11:39 Resp 30 H 07/21/23 11:39 BP 111/67 07/21/23 09:00 Pulse Ox 91 L 07/21/23 11:27 FiO2 90 07/21/23 11:27 Intake & Output 07/20/23 07/21/23 07/21/23 18:59 06:59 18:59 Intake Total 871.971 283.882 71.275 Output Total 3160 700 250 Balance -2288.029 -416.118 -178.725 Intake: IV 220 60 Sodium Chloride 0.9% 1, 220 60 000 ml @ 20 mls/hr IV . Q24H [facility] Rx#:[id number] Intake, IV Titration 731.971 63.882 11.275 Amount Dexmedetomidine/0.9% NaCl 29.343 63.882 11.275 (Pmx) 400 mcg In Empty Bag 1 bag @ 0.2 MCG/KG/HR 3.3 mls/hr IV .Q24H [facility] Rx#:[id number] Magnesium Sulfate-D5w Pmx 100 1 gm In Dextrose/Water 1 100ml.bag @ 100 mls/hr IVPB ONCE ONE Rx#: [id number] Midazolam HCl 50 mg In 28.667 Sodium Chloride 0.9% 40 ml @ 1 MG/HR 1 mls/hr IV .Q24H [facility] Rx#:[id number] Potassium Chloride 20 meq 200 In Water For Injection 1 100ml.bag @ 50 mls/hr IVPB Q2H [facility] Rx#: [id number] Potassium Chloride 20 meq 200 In Water For Injection 1 100ml.bag @ 50 mls/hr IVPB Q2H [facility] Rx#: [id number] Sodium Chloride 0.9% 1, 80 000 ml @ 20 mls/hr IV . Q24H [facility] Rx#:[id number] propofoL 1,000 mg In 93.961 Empty Bag 1 bag @ 15 MCG/ KG/MIN 5.312 mls/hr IV . [id number] [facility] Rx#:[id number] Tube Feeding 80 Other 60 Output: Gastric Drainage 350 Urine 2810 700 250 Other: Voiding Method Indwelling Catheter Indwelling Catheter - Exam General: Lying in bed and does not appear in acute distress. Resp: Coarse lungs Neuro: Limited. Is having retching episode. Patient is drowsy but is awakeable to voice. Is following simple commands. No facial weakness. Is showing thumbs up and wiggling toes Some of the workup during this hospital visit consisted of: Patient is afebrile Sodium is 142, serum glucose is 103, plasma lactic acid vein is 0.7 Prolactin is 40.7 Calcium on presentation was 8.8. Magnesium is 2.0. CT head is reported as no acute intracranial process. Ventriculostomy changes without evidence for hydrocephalus. History reviewed the CT and I agree there is no acute or subacute changes. The patient does have tape of the ventriculostomy on the right side Routine EEG: Is abnormal. The background slowing is suggestive of mild encephalopathy. There is no focal slowing, epileptiform discharge or seizure on EEG. The excessive beta activity is likely due to medication effect (Ativan, Versed and Propofol). Repeat Routine EEG on 07/19/2023: Is abnormal. The background slowing is suggestive of mild encepahlopathy. The episode that was recorded is non-epile ptic in nature. No seizure or epileptiform discharges. - Labs CBC & Chem 7: 07/21/23 03:41 07/21/23 03:36 Labs: Abnormal Lab Results - Last 24 Hours (Table) 07/20/23 07/20/23 07/20/23 Range/Units 15:05 18:21 19:11 WBC (3.8-10.6) k/uL RBC (3.80-5.40) m/uL Neutrophils # (1.3-7.7) k/uL Potassium 3.2 L (3.5-5.1) mmol/L Chloride (98-107) mmol/L Carbon Dioxide (22-30) mmol/L BUN (7-17) mg/dL Creatinine (0.52-1.04) mg/dL Glucose (74-99) mg/dL POC Glucose (mg/dL) 66 L 154 H (70-110) mg/dL 07/21/23 07/21/23 07/21/23 Range/Units 03:36 03:41 04:35 WBC 12.6 H (3.8-10.6) k/uL RBC 3.74 L (3.80-5.40) m/uL Neutrophils # 9.9 H (1.3-7.7) k/uL Potassium (3.5-5.1) mmol/L Chloride 112 H (98-107) mmol/L Carbon Dioxide 17 L (22-30) mmol/L BUN 4 L (7-17) mg/dL Creatinine 0.48 L (0.52-1.04) mg/dL Glucose 56 L (74-99) mg/dL POC Glucose (mg/dL) 60 L (70-110) mg/dL 07/21/23 Range/Units 05:11 WBC (3.8-10.6) k/uL RBC (3.80-5.40) m/uL Neutrophils # (1.3-7.7) k/uL Potassium (3.5-5.1) mmol/L Chloride (98-107) mmol/L Carbon Dioxide (22-30) mmol/L BUN (7-17) mg/dL Creatinine (0.52-1.04) mg/dL Glucose (74-99) mg/dL POC Glucose (mg/dL) 144 H (70-110) mg/dL Assessment and Plan Assessment: This is a 27-year-old woman with history of seizure disorder off antiepileptic, hydrocephalus s/p shunt, bipolar who initially was admitted to the mental health unit for depression and suicidal ideation on 07/16/2023 was transferred to the ICU recurrent seizure-like activity and was reported she had numerous ones and she reported she had absence seizure that led into a generalized tonic-clonic seizure without any resolution of her seizure with Ativan or Keppra seem that the patient was and clinical status epilepticus. Recurrent seizure-like activity and initially clinical status epilepticus. But the EEG captures the episodes are non-epileptic in nature. Had total two EEG which are negative for seizure. Intubated on a ventilator and is on sedation due to above--extubated today. History of seizure disorder and is not on any antiepileptic drugs. It seems she had blank stares and work-up and was told no seizures (adopted father notified nurse). Recent depression and suicidal ideation Hydrocephalus s/p shunt Dwarf Bipolar Major depression Alcohol use Plan: Currently she is on Keppra 1500 mg IV every 12 hours. I would recommend starting Lamictal or Depakote which has both mood benefit and antiepileptic benefit. Then stop Keppra. Therefore, today will start on Lamictal 25mg daily and then after 1 week 25mg bid then add 25mg until 100mg bid. It seems she was on Lamictal in past and was placed on tapering dose. I think this will beneficial from neurological perspective until psychiatry feels otherwise. I notifed patient about side-effect of Ozzy Hesham syndrome. Seizure precautions seizure pads Will defer the rest of the medical management to primary and other specialists Plan discussed with ICU team as well as her primary team. Time with Patient: Less than 30
[2023-07-21] MEDS: lamoTRIgine 25 MG TAB PO SCH (15:06)
[2023-07-21 15:37] LABS: Glucose,Whole Blood 84 mg/dL (70-110)
[2023-07-21 16:52] LABS: Glucose,Whole Blood 94 mg/dL (70-110)
[2023-07-22 00:19] LABS: Glucose,Whole Blood 92 mg/dL (70-110)
[2023-07-22] MEDS: MELATONIN 5 MG TABLET PO SCH (01:25)
[2023-07-22 04:53] LABS: Basophils % (A) 0 %; Eosinophils % (A) 0 %; HCT 42.8 % (34.0-46.0); HGB 13.1 gm/dL (11.4-16.0); Hypochromasia Slight; Lymphocytes # (A) 0.7 k/uL (1.0-4.8); Lymphocytes % (A) 5 %; MCH 30.6 pg (25.0-35.0); MCHC 30.5 g/dL (31.0-37.0); MCV 100.4 fL (80.0-100.0); Mean Platelet Volume 7.8; Monocytes # (A) 0.5 k/uL (0-1.0); Monocytes % (A) 3 %; Neutrophils # (A) 12.6 k/uL (1.3-7.7); Neutrophils % (A) 91 %; Platelet Count 289 k/uL (150-450); RBC 4.26 m/uL (3.80-5.40); RDW 13.6 % (11.5-15.5); WBC 13.9 k/uL (3.8-10.6)
[2023-07-22 05:08] LABS: African American GFR (CKD) >90 (>60 ml/min/1.73 sqM); Anion Gap 20 mmol/L; Blood Urea Nitrogen 10 mg/dL (7-17); Calcium 9.7 mg/dL (8.4-10.2); Chloride 118 mmol/L (98-107); Glucose 119 mg/dL (74-99); Magnesium 2.2 mg/dL (1.6-2.3); Non-African American GFR(CKD) >90 (>60 ml/min/1.73 sqM); Potassium 3.6 mmol/L (3.5-5.1); Sodium 145 mmol/L (137-145)
[2023-07-22 05:10] LABS: Carbon Dioxide 7 mmol/L (22-30)
[2023-07-22] MEDS ORDERED: POTASSIUM CHLORIDE 20 MEQ in WATER FOR INJECTION 1 100ML.BAG IVPB ONE (05:30)
[2023-07-22] MEDS: POTASSIUM CHLORIDE 20 MEQ in WATER FOR INJECTION 1 100ML.BAG IVPB ONE (06:32)
[2023-07-22 06:55] LABS: Glucose,Whole Blood 100 mg/dL (70-110)
[2023-07-22] MEDS: SODIUM BICARB 8.4% 50 ML SYR (1 MEQ/ML) IV STA ×2 (06:59)
[2023-07-22] MEDS: DEXTROSE 5% IN WATER 1,000 ML with SODIUM BICARB (1 MEQ/ML) 150 ML IV SCH (08:06)
--- NOTE | 2023-07-22 11:36 | P.PN ---
Subjective Progress Note Date: 07/22/23 I am following-up with patient and per primary team and nurse she is having respiratory distress due to aspiration pneumonia. No new neurological issues. Is NPO Objective - Vital Signs Vital signs: Vital Signs Temp 99.4 F 07/22/23 08:00 Pulse 110 H 07/22/23 11:00 Resp 28 H 07/22/23 11:00 BP 111/79 07/22/23 11:00 Pulse Ox 94 L 07/22/23 11:00 FiO2 64 07/22/23 11:00 Intake & Output 07/21/23 07/22/23 07/22/23 18:59 06:59 18:59 Intake Total 501.275 410 270 Output Total 1800 915 225 Balance -1298.725 -505 45 Weight 56.2 kg 56.2 kg Intake: IV 240 410 270 Ampicillin-Sulbactam 1.5 50 50 gm In Sodium Chloride 0.9 % 50 ml @ 100 mls/hr IVPB Q6H [facility] Rx#:[id number] Dextrose 5% in Water 1, 200 000 ml @ 100 mls/hr IV . [id number] [facility] with Sodium Bicarb (1 Meq/ml) 150 ml Rx#:[id number] Potassium Chloride 20 meq 100 In Water For Injection 1 100ml.bag @ 50 mls/hr IVPB ONCE ONE Rx#: [id number] Sodium Chloride 0.9% 1, 240 260 20 000 ml @ 20 mls/hr IV . Q24H [facility] Rx#:[id number] Intake, IV Titration 11.275 Amount Dexmedetomidine/0.9% NaCl 11.275 (Pmx) 400 mcg In Empty Bag 1 bag @ 0.2 MCG/KG/HR 3.3 mls/hr IV .Q24H [facility] Rx#:[id number] Oral 250 Output: Urine 1800 915 225 Other: Voiding Method Indwelling Catheter Indwelling Catheter # Bowel Movements 1 - Exam General: Sitting up in a chair and does not appear in acute distress. Resp: Is on High flow oxygen Neuro: Limited. Is sleeping but seems less restless and agitated today. No obvious facial drrop. Some of the workup during this hospital visit consisted of: Sodium is 142, serum glucose is 103, plasma lactic acid vein is 0.7 Prolactin is 40.7 Calcium on presentation was 8.8. Magnesium is 2.0. CT head is reported as no acute intracranial process. Ventriculostomy changes without evidence for hydrocephalus. History reviewed the CT and I agree there is no acute or subacute changes. The patient does have tape of the ventriculostomy on the right side Routine EEG: Is abnormal. The background slowing is suggestive of mild encephalopathy. There is no focal slowing, epileptiform discharge or seizure on EEG. The excessive beta activity is likely due to medication effect (Ativan, Versed and Propofol). Repeat Routine EEG on 07/19/2023: Is abnormal. The background slowing is suggestive of mild encepahlopathy. The episode that was recorded is non- epileptic in nature. No seizure or epileptiform discharges. - Labs CBC & Chem 7: 07/22/23 04:28 07/22/23 04:28 Labs: Abnormal Lab Results - Last 24 Hours (Table) 07/22/23 07/22/23 Range/Units 04:28 04:28 WBC 13.9 H (3.8-10.6) k/uL MCV 100.4 H (80.0-100.0) fL MCHC 30.5 L (31.0-37.0) g/dL Neutrophils # 12.6 H (1.3-7.7) k/uL Lymphocytes # 0.7 L (1.0-4.8) k/uL Chloride 118 H (98-107) mmol/L Carbon Dioxide 7 L* (22-30) mmol/L Glucose 119 H (74-99) mg/dL Assessment and Plan Assessment: This is a 27-year-old woman with history of seizure disorder off antiepileptic, hydrocephalus s/p shunt, bipolar who initially was admitted to the mental health unit for depression and suicidal ideation on 07/16/2023 was transferred to the ICU recurrent seizure-like activity and was reported she had numerous ones and she reported she had absence seizure that led into a generalized tonic-clonic seizure without any resolution of her seizure with Ativan or Keppra seem that the patient was and clinical status epilepticus. Recurrent seizure-like activity and initially clinical status epilepticus but electrographically episodes are nonepileptic in nature---resolved. The EEG captures the episodes are non-epileptic in nature. Had total two EEG which are negative for seizure. Respiratory distress and has aspiration pneumonia Intubated on a ventilator and is on sedation due to above--extubated History of seizure disorder and is not on any antiepileptic drugs. It seems she had blank stares and work-up and was told no seizures (adopted father notified nurse). Recent depression and suicidal ideation Hydrocephalus s/p shunt Dwarfism Bipolar Major depression Alcohol use Plan: Currently she is on Keppra 1500 mg IV every 12 hours. I went down on Keppra to 1000mg IV every 12 hours. I started Lamictal which has benefit to mood and has antiepileptic coverage. Started Lamictal 25mg daily and then after 1 week to be on 25mg bid then add 25mg every week until goal 100mg bid. Please look for any skin rash since Lamictal can cause Ozzy Hesham syndrome. Seizure precautions seizure pads Per [place] DMV becuse of seizure, avoid driving for 6 months until seizure free, avoid heights, swim unassisted or use heavy machinery. Will defer the rest of the medical management to primary and other specialists Plan discussed with ICU nurse as well as her primary team. Time with Patient: Less than 30
--- NOTE | 2023-07-22 12:29 | P.PN ---
Subjective Progress Note Date: 07/22/23 Hospital Course: 27-year-old female with history of seizure disorder off of antiepileptics, hyd rocephalus status post shunt, bipolar disorder presented from mental health unit for status epilepticus. Patient was admitted to mental health unit for depression and suicidal ideation on 07/16/2023. Patient was noted to have multiple episodes of absence seizure, rapid response was called. She was given multiple doses of IV Ativan, and continued to have seizure-like activity, and also has some generalized tonic-clonic activity. She was taken to the ICU, loaded with Keppra and Dilantin, and was intubated for airway protection. Currently patient is in the medical ICU intubated and sedated. Undergoing further workup. Head CT was completed, did not show any acute process, ventriculostomy changes without evidence of hydrocephalus. Patient does have a prior history of pseudoseizures. Was extensively worked up outpatient, negative for any seizure disorder. Currently weaning off of sedation. Repeat EEG did not show any seizure-like activity. Patient is now extubated. Likely had asp iration pneumonia as well as acute pulmonary edema. Received occasional IV Lasix, and also on IV Unasyn. Still continues to have frequent aspirations. Patient now requiring more supplemental oxygen. Subjective: Seen and examined at bedside. Denies any new complaints. Having aspiration. Courtney catheter in place. On high flow nasal cannula. Pertinent positives and negatives as discussed above, a complete review of systems was performed and all other systems are negative. Vitals Signs Reviewed. General: Not in acute distress, dwarfism Derm: Warm, dry Head: Atraumatic, normocephalic, symmetric Eyes: Pupils equal and reactive, EOMI Mouth: No lip lesion, mucus membranes moist Cardiovascular: S1S2 reg, no murmur Lungs: Bilateral Rales, supplemental oxygen, no accessory muscle use Abdominal: Soft, no appreciable organomegaly, nontender to palpation, nondistended Ext: No contractures, moving all extremities Neuro: CN II to XII grossly normal, no focal deficits Psych: Alert and oriented, cooperative Data Reviewed Today: Pertinent Labs: WBC 13.9, bicarb 7, anion gap 20, lactate 0.9, glucose 119, creatinine 0.53, magnesium 2.2 Imaging: Chest x-ray independently interpreted, shows interstitial opacities, worsening right lower lobe opacity Assessment and Plan: Patient is critically ill, in medical ICU, prognosis guarded. Active: Acute hypoxic respiratory failure Aspiration pneumonia Acute pulmonary edema -Continue IV Unasyn 1.5 g every 6 hours, speech therapy consulted -Keep n.p.o. -Continue to wean oxygen -Echocardiogram pending Metabolic acidosis -On IV sodium bicarb at 100 cc an hour Questionable status epilepticus History of pseudoseizures History of hydrocephalus status post shunt -Discussed management with neurology, Keppra decreased to 1 g IV every 12 hours -On IV Ativan as needed for seizures, monitor for sedation Asthma -DuoNebs every 4 hours, and as needed Bipolar disorder Anxiety disorder Depression with suicidal ideation -On BuSpar 10 3 times daily, Zoloft 75 daily -Thiamine 100 mg daily -Psychiatry consulted Normocytic anemia, resolved Hypokalemia, resolved Hypomagnesemia, resolved DVT ppx: Subcu heparin Code status: Full code Anticipated discharge place: Pending clinical course Anticipated discharge time: Pending clinical course Objective - Vital Signs Vital signs: Vital Signs Temp 99.4 F 07/22/23 08:00 Pulse 104 H 07/22/23 12:12 Resp 28 H 07/22/23 11:00 BP 111/79 07/22/23 11:00 Pulse Ox 95 07/22/23 12:00 FiO2 60 07/22/23 12:00 Intake & Output 07/21/23 07/22/23 07/22/23 18:59 06:59 18:59 Intake Total 501.275 410 270 Output Total 1800 915 225 Balance -1298.725 -505 45 Weight 56.2 kg 56.2 kg Intake: IV 240 410 270 Ampicillin-Sulbactam 1.5 50 50 gm In Sodium Chloride 0.9 % 50 ml @ 100 mls/hr IVPB Q6H [facility] Rx#:[id number] Dextrose 5% in Water 1, 200 000 ml @ 100 mls/hr IV . [id number] [facility] with Sodium Bicarb (1 Meq/ml) 150 ml Rx#:[id number] Potassium Chloride 20 meq 100 In Water For Injection 1 100ml.bag @ 50 mls/hr IVPB ONCE ONE Rx#: [id number] Sodium Chloride 0.9% 1, 240 260 20 000 ml @ 20 mls/hr IV . Q24H [facility] Rx#:[id number] Intake, IV Titration 11.275 Amount Dexmedetomidine/0.9% NaCl 11.275 (Pmx) 400 mcg In Empty Bag 1 bag @ 0.2 MCG/KG/HR 3.3 mls/hr IV .Q24H [facility] Rx#:[id number] Oral 250 Output: Urine 1800 915 225 Other: Voiding Method Indwelling Catheter Indwelling Catheter Indwelling Catheter # Bowel Movements 1 - Labs CBC & Chem 7: 07/22/23 04:28 07/22/23 04:28 Labs: Abnormal Lab Results - Last 24 Hours (Table) 07/22/23 07/22/23 Range/Units 04:28 04:28 WBC 13.9 H (3.8-10.6) k/uL MCV 100.4 H (80.0-100.0) fL MCHC 30.5 L (31.0-37.0) g/dL Neutrophils # 12.6 H (1.3-7.7) k/uL Lymphocytes # 0.7 L (1.0-4.8) k/uL Chloride 118 H (98-107) mmol/L Carbon Dioxide 7 L* (22-30) mmol/L Glucose 119 H (74-99) mg/dL
--- NOTE | 2023-07-22 12:56 | XR ---
EXAMINATION TYPE: XR chest 1V portable DATE OF EXAM: 07/22/2023 COMPARISON: 07/21/2023 INDICATION: Respiratory increase rate TECHNIQUE: Single frontal view of the chest is obtained. FINDINGS: The heart size is large. The pulmonary vasculature is normal. Right lower lobe infiltrate is present. Retrocardiac infiltrate is present. There is some silhouettin g left diaphragm. Findings are worsening over the interval. IMPRESSION: 1. Bibasilar infiltrates worse in the interval. Correlate for atelectasis and pneumonia. 2. Cardiomegaly
--- NOTE | 2023-07-22 13:09 | P.PN ---
Subjective Progress Note Date: 07/22/23 Patient is a 27-year-old white female with past medical history significant for asthma, seizure disorder, hydrocephalus status post MICROFILM PROCESSOR shunt, bipolar disorder and major depression, migraines, and alcohol use disorder. Patient presented to the emergency room back on 07/16/2023 with suicidal ideation. She was sent in from [facility] to be admitted for inpatient psych evaluation. No actual suicidal attempts were reported. Patient was admitted to the counts include 234 beds at the [facility] mental health unit. Late last night, a rapid response was called for seizures. Patient reportedly was found on the ground in the hallway. The sound physician that responded to the event, noted possible absence seizure's. These progressed to generalized tonic-clonic activity. She was given several doses of Ativan, a total of 7 mg, with no significant response. She was also loaded with Keppra and Dilantin per direction of the neurologist. Despite these pharmacological interventions, she continues to have seizure like activity. She is currently moved to the intensive care unit. She continues to have intermittent generaliz ed tonic-clonic seizures every 2 to 5 minutes. Lasting approximately 30 seconds to 1 minute. No complete recovery in between. Moving all 4 extremities. Eyes are midline without nystagmus. No tongue biting. No urinary or fecal incontinence. Currently, appears postictal and will occasionally answer simple commands. On room air. SpO2 96%. No reported aspiration events. Remaining vital signs are also stable. Neurologist was consulted, who recommends intubation and sedation until seizures can be controlled. CERTIFIED MIDWIFE responded the bedside, performed rapid sequence intubation. Postintubation chest x-ray demonstrates endotracheal tube tip above the carroll and below the clavicle. Nasogastric tube courses below the diaphragm could be advanced at least 5 cm. Current ventilator settings include assist-control, respiratory rate 16, tidal volume 300, FiO2 100%, PEEP of 5. Postintubation ABG shows a PaO2 of 311, pCO2 of 45, pH of 7.3. FiO2 was appropriately weaned. She is sedated with propofol which is currently at 50 mcg/kg/min. She is currently asynchronous with mechanical ventilator and breath stacking. Peak airway pressures 28. CT of the brain was carried out which did not show any acute intracranial process. There was a ventriculostomy changes without evidence of hydrocephalus list. Urine toxicology screen positive for marijuana, but are otherwise unremarkable. No fevers. Recently started on BuSpar, and also on Zoloft. CBC unremarkable, no leukocytosis. Most recent BMP: Includes a sodium 140, potassium 3.4, chloride 111, serum bicarb 20, BUN 13, creatinine 0.46, glucose 82. Patient has no family or next of kin listed in the EMR. She is listed as homeless. We will attempt to reach out for possible contacts. On today's evaluation of 07/19/2023, patient is being seen for a follow-up. Remains dependent on mechanical ventilator. Remains on propofol which is running at 50 mcg/kg/min. No seizure activity has been noted. No tonic or clonic activity. The patient has some tremor especially when she is stimulated. Nurse at infusion has been discontinued. Pressors have been discontinued and the patient is currently off norepinephrine and she is on normal citrate of 75 cc an hour. While being on the mechanical ventilator, she is on assist-control mode with a rate of 60, tidal volume of 300, FiO2 of 40% with a PEEP of 5. Overall fluid balance is +835 cc over the past 24 hours. Blood gas was not obtained this morning as the patient is a difficult poke. Will monitor the end- tidal CO2. The patient remains on Keppra 1.5 g every 12 hours. IV fluids are in the form of normal saline at 75 cc an hour. She is afebrile. Blood work from today shows a white cell count of 8.6 with a hemoglobin 10.3 and a platelet count of 187. BUN is at 4 mg of 0.31 and a sodium level is at 144. EEG from yesterday showed no seizure activity. Neurology on the case. 07/20/2023, the patient is being seen for a follow-up. Remains intubated on the mechanical ventilator. Sedation holiday was given and the patient became quite restless, asynchronous with mechanical ventilator, tachypneic and tachycardic and was having excessive tremors. Based on that, the patient was placed back on sedation and this morning she remains on propofol at 40 mcg/kg/min and Versed 4 mg an hour. A repeat EEG was done while the patient on the Versed and the patient does not show any seizure activity. While on the mechanical ventilator, she is on assist-control mode with rate of 60, tidal volume 300, FiO2 of 40% with a PEEP of 5. End-tidal CO2 is 37. IV fluids currently running at 75 cc an hour and the patient is on vital high-protein at rate of 16 cc an hour. The patient had a follow-up chest x-ray today that showed smaller lung volumes and evidence of increased pulm vascular markings. ET tube is around 5 cm above the carroll. NG tube is in place. There is also a MICROFILM PROCESSOR shunt in place. There is diffuse bilateral pulmonary haziness. Blood work shows a white cell count of 8.9, hemoglobin of 10.4, potassium is at 2.7, bicarb is at 22 with a sodium level of 140, BUN is at 2 with a creatinine of 0.4. Hemodynamically stable and she is currently on no pressors. 07/21/2023, the patient is extubated. The patient was kept on Precedex. Earlier this morning, the patient was found to be more lethargic and based on that, the Precedex was discontinued and the mental status improved. Nevertheless, the patient had some difficulty in breathing and excessive respiratory congestion and mucus production. Initially she was on 5 L and she was brought up to 11 L and later on placed on 100% nonrebreather facemask. Aggressive pulmonary toileting was done. Cough subsequently subsided and the patient is currently on 11 L of oxygen nasal cannula. Precedex is currently off. Fluid balance is -2.7 L over the past 24 hours. Chest x-ray shows small lung volumes and the patient has increased pulm vascular markings and congestion and possibly right lower lobe pulm infiltrates. She has a recent cough and based on excessive respiratory secretions, the patient was started on IV Unasyn. IV fluids were placed on KVO. No seizure activity has been noted and the patient remains on Keppra. She is communicating. Hemodynamically stable on no pressors. Will go 4 extremities without any limitation. 07/22/2023, the patient is sitting up on a chair and she is currently on Airvo with 50 L and FiO2 of 75%. She remains extubated. Cough is subsided. Not producing much of sputum today. Nevertheless, chest x-ray shows bibasilar pulm infiltrates worse in the right. The patient was given diuretics yesterday and the patient is a negative fluid balance of at least 1.8 L over the past 24 hours. Serum bicarbonate dropped down to 7. The patient was given IV bicarb a total of 100 mEq and following that she was started on a bicarb infusion which is currently running at 100 cc an hour. She remains on IV Unasyn. Swallow mechanism is poor and the patient seems to be aspirating. An official swallow study will be done and the patient will be kept n.p.o. for now. Echocardiogram was ordered. No seizure activity has been noted and the patient remains on IV Keppra. Objective - Vital Signs Vital signs: Vital Signs Temp 98.8 F 07/22/23 04:00 Pulse 106 H 07/22/23 08:15 Resp 31 H 07/22/23 08:15 BP 123/91 07/22/23 07:00 Pulse Ox 91 L 07/22/23 08:00 FiO2 60 07/22/23 08:00 Intake & Output 07/21/23 07/22/23 07/22/23 18:59 06:59 18:59 Intake Total 501.275 410 Output Total 1800 915 Balance -1298.725 -505 Weight 56.2 kg Intake: IV 240 410 Ampicillin-Sulbactam 1.5 50 gm In Sodium Chloride 0.9 % 50 ml @ 100 mls/hr IVPB Q6H [facility] Rx#:[id number] Potassium Chloride 20 meq 100 In Water For Injection 1 100ml.bag @ 50 mls/hr IVPB ONCE ONE Rx#: [id number] Sodium Chloride 0.9% 1, 240 260 000 ml @ 20 mls/hr IV . Q24H [facility] Rx#:[id number] Intake, IV Titration 11.275 Amount Dexmedetomidine/0.9% NaCl 11.275 (Pmx) 400 mcg In Empty Bag 1 bag @ 0.2 MCG/KG/HR 3.3 mls/hr IV .Q24H [facility] Rx#:[id number] Oral 250 Output: Urine 1800 915 Other: Voiding Method Indwelling Catheter Indwelling Catheter # Bowel Movements 1 - Exam GENERAL EXAM: 27-year-old white female with dwarfism. Patient is currently extubated and she is on Airvo 75% with a flow of 50 L EYES: Normal reaction of pupils, equal size. No nystagmus. NOSE: Clear with pink turbinates. THROAT: No erythema or exudates. NECK: No masses, no JVD. CHEST: No chest wall deformity. LUNGS: Equal air entry with no crackles, scattered rhonchi heard throughout the lung deleon bilaterally. No conversational dyspnea or accessory muscle use.. Improved coughing and respiratory rhonchi and congestion the patient is having recent cough with ability to cough or respiratory secretions. CVS: S1 and S2 normal with no audible murmur, regular rhythm. No extra heart sounds ABDOMEN: No hepatosplenomegaly, active bowel sounds, no guarding or rigidity. SPINE: No scoliosis or deformity SKIN: No rashes CENTRAL NERVOUS SYSTEM: Awake and alert and communicating and moving all 4 extremities without any limitations. - Labs CBC & Chem 7: 07/22/23 04:28 07/22/23 04:28 Labs: Abnormal Lab Results - Last 24 Hours (Table) 07/22/23 07/22/23 Range/Units 04:28 04:28 WBC 13.9 H (3.8-10.6) k/uL MCV 100.4 H (80.0-100.0) fL MCHC 30.5 L (31.0-37.0) g/dL Neutrophils # 12.6 H (1.3-7.7) k/uL Lymphocytes # 0.7 L (1.0-4.8) k/uL Chloride 118 H (98-107) mmol/L Carbon Dioxide 7 L* (22-30) mmol/L Glucose 119 H (74-99) mg/dL Assessment and Plan Assessment: Acute hypoxic respiratory failure, suspected right lower lobe pneumonia with a component of pulm vessel congestion. Patient was started on IV Unasyn. The patient is currently on Airvo, 50 L and FiO2 of 75%. Chest x-ray showing bilateral basilar pulm infiltrates worse on the right. Rule out aspiration pneumonia.. She is also having excessive respiratory secretions with adequate ability to cough and perform pulmonary toileting. Respiratory secretions have subsided on today's evaluation. The patient was also diuresed. Status epilepticus, stable for now, free of any seizures and the patient is currently on Keppra None anion gap metabolic acidosis History of seizure disorder History of hydrocephalus, status post MICROFILM PROCESSOR shunt History of alcohol use disorder, acamprosate listed as home medication Suicidal ideation History of bipolar disorder and major depression History of migraines History of asthma, not currently active Marijuana use Dwarfism and short stature Plan: Aggressive pulmonary toileting Provide incentive spirometer Continue Airvo Continue Unasyn suspecting an aspiration pneumonia Keep the patient n.p.o. Do an official swallow evaluation Echocardiogram Replace the bicarb deficit and repeat another serum bicarb level at around noon time Continue IV Keppra No active seizures on follow-up EEG CT of the brain noted, EEG was negative for any active seizures, continue seizure precautions, Urine toxicology screen only positive for marijuana, Afebrile Continue enteral feeding Neurology on the case Continue supportive care
[2023-07-22 14:36] LABS: Potassium 2.8 mmol/L (3.5-5.1)
[2023-07-22] MEDS ORDERED: Potassium Replacement Protocol 1 EACH MISC MISCELLANE PRN (14:52)
[2023-07-22] MEDS: POTASSIUM CHLORIDE 20 MEQ in WATER FOR INJECTION 1 100ML.BAG IVPB SCH (15:16)
[2023-07-22] MEDS: bisacodyL 10 MG SUPP RECTAL STA (15:39)
[2023-07-22 18:12] LABS: Glucose,Whole Blood 160 mg/dL (70-110)
[2023-07-22] MEDS: levETIRAcetam IV 500 MG/5 ML VIAL IVP SCH (20:42)
[2023-07-22 23:53] LABS: Glucose,Whole Blood 157 mg/dL (70-110)
[2023-07-23] MEDS: IPRATROPIUM-ALBUTEROL 3 ML NEB INHALATION PRN (00:13)
--- NOTE | 2023-07-23 00:14 | P.CN ---
Psychiatric Consult - . Consult date: 07/21/23 Consult:: IDENTIFYING DATA: This patient is a 27 year old single homeless female with dwarfism, history of hydrocephalus s/p [employer] shunt, seizure disorder, who was admitted to inpatient psychiatry on 07/16/23 due to depression and suicidal idea tion, and was transferred to ICU on 07/17/23 for seizures. REASON FOR REFERRAL: Psychiatry was consulted for "depression and suicidal" HISTORY OF PRESENT ILLNESS: The patient presented to the hospital 07/16/23 due to depression and suicidal ideation. Per ER note on 07/16/2023, "This is a 27-year-old female who presents to the emergency department stating that she has been contemplating suicide lately. Patient states her mother 2 years ago and she immediately moved to [place] and now that she is back in town and reminds her that her mother has gone and she is trying to deal with it but she states she is unable to do anything because she is nonstop crying. Patient went to [facility] today and they sent her to the emergency department. Patient denies any physical complaints today. Patient denies being sick in any way patient denies any nausea vomiting. Patient Nuys chest pain difficulty breathing or shortness of breath. Patient has any abdominal pain. Patient states she does not have any specific plan and she has made no attempt to harm herself but she cannot stop thinking about trying to hurt herself." She was admitted to the mental health unit on 07/16/2023 and had not been taking her seizure meds for some time. On 07/17/23 staff found patient having multiple seizure-like episodes and she was transferred to ICU on 07/17/23 for stabilization and treatment. Patient was intubated and sedated due to questionable status epilepticus, acute hypoxic respiratory failure, and found to have metabolic acidosis. She has been started on Keppra and IV antibiotics for suspected aspiration pneumonia. Her current psychiatric medications ordered include Acamprasate 666 mg TID, Xanax 0.5 mg Q8HR PRN for anxiety, Buspar 10 mg TID, Lamictal 25 mg daily, Melatonin 5 mg QHS, Zoloft 75 mg daily. I attempted to evaluate patient in the ICU on 07/20/23 however she was still intubated and sedated. I evaluated patient on 07/21/23 after she was successfully extubated the evening before. Patient was found sitting up in bed with 1:1 sitter at bedside to maintain safety. Patient is eating ice chips out of a cup and is fixated on getting more ice chips and something to eat, despite being told several times by nursing staff that she has not been cleared to eat yet. She is wearing high flow oxygen, speech is garbled and difficult to understand. She appears somewhat confused but is able to answer some questions. She reports she is "good" but also reports her mood is "depressed". At this time patient denies any suicidal or homicidal ideations, intent or plan. Patient denies any auditory, visual hallucinations. She does not express any paranoid ideations on my assessment. Evaluation is limited due to patient's current mental status. She has a history of cannabis use. Her UDS on 07/16/23 was positive for THC/marijuana. PAST PSYCHIATRIC HISTORY: The following history is mostly taken from chart due to patient's mental status: Patient has a a history of "bipolar disorder", depression and borderline personality disorder. Previous medication trials include Trilafon, Trazodone, Acamprosate, Buspar, Lamictal, Zoloft. Patient has had multiple psychiatric hospitalizations: Previously at [facility] in 2020, [place], including others. Previously linked with [facility]. History of multiple suicide attempts in the past by overdose. PAST MEDICAL HISTORY: Acute hypoxic respiratory failure requiring intubation Status epilepticus, now currently on Keppra None anion gap metabolic acidosis History of seizure disorder History of hydrocephalus, status post MANAGER [employer]LE shunt History of alcohol use disorder, acamprosate listed as home medication History of bipolar disorder and major depression History of migraines History of asthma, not currently active Marijuana use Dwarfism and short stature Past Medical History: Asthma Additional Past Medical History / Comment(s): ANXIETY, back surgery, shunt d/t hydrocephalus History of Any Multi-Drug Resistant Organisms: None Reported Date of last positivie culture/infection: 2016 Past Surgical History: Back Surgery, Ear Surgery Past Psychological History: Anxiety Additional Psychological History / Comment(s): BPD Smoking Status: Current every day smoker Past Drug Use History: Marijuana ALLERGIES: as per EMR. CHEMICAL DEPENDENCY HISTORY: as per HPI. FAMILY PSYCHIATRIC/SUBSTANCE USE HISTORY: Per chart, claims mother has bipolar. SOCIAL HISTORY: Patient was born and raised in [place], [place]. She grew up with 3 bio-sisters and her adopted sisters. She was removed from her parents at age 2.5 yo. MENTAL STATUS EXAM: General Appearance: Patient appears to be stated age, dwarfism/short stature, disheveled, sitting up in ICU bed with high flow oxygen, wearing hospital gown. Behavior: Patient is sitting up in bed with high flow oxygen on chewing some ice chips and repeatedly asking for something to eat or drink despite being told she has not been cleared to eat or drink yet. Speech: Patient's speech is mostly garbled and incoherent. Mood/Affect: Patient reports their mood is "good" but also "depressed", affect is congruent. Suicidality/Homicidality: Patient denies having any suicidal or homicidal ideation intent or plan today. Perceptions: Patient denies any visual hallucinations and denies any auditory hallucinations. Though content/process: There is no evidence of any delusional thought content, and thought process is confused. Memory and concentration: Alert and oriented to person, place, not time. Judgment and insight: poor IMPRESSIONS: Delirium, multifactorial (seizures, acute hypoxic respiratory failure, intubation and sedation, metabolic acidosis, possible aspiration pneumonia, polypharmacy) Unspecified depressive disorder Borderline personality disorder (by history) Cannabis use disorder, mild (by history) PLAN: -At this time, patient's medical status is too unstable and complex to return to the psychiatric unit to complete her mental health treatment. Psychiatry will follow along on the ICU/medical floors. -Patient DOES NOT have decision making capacity at this time and is unable to reason through and communicate/appreciate the risks, benefits and alternatives to treatment. -Delirium precautions recommended with patient including - avoiding use of narcotics and [employer] sedatives, limit anticholinergic medications when possible, frequent re-orientation, minimize use of restraints, open window shades during the day and close them at night. -Would recommend the following medication changes/additions: Continue psychiatric medications as ordered: Acamprasate 666 mg TID, Xanax 0.5 mg Q8HR PRN for anxiety, Buspar 10 mg TID, Lamictal 25 mg daily, Melatonin 5 mg QHS, Zoloft 75 mg daily. Will defer any psychotropic medication adjustments until patient's medical status stabilizes. -Continue 1:1 sitter for safety. Although patient is currently denying suicidal or homicidal ideations, she is confused and impulsive and requires close monitoring to maintain safety. -Cannot leave AMA at this time. Patient will need a petition and certification if attempting to leave AMA. -Communicated plan to patient's nurse. -Will continue to follow along. -Please contact with any questions. 07/21/23 13:47
[2023-07-23 05:41] LABS: Glucose,Whole Blood 142 mg/dL (70-110)
[2023-07-23 06:12] LABS: Basophils % (A) 0 %; Eosinophils # (A) 0.1 k/uL (0-0.7); Eosinophils % (A) 1 %; HCT 34.3 % (34.0-46.0); HGB 11.2 gm/dL (11.4-16.0); Lymphocytes % (A) 8 %; MCH 30.2 pg (25.0-35.0); MCHC 32.7 g/dL (31.0-37.0); Mean Platelet Volume 8.2; Monocytes # (A) 0.6 k/uL (0-1.0); Monocytes % (A) 5 %; Neutrophils # (A) 10.3 k/uL (1.3-7.7); Neutrophils % (A) 86 %; Platelet Count 275 k/uL (150-450); RBC 3.71 m/uL (3.80-5.40); RDW 13.8 % (11.5-15.5); WBC 12.1 k/uL (3.8-10.6)
[2023-07-23 06:15] LABS: MCV 92.4 fL (80.0-100.0)
[2023-07-23 06:25] LABS: African American GFR (CKD) >90 (>60 ml/min/1.73 sqM); Anion Gap 9 mmol/L; Blood Urea Nitrogen 9 mg/dL (7-17); Calcium 9.1 mg/dL (8.4-10.2); Carbon Dioxide 27 mmol/L (22-30); Chloride 112 mmol/L (98-107); Glucose 140 mg/dL (74-99); Magnesium 1.9 mg/dL (1.6-2.3); Non-African American GFR(CKD) >90 (>60 ml/min/1.73 sqM); Potassium 3.1 mmol/L (3.5-5.1); Sodium 148 mmol/L (137-145)
[2023-07-23] MEDS ORDERED: Magnesium Replacement Protocol 1 EACH MISC MISCELLANE PRN (06:44)
[2023-07-23] MEDS: POTASSIUM CHLORIDE 20 MEQ in WATER FOR INJECTION 1 100ML.BAG IVPB SCH ×2 (06:53→23:18)
[2023-07-23] MEDS: MAGNESIUM SULFATE-D5W PMX 1 GM in DEXTROSE/WATER 1 100ML.BAG IVPB ONE (06:56)
--- NOTE | 2023-07-23 09:42 | XR ---
EXAMINATION TYPE: XR chest 1V DATE OF EXAM: 07/23/2023 9:26 AM CLINICAL INDICATION:Female, 27 years old with history of Follow-up pneumonia; [facility] COMPARISON: Chest radiograph from one day prior. TECHNIQUE: XR chest 1V Frontal view of the chest. FINDINGS: Lungs/Pleura: Similar multifocal airspace opacities. No evidence of pneumothorax or pleural effusion. Pulmonary vascularity: Unremarkable. Heart/mediastinum: Cardiomediastinal silhouette is unremarkable. Musculoskeletal: No acute osseous pathology. Shoulders appears pseudosubluxed inferiorly bilaterally. Other findings: None Lines/Tubes: Ventriculoperitoneal shunt tubing noted along the right aspect of the radiograph. IMPRESSION: Multifocal airspace opacities not significantly changed from immediate prior.
[2023-07-23] MEDS: SODIUM CHLORIDE 0.45% 1,000 ML IV SCH (10:00)
--- NOTE | 2023-07-23 11:04 | XR ---
EXAMINATION TYPE: XR chest 1V portable DATE OF EXAM: 07/23/2023 10:55 AM CLINICAL INDICATION:Female, 27 years old with history of nasogastric tube placement; [facility] COMPARISON: Chest radiographs from 07/23/2023 TECHNIQUE: XR chest 1V portable Frontal view of the chest. FINDINGS: Lungs/Pleura: Multifocal airspace opacities. No evidence of pneumothorax or pleural effusion. Pulmonary vascularity: Unremarkable. Heart/mediastinum: Cardiomediastinal silhouette is unremarkable. Musculoskeletal: No acute osseous pathology. Other findings: None Lines/Tubes: Nasogastric tube with side-port projecting over the distal esophagus. Ventriculoperitoneal shunt tubing noted along the right aspect of the radiograph. IMPRESSION: 1. Nasogastric tube side-port in the distal esophagus consider advancement of 10 cm for optimal plac ement. 2. Bilateral airspace opacities as seen on prior.
--- NOTE | 2023-07-23 11:10 | P.PN ---
Subjective Progress Note Date: 07/23/23 Hospital Course: 27-year-old female with history of seizure disorder off of antiepileptics, hyd rocephalus status post shunt, bipolar disorder presented from mental health unit for status epilepticus. Patient was admitted to mental health unit for depression and suicidal ideation on 07/16/2023. Patient was noted to have multiple episodes of absence seizure, rapid response was called. She was given multiple doses of IV Ativan, and continued to have seizure-like activity, and also has some generalized tonic-clonic activity. She was taken to the ICU, loaded with Keppra and Dilantin, and was intubated for airway protection. Currently patient is in the medical ICU intubated and sedated. Undergoing further workup. Head CT was completed, did not show any acute process, ventriculostomy changes without evidence of hydrocephalus. Patient does have a prior history of pseudoseizures. Was extensively worked up outpatient, negative for any seizure disorder. Currently weaning off of sedation. Repeat EEG did not show any seizure-like activity. Patient is now extubated. Likely had asp iration pneumonia as well as acute pulmonary edema. Received occasional IV Lasix, and also on IV Unasyn. Still continues to have frequent aspirations. Patient now requiring more supplemental oxygen. Subjective: Seen and examined at bedside. Denies any new complaints. Having aspiration. Courtney catheter in place. On high flow nasal cannula. Pertinent positives and negatives as discussed above, a complete review of systems was performed and all other systems are negative. Vitals Signs Reviewed. General: Not in acute distress, dwarfism Derm: Warm, dry Head: Atraumatic, normocephalic, symmetric Eyes: Pupils equal and reactive, EOMI Mouth: No lip lesion, mucus membranes moist Cardiovascular: S1S2 reg, no murmur Lungs: Bilateral Rales, supplemental oxygen, no accessory muscle use Abdominal: Soft, no appreciable organomegaly, nontender to palpation, nondistended Ext: No contractures, moving all extremities Neuro: CN II to XII grossly normal, no focal deficits Psych: Alert and oriented, cooperative Data Reviewed Today: Pertinent Labs: WBC 12.1, hemoglobin 11.2, potassium 3.1, sodium 148, creatinine 0.31, blood sugars range between 1 40-1 60, magnesium 1.9 Imaging: Chest x-ray independently interpreted, shows interstitial opacities, similar to yesterday Assessment and Plan: Patient is critically ill, in medical ICU, prognosis guarded. Active: Acute hypoxic respiratory failure Aspiration pneumonia Acute pulmonary edema Hypernatremia -Continue IV Unasyn 1.5 g every 6 hours, speech therapy consulted -Still having significant aspiration, place feeding tube, started on oral intake with free water flushes -On abnormal saline -Continue to wean oxygen -Echocardiogram pending Metabolic acidosis, resolved -Discontinue sodium bicarb drip Questionable status epilepticus History of pseudoseizures History of hydrocephalus status post shunt -Discussed management with neurology, Keppra decreased to 1 g IV every 12 hours -On IV Ativan as needed for seizures, monitor for sedation Asthma -DuoNebs every 4 hours, and as needed Bipolar disorder Anxiety disorder Depression with suicidal ideation -On BuSpar 10 3 times daily, Zoloft 75 daily -Thiamine 100 mg daily -Psychiatry, patient cannot leave AMA. Normocytic anemia, resolved Hypokalemia - potassium replacement ordered for today Hypomagnesemia, resolved DVT ppx: Subcu heparin Code status: Full code Anticipated discharge place: Pending clinical course Anticipated discharge time: Pending clinical course Objective - Vital Signs Vital signs: Vital Signs Temp 99.6 F 07/23/23 08:00 Pulse 110 H 07/23/23 10:51 Resp 37 H 07/23/23 10:00 BP 127/92 07/23/23 10:00 Pulse Ox 93 L 07/23/23 10:00 FiO2 70 07/23/23 10:41 Intake & Output 07/22/23 07/23/23 07/23/23 18:59 06:59 18:59 Intake Total 1420 1300 500 Output Total 1020 435 215 Balance 400 865 285 Weight 56.2 kg 57.9 kg Intake: IV 1420 1300 500 Ampicillin-Sulbactam 1.5 100 100 gm In Sodium Chloride 0.9 % 50 ml @ 100 mls/hr IVPB Q6H LA NENA Rx#:[id number] Dextrose 5% in Water 1, 1100 1100 200 000 ml @ 100 mls/hr IV . [id number] LA NENA with Sodium Bicarb (1 Meq/ml) 150 ml Rx#:[id number] Magnesium Sulfate-D5w Pmx 100 1 gm In Dextrose/Water 1 100ml.bag @ 100 mls/hr IVPB ONCE ONE Rx#: [id number] Potassium Chloride 20 meq 200 100 200 In Water For Injection 1 100ml.bag @ 50 mls/hr IVPB Q2H LA NENA Rx#: [id number] Sodium Chloride 0.9% 1, 20 000 ml @ 20 mls/hr IV . Q24H LA NENA Rx#:[id number] Output: Urine 1020 435 215 Other: Voiding Method Indwelling Catheter Indwelling Catheter # Bowel Movements 2 - Labs CBC & Chem 7: 07/23/23 05:35 07/23/23 05:35 Labs: Abnormal Lab Results - Last 24 Hours (Table) 07/22/23 07/22/23 07/22/23 Range/Units 13:58 13:58 18:11 WBC (3.8-10.6) k/uL RBC (3.80-5.40) m/uL Hgb (11.4-16.0) gm/dL Neutrophils # (1.3-7.7) k/uL Sodium 148 H (137-145) mmol/L Potassium 2.8 L (3.5-5.1) mmol/L Chloride 119 H (98-107) mmol/L Carbon Dioxide 17 L (22-30) mmol/L Creatinine (0.52-1.04) mg/dL Glucose 144 H (74-99) mg/dL POC Glucose (mg/dL) 160 H (70-110) mg/dL 07/22/23 07/23/23 07/23/23 Range/Units 23:51 05:35 05:35 WBC 12.1 H (3.8-10.6) k/uL RBC 3.71 L (3.80-5.40) m/uL Hgb 11.2 L (11.4-16.0) gm/dL Neutrophils # 10.3 H (1.3-7.7) k/uL Sodium 148 H (137-145) mmol/L Potassium 3.1 L (3.5-5.1) mmol/L Chloride 112 H (98-107) mmol/L Carbon Dioxide (22-30) mmol/L Creatinine 0.31 L (0.52-1.04) mg/dL Glucose 140 H (74-99) mg/dL POC Glucose (mg/dL) 157 H (70-110) mg/dL 07/23/23 Range/Units 05:40 WBC (3.8-10.6) k/uL RBC (3.80-5.40) m/uL Hgb (11.4-16.0) gm/dL Neutrophils # (1.3-7.7) k/uL Sodium (137-145) mmol/L Potassium (3.5-5.1) mmol/L Chloride (98-107) mmol/L Carbon Dioxide (22-30) mmol/L Creatinine (0.52-1.04) mg/dL Glucose (74-99) mg/dL POC Glucose (mg/dL) 142 H (70-110) mg/dL
[2023-07-23 11:26] LABS: Glucose,Whole Blood 96 mg/dL (70-110)
--- NOTE | 2023-07-23 13:37 | P.PN ---
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 Patient presented to the emergency room back on 07/16/2023 with suicidal ideation. She was sent in from [facility] to be admitted for inpatient psych evaluation. No actual suicidal attempts were reported. Patient was admitted to the [facility]. Late last night, a rapid response was called for seizures. Patient reportedly was found on the ground in the hallway. The sound physician that responded to the event, noted possible absence seizure's. These progressed to generalized tonic-clonic activity. She was given several doses of Ativan, a total of 7 mg, with no significant response. She was also loaded with Keppra and Dilantin per direction of the neurologist. Despite these pharmacological interventions, she continues to have seizure like activity. She is currently moved to the intensive care unit. She continues to have intermittent generaliz ed tonic-clonic seizures every 2 to 5 minutes. Lasting approximately 30 seconds to 1 minute. No complete recovery in between. Moving all 4 extremities. Eyes are midline without nystagmus. No tongue biting. No urinary or fecal incontinence. Currently, appears postictal and will occasionally answer simple commands. On room air. SpO2 96%. No reported aspiration events. Remaining vital signs are also stable. Neurologist was consulted, who recommends intubation and sedation until seizures can be controlled. SILVERWARE BUFFER responded the bedside, performed rapid sequence intubation. Postintubation chest x-ray demonstrates endotracheal tube tip above the carroll and below the clavicle. Nasogastric tube courses below the diaphragm could be advanced at least 5 cm. Current ventilator settings include assist-control, respiratory rate 16, tidal volume 300, FiO2 100%, PEEP of 5. Postintubation ABG shows a PaO2 of 311, pCO2 of 45, pH of 7.3. FiO2 was appropriately weaned. She is sedated with propofol which is currently at 50 mcg/kg/min. She is currently asynchronous with mechanical ventilator and breath stacking. Peak airway pressures 28. CT of the brain was carried out which did not show any acute intracranial process. There was a ventriculostomy changes without evidence of hydrocephalus list. Urine toxicology screen positive for marijuana, but are otherwise unremarkable. No fevers. Recently started on BuSpar, and also on Zoloft. CBC unremarkable, no leukocytosis. Most recent BMP: Includes a sodium 140, potassium 3.4, chloride 111, serum bicarb 20, BUN 13, creatinine 0.46, glucose 82. Patient has no family or next of kin listed in the EMR. She is listed as homeless. We will attempt to reach out for possible contacts. On today's evaluation of 07/19/2023, patient is being seen for a follow-up. Remains dependent on mechanical ventilator. Remains on propofol which is running at 50 mcg/kg/min. No seizure activity has been noted. No tonic or clonic activity. The patient has some tremor especially when she is stimulated. Nurse at infusion has been discontinued. Pressors have been discontinued and the patient is currently off norepinephrine and she is on normal citrate of 75 cc an hour. While being on the mechanical ventilator, she is on assist-control mode with a rate of 60, tidal volume of 300, FiO2 of 40% with a PEEP of 5. Overall fluid balance is +835 cc over the past 24 hours. Blood gas was not obtained this morning as the patient is a difficult poke. Will monitor the end- tidal CO2. The patient remains on Keppra 1.5 g every 12 hours. IV fluids are in the form of normal saline at 75 cc an hour. She is afebrile. Blood work from today shows a white cell count of 8.6 with a hemoglobin 10.3 and a platelet count of 187. BUN is at 4 mg of 0.31 and a sodium level is at 144. EEG from yesterday showed no seizure activity. Neurology on the case. 07/20/2023, the patient is being seen for a follow-up. Remains intubated on the mechanical ventilator. Sedation holiday was given and the patient became quite restless, asynchronous with mechanical ventilator, tachypneic and tachycardic and was having excessive tremors. Based on that, the patient was placed back on sedation and this morning she remains on propofol at 40 mcg/kg/min and Versed 4 mg an hour. A repeat EEG was done while the patient on the Versed and the patient does not show any seizure activity. While on the mechanical ventilator, she is on assist-control mode with rate of 60, tidal volume 300, FiO2 of 40% with a PEEP of 5. End-tidal CO2 is 37. IV fluids currently running at 75 cc an hour and the patient is on vital high-protein at rate of 16 cc an hour. The patient had a follow-up chest x-ray today that showed smaller lung volumes and evidence of increased pulm vascular markings. ET tube is around 5 cm above the carroll. NG tube is in place. There is also a MAINTENANCE AND REPAIR WORKER shunt in place. There is diffuse bilateral pulmonary haziness. Blood work shows a white cell count of 8.9, hemoglobin of 10.4, potassium is at 2.7, bicarb is at 22 with a sodium level of 140, BUN is at 2 with a creatinine of 0.4. Hemodynamically stable and she is currently on no pressors. 07/21/2023, the patient is extubated. The patient was kept on Precedex. Earlier this morning, the patient was found to be more lethargic and based on that, the Precedex was discontinued and the mental status improved. Nevertheless, the patient had some difficulty in breathing and excessive respiratory congestion and mucus production. Initially she was on 5 L and she was brought up to 11 L and later on placed on 100% nonrebreather facemask. Aggressive pulmonary toileting was done. Cough subsequently subsided and the patient is currently on 11 L of oxygen nasal cannula. Precedex is currently off. Fluid balance is -2.7 L over the past 24 hours. Chest x-ray shows small lung volumes and the patient has increased pulm vascular markings and congestion and possibly right lower lobe pulm infiltrates. She has a recent cough and based on excessive respiratory secretions, the patient was started on IV Unasyn. IV fluids were placed on KVO. No seizure activity has been noted and the patient remains on Keppra. She is communicating. Hemodynamically stable on no pressors. Will go 4 extremities without any limitation. 07/22/2023, the patient is sitting up on a chair and she is currently on Airvo with 50 L and FiO2 of 75%. She remains extubated. Cough is subsided. Not producing much of sputum today. Nevertheless, chest x-ray shows bibasilar pulm infiltrates worse in the right. The patient was given diuretics yesterday and the patient is a negative fluid balance of at least 1.8 L over the past 24 hours. Serum bicarbonate dropped down to 7. The patient was given IV bicarb a total of 100 mEq and following that she was started on a bicarb infusion which is currently running at 100 cc an hour. She remains on IV Unasyn. Swallow mechanism is poor and the patient seems to be aspirating. An official swallow study will be done and the patient will be kept n.p.o. for now. Echocardiogram was ordered. No seizure activity has been noted and the patient remains on IV Keppra. 07/23/2023, the patient remains on Airvo patient is currently on 50 L and FiO2 of 70%. Unable to swallow and she remains at a high risk of aspiration. Based on that, the patient was given NG tube for enteral feeding and nutritional support. Meanwhile, chest x-ray still showing bilateral pulmonary consolidation consistent with bilateral pneumonia. No significant interval change on today's chest x-ray. The patient has a MAINTENANCE AND REPAIR WORKER shunt in place. Airspace disease seen bilaterally. Cough is improved. No significant sputum production. No seizure activity. White cell count of 12 with a hemoglobin 11.2 and a platelet count of 275, BUN is 9 with a creatinine of 0.3 and sodium level of 148 and a potassium level of 3.1. Remains on IV Unasyn. Hemodynamically stable. No pressors. IV fluids are currently at KVO. Awake and alert and communicating. Objective - Vital Signs Vital signs: Vital Signs Temp 99.9 F H 07/23/23 04:00 Pulse 105 H 07/23/23 07:00 Resp 17 07/23/23 07:00 BP 114/69 07/23/23 07:00 Pulse Ox 96 07/23/23 07:44 FiO2 70 07/23/23 07:44 Intake & Output 07/22/23 07/23/23 07/23/23 18:59 06:59 18:59 Intake Total 1420 1300 300 Output Total 1020 435 30 Balance 400 865 270 Weight 56.2 kg 57.9 kg Intake: IV 1420 1300 300 Ampicillin-Sulbactam 1.5 100 100 gm In Sodium Chloride 0.9 % 50 ml @ 100 mls/hr IVPB Q6H [facility] Rx#:[id number] Dextrose 5% in Water 1, 1100 1100 100 000 ml @ 100 mls/hr IV . [id number] [facility] with Sodium Bicarb (1 Meq/ml) 150 ml Rx#:[id number] Magnesium Sulfate-D5w Pmx 100 1 gm In Dextrose/Water 1 100ml.bag @ 100 mls/hr IVPB ONCE ONE Rx#: [id number] Potassium Chloride 20 meq 200 100 100 In Water For Injection 1 100ml.bag @ 50 mls/hr IVPB Q2H [facility] Rx#: [id number] Sodium Chloride 0.9% 1, 20 000 ml @ 20 mls/hr IV . Q24H [facility] Rx#:[id number] Output: Urine 1020 435 30 Other: Voiding Method Indwelling Catheter Indwelling Catheter # Bowel Movements 2 - Exam GENERAL EXAM: 27-year-old white female with dwarfism. Patient is currently extubated and she is on Airvo 70% with a flow of 50 L EYES: Normal reaction of pupils, equal size. No nystagmus. NOSE: Clear with pink turbinates. THROAT: No erythema or exudates. NECK: No masses, no JVD. CHEST: No chest wall deformity. LUNGS: Equal air entry with no crackles, scattered rhonchi heard throughout the lung deleon bilaterally. No conversational dyspnea or accessory muscle use.. Improved coughing and respiratory rhonchi and congestion the patient is having recent cough with ability to cough or respiratory secretions. CVS: S1 and S2 normal with no audible murmur, regular rhythm. No extra heart sounds ABDOMEN: No hepatosplenomegaly, active bowel sounds, no guarding or rigidity. SPINE: No scoliosis or deformity SKIN: No rashes CENTRAL NERVOUS SYSTEM: Awake and alert and communicating and moving all 4 extremities without any limitations. - Labs CBC & Chem 7: 07/23/23 05:35 07/23/23 05:35 Labs: Abnormal Lab Results - Last 24 Hours (Table) 07/22/23 07/22/23 07/22/23 Range/Units 13:58 13:58 18:11 WBC (3.8-10.6) k/uL RBC (3.80-5.40) m/uL Hgb (11.4-16.0) gm/dL Neutrophils # (1.3-7.7) k/uL Sodium 148 H (137-145) mmol/L Potassium 2.8 L (3.5-5.1) mmol/L Chloride 119 H (98-107) mmol/L Carbon Dioxide 17 L (22-30) mmol/L Creatinine (0.52-1.04) mg/dL Glucose 144 H (74-99) mg/dL POC Glucose (mg/dL) 160 H (70-110) mg/dL 07/22/23 07/23/23 07/23/23 Range/Units 23:51 05:35 05:35 WBC 12.1 H (3.8-10.6) k/uL RBC 3.71 L (3.80-5.40) m/uL Hgb 11.2 L (11.4-16.0) gm/dL Neutrophils # 10.3 H (1.3-7.7) k/uL Sodium 148 H (137-145) mmol/L Potassium 3.1 L (3.5-5.1) mmol/L Chloride 112 H (98-107) mmol/L Carbon Dioxide (22-30) mmol/L Creatinine 0.31 L (0.52-1.04) mg/dL Glucose 140 H (74-99) mg/dL POC Glucose (mg/dL) 157 H (70-110) mg/dL 07/23/23 Range/Units 05:40 WBC (3.8-10.6) k/uL RBC (3.80-5.40) m/uL Hgb (11.4-16.0) gm/dL Neutrophils # (1.3-7.7) k/uL Sodium (137-145) mmol/L Potassium (3.5-5.1) mmol/L Chloride (98-107) mmol/L Carbon Dioxide (22-30) mmol/L Creatinine (0.52-1.04) mg/dL Glucose (74-99) mg/dL POC Glucose (mg/dL) 142 H (70-110) mg/dL Assessment and Plan Assessment: Acute hypoxic respiratory failure, suspected right lower lobe pneumonia with a component of pulm vessel congestion. Patient was started on IV Unasyn. The patient is currently on Airvo, 50 L and FiO2 of 70 %. Chest x-ray showing bilateral basilar pulm infiltrates worse on the right. Rule out aspiration pneumonia.. She is also having excessive respiratory secretions with adequate ability to cough and perform pulmonary toileting. Chest x-ray findings are stable and the patient remains on IV Unasyn. Status epilepticus, stable for now, free of any seizures and the patient is currently on Keppra None anion gap metabolic acidosis, improved History of seizure disorder History of hydrocephalus, status post MAINTENANCE AND REPAIR WORKER shunt History of alcohol use disorder, acamprosate listed as home medication Suicidal ideation History of bipolar disorder and major depression History of migraines History of asthma, not currently active Marijuana use Dwarfism and short stature Plan: Aggressive pulmonary toileting Provide incentive spirometer Continue Airvo Continue Unasyn suspecting an aspiration pneumonia Keep the patient n.p.o. Will insert an NG tube and start the patient on enteral feeding Discontinue the bicarb infusion Will place the patient on half-normal saline at rate of 40 cc an hour Echocardiogram for tomorrow Continue IV Keppra No active seizures on follow-up EEG CT of the brain noted, EEG was negative for any active seizures, continue seizure precautions, Urine toxicology screen only positive for marijuana, Afebrile Continue enteral feeding Neurology on the case Continue supportive care
[2023-07-23] MEDS ORDERED: Potassium Replacement Protocol 1 EACH MISC MISCELLANE PRN (14:32)
[2023-07-23] MEDS: POTASSIUM BICARBONATE/CIT AC 20 MEQ TABLET.EFF NG-TUBE SCH (15:31)
[2023-07-23 18:04] LABS: Glucose,Whole Blood 122 mg/dL (70-110)
[2023-07-23 23:33] LABS: Glucose,Whole Blood 123 mg/dL (70-110)
[2023-07-24] MEDS: FUROSEMIDE 10 MG/ML 4 ML VIAL IV STA (04:48)
[2023-07-24 06:00] LABS: Glucose,Whole Blood 119 mg/dL (70-110)
[2023-07-24 06:33] LABS: African American GFR (CKD) >90 (>60 ml/min/1.73 sqM); Anion Gap 6 mmol/L; Basophils % (A) 0 %; Blood Urea Nitrogen 13 mg/dL (7-17); Carbon Dioxide 35 mmol/L (22-30); Chloride 106 mmol/L (98-107); Eosinophils # (A) 0.3 k/uL (0-0.7); Eosinophils % (A) 3 %; Glucose 122 mg/dL (74-99); HGB 11.8 gm/dL (11.4-16.0); Lymphocytes # (A) 1.5 k/uL (1.0-4.8); Lymphocytes % (A) 11 %; MCH 30.9 pg (25.0-35.0); MCHC 32.7 g/dL (31.0-37.0); MCV 94.4 fL (80.0-100.0); Mean Platelet Volume 8.5; Monocytes # (A) 0.6 k/uL (0-1.0); Monocytes % (A) 4 %; Neutrophils # (A) 10.3 k/uL (1.3-7.7); Neutrophils % (A) 81 %; Non-African American GFR(CKD) >90 (>60 ml/min/1.73 sqM); Platelet Count 300 k/uL (150-450); Potassium 3.4 mmol/L (3.5-5.1); RBC 3.82 m/uL (3.80-5.40); RDW 13.9 % (11.5-15.5); Sodium 147 mmol/L (137-145); WBC 12.8 k/uL (3.8-10.6)
[2023-07-24] MEDS: POTASSIUM BICARBONATE/CIT AC 20 MEQ TABLET.EFF NG-TUBE SCH (06:48)
--- NOTE | 2023-07-24 07:48 | XR ---
EXAMINATION TYPE: XR chest 1V portable DATE OF EXAM: 07/24/2023 COMPARISON: 07/23/2023 HISTORY: NG tube placement TECHNIQUE: Single frontal view of the chest is obtained. FINDINGS: Diffuse bilateral airspace disease. NG tube stable. DATABASE TECHNICIAN shunt catheter stable. No pneumotho rax. Tiny bilateral effusions not excluded. Arthropathy of the shoulders. IMPRESSION: Stable bilateral diffuse airspace disease correlate for pneumonia. Underlying CHF not ex cluded
--- NOTE | 2023-07-24 10:15 | CA ---
Transthoracic Echo Report Name: Consuelo Skinner Age: 27 Gender: F : 1995 Exam Date: 07/24/2023 07:50 Exam Location: [facility] Ht (in): 48 Wt (lb): 123 Ordering Physician: Rolando Leach MD Attending/Referring Phys: [facility] Neva Ayala RDCS Procedure CPT: Indications: chf, hypoxic resp failure Cardiac Hx: Technical Quality: Technically difficult study Contrast 1: Definity Total Dose (mL): 2 Contrast 2: Total Dose (mL): MEASUREMENTS (Male / Female) Normal Values 2D ECHO LV Diastolic Diameter PLAX 4.4 cm 4.2 - 5.9 / 3.9 - 5.3 cm LV Systolic Diameter PLAX 3.2 cm IVS Diastolic Thickness 0.5 cm 0.6 - 1.0 / 0.6 - 0.9 cm LVPW Diastolic Thickness 0.7 cm 0.6 - 1.0 / 0.6 - 0.9 cm LV Relative Wall Thickness 0.3 RV Internal Dim ED PLAX 2.6 cm LVOT Diameter 1.8 cm LV Diastolic Volume MOD BP 64.1 cm??? 67 - 155 / 56 - 104 cm??? LV Systolic Volume MOD BP 24.7 cm??? 22 - 58 / 19 - 49 cm??? LV Ejection Fraction MOD BP 61.5 % >= 55 % LV Cardiac Index MOD BP 2309.8 cm???/min???m??? LV Diastolic Volume MOD 4C 68.7 cm??? LV Systolic Volume MOD 4C 26.3 cm??? LV Ejection Fraction MOD 4C 61.7 % LV Cardiac Index MOD 4C 2481.2 cm???/min???m??? LV Diastolic Length 4C 6.9 cm LV Systolic Length 4C 5.7 cm LV Diastolic Volume MOD 2C 52.9 cm??? LV Systolic Volume MOD 2C 20.5 cm??? LV Ejection Fraction MOD 2C 61.3 % LV Cardiac Index MOD 2C 1898.7 cm???/min???m??? LV Diastolic Length 2C 6.1 cm LV Systolic Length 2C 5.0 cm LA Volume 26.7 cm??? 18 - 58 / 22 - 52 cm??? LA Volume Index 18.8 cm???/m??? 16 - 28 cm???/m??? Ascending Aorta Diameter 2.7 cm DOPPLER AV Peak Velocity 133.1 cm/s AV Peak Gradient 7.1 mmHg AV Mean Velocity 92.8 cm/s AV Mean Gradient 3.8 mmHg AV Velocity Time Integral 22.9 cm LVOT Peak Velocity 107.4 cm/s LVOT Peak Gradient 4.6 mmHg LVOT Velocity Time Integral 17.8 cm LVOT Stroke Volume 46.1 cm??? LVOT Stroke Volume Index 35.7 ml/m??? LVOT Cardiac Index 2699.1 cm???/min???m??? AV Area Cont Eq vti 2.0 cm??? AV Area Cont Eq pk 2.1 cm??? MV Area PHT 3.6 cm??? Mitral E Point Velocity 55.1 cm/s Mitral A Point Velocity 42.4 cm/s Mitral E to A Ratio 1.3 MV Deceleration Time 208.0 ms TR Peak Velocity 319.0 cm/s TR Peak Gradient 40.7 mmHg Right Atrial Pressure 5.0 mmHg Pulmonary Artery Systolic Pressu 45.7 mmHg Right Ventricular Systolic Press 45.7 mmHg PV Peak Velocity 94.7 cm/s PV Peak Gradient 3.6 mmHg FINDINGS Left Ventricle Left ventricular ejection fraction is estimated at 61 %. Left ventricular cavity size normal. Left ventricular wall thickness normal. No obvious regional wall motion abnormalities. Right Ventricle Normal right ventricular size and function. Mildly elevated right ventricular systolic pressure. Right Atrium Normal right atrial size. Left Atrium Normal left atrial size. Mitral Valve Structurally normal mitral valve. No evidence for mitral valve prolapse. No mitral stenosis. Trace mitral regurgitation. Aortic Valve Trileaflet aortic valve. No aortic valve stenosis or regurgitation. Tricuspid Valve Structurally normal tricuspid valve. No tricuspid stenosis. Trace tricuspid regurgitation. Pulmonic Valve Structurally normal pulmonic valve. No pulmonic stenosis. Trace pulmonic regurgitation. Pericardium No pericardial effusion. Aorta Normal size aortic root and proximal ascending aorta. CONCLUSIONS Normal LV size and systolic function. LVEF estimated at 55 to 60% No obvious regional wall motion abnormality No significant valvular dysfunction Normal RV size and function. RVSP estimated at 45 mmHg Previewed by: Dr Alejandro Osorio (Electronically Signed) Final Date: 24 Jul 2023 10:14
[2023-07-24 11:47] LABS: Glucose,Whole Blood 110 mg/dL (70-110)
--- NOTE | 2023-07-24 12:09 | P.PN ---
Subjective Progress Note Date: 07/24/23 Principal diagnosis: Acute hypoxic respiratory failure secondary to aspiration pneumonia Patient is a 27-year-old white female with past medical history significant for asthma, seizure disorder, hydrocephalus status post SOAKING TANK WORKER shunt, bipolar disorder and major depression, migraines, and alcohol use disorder. Patient presented to the emergency room back on 07/16/2023 with suicidal ideation. She was sent in from [facility] to be admitted for inpatient psych evaluation. No actual suicidal attempts were reported. Patient was admitted to the [facility] unit. Late last night, a rapid response was called for seizures. Patient reportedly was found on the ground in the hallway. The sound physician that responded to the event, noted possible absence seizure's. These progressed to generalized tonic-clonic activity. She was given several doses of Ativan, a total of 7 mg, with no significant response. She was also loaded with Keppra and Dilantin per direction of the neurologist. Despite these pharmacological interventions, she continues to have seizure like activity. She is currently moved to the intensive care unit. She continues to have intermittent generalized tonic-clonic seizures every 2 to 5 minutes. Lasting approximately 30 seconds to 1 minute. No complete recovery in between. Moving all 4 extremities. Eyes are midline without nystagmus. No tongue biting. No urinary or fecal incontinence. Currently, appears postictal and will occasionally answer simple commands. On room air. SpO2 96%. No reported aspiration events. Remaining vi helga signs are also stable. Neurologist was consulted, who recommends intubation and sedation until seizures can be controlled. TOOLS DEVELOPER responded the bedside, performed rapid sequence intubation. Postintubation chest x-ray demonstrates endotracheal tube tip above the carroll and below the clavicle. Nasogastric tube courses below the diaphragm could be advanced at least 5 cm. Current ventilator settings include assist-control, respiratory rate 16, tidal volume 300, FiO2 100%, PEEP of 5. Postintubation ABG shows a PaO2 of 311, pCO2 of 45, pH of 7.3. FiO2 was appropriately weaned. She is sedated with propofol which is currently at 50 mcg/kg/min. She is currently asynchronous with mechanical ventilator and breath stacking. Peak airway pressures 28. CT of the brain was carried out which did not show any acute intracranial process. There was a ventriculostomy changes without evidence of hydrocephalus list. Urine toxicology screen positive for marijuana, but are otherwise unremarkable. No fevers. Recently started on BuSpar, and also on Zoloft. CBC unremarkable, no leukocytosis. Most recent BMP: Includes a sodium 140, potassium 3.4, chloride 111, serum bicarb 20, BUN 13, creatinine 0.46, glucose 82. Patient has no family or next of kin listed in the EMR. She is listed as homeless. We will attempt to reach out for possible contacts. On today's evaluation of 07/19/2023, patient is being seen for a follow-up. Remains dependent on mechanical ventilator. Remains on propofol which is running at 50 mcg/kg/min. No seizure activity has been noted. No tonic or clonic activity. The patient has some tremor especially when she is stimulated. Nurse at infusion has been discontinued. Pressors have been discontinued and the patient is currently off norepinephrine and she is on normal citrate of 75 cc an hour. While being on the mechanical ventilator, she is on assist-control mode with a rate of 60, tidal volume of 300, FiO2 of 40% with a PEEP of 5. Overall fluid balance is +835 cc over the past 24 hours. Blood gas was not obtained this morning as the patient is a difficult poke. Will monitor the end- tidal CO2. The patient remains on Keppra 1.5 g every 12 hours. IV fluids are in the form of normal saline at 75 cc an hour. She is afebrile. Blood work from today shows a white cell count of 8.6 with a hemoglobin 10.3 and a platelet count of 187. BUN is at 4 mg of 0.31 and a sodium level is at 144. EEG from yesterday showed no seizure activity. Neurology on the case. 07/20/2023, the patient is being seen for a follow-up. Remains intubated on the mechanical ventilator. Sedation holiday was given and the patient became quite restless, asynchronous with mechanical ventilator, tachypneic and tachycardic and was having excessive tremors. Based on that, the patient was placed back on sedation and this morning she remains on propofol at 40 mcg/kg/min and Versed 4 mg an hour. A repeat EEG was done while the patient on the Versed and the patient does not show any seizure activity. While on the mechanical ventilator, she is on assist-control mode with rate of 60, tidal volume 300, FiO2 of 40% with a PEEP of 5. End-tidal CO2 is 37. IV fluids currently running at 75 cc an hour and the patient is on vital high-protein at rate of 16 cc an hour. The patient had a follow-up chest x-ray today that showed smaller lung volumes and evidence of increased pulm vascular markings. ET tube is around 5 cm above the carroll. NG tube is in place. There is also a SOAKING TANK WORKER shunt in place. There is diffuse bilateral pulmonary haziness. Blood work shows a white cell count of 8.9, hemoglobin of 10.4, potassium is at 2.7, bicarb is at 22 with a sodium level of 140, BUN is at 2 with a creatinine of 0.4. Hemodynamically stable and she is currently on no pressors. 07/21/2023, the patient is extubated. The patient was kept on Precedex. Earlier this morning, the patient was found to be more lethargic and based on that, the Precedex was discontinued and the mental status improved. Nevertheless, the patient had some difficulty in breathing and excessive respiratory congestion and mucus production. Initially she was on 5 L and she was brought up to 11 L and later on placed on 100% nonrebreather facemask. Aggressive pulmonary toileting was done. Cough subsequently subsided and the patient is currently on 11 L of oxygen nasal cannula. Precedex is currently off. Fluid balance is -2.7 L over the past 24 hours. Chest x-ray shows small lung volumes and the patient has increased pulm vascular markings and congestion and possibly right lower lobe pulm infiltrates. She has a recent cough and based on excessive respiratory secretions, the patient was started on IV Unasyn. IV fluids were placed on KVO. No seizure activity has been noted and the patient remains on Keppra. She is communicating. Hemodynamically stable on no pressors. Will go 4 extremities without any limitation. 07/22/2023, the patient is sitting up on a chair and she is currently on Airvo with 50 L and FiO2 of 75%. She remains extubated. Cough is subsided. Not producing much of sputum today. Nevertheless, chest x-ray shows bibasilar pulm infiltrates worse in the right. The patient was given diuretics yesterday and the patient is a negative fluid balance of at least 1.8 L over the past 24 hours. Serum bicarbonate dropped down to 7. The patient was given IV bicarb a total of 100 mEq and following that she was started on a bicarb infusion which is currently running at 100 cc an hour. She remains on IV Unasyn. Swallow mechanism is poor and the patient seems to be aspirating. An official swallow study will be done and the patient will be kept n.p.o. for now. Echocardiogram was ordered. No seizure activity has been noted and the patient remains on IV Keppra. 07/23/2023, the patient remains on Airvo patient is currently on 50 L and FiO2 of 70%. Unable to swallow and she remains at a high risk of aspiration. Based on that, the patient was given NG tube for enteral feeding and nutritional support. Meanwhile, chest x-ray still showing bilateral pulmonary consolidation consistent with bilateral pneumonia. No significant interval change on today's chest x-ray. The patient has a SOAKING TANK WORKER shunt in place. Airspace disease seen bilaterally. Cough is improved. No significant sputum production. No seizure activity. White cell count of 12 with a hemoglobin 11.2 and a platelet count of 275, BUN is 9 with a creatinine of 0.3 and sodium level of 148 and a potassium level of 3.1. Remains on IV Unasyn. Hemodynamically stable. No pressors. IV fluids are currently at KVO. Awake and alert and communicating. Patient was reevaluated today on 07/24/2023, remains in the ICU, remains on Airvo at 50 L with 75% FiO2. Remains on antibiotics in the form of Unasyn for aspiration pneumonia patient is receiving for nutrition vital HP at 30 cc/h. Today continues show bilateral airspace disease, infiltrate/pneumonia. Patient tells me that she is feeling better, breathing easier WBC count today is 12.8 hemoglobin 11.8. Sodium is up to 147 potassium 3.4 renal profile is normal bicarb is 35. Sputum blood cultures are nondiagnostic WBC count is 12.8 hemoglobin 11.8 sodium is 147 potassium 3.4 renal profile is normal bicarb is 35. Her chest x-ray is showing stable bilateral diffuse airspace disease Objective - Vital Signs Vital signs: Vital Signs Temp 98.1 F 07/24/23 09:00 Pulse 74 07/24/23 11:00 Resp 23 07/24/23 11:00 BP 131/94 07/24/23 11:00 Pulse Ox 96 07/24/23 11:00 FiO2 65 07/24/23 10:50 Intake & Output 07/23/23 07/24/23 07/24/23 18:59 06:59 18:59 Intake Total 970 1330 400 Output Total 515 1865 170 Balance 455 -535 230 Weight 63.3 kg Intake: IV 870 820 250 Ampicillin-Sulbactam 1.5 50 100 50 gm In Sodium Chloride 0.9 % 50 ml @ 100 mls/hr IVPB Q6H [facility] Rx#:[id number] Dextrose 5% in Water 1, 200 000 ml @ 100 mls/hr IV . [id number] [facility] with Sodium Bicarb (1 Meq/ml) 150 ml Rx#:[id number] Magnesium Sulfate-D5w Pmx 100 1 gm In Dextrose/Water 1 100ml.bag @ 100 mls/hr IVPB ONCE ONE Rx#: [id number] Potassium Chloride 20 meq 200 In Water For Injection 1 100ml.bag @ 50 mls/hr IVPB ONCE ONE Rx#: [id number] Potassium Chloride 20 meq 200 In Water For Injection 1 100ml.bag @ 50 mls/hr IVPB Q2H [facility] Rx#: [id number] Sodium Chloride 0.45% 1, 320 520 200 000 ml @ 40 mls/hr IV . Q24H [facility] Rx#:[id number] Tube Feeding 70 300 150 Other 30 210 Output: Urine 515 1865 170 Other: Voiding Method Indwelling Catheter Indwelling Catheter Indwelling Catheter # Bowel Movements 1 - Exam GENERAL EXAM: 27-year-old white female dwarf on Airvo EYES: PERRLA, EOMI, nonicteric. NOSE: Clear with pink turbinates. THROAT: No erythema or exudates. NECK: No masses, no JVD. CHEST: No chest wall deformity. LUNGS: Crackles at the bases bilaterally, with rhonchi bilaterally on forced expiratory maneuver. CVS: S1 and S2 normal with no audible murmur, regular rhythm. No extra heart sounds ABDOMEN: No hepatosplenomegaly, active bowel sounds, no guarding or rigidity. SKIN: No rashes CENTRAL NERVOUS SYSTEM: Alert oriented x 3, no gross focal deficit Musculoskeletal, patient is noted to have dwarfism, no limitation in ranges of motion - Labs CBC & Chem 7: 07/24/23 05:34 07/24/23 05:34 Labs: Abnormal Lab Results - Last 24 Hours (Table) 05/07/23/23 07/23/23 Range/Units 18:02 21:47 23:31 WBC (3.8-10.6) k/uL Neutrophils # (1.3-7.7) k/uL Sodium (137-145) mmol/L Potassium 3.4 L (3.5-5.1) mmol/L Carbon Dioxide (22-30) mmol/L Creatinine (0.52-1.04) mg/dL Glucose (74-99) mg/dL POC Glucose (mg/dL) 122 H 123 H (70-110) mg/dL 07/24/23 07/24/23 07/24/23 Range/Units 05:34 05:34 05:58 WBC 12.8 H (3.8-10.6) k/uL Neutrophils # 10.3 H (1.3-7.7) k/uL Sodium 147 H (137-145) mmol/L Potassium 3.4 L (3.5-5.1) mmol/L Carbon Dioxide 35 H (22-30) mmol/L Creatinine 0.37 L (0.52-1.04) mg/dL Glucose 122 H (74-99) mg/dL POC Glucose (mg/dL) 119 H (70-110) mg/dL Assessment and Plan Assessment: impression: Acute hypoxic respiratory failure secondary to aspiration pneumonia secondary to status epilepticus Status epilepticus, on Keppra, under control. History of seizure disorder History of hydrocephalus, status post SOAKING TANK WORKER shunt History of alcohol use disorder, acamprosate listed as home medication Suicidal ideation History of bipolar disorder and major depression History of migraines History of asthma, not currently active Marijuana use Dwarfism and short stature Recommendations: Continue antibiotics, patient is on Unasyn Continue oxygen via Airvo and titrate accordingly Continue aggressive pulmonary toilet Incentive spirometry Continue enteral feeding/nutritional support Continue D5 4 5 at 40 cc/h Continue Keppra Neurology on the case Will continue to follow and continue to monitor for now in the ICU Time with Patient: Less than 30
--- NOTE | 2023-07-24 12:23 | P.PN ---
Subjective Progress Note Date: 07/24/23 Hospital Course: 27-year-old female with history of seizure disorder off of antiepileptics, hyd rocephalus status post shunt, bipolar disorder presented from mental health unit for status epilepticus. Patient was admitted to mental health unit for depression and suicidal ideation on 07/16/2023. Patient was noted to have multiple episodes of absence seizure, rapid response was called. She was given multiple doses of IV Ativan, and continued to have seizure-like activity, and also has some generalized tonic-clonic activity. She was taken to the ICU, loaded with Keppra and Dilantin, and was intubated for airway protection. Currently patient is in the medical ICU intubated and sedated. Undergoing further workup. Head CT was completed, did not show any acute process, ventriculostomy changes without evidence of hydrocephalus. Patient does have a prior history of pseudoseizures. Was extensively worked up outpatient, negative for any seizure disorder. Currently weaning off of sedation. Repeat EEG did not show any seizure-like activity. Patient is now extubated. Likely had asp iration pneumonia as well as acute pulmonary edema. Received occasional IV Lasix, and also on IV Unasyn. Still continues to have frequent aspirations. Patient now requiring more supplemental oxygen. Subjective: Seen and examined at bedside. Denies any new complaints. Courtney catheter in place. On high flow nasal cannula. Pertinent positives and negatives as discussed above, a complete review of systems was performed and all other systems are negative. Vitals Signs Reviewed. General: Not in acute distress, dwarfism Derm: Warm, dry Head: Atraumatic, normocephalic, symmetric Eyes: Pupils equal and reactive, EOMI Mouth: No lip lesion, mucus membranes moist Cardiovascular: S1S2 reg, no murmur Lungs: Bilateral Rales, supplemental oxygen, no accessory muscle use Abdominal: Soft, no appreciable organomegaly, nontender to palpation, nondistended Ext: No contractures, moving all extremities Neuro: CN II to XII grossly normal, no focal deficits Psych: Alert and oriented, cooperative Data Reviewed Today: Pertinent Labs: WBC 0.8, sodium 147, potassium 3.4, creatinine 0.37, magnesium 2, glucose 110-123 Imaging: Chest x-ray independently interpreted similar airspace opacities. Assessment and Plan: Patient is critically ill, in medical ICU, prognosis guarded. Active: Acute hypoxic respiratory failure Aspiration pneumonia Acute pulmonary edema Hypernatremia -Continue IV Unasyn 1.5 g every 6 hours, speech therapy following -Continue tube feeds, increase free water flushes to 50 every 6 hours -On half-normal saline at 40 cc an hour, did receive some IV Lasix overnight as well -Continue to wean oxygen -Echocardiogram shows LVEF 55 to 60%, RVSP 45 Metabolic acidosis, resolved Questionable status epilepticus History of pseudoseizures History of hydrocephalus status post shunt -Discussed management with neurology, Keppra decreased to 1 g IV every 12 hours -On IV Ativan as needed for seizures, monitor for sedation Asthma -DuoNebs every 4 hours, and as needed Bipolar disorder Anxiety disorder Depression with suicidal ideation -On BuSpar 10 3 times daily, Zoloft 75 daily -Thiamine 100 mg daily -Psychiatry, patient cannot leave AMA. Normocytic anemia, resolved Hypokalemia - potassium replacement ordered for today Hypomagnesemia, resolved DVT ppx: Subcu heparin Code status: Full code Anticipated discharge place: Pending clinical course Anticipated discharge time: Pending clinical course Objective - Vital Signs Vital signs: Vital Signs Temp 98.1 F 07/24/23 09:00 Pulse 74 07/24/23 11:00 Resp 23 07/24/23 11:00 BP 131/94 07/24/23 11:00 Pulse Ox 96 07/24/23 11:00 FiO2 65 07/24/23 10:50 Intake & Output 07/23/23 07/24/23 07/24/23 18:59 06:59 18:59 Intake Total 970 1330 400 Output Total 515 1865 170 Balance 455 -535 230 Weight 63.3 kg Intake: IV 870 820 250 Ampicillin-Sulbactam 1.5 50 100 50 gm In Sodium Chloride 0.9 % 50 ml @ 100 mls/hr IVPB Q6H [facility] Rx#:[id number] Dextrose 5% in Water 1, 200 000 ml @ 100 mls/hr IV . [id number] [facility] with Sodium Bicarb (1 Meq/ml) 150 ml Rx#:[id number] Magnesium Sulfate-D5w Pmx 100 1 gm In Dextrose/Water 1 100ml.bag @ 100 mls/hr IVPB ONCE ONE Rx#: [id number] Potassium Chloride 20 meq 200 In Water For Injection 1 100ml.bag @ 50 mls/hr IVPB ONCE ONE Rx#: [id number] Potassium Chloride 20 meq 200 In Water For Injection 1 100ml.bag @ 50 mls/hr IVPB Q2H [facility] Rx#: [id number] Sodium Chloride 0.45% 1, 320 520 200 000 ml @ 40 mls/hr IV . Q24H [facility] Rx#:[id number] Tube Feeding 70 300 150 Other 30 210 Output: Urine 515 1865 170 Other: Voiding Method Indwelling Catheter Indwelling Catheter Indwelling Catheter # Bowel Movements 1 - Labs CBC & Chem 7: 07/24/23 05:34 07/24/23 05:34 Labs: Abnormal Lab Results - Last 24 Hours (Table) 07/23/23 07/23/23 07/23/23 Range/Units 18:02 21:47 23:31 WBC (3.8-10.6) k/uL Neutrophils # (1.3-7.7) k/uL Sodium (137-145) mmol/L Potassium 3.4 L (3.5-5.1) mmol/L Carbon Dioxide (22-30) mmol/L Creatinine (0.52-1.04) mg/dL Glucose (74-99) mg/dL POC Glucose (mg/dL) 122 H 123 H (70-110) mg/dL 07/24/23 07/24/23 07/24/23 Range/Units 05:34 05:34 05:58 WBC 12.8 H (3.8-10.6) k/uL Neutrophils # 10.3 H (1.3-7.7) k/uL Sodium 147 H (137-145) mmol/L Potassium 3.4 L (3.5-5.1) mmol/L Carbon Dioxide 35 H (22-30) mmol/L Creatinine 0.37 L (0.52-1.04) mg/dL Glucose 122 H (74-99) mg/dL POC Glucose (mg/dL) 119 H (70-110) mg/dL
--- NOTE | 2023-07-24 17:29 | P.PN ---
Subjective Progress Note Date: 07/24/23 Patient was initially seen Dr. Jeff Marie. Please refer to his note for details. Patient is a 27-year-old female with history of nonepileptic seizure, was in psych unit and had recurrent seizure-like spells and was placed on mechanical ventilator. Patient was extubated on 07/20/2023. Patient had 2 EEGs performed, both of which are normal. Patient had an episode recorded during the EEG which was n onepileptic. Dr. Marie was weaning down the Keppra and recommended to go up on the Lamictal. Patient has aspiration pneumonia. No seizures reported by the nursing staff. Some of the workup during this hospital visit consisted of: Sodium is 142, serum glucose is 103, plasma lactic acid vein is 0.7 Prolactin is 40.7 Calcium on presentation was 8.8. Magnesium is 2.0. CT head is reported as no acute intracranial process. Ventriculostomy changes without evidence for hydrocephalus. History reviewed the CT and I agree there is no acute or subacute changes. The patient does have tape of the ventriculostomy on the right side Initial routine EEG: Is abnormal. The background slowing is suggestive of mild encephalopathy. There is no focal slowing, epileptiform discharge or seizure on EEG. The excessive beta activity is likely due to medication effect (Ativan, Versed and Propofol). Repeat Routine EEG on 07/19/2023: Is abnormal. The background slowing is suggestive of mild encepahlopathy. The episode that was recorded is non- epileptic in nature. No seizure or epileptiform discharges. Objective - Vital Signs Vital signs: Vital Signs Temp 98.4 F 07/24/23 12:00 Pulse 84 07/24/23 15:50 Resp 31 H 07/24/23 15:00 BP 123/74 07/24/23 15:00 Pulse Ox 90 L 07/24/23 15:40 FiO2 65 07/24/23 15:40 Intake & Output 07/23/23 07/24/23 07/24/23 18:59 06:59 18:59 Intake Total 970 1330 600 Output Total 321 9865 345 Balance 455 -636 255 Weight 63.3 kg 63.3 kg Intake: IV 870 820 420 Ampicillin-Sulbactam 1.5 50 100 100 gm In Sodium Chloride 0.9 % 50 ml @ 100 mls/hr IVPB Q6H [facility] Rx#:[id number] Dextrose 5% in Water 1, 200 000 ml @ 100 mls/hr IV . [id number] [facility] with Sodium Bicarb (1 Meq/ml) 150 ml Rx#:[id number] Magnesium Sulfate-D5w Pmx 100 1 gm In Dextrose/Water 1 100ml.bag @ 100 mls/hr IVPB ONCE ONE Rx#: [id number] Potassium Chloride 20 meq 200 In Water For Injection 1 100ml.bag @ 50 mls/hr IVPB ONCE ONE Rx#: [id number] Potassium Chloride 20 meq 200 In Water For Injection 1 100ml.bag @ 50 mls/hr IVPB Q2H [facility] Rx#: [id number] Sodium Chloride 0.45% 1, 320 520 320 000 ml @ 40 mls/hr IV . Q24H [facility] Rx#:[id number] Tube Feeding 70 300 180 Other 30 210 Output: Urine 515 1865 345 Other: Voiding Method Indwelling Catheter Indwelling Catheter Indwelling Catheter # Bowel Movements 1 - Exam Patient is laying comfortably in the bed. Patient has Airvo in place. Patient states that she uses a walker to get around. She has been using the walker for "quite a while". Speech and language functions are normal. Patient is hard of hearing. Face is symmetric. Patient moves all 4 extremities equally. Patient's ankle dorsiflexion is at least 5-bilaterally. Reading Efficiency Course Director is 4+, deltoid 5 bilaterally. - Labs CBC & Chem 7: 07/24/23 05:34 07/24/23 05:34 Labs: Abnormal Lab Results - Last 24 Hours (Table) 07/23/23 07/23/23 07/23/23 Range/Units 18:02 21:47 23:31 WBC (3.8-10.6) k/uL Neutrophils # (1.3-7.7) k/uL Sodium (137-145) mmol/L Potassium 3.4 L (3.5-5.1) mmol/L Carbon Dioxide (22-30) mmol/L Creatinine (0.52-1.04) mg/dL Glucose (74-99) mg/dL POC Glucose (mg/dL) 122 H 123 H (70-110) mg/dL 07/24/23 07/24/23 07/24/23 Range/Units 05:34 05:34 05:58 WBC 12.8 H (3.8-10.6) k/uL Neutrophils # 10.3 H (1.3-7.7) k/uL Sodium 147 H (137-145) mmol/L Potassium 3.4 L (3.5-5.1) mmol/L Carbon Dioxide 35 H (22-30) mmol/L Creatinine 0.37 L (0.52-1.04) mg/dL Glucose 122 H (74-99) mg/dL POC Glucose (mg/dL) 119 H (70-110) mg/dL Assessment and Plan Assessment: This is a 27-year-old woman with history of seizure disorder off antiepileptic, hydrocephalus s/p shunt, bipolar who initially was admitted to the mental health unit for depression and suicidal ideation on 07/16/2023 was transferred to the ICU recurrent seizure-like activity and was reported she had numerous ones and she reported she had absence seizure that led into a generalized tonic-clonic seizure without any resolution of her seizure with Ativan or Keppra seem that the patient was in clinical status epilepticus. Recurrent seizure-like activity and initially clinical status epilepticus but electrographically episodes are nonepileptic in nature---resolved. The EEG captures the episodes are non-epileptic in nature. Had total two EEG which are negative for seizure. Respiratory distress and has aspiration pneumonia Intubated on a ventilator and is on sedation due to above--extubated History of seizure disorder and is not on any antiepileptic drugs. It seems she had blank stares and work-up and was told no seizures (adopted father notified nurse). Recent depression and suicidal ideation Hydrocephalus s/p shunt Dwarfism Bipolar Major depression Alcohol use Plan: Patient was initially placed on Keppra 1500 mg IV every [address] Marie has decreased the dose of Keppra to 1000mg IV every 12 hours. He also started patient on Lamictal 25 mg daily on 07/21/2023 for mood and antiepileptic coverage. He recommended to continue Lamictal 25mg daily and then after 1 week to be on 25mg bid then add 25mg every week until goal 100mg bid. Please look for any skin rash since Lamictal can cause Ozzy Hesham syndrome. Seizure precautions seizure pads Per [place] DMV becuse of seizure, avoid driving for 6 months until seizure free, avoid heights, swim unassisted or use heavy machinery. Will defer the rest of the medical management to primary and other specialists
[2023-07-24 18:21] LABS: Glucose,Whole Blood 97 mg/dL (70-110)
--- NOTE | 2023-07-24 18:24 | XR ---
EXAM: XR chest 1V portable CLINICAL INDICATION:Female, 27 years old with history of NG Tube Placement; [facility] COMPARISON: 07/24/2023 5:10 AM and before TECHNIQUE: Chest single view. FINDINGS: Diffuse bilateral airspace disease is again noted, no significant change apparent. Small left pleural effusion could be present. No visible pneumothorax. Ventricular peritoneal shunt catheter again seen on the right. EKG leads overlie the chest. Osseous structures appear grossly unchanged without acute pathology evident. Degenerative changes and chronic appearing deformities of the proximal humeri. Partially visualized hardware in the lower lum bar spine region. IMPRESSION: 1. NG tube extends into the left upper quadrant with tip over the stomach. 2. Similar-appearing bilateral airspace opacities, likely pneumonia. An element of superimposed ritu a/CHF is also considered.
[2023-07-24 23:36] LABS: Glucose,Whole Blood 118 mg/dL (70-110)
[2023-07-25 06:22] LABS: Glucose,Whole Blood 87 mg/dL (70-110)
[2023-07-25 06:47] LABS: Basophils % (A) 0 %; Eosinophils # (A) 0.3 k/uL (0-0.7); Eosinophils % (A) 3 %; HCT 35.7 % (34.0-46.0); HGB 10.9 gm/dL (11.4-16.0); Lymphocytes # (A) 1.6 k/uL (1.0-4.8); Lymphocytes % (A) 14 %; MCH 29.2 pg (25.0-35.0); MCHC 30.6 g/dL (31.0-37.0); MCV 95.3 fL (80.0-100.0); Mean Platelet Volume 7.7; Monocytes # (A) 0.5 k/uL (0-1.0); Monocytes % (A) 4 %; Neutrophils % (A) 79 %; Platelet Count 280 k/uL (150-450); RBC 3.75 m/uL (3.80-5.40); RDW 13.4 % (11.5-15.5); WBC 11.5 k/uL (3.8-10.6)
[2023-07-25 06:51] LABS: African American GFR (CKD) >90 (>60 ml/min/1.73 sqM); Anion Gap 5 mmol/L; Blood Urea Nitrogen 14 mg/dL (7-17); Calcium 8.7 mg/dL (8.4-10.2); Carbon Dioxide 33 mmol/L (22-30); Chloride 103 mmol/L (98-107); Glucose 94 mg/dL (74-99); Magnesium 1.8 mg/dL (1.6-2.3); Non-African American GFR(CKD) >90 (>60 ml/min/1.73 sqM); Sodium 141 mmol/L (137-145)
--- NOTE | 2023-07-25 07:52 | XR ---
EXAMINATION TYPE: XR chest 1V portable DATE OF EXAM: 07/25/2023 COMPARISON: 07/16/2023 HISTORY: NG tube placement TECHNIQUE: Single frontal view of the chest is obtained. FINDINGS: Diffuse bilateral airspace disease. NG tube has been removed. SOCIAL SCIENCE RESEARCH ASSISTANT shunt catheter stable. No pneumothorax. Tiny bilateral effusions not excluded. Arthropathy of the shoulders. Heart is enlarged . IMPRESSION: 1. Stable bilateral diffuse airspace disease correlate for pneumonia versus CHF.
[2023-07-25] MEDS: POTASSIUM CHLORIDE 20 MEQ in WATER FOR INJECTION 1 100ML.BAG IVPB SCH ×2 (08:52→16:55)
[2023-07-25] MEDS: MAGNESIUM SULFATE-D5W PMX 1 GM in DEXTROSE/WATER 1 100ML.BAG IVPB ONE (08:53)
[2023-07-25] MEDS: FUROSEMIDE 10 MG/ML 2 ML VIAL IV ONE (09:23)
[2023-07-25 11:34] LABS: Glucose,Whole Blood 88 mg/dL (70-110)
--- NOTE | 2023-07-25 11:41 | P.PN ---
Subjective Progress Note Date: 07/25/23 Hospital Course: 27-year-old female with history of seizure disorder off of antiepileptics, hyd rocephalus status post shunt, bipolar disorder presented from mental health unit for status epilepticus. Patient was admitted to mental health unit for depression and suicidal ideation on 07/16/2023. Patient was noted to have multiple episodes of absence seizure, rapid response was called. She was given multiple doses of IV Ativan, and continued to have seizure-like activity, and also has some generalized tonic-clonic activity. She was taken to the ICU, loaded with Keppra and Dilantin, and was intubated for airway protection. Currently patient is in the medical ICU intubated and sedated. Undergoing further workup. Head CT was completed, did not show any acute process, ventriculostomy changes without evidence of hydrocephalus. Patient does have a prior history of pseudoseizures. Was extensively worked up outpatient, negative for any seizure disorder. Currently weaning off of sedation. Repeat EEG did not show any seizure-like activity. Patient is now extubated. Likely had asp iration pneumonia as well as acute pulmonary edema. Received occasional IV Lasix, and also on IV Unasyn. Still continues to have frequent aspirations. Patient now requiring more supplemental oxygen. Was on tube feeds, plan for PEG tube placement. Echocardiogram shows LVEF 55 to 60%, RVSP 45 Subjective: Seen and examined at bedside. Denies any new complaints. Courtney catheter in place. On high flow nasal cannula. Pertinent positives and negatives as discussed above, a complete review of systems was performed and all other systems are negative. Vitals Signs Reviewed. General: Not in acute distress, dwarfism Derm: Warm, dry Head: Atraumatic, normocephalic, symmetric Eyes: Pupils equal and reactive, EOMI Mouth: No lip lesion, mucus membranes moist Cardiovascular: S1S2 reg, no murmur Lungs: Bilateral Rales, supplemental oxygen, no accessory muscle use Abdominal: Soft, no appreciable organomegaly, nontender to palpation, nondistended Ext: No contractures, moving all extremities Neuro: CN II to XII grossly normal, no focal deficits Psych: Alert and oriented, cooperative Data Reviewed Today: Pertinent Labs: WBC 11.5, hemoglobin 10.9, potassium 3, creatinine 0.28, magnesium 1.8, blood sugars range between 87-1 18 Imaging: Chest x-ray independently interpreted worsening bilateral interstitial opacities Assessment and Plan: Patient is critically ill, in medical ICU, prognosis guarded. Active: Acute hypoxic respiratory failure Aspiration pneumonia Acute pulmonary edema Hypernatremia, resolved -Grounds Supervisor following, ordered 20 of IV Lasix today, monitor urine output and electrolytes -Patient maintained on half-normal saline at 40 cc an hour -Continue IV Unasyn 1.5 g IV every 6 hours -Sputum cultures consistent with normal respiratory marixa -NG tube taken out, plan for PEG tube placement. -Continue to wean oxygen Hypokalemia -40 mEq IV potassium given today -Repeat BMP and magnesium tomorrow Questionable status epilepticus, nausea likely History of pseudoseizures History of hydrocephalus status post shunt -Neurology following, Keppra 1 g IV every 12 hours, also on Lamictal 25 mg daily -On IV Ativan as needed for seizures, monitor for sedation Asthma -DuoNebs every 4 hours, and as needed Bipolar disorder Anxiety disorder Depression with suicidal ideation -On BuSpar 10 3 times daily, Zoloft 75 daily -Thiamine 100 mg daily -Psychiatry consulted: Patient cannot leave AMA. Normocytic anemia, resolved Hypomagnesemia, resolved Metabolic acidosis, resolved DVT ppx: Subcu heparin Code status: Full code Anticipated discharge place: Pending clinical course Anticipated discharge time: Pending clinical course Objective - Vital Signs Vital signs: Vital Signs Temp 98.4 F 07/25/23 08:00 Pulse 75 07/25/23 11:20 Resp 0 L 07/25/23 11:00 BP 130/92 07/25/23 11:00 Pulse Ox 93 L 07/25/23 11:20 FiO2 75 07/25/23 11:20 Intake & Output 07/24/23 07/25/23 07/25/23 18:59 06:59 18:59 Intake Total 770 660 450 Output Total 430 390 880 Balance 340 270 -430 Weight 63.3 kg 57.7 kg Intake: IV 540 530 250 Ampicillin-Sulbactam 1.5 100 50 50 gm In Sodium Chloride 0.9 % 50 ml @ 100 mls/hr IVPB Q6H [facility] Rx#:[id number] Sodium Chloride 0.45% 1, 440 480 200 000 ml @ 40 mls/hr IV . Q24H [facility] Rx#:[id number] Intake, IV Titration 200 Amount Magnesium Sulfate-D5w Pmx 100 1 gm In Dextrose/Water 1 100ml.bag @ 100 mls/hr IVPB ONCE ONE Rx#: [id number] Potassium Chloride 20 meq 100 In Water For Injection 1 100ml.bag @ 50 mls/hr IVPB Q2H [facility] Rx#: [id number] Tube Feeding 230 130 Output: Urine 430 390 880 Other: Voiding Method Indwelling Catheter Indwelling Catheter Indwelling Catheter # Bowel Movements 1 - Labs CBC & Chem 7: 07/25/23 05:58 07/25/23 05:58 Labs: Abnormal Lab Results - Last 24 Hours (Table) 07/24/23 07/25/23 07/25/23 Range/Units 23:34 05:58 05:58 WBC 11.5 H (3.8-10.6) k/uL RBC 3.75 L (3.80-5.40) m/uL Hgb 10.9 L (11.4-16.0) gm/dL MCHC 30.6 L (31.0-37.0) g/dL Neutrophils # 9.0 H (1.3-7.7) k/uL Potassium 3.0 L (3.5-5.1) mmol/L Carbon Dioxide 33 H (22-30) mmol/L Creatinine 0.28 L (0.52-1.04) mg/dL POC Glucose (mg/dL) 118 H (70-110) mg/dL
--- NOTE | 2023-07-25 11:44 | P.GSCN ---
History of Present Illness Consult date: 07/25/23 History of present illness: CHIEF COMPLAINT: Depression Reason for consult PEG tube placement HISTORY OF PRESENT ILLNESS: This is a 27 year old female who initially presented to the hospital and admitted to mental health unit for depression and suicidal ideation. She had seizures and required to transfer to the ICU. She was intubated to protect her airway for short period of time. She has also been diagnosed with aspiration pneumonia. Patient with a known history of seizure disorder as well as hydrocephalus and STERILIZATION SPECIALIST shunt. Patient has had multiple NG tube for tube feeds that keep getting clogged. Patient refusing any further NG tube to be placed. And she continues to fail her swallow eval. Surgical service has been consulted for PEG tube placement. She is on AIRVO. PAST MEDICAL HISTORY: Dwarfism, seizure, asthma, hydrocephalus status post STERILIZATION SPECIALIST shunt, depression PAST SURGICAL HISTORY: STERILIZATION SPECIALIST shunt for hydrocephalus, back surgery MEDICATIONS: See below ALLERGIES: See below SOCIAL HISTORY: No illicit drug use. Nicotine dependence, marijuana. Alcohol use disorder REVIEW OF SYSTEMS: CONSTITUTIONAL: Denies fever or chills. HEENT: Denies blurred vision, vision changes, or eye pain. Denies hemoptysis CARDIOVASCULAR: Denies chest pain or pressure. RESPIRATORY: No shortness of breath. GASTROINTESTINAL: See HPI for pertinent findings HEMATOLOGIC: Denies bleeding disorders. GENITOURINARY: Denies any blood in urine or increased urinary frequency. SKIN: Denies pruitis. Denies rash. PHYSICAL EXAM: VITAL SIGNS: Reviewed GENERAL: Well-developed in no acute distress. HEENT: No sclera icterus. Extraocular movements grossly intact. Moist buccal mucosa. Head is atraumatic, normocephalic. No nasal drainage. ABDOMEN: Soft. Nondistended. nontender NEUROLOGIC: Alert and oriented. Cranial nerves II through XII grossly intact. LABORATORY DATA: WBC 11.5 hgb 10.9 plt 280 Na 141 K 3.0 cr 0.28 IMAGING: Chest x-ray reports stable bilateral diffuse airspace disease correlate for pneumonia versus CHF Echo reports EF 55 to 60% no obvious wall motion abnormality ASSESSMENT: 1. Dysphagia and failed swallow eval 2. Protein calorie malnutrition 3. Respiratory failure with aspiration pneumonia 4. Hypokalemia PLAN: -Patient scheduled for EGD with PEG tube placement tomorrow with Dr. Jimenez -Potassium being placed -Hold subcu heparin in a.m. Physician Earth Boring Machine Operator note has been reviewed by physician. Signing provider agrees with the documented findings, assessment, and plan of care. Past Medical History Past Medical History: Asthma Additional Past Medical History / Comment(s): ANXIETY, back surgery, shunt d/t hydrocephalus History of Any Multi-Drug Resistant Organisms: None Reported Year Discovered:: 2016 MDRO Source:: back Past Surgical History: Back Surgery, Ear Surgery Additional Past Surgical History / Comment(s): Back surgery X2; one when she was 7; another when she ws 20 Past Anesthesia/Blood Transfusion Reactions: No Reported Reaction Past Psychological History: Anxiety Additional Psychological History / Comment(s): BPD Smoking Status: Current every day smoker Past Drug Use History: Marijuana - Past Family History Father History Unknown: Yes Mother History Unknown: Yes Medications and Allergies Home Medications Medication Instructions Recorded Confirmed Type Albuterol Sulfate [Proair Hfa] 2 puff INHALATION RT-Q6H PRN 08/24/20 07/18/23 History Acamprosate Calcium [Campral] 666 mg PO TID 07/16/23 07/18/23 History Cholecalciferol (Vitamin D3) 50 mcg PO DAILY 07/16/23 07/18/23 History [Vitamin D3 (50 Mcg = 2000 Iu)] Fluticasone/Vilanterol 1 puff INHALATION RT-DAILY 07/16/23 07/18/23 History [Fluticasone-Vilanterol 100-25] Meloxicam [Mobic] 15 mg PO DAILY 07/16/23 07/18/23 History Omeprazole 20 mg PO DAILY 07/16/23 07/18/23 History Ondansetron [Zofran] 4 mg PO DAILY 07/16/23 07/18/23 History Rimegepant Sulfate [Nurtec Odt] 75 mg PO DAILY PRN 07/16/23 07/18/23 History Sertraline [Zoloft] 75 mg PO DAILY 07/16/23 07/18/23 History lamoTRIgine [lamoTRIgine ODT See Taper PO DIRECTED 07/16/23 07/18/23 History (Ironside) Dose Pack] tiZANidine [Zanaflex] 2 mg PO HS PRN 07/16/23 07/18/23 History Allergies Allergy/AdvReac Type Severity Reaction Status Date / Time Iodinated Contrast Media Allergy Anaphylaxis Verified 07/16/23 14:28 [Iodinated Contrast Media - IV Dye] Surgical - Exam Vital Signs Temp Pulse Resp BP Pulse Ox 98.5 F 110 H 20 105/73 95 07/17/23 22:15 07/17/23 22:15 07/17/23 22:15 07/17/23 22:15 07/17/23 22:15 Results - Labs 07/25/23 05:58 07/25/23 05:58 Abnormal Lab Results - Last 24 Hours (Table) 07/24/23 07/25/23 07/25/23 Range/Units 23:34 05:58 05:58 WBC 11.5 H (3.8-10.6) k/uL RBC 3.75 L (3.80-5.40) m/uL Hgb 10.9 L (11.4-16.0) gm/dL MCHC 30.6 L (31.0-37.0) g/dL Neutrophils # 9.0 H (1.3-7.7) k/uL Potassium 3.0 L (3.5-5.1) mmol/L Carbon Dioxide 33 H (22-30) mmol/L Creatinine 0.28 L (0.52-1.04) mg/dL POC Glucose (mg/dL) 118 H (70-110) mg/dL Diabetes panel 07/25/23 Range/Units 05:58 Sodium 141 (137-145) mmol/L Potassium 3.0 L (3.5-5.1) mmol/L Chloride 103 (98-107) mmol/L Carbon Dioxide 33 H (22-30) mmol/L BUN 14 (7-17) mg/dL Creatinine 0.28 L (0.52-1.04) mg/dL Glucose 94 (74-99) mg/dL Calcium 8.7 (8.4-10.2) mg/dL Calcium panel 07/25/23 Range/Units 05:58 Calcium 8.7 (8.4-10.2) mg/dL Pituitary panel 07/25/23 Range/Units 05:58 Sodium 141 (137-145) mmol/L Potassium 3.0 L (3.5-5.1) mmol/L Chloride 103 (98-107) mmol/L Carbon Dioxide 33 H (22-30) mmol/L BUN 14 (7-17) mg/dL Creatinine 0.28 L (0.52-1.04) mg/dL Glucose 94 (74-99) mg/dL Calcium 8.7 (8.4-10.2) mg/dL Adrenal panel 07/25/23 Range/Units 05:58 Sodium 141 (137-145) mmol/L Potassium 3.0 L (3.5-5.1) mmol/L Chloride 103 (98-107) mmol/L Carbon Dioxide 33 H (22-30) mmol/L BUN 14 (7-17) mg/dL Creatinine 0.28 L (0.52-1.04) mg/dL Glucose 94 (74-99) mg/dL Calcium 8.7 (8.4-10.2) mg/dL
--- NOTE | 2023-07-25 12:43 | P.PN ---
Subjective Progress Note Date: 07/25/23 Principal diagnosis: Acute hypoxic respiratory failure secondary to aspiration pneumonia Patient is a 27-year-old white female with past medical history significant for asthma, seizure disorder, hydrocephalus status post SHRIMP TRAWLER shunt, bipolar disorder and major depression, migraines, and alcohol use disorder. Patient presented to the emergency room back on 07/16/2023 with suicidal ideation. She was sent in from [facility] to be admitted for inpatient psych evaluation. No actual suicidal attempts were reported. Patient was admitted to the [facility] unit. Late last night, a rapid response was called for seizures. Patient reportedly was found on the ground in the hallway. The sound physician that responded to the event, noted possible absence seizure's. These progressed to generalized tonic-clonic activity. She was given several doses of Ativan, a total of 7 mg, with no significant response. She was also loaded with Keppra and Dilantin per direction of the neurologist. Despite these pharmacological interventions, she continues to have seizure like activity. She is currently moved to the intensive care unit. She continues to have intermittent generalized tonic-clonic seizures every 2 to 5 minutes. Lasting approximately 30 seconds to 1 minute. No complete recovery in between. Moving all 4 extremities. Eyes are midline without nystagmus. No tongue biting. No urinary or fecal incontinence. Currently, appears postictal and will occasionally answer simple commands. On room air. SpO2 96%. No reported aspiration events. Remaining vi helga signs are also stable. Neurologist was consulted, who recommends intubation and sedation until seizures can be controlled. LIFTER/DRIVER responded the bedside, performed rapid sequence intubation. Postintubation chest x-ray demonstrates endotracheal tube tip above the carroll and below the clavicle. Nasogastric tube courses below the diaphragm could be advanced at least 5 cm. Current ventilator settings include assist-control, respiratory rate 16, tidal volume 300, FiO2 100%, PEEP of 5. Postintubation ABG shows a PaO2 of 311, pCO2 of 45, pH of 7.3. FiO2 was appropriately weaned. She is sedated with propofol which is currently at 50 mcg/kg/min. She is currently asynchronous with mechanical ventilator and breath stacking. Peak airway pressures 28. CT of the brain was carried out which did not show any acute intracranial process. There was a ventriculostomy changes without evidence of hydrocephalus list. Urine toxicology screen positive for marijuana, but are otherwise unremarkable. No fevers. Recently started on BuSpar, and also on Zoloft. CBC unremarkable, no leukocytosis. Most recent BMP: Includes a sodium 140, potassium 3.4, chloride 111, serum bicarb 20, BUN 13, creatinine 0.46, glucose 82. Patient has no family or next of kin listed in the EMR. She is listed as homeless. We will attempt to reach out for possible contacts. On today's evaluation of 07/19/2023, patient is being seen for a follow-up. Remains dependent on mechanical ventilator. Remains on propofol which is running at 50 mcg/kg/min. No seizure activity has been noted. No tonic or clonic activity. The patient has some tremor especially when she is stimulated. Nurse at infusion has been discontinued. Pressors have been discontinued and the patient is currently off norepinephrine and she is on normal citrate of 75 cc an hour. While being on the mechanical ventilator, she is on assist-control mode with a rate of 60, tidal volume of 300, FiO2 of 40% with a PEEP of 5. Overall fluid balance is +835 cc over the past 24 hours. Blood gas was not obtained this morning as the patient is a difficult poke. Will monitor the end- tidal CO2. The patient remains on Keppra 1.5 g every 12 hours. IV fluids are in the form of normal saline at 75 cc an hour. She is afebrile. Blood work from today shows a white cell count of 8.6 with a hemoglobin 10.3 and a platelet count of 187. BUN is at 4 mg of 0.31 and a sodium level is at 144. EEG from yesterday showed no seizure activity. Neurology on the case. 07/20/2023, the patient is being seen for a follow-up. Remains intubated on the mechanical ventilator. Sedation holiday was given and the patient became quite restless, asynchronous with mechanical ventilator, tachypneic and tachycardic and was having excessive tremors. Based on that, the patient was placed back on sedation and this morning she remains on propofol at 40 mcg/kg/min and Versed 4 mg an hour. A repeat EEG was done while the patient on the Versed and the patient does not show any seizure activity. While on the mechanical ventilator, she is on assist-control mode with rate of 60, tidal volume 300, FiO2 of 40% with a PEEP of 5. End-tidal CO2 is 37. IV fluids currently running at 75 cc an hour and the patient is on vital high-protein at rate of 16 cc an hour. The patient had a follow-up chest x-ray today that showed smaller lung volumes and evidence of increased pulm vascular markings. ET tube is around 5 cm above the carroll. NG tube is in place. There is also a SHRIMP TRAWLER shunt in place. There is diffuse bilateral pulmonary haziness. Blood work shows a white cell count of 8.9, hemoglobin of 10.4, potassium is at 2.7, bicarb is at 22 with a sodium level of 140, BUN is at 2 with a creatinine of 0.4. Hemodynamically stable and she is currently on no pressors. 07/21/2023, the patient is extubated. The patient was kept on Precedex. Earlier this morning, the patient was found to be more lethargic and based on that, the Precedex was discontinued and the mental status improved. Nevertheless, the patient had some difficulty in breathing and excessive respiratory congestion and mucus production. Initially she was on 5 L and she was brought up to 11 L and later on placed on 100% nonrebreather facemask. Aggressive pulmonary toileting was done. Cough subsequently subsided and the patient is currently on 11 L of oxygen nasal cannula. Precedex is currently off. Fluid balance is -2.7 L over the past 24 hours. Chest x-ray shows small lung volumes and the patient has increased pulm vascular markings and congestion and possibly right lower lobe pulm infiltrates. She has a recent cough and based on excessive respiratory secretions, the patient was started on IV Unasyn. IV fluids were placed on KVO. No seizure activity has been noted and the patient remains on Keppra. She is communicating. Hemodynamically stable on no pressors. Will go 4 extremities without any limitation. 07/22/2023, the patient is sitting up on a chair and she is currently on Airvo with 50 L and FiO2 of 75%. She remains extubated. Cough is subsided. Not producing much of sputum today. Nevertheless, chest x-ray shows bibasilar pulm infiltrates worse in the right. The patient was given diuretics yesterday and the patient is a negative fluid balance of at least 1.8 L over the past 24 hours. Serum bicarbonate dropped down to 7. The patient was given IV bicarb a total of 100 mEq and following that she was started on a bicarb infusion which is currently running at 100 cc an hour. She remains on IV Unasyn. Swallow mechanism is poor and the patient seems to be aspirating. An official swallow study will be done and the patient will be kept n.p.o. for now. Echocardiogram was ordered. No seizure activity has been noted and the patient remains on IV Keppra. 07/23/2023, the patient remains on Airvo patient is currently on 50 L and FiO2 of 70%. Unable to swallow and she remains at a high risk of aspiration. Based on that, the patient was given NG tube for enteral feeding and nutritional support. Meanwhile, chest x-ray still showing bilateral pulmonary consolidation consistent with bilateral pneumonia. No significant interval change on today's chest x-ray. The patient has a SHRIMP TRAWLER shunt in place. Airspace disease seen bilaterally. Cough is improved. No significant sputum production. No seizure activity. White cell count of 12 with a hemoglobin 11.2 and a platelet count of 275, BUN is 9 with a creatinine of 0.3 and sodium level of 148 and a potassium level of 3.1. Remains on IV Unasyn. Hemodynamically stable. No pressors. IV fluids are currently at KVO. Awake and alert and communicating. Patient was reevaluated today on 07/24/2023, remains in the ICU, remains on Airvo at 50 L with 75% FiO2. Remains on antibiotics in the form of Unasyn for aspiration pneumonia patient is receiving for nutrition vital HP at 30 cc/h. Today continues show bilateral airspace disease, infiltrate/pneumonia. Patient tells me that she is feeling better, breathing easier WBC count today is 12.8 hemoglobin 11.8. Sodium is up to 147 potassium 3.4 renal profile is normal bicarb is 35. Sputum blood cultures are nondiagnostic WBC count is 12.8 hemoglobin 11.8 sodium is 147 potassium 3.4 renal profile is normal bicarb is 35. Her chest x-ray is showing stable bilateral diffuse airspace disease Patient was reevaluated today on , remains in the ICU, remains on Airvo at 75% and 50 L flow. Chest x-ray continues to show evidence of bilateral airspace disease, questionable left-sided pleural effusion, and possibly some component of fluid overload, hence the patient will given a trial of diuresis Lasix 20 mg IV push x 1. Continues to have issues with her swallowing, patient is now refusing nasogastric tube placement as it became clogged and had to be removed, patient is extremely reluctant to have another nasogastric tube placed, has if this issue does not resolve the patient may have to have a PEG tube placement. In the meantime continues to be relatively hypoxic, remains on high FiO2, continues to have cough, she has a weak cough unable to clear her secretions. Chest x-ray is not showing much improvement. WBC is 11.5 hemoglobin 10.9 basic metabolic profile is normal potassium is low at 3.0 Objective - Vital Signs Vital signs: Vital Signs Temp 98.4 F 07/25/23 08:00 Pulse 75 07/25/23 11:20 Resp 0 L 07/25/23 11:00 BP 130/92 07/25/23 11:00 Pulse Ox 97 07/25/23 11:40 FiO2 75 07/25/23 11:40 Intake & Output 07/24/23 07/25/23 07/25/23 18:59 06:59 18:59 Intake Total 770 660 450 Output Total 430 390 880 Balance 340 270 -430 Weight 63.3 kg 57.7 kg Intake: IV 540 530 250 Ampicillin-Sulbactam 1.5 100 50 50 gm In Sodium Chloride 0.9 % 50 ml @ 100 mls/hr IVPB Q6H [facility] Rx#:[id number] Sodium Chloride 0.45% 1, 440 480 200 000 ml @ 40 mls/hr IV . Q24H [facility] Rx#:[id number] Intake, IV Titration 200 Amount Magnesium Sulfate-D5w Pmx 100 1 gm In Dextrose/Water 1 100ml.bag @ 100 mls/hr IVPB ONCE ONE Rx#: [id number] Potassium Chloride 20 meq 100 In Water For Injection 1 100ml.bag @ 50 mls/hr IVPB Q2H [facility] Rx#: [id number] Tube Feeding 230 130 Output: Urine 430 390 880 Other: Voiding Method Indwelling Catheter Indwelling Catheter Indwelling Catheter # Bowel Movements 1 - Exam GENERAL EXAM: 27-year-old white female dwarf on Airvo 75% FiO2 50 L flow EYES: PERRLA, EOMI, nonicteric. NOSE: Clear with pink turbinates. THROAT: No erythema or exudates. NECK: No masses, no JVD. CHEST: No chest wall deformity. LUNGS: Crackles and rhonchi bilaterally noted. CVS: S1 and S2 normal with no audible murmur, regular rhythm. No extra heart sounds ABDOMEN: No hepatosplenomegaly, active bowel sounds, no guarding or rigidity. SKIN: No rashes CENTRAL NERVOUS SYSTEM: Alert oriented x 3, no gross focal deficit Musculoskeletal, patient is noted to have dwarfism, no limitation in ranges of motion - Labs CBC & Chem 7: 07/25/23 05:58 07/25/23 05:58 Labs: Abnormal Lab Results - Last 24 Hours (Table) 07/24/23 07/25/23 07/25/23 Range/Units 23:34 05:58 05:58 WBC 11.5 H (3.8-10.6) k/uL RBC 3.75 L (3.80-5.40) m/uL Hgb 10.9 L (11.4-16.0) gm/dL MCHC 30.6 L (31.0-37.0) g/dL Neutrophils # 9.0 H (1.3-7.7) k/uL Potassium 3.0 L (3.5-5.1) mmol/L Carbon Dioxide 33 H (22-30) mmol/L Creatinine 0.28 L (0.52-1.04) mg/dL POC Glucose (mg/dL) 118 H (70-110) mg/dL Assessment and Plan Assessment: impression: Acute hypoxic respiratory failure secondary to aspiration pneumonia secondary to status epilepticus Status epilepticus, on Keppra History of seizure disorder History of hydrocephalus, status post SHRIMP TRAWLER shunt History of alcohol use disorder Suicidal ideation History of bipolar disorder and major depression History of migraines History of asthma, not currently active Marijuana use Dwarfism and short stature Recommendations: Continue Unasyn for aspiration pneumonia Continue oxygen and titrate accordingly Continue aggressive pulmonary toilet Incentive spirometry May have to be considered for either placement of nasogastric tube/Dobbhoff or possibly a PEG tube placed Continue IV fluid and monitor daily electrolytes Continue Oskar Will continue to follow and continue to monitor for now in the ICU Time with Patient: Less than 30
[2023-07-25 18:07] LABS: Glucose,Whole Blood 84 mg/dL (70-110)
[2023-07-25 23:32] LABS: Glucose,Whole Blood 86 mg/dL (70-110)
[2023-07-26 06:53] LABS: Glucose,Whole Blood 75 mg/dL (70-110)
--- NOTE | 2023-07-26 07:51 | XR ---
EXAMINATION TYPE: XR chest 1V portable DATE OF EXAM: 07/26/2023 COMPARISON: 07/25/2023 HISTORY: Abnormal x-ray TECHNIQUE: Single frontal view of the chest is obtained. FINDINGS: Diffuse bilateral airspace disease. NG tube has been removed. CHILD ATTENDANT shunt catheter stable. No pneumothorax. Tiny bilateral effusions not excluded. Arthropathy of the shoulders. Heart is enlarged . IMPRESSION: 1. Stable bilateral diffuse airspace disease correlate for pneumonia versus CHF.
[2023-07-26 09:15] LABS: HCT 36.3 % (34.0-46.0); HGB 11.4 gm/dL (11.4-16.0); MCH 30.4 pg (25.0-35.0); MCHC 31.4 g/dL (31.0-37.0); MCV 96.6 fL (80.0-100.0); Mean Platelet Volume 8.6; Platelet Count 288 k/uL (150-450); RBC 3.76 m/uL (3.80-5.40); RDW 13.3 % (11.5-15.5); WBC 12.5 k/uL (3.8-10.6)
[2023-07-26 09:32] LABS: African American GFR (CKD) >90 (>60 ml/min/1.73 sqM); Albumin 3.2 g/dL (3.5-5.0); Anion Gap 9 mmol/L; Blood Urea Nitrogen 14 mg/dL (7-17); Calcium 8.5 mg/dL (8.4-10.2); Carbon Dioxide 26 mmol/L (22-30); Chloride 102 mmol/L (98-107); Glucose 78 mg/dL (74-99); Magnesium 2.1 mg/dL (1.6-2.3); Non-African American GFR(CKD) >90 (>60 ml/min/1.73 sqM); Potassium 3.5 mmol/L (3.5-5.1); Sodium 137 mmol/L (137-145)
[2023-07-26] MEDS ORDERED: Potassium Replacement Protocol 1 EACH MISC MISCELLANE PRN (09:58)
--- NOTE | 2023-07-26 11:30 | P.PN ---
Subjective Progress Note Date: 07/26/23 CHIEF COMPLAINT: Depression HISTORY OF PRESENT ILLNESS: Patient currently in ICU. She is scheduled for PEG tube placement today. She is still on Airvo. Failed swallow eval's. Afebrile. WBC 12.5 albumin 3.2 PHYSICAL EXAM: VITAL SIGNS: Reviewed. GENERAL: Well-developed in no acute distress. ABDOMEN: Soft. Nondistended. Nontender. NEUROLOGIC: Alert and oriented. Cranial nerves II through XII grossly intact. ASSESSMENT: 1. Dysphagia 2. Moderate protein calorie malnutrition 3. Failed swallow eval PLAN: -Patient scheduled for PEG tube placement today with Dr. Jimenez Physician Engineering Writer note has been reviewed by physician. Signing provider agrees with the documented findings, assessment, and plan of care. Objective - Vital Signs Vital signs: Vital Signs Temp 98.5 F 07/26/23 08:00 Pulse 80 07/26/23 09:59 Resp 38 H 07/26/23 09:00 BP 121/79 07/26/23 09:00 Pulse Ox 98 07/26/23 09:49 FiO2 60 07/26/23 09:49 Intake & Output 07/25/23 07/26/23 07/26/23 18:59 06:59 18:59 Intake Total 830 480 170 Output Total 1375 590 160 Balance -545 -110 10 Weight 60 kg Intake: IV 530 480 170 Ampicillin-Sulbactam 1.5 50 50 gm In Sodium Chloride 0.9 % 50 ml @ 100 mls/hr IVPB Q6H [facility] Rx#:[id number] Sodium Chloride 0.45% 1, 480 480 120 000 ml @ 40 mls/hr IV . Q24H [facility] Rx#:[id number] Intake, IV Titration 300 Amount Magnesium Sulfate-D5w Pmx 100 1 gm In Dextrose/Water 1 100ml.bag @ 100 mls/hr IVPB ONCE ONE Rx#: [id number] Potassium Chloride 20 meq 200 In Water For Injection 1 100ml.bag @ 50 mls/hr IVPB Q2H [facility] Rx#: [id number] Output: Urine 1375 590 160 Other: Voiding Method Indwelling Catheter Indwelling Catheter # Bowel Movements 0 - Labs CBC & Chem 7: 07/26/23 08:34 07/26/23 08:34 Labs: Abnormal Lab Results - Last 24 Hours (Table) 07/25/23 07/26/2324 Range/Units 15:18 08:34 08:34 WBC 12.5 H (3.8-10.6) k/uL RBC 3.76 L (3.80-5.40) m/uL Potassium 3.3 L (3.5-5.1) mmol/L Creatinine 0.31 L (0.52-1.04) mg/dL Albumin 3.2 L (3.5-5.0) g/dL
[2023-07-26 11:54] LABS: Glucose,Whole Blood 67 mg/dL (70-110)
[2023-07-26] MEDS: DEXTROSE 50% SYRINGE 50 ML IVP ONE (12:00)
[2023-07-26] MEDS: POTASSIUM CHLORIDE 20 MEQ in WATER FOR INJECTION 1 100ML.BAG IVPB SCH (12:01)
[2023-07-26 12:27] LABS: Glucose,Whole Blood 199 mg/dL (70-110)
[2023-07-26] MEDS: FUROSEMIDE 10 MG/ML 2 ML VIAL IV SCH (12:31)
--- NOTE | 2023-07-26 13:35 | P.PN ---
Subjective Progress Note Date: 07/26/23 Principal diagnosis: Acute hypoxic respiratory failure secondary to aspiration pneumonia Patient is a 27-year-old white female with past medical history significant for asthma, seizure disorder, hydrocephalus status post CORPORATE SECRETARY shunt, bipolar disorder and major depression, migraines, and alcohol use disorder. Patient presented to the emergency room back on 07/16/2023 with suicidal ideation. [facility] psych evaluation. No actual suicidal attempts were reported. Patient was admitted to the [facility] unit. Late last night, a rapid response was called for seizures. Patient reportedly was found on the ground in the hallway. The sound physician that responded to the event, noted possible absence seizure's. These progressed to generalized tonic-clonic activity. She was given several doses of Ativan, a total of 7 mg, with no significant response. She was also loaded with Keppra and Dilantin per direction of the neurologist. Despite these pharmacological interventions, she continues to have seizure like activity. She is currently moved to the intensive care unit. She continues to have intermittent generalized tonic-clonic seizures every 2 to 5 minutes. Lasting approximately 30 seconds to 1 minute. No complete recovery in between. Moving all 4 extremities. Eyes are midline without nystagmus. No tongue biting. No urinary or fecal incontinence. Currently, appears postictal and will occasionally answer simple commands. On room air. SpO2 96%. No reported aspiration events. Remaining vi helga signs are also stable. Neurologist was consulted, who recommends intubation and sedation until seizures can be controlled. [employer] responded the bedside, performed rapid sequence intubation. Postintubation chest x-ray demonstrates endotracheal tube tip above the carroll and below the clavicle. Nasogastric tube courses below the diaphragm could be advanced at least 5 cm. Current ventilator settings include assist-control, respiratory rate 16, tidal volume 300, FiO2 100%, PEEP of 5. Postintubation ABG shows a PaO2 of 311, pCO2 of 45, pH of 7.3. FiO2 was appropriately weaned. She is sedated with propofol which is currently at 50 mcg/kg/min. She is currently asynchronous with mechanical ventilator and breath stacking. Peak airway pressures 28. CT of the brain was carried out which did not show any acute intracranial process. There was a ventriculostomy changes without evidence of hydrocephalus list. Urine toxicology screen positive for marijuana, but are otherwise unremarkable. No fevers. Recently started on BuSpar, and also on Zoloft. CBC unremarkable, no leukocytosis. Most recent BMP: Includes a sodium 140, potassium 3.4, chloride 111, serum bicarb 20, BUN 13, creatinine 0.46, glucose 82. Patient has no family or next of kin listed in the EMR. She is listed as homeless. We will attempt to reach out for possible contacts. On today's evaluation of 07/19/2023, patient is being seen for a follow-up. Remains dependent on mechanical ventilator. Remains on propofol which is running at 50 mcg/kg/min. No seizure activity has been noted. No tonic or clonic activity. The patient has some tremor especially when she is stimulated. Nurse at infusion has been discontinued. Pressors have been discontinued and the patient is currently off norepinephrine and she is on normal citrate of 75 cc an hour. While being on the mechanical ventilator, she is on assist-control mode with a rate of 60, tidal volume of 300, FiO2 of 40% with a PEEP of 5. Overall fluid balance is +835 cc over the past 24 hours. Blood gas was not obtained this morning as the patient is a difficult poke. Will monitor the end- tidal CO2. The patient remains on Keppra 1.5 g every 12 hours. IV fluids are in the form of normal saline at 75 cc an hour. She is afebrile. Blood work from today shows a white cell count of 8.6 with a hemoglobin 10.3 and a platelet count of 187. BUN is at 4 mg of 0.31 and a sodium level is at 144. EEG from yesterday showed no seizure activity. Neurology on the case. 07/20/2023, the patient is being seen for a follow-up. Remains intubated on the mechanical ventilator. Sedation holiday was given and the patient became quite restless, asynchronous with mechanical ventilator, tachypneic and tachycardic and was having excessive tremors. Based on that, the patient was placed back on sedation and this morning she remains on propofol at 40 mcg/kg/min and Versed 4 mg an hour. A repeat EEG was done while the patient on the Versed and the patient does not show any seizure activity. While on the mechanical ventilator, she is on assist-control mode with rate of 60, tidal volume 300, FiO2 of 40% with a PEEP of 5. End-tidal CO2 is 37. IV fluids currently running at 75 cc an hour and the patient is on vital high-protein at rate of 16 cc an hour. The patient had a follow-up chest x-ray today that showed smaller lung volumes and evidence of increased pulm vascular markings. ET tube is around 5 cm above the carroll. NG tube is in place. There is also a CORPORATE SECRETARY shunt in place. There is diffuse bilateral pulmonary haziness. Blood work shows a white cell count of 8.9, hemoglobin of 10.4, potassium is at 2.7, bicarb is at 22 with a sodium level of 140, BUN is at 2 with a creatinine of 0.4. Hemodynamically stable and she is currently on no pressors. 07/21/2023, the patient is extubated. The patient was kept on Precedex. Earlier this morning, the patient was found to be more lethargic and based on that, the Precedex was discontinued and the mental status improved. Nevertheless, the patient had some difficulty in breathing and excessive respiratory congestion and mucus production. Initially she was on 5 L and she was brought up to 11 L and later on placed on 100% nonrebreather facemask. Aggressive pulmonary toileting was done. Cough subsequently subsided and the patient is currently on 11 L of oxygen nasal cannula. Precedex is currently off. Fluid balance is -2.7 L over the past 24 hours. Chest x-ray shows small lung volumes and the patient has increased pulm vascular markings and congestion and possibly right lower lobe pulm infiltrates. She has a recent cough and based on excessive respiratory secretions, the patient was started on IV Unasyn. IV fluids were placed on KVO. No seizure activity has been noted and the patient remains on Keppra. She is communicating. Hemodynamically stable on no pressors. Will go 4 extremities without any limitation. 07/22/2023, the patient is sitting up on a chair and she is currently on Airvo with 50 L and FiO2 of 75%. She remains extubated. Cough is subsided. Not producing much of sputum today. Nevertheless, chest x-ray shows bibasilar pulm infiltrates worse in the right. The patient was given diuretics yesterday and the patient is a negative fluid balance of at least 1.8 L over the past 24 hours. Serum bicarbonate dropped down to 7. The patient was given IV bicarb a total of 100 mEq and following that she was started on a bicarb infusion which is currently running at 100 cc an hour. She remains on IV Unasyn. Swallow mechanism is poor and the patient seems to be aspirating. An official swallow study will be done and the patient will be kept n.p.o. for now. Echocardiogram was ordered. No seizure activity has been noted and the patient remains on IV Keppra. 07/23/2023, the patient remains on Airvo patient is currently on 50 L and FiO2 of 70%. Unable to swallow and she remains at a high risk of aspiration. Based on that, the patient was given NG tube for enteral feeding and nutritional support. Meanwhile, chest x-ray still showing bilateral pulmonary consolidation consistent with bilateral pneumonia. No significant interval change on today's chest x-ray. The patient has a CORPORATE SECRETARY shunt in place. Airspace disease seen bilaterally. Cough is improved. No significant sputum production. No seizure activity. White cell count of 12 with a hemoglobin 11.2 and a platelet count of 275, BUN is 9 with a creatinine of 0.3 and sodium level of 148 and a potassium level of 3.1. Remains on IV Unasyn. Hemodynamically stable. No pressors. IV fluids are currently at KVO. Awake and alert and communicating. Patient was reevaluated today on 07/24/2023, remains in the ICU, remains on Airvo at 50 L with 75% FiO2. Remains on antibiotics in the form of Unasyn for aspiration pneumonia patient is receiving for nutrition vital HP at 30 cc/h. Today continues show bilateral airspace disease, infiltrate/pneumonia. Patient tells me that she is feeling better, breathing easier WBC count today is 12.8 hemoglobin 11.8. Sodium is up to 147 potassium 3.4 renal profile is normal bicarb is 35. Sputum blood cultures are nondiagnostic WBC count is 12.8 hemoglobin 11.8 sodium is 147 potassium 3.4 renal profile is normal bicarb is 35. Her chest x-ray is showing stable bilateral diffuse airspace disease Patient was reevaluated today on 07/25/23, remains in the ICU, remains on Airvo at 75% and 50 L flow. Chest x-ray continues to show evidence of bilateral airspace disease, questionable left-sided pleural effusion, and possibly some component of fluid overload, hence the patient will given a trial of diuresis Lasix 20 mg IV push x 1. Continues to have issues with her swallowing, patient is now refusing nasogastric tube placement as it became clogged and had to be removed, patient is extremely reluctant to have another nasogastric tube placed, has if this issue does not resolve the patient may have to have a PEG tube placement. In the meantime continues to be relatively hypoxic, remains on high FiO2, continues to have cough, she has a weak cough unable to clear her secretions. Chest x-ray is not showing much improvement. WBC is 11.5 hemoglobin 10.9 basic metabolic profile is normal potassium is low at 3.0 Reevaluate today 07/26/23, patient remains in the ICU, remains on oral high FiO2, 60% FiO2 50 L flow, patient remains marginal at best. But does not seem to be in any distress, she seems comfortable. Still requiring high FiO2. Patient is showing slight improvement in her chest x-ray, patient did receive Lasix yesterday, and she diuresed significantly. Will maintain the patient on Lasix 20 mg IV push daily for now. Keep IV fluid at 50 cc/h. Patient is supposed to have PEG tube placement today, and this is planned for sometime later this afternoon. Remains on antibiotics for presumptive aspiration pneumonia, remains on seizure medications and she has been seizures free. CBC is relatively normal WBC count is 12.5 hemoglobin 11.4 basic metabolic profile is normal. Renal profile is normal Objective - Vital Signs Vital signs: Vital Signs Temp 98.5 F 07/26/23 08:00 Pulse 80 07/26/23 12:18 Resp 16 07/26/23 12:00 BP 124/92 07/26/23 12:00 Pulse Ox 95 07/26/23 12:00 FiO2 60 07/26/23 09:49 Intake & Output 07/25/23 07/26/23 07/26/23 18:59 06:59 18:59 Intake Total 830 480 290 Output Total 1375 590 315 Balance -545 -110 -25 Weight 60 kg Intake: IV 530 480 290 Ampicillin-Sulbactam 1.5 50 50 gm In Sodium Chloride 0.9 % 50 ml @ 100 mls/hr IVPB Q6H [facility] Rx#:[id number] Sodium Chloride 0.45% 1, 480 480 240 000 ml @ 40 mls/hr IV . Q24H [facility] Rx#:[id number] Intake, IV Titration 300 Amount Magnesium Sulfate-D5w Pmx 100 1 gm In Dextrose/Water 1 100ml.bag @ 100 mls/hr IVPB ONCE ONE Rx#: [id number] Potassium Chloride 20 meq 200 In Water For Injection 1 100ml.bag @ 50 mls/hr IVPB Q2H [facility] Rx#: [id number] Output: Urine 1375 590 315 Other: Voiding Method Indwelling Catheter Indwelling Catheter # Bowel Movements 0 - Exam GENERAL EXAM: 27-year-old white female dwarf on Airvo 60% FiO2 50 L flow EYES: PERRLA, EOMI, nonicteric. NOSE: Clear with pink turbinates. THROAT: No erythema or exudates. NECK: No masses, no JVD. CHEST: No chest wall deformity. LUNGS: Crackles and rhonchi bilaterally noted. CVS: S1 and S2 normal with no audible murmur, regular rhythm. No extra heart sounds ABDOMEN: No hepatosplenomegaly, active bowel sounds, no guarding or rigidity. SKIN: No rashes CENTRAL NERVOUS SYSTEM: Alert oriented x 3, no gross focal deficit Musculoskeletal, patient is noted to have dwarfism, no limitation in ranges of motion - Labs CBC & Chem 7: 07/26/23 08:34 07/26/23 08:34 Labs: Abnormal Lab Results - Last 24 Hours (Table) 07/25/23 07/26/23 07/26/23 Range/Units 15:18 08:34 08:34 WBC 12.5 H (3.8-10.6) k/uL RBC 3.76 L (3.80-5.40) m/uL Potassium 3.3 L (3.5-5.1) mmol/L Creatinine 0.31 L (0.52-1.04) mg/dL POC Glucose (mg/dL) (70-110) mg/dL Albumin 3.2 L (3.5-5.0) g/dL 07/26/23 07/26/23 Range/Units 11:52 12:26 WBC (3.8-10.6) k/uL RBC (3.80-5.40) m/uL Potassium (3.5-5.1) mmol/L Creatinine (0.52-1.04) mg/dL POC Glucose (mg/dL) 67 L 199 H (70-110) mg/dL Albumin (3.5-5.0) g/dL Assessment and Plan Assessment: impression: Acute hypoxic respiratory failure secondary to aspiration pneumonia secondary to status epilepticus Status epilepticus, on Keppra History of seizure disorder History of hydrocephalus, status post CORPORATE SECRETARY shunt History of alcohol use disorder Suicidal ideation History of bipolar disorder and major depression History of migraines History of asthma, not currently active Marijuana use Dwarfism and short stature Recommendations: Continue Unasyn for aspiration pneumonia Continue oxygen and titrate accordingly Continue aggressive pulmonary toilet Incentive spirometry Gentle diuresis specially after noticing that her chest x-ray showed improvement since Lasix was given yesterday. Patient received lots of fluids on admission may have a component of fluid overload Proceed with PEG tube placement today Continue IV fluid and monitor daily electrolytes Continue Oskar Will continue to follow and continue to monitor for now in the ICU Time with Patient: Less than 30
[2023-07-26 13:57] LABS: Band Neutrophils % 1 %; Lymphocytes # (M) 2.13 k/uL (1.0-4.8); Metamyelocytes # (M) 0.13 k/uL (0); Metamyelocytes % 1 %; Monocytes # (M) 0.75 k/uL (0-1.0); Myelocytes # (M) 0.13 k/uL (0); Myelocytes % 1 %; Neutrophils % (M) 71 %; Nucleated Red Blood Cells 0 /100 WBC (0-0); Total Cells Counted 200
[2023-07-26] MEDS: DEXTROSE 5% IN WATER 1,000 ML IV ONE (14:37)
--- NOTE | 2023-07-26 14:38 | P.PN ---
Subjective Progress Note Date: 07/26/23 Hospital Course: 27-year-old female with history of seizure disorder off of antiepileptics, hydrocephalus status post shunt, bipolar disorder presented from mental health unit for status epilepticus. Patient was admitted to mental health unit for depression and suicidal ideation on 07/16/2023. Patient was noted to have multiple episodes of absence seizure, rapid response was called. She was given multiple doses of IV Ativan, and continued to have seizure-like activity, and also has some generalized tonic-clonic activity. She was taken to the ICU, loaded with Keppra and Dilantin, and was intubated for airway protection. Currently patient is in the medical ICU intubated and sedated. Undergoing further workup. Head CT was completed, did not show any acute process, ventriculostomy changes without evidence of hydrocephalus. Patient does have a prior history of pseudoseizures. Was extensively worked up outpatient, negative for any seizure disorder. Currently weaning off of sedation. Repeat EEG did not show any seizure-like activity. Patient is now extubated. Likely had aspiration pneumonia as well as acute pulmonary edema. Received occasional IV Lasix, and also on IV Unasyn. Still continues to have frequent aspirations. Patient now requiring more supplemental oxygen. Was on tube feeds, plan for PEG tube placement. Echocardiogram shows LVEF 55 to 60%, RVSP 45 Subjective: Pt reports improvement in breathing, denies pain. Gen: In NAD, non-toxic HEENT: normocephalic, atraumatic, hearing acuity is intant, mucous membranes moist CVS: perfusing all extremities well, no pitting edema, Respiratory: symmetric chest expansion, no accessory muscle use, GI: soft, NTTP, ND, : no suprapubic tenderness, no CVA tenderness MSK/Derm: no rashes, cyanosis Neuro: CN II-XII intact, no motor weakness, Psych: cooperative, euthymic mood, judgment and insight is intact Assessment and Plan: Patient is critically ill, in medical ICU, prognosis guarded. Active: Acute hypoxic respiratory failure Aspiration pneumonia Acute pulmonary edema Hypernatremia, resolved -Lath Hand following, ordered 20 of IV Lasix today, monitor urine output and electrolytes -Patient maintained on half-normal saline at 40 cc an hour -Continue IV Unasyn 1.5 g IV every 6 hours -Sputum cultures consistent with normal respiratory marixa -NG tube taken out, plan for PEG tube placement. -Continue to wean oxygen Hypokalemia -40 mEq IV potassium given today -Repeat BMP and magnesium tomorrow Questionable status epilepticus, nausea likely History of pseudoseizures History of hydrocephalus status post shunt -Neurology following, Keppra 1 g IV every 12 hours, also on Lamictal 25 mg daily -On IV Ativan as needed for seizures, monitor for sedation Asthma -DuoNebs every 4 hours, and as needed Bipolar disorder Anxiety disorder Depression with suicidal ideation -On BuSpar 10 3 times daily, Zoloft 75 daily -Thiamine 100 mg daily -Psychiatry consulted: Patient cannot leave AMA. Normocytic anemia, resolved Hypomagnesemia, resolved Metabolic acidosis, resolved DVT ppx: Subcu heparin Code status: Full code Anticipated discharge place: Pending clinical course Anticipated discharge time: Pending clinical course Objective - Vital Signs Vital signs: Vital Signs Temp 98.5 F 07/26/23 08:00 Pulse 82 07/26/23 13:00 Resp 31 H 07/26/23 13:00 BP 127/85 07/26/23 13:00 Pulse Ox 98 07/26/23 13:00 FiO2 60 07/26/23 09:49 Intake & Output 07/25/23 07/26/23 07/26/23 18:59 06:59 18:59 Intake Total 830 480 330 Output Total 1375 590 765 Balance -545 -110 -435 Weight 60 kg Intake: IV 530 480 330 Ampicillin-Sulbactam 1.5 50 50 gm In Sodium Chloride 0.9 % 50 ml @ 100 mls/hr IVPB Q6H [facility] Rx#:[id number] Sodium Chloride 0.45% 1, 480 480 280 000 ml @ 40 mls/hr IV . Q24H [facility] Rx#:[id number] Intake, IV Titration 300 Amount Magnesium Sulfate-D5w Pmx 100 1 gm In Dextrose/Water 1 100ml.bag @ 100 mls/hr IVPB ONCE ONE Rx#: [id number] Potassium Chloride 20 meq 200 In Water For Injection 1 100ml.bag @ 50 mls/hr IVPB Q2H [facility] Rx#: [id number] Output: Urine 1375 590 765 Other: Voiding Method Indwelling Catheter Indwelling Catheter # Bowel Movements 0 - Labs CBC & Chem 7: 07/26/23 08:34 07/26/23 08:34 Labs: Abnormal Lab Results - Last 24 Hours (Table) 07/25/23 07/26/23 07/26/23 Range/Units 15:18 08:34 08:34 WBC 12.5 H (3.8-10.6) k/uL RBC 3.76 L (3.80-5.40) m/uL Neutrophils # (Manual) 9.00 H (1.3-7.7) k/uL Metamyelocytes # (Man) 0.13 H (0) k/uL Myelocytes # (Manual) 0.13 H (0) k/uL Potassium 3.3 L (3.5-5.1) mmol/L Creatinine 0.31 L (0.52-1.04) mg/dL POC Glucose (mg/dL) (70-110) mg/dL Albumin 3.2 L (3.5-5.0) g/dL 07/26/23 07/26/23 Range/Units 11:52 12:26 WBC (3.8-10.6) k/uL RBC (3.80-5.40) m/uL Neutrophils # (Manual) (1.3-7.7) k/uL Metamyelocytes # (Man) (0) k/uL Myelocytes # (Manual) (0) k/uL Potassium (3.5-5.1) mmol/L Creatinine (0.52-1.04) mg/dL POC Glucose (mg/dL) 67 L 199 H (70-110) mg/dL Albumin (3.5-5.0) g/dL
[2023-07-26] MEDS: SODIUM CHLORIDE 0.9% 500 ML 500 ML IV ONE ×2 (16:08→16:39)
[2023-07-26] MEDS ORDERED: LIDOCAINE 2% (PF) 20 MG/ML 5 ML VIAL ONE (16:10)
[2023-07-26] MEDS ORDERED: PROPOFOL 10 MG/ML 20 ML VIAL IV ONE (16:10)
[2023-07-26] MEDS ORDERED: LIDOCAINE 1% INJ 10MG/ML (20 ML MDV) ONE (16:10)
[2023-07-26] MEDS ORDERED: MIDAZOLAM 2 MG/2 ML VIAL ONE (16:10)
[2023-07-26] MEDS ORDERED: fentaNYL (PF) 50 MCG/ML 2 ML AMP ONE (16:10)
--- NOTE | 2023-07-26 16:34 | P.OP ---
Date of Procedure: 07/26/23 Preoperative Diagnosis: protein calorie malnutrition Postoperative Diagnosis: protein calorie malnutrition Procedure(s) Performed: EGD with PEG tube placement Anesthesia: MAC Surgeon: Carlitos Jimenez Pathology: none sent Condition: stable Disposition: PACU Description of Procedure: the patient received IV sedation. Next the gastroscope placed oropharynx passed in the esophagus and stomach. There is no evidence of any outlet obstruction. Stomach was insufflated with air. The light reflux seen the anterior abdominal wall. The abdomen was prepped and draped usual fashion. The skin was incised. And the needles placed and stomach under direct visualization. The needle was snared. And the wires placed through the needle and the wire was snared and brought the oropharynx. The PEG tube was placed over top the wire brought down to the stomach. The PEG tube was secured. At the 3 cm dolores. The one-piece bolster was used. Patient tolerated procedure well.
[2023-07-26 17:16] LABS: Glucose,Whole Blood 75 mg/dL (70-110)
[2023-07-26 18:22] LABS: Glucose,Whole Blood 78 mg/dL (70-110)
--- NOTE | 2023-07-26 18:25 | P.PN ---
Subjective Progress Note Date: 07/26/23 07/26/2023: Patient was seen for a follow-up. Patient is laying comfortably in the bed. Sitter was present. No further seizures reported. 07/24/2023: Patient was initially seen Dr. Jeff Marie. Please refer to his note for details. Patient is a 27-year-old female with history of nonepileptic seizure, was in psych unit and had recurrent seizure-like spells and was placed on mechanical ventilator. Patient was extubated on 07/20/2023. Patient had 2 EEGs performed, both of which are normal. Patient had an episode recorded during the EEG which was nonepileptic. Dr. Marie was weaning down the Keppra and recommended to go up on the Lamictal. Patient has aspiration pneumonia. No seizures reported by the nursing staff. Some of the workup during this hospital visit consisted of: Sodium is 142, serum glucose is 103, plasma lactic acid vein is 0.7 Prolactin is 40.7 Calcium on presentation was 8.8. Magnesium is 2.0. CT head is reported as no acute intracranial process. Ventriculostomy changes without evidence for hydrocephalus. History reviewed the CT and I agree there is no acute or subacute changes. The patient does have tape of the ventriculostomy on the right side Initial routine EEG: Is abnormal. The background slowing is suggestive of mild encephalopathy. There is no focal slowing, epileptiform discharge or seizure on EEG. The excessive beta activity is likely due to medication effect (Ativan, Versed and Propofol). Repeat Routine EEG on 07/19/2023: Is abnormal. The background slowing is suggestive of mild encepahlopathy. The episode that was recorded is non- epileptic in nature. No seizure or epileptiform discharges. Objective - Vital Signs Vital signs: Vital Signs Temp 98.5 F 07/26/23 08:00 Pulse 84 07/26/23 18:10 Resp 30 H 07/26/23 18:10 BP 118/81 07/26/23 18:10 Pulse Ox 91 L 07/26/23 18:10 FiO2 60 07/26/23 09:49 Intake & Output 07/25/23 07/26/23 07/26/23 18:59 06:59 18:59 Intake Total 439 251 8099 Output Total 5251 383 7970 Balance -545 -110 -75 Weight 60 kg Intake: IV 237 837 8764 Ampicillin-Sulbactam 1.5 50 100 gm In Sodium Chloride 0.9 % 50 ml @ 100 mls/hr IVPB Q6H [facility] Rx#:[id number] Dextrose 5% in Water 1, 100 000 ml @ 50 mls/hr IV . Q20H [facility] Rx#:[id number] Sodium Chloride 0.45% 1, 480 480 380 000 ml @ 40 mls/hr IV . Q24H [facility] Rx#:[id number] Intake, IV Titration 300 Amount Magnesium Sulfate-D5w Pmx 100 1 gm In Dextrose/Water 1 100ml.bag @ 100 mls/hr IVPB ONCE [facility] Rx#: [id number] Potassium Chloride 20 meq 200 In Water For Injection 1 100ml.bag @ 50 mls/hr IVPB Q2H [facility] Rx#: [id number] Output: Urine 5718 015 7563 Other: Voiding Method Indwelling Catheter Indwelling Catheter Indwelling Catheter # Bowel Movements 0 - Exam Patient is laying comfortably in the bed. Patient is on oxygen by nasal cannula. Patient states that she uses a walker to get around. She has been using the walker for "quite a while". Speech and language functions are normal. Patient is hard of hearing. Face is symmetric. Patient moves all 4 extremities equally. Patient's ankle dorsiflexion is at least 5-bilaterally. Web Marketing Manager is 4+, deltoid 5 bilaterally. - Labs CBC & Chem 7: 07/26/23 08:34 07/26/23 08:34 Labs: Abnormal Lab Results - Last 24 Hours (Table) 07/26/23 07/26/23 07/26/23 Range/Units 08:34 08:34 11:52 WBC 12.5 H (3.8-10.6) k/uL RBC 3.76 L (3.80-5.40) m/uL Neutrophils # (Manual) 9.00 H (1.3-7.7) k/uL Metamyelocytes # (Man) 0.13 H (0) k/uL Myelocytes # (Manual) 0.13 H (0) k/uL Creatinine 0.31 L (0.52-1.04) mg/dL POC Glucose (mg/dL) 67 L (70-110) mg/dL Albumin 3.2 L (3.5-5.0) g/dL 07/26/23 Range/Units 12:26 WBC (3.8-10.6) k/uL RBC (3.80-5.40) m/uL Neutrophils # (Manual) (1.3-7.7) k/uL Metamyelocytes # (Man) (0) k/uL Myelocytes # (Manual) (0) k/uL Creatinine (0.52-1.04) mg/dL POC Glucose (mg/dL) 199 H (70-110) mg/dL Albumin (3.5-5.0) g/dL Assessment and Plan Assessment: This is a 27-year-old woman with history of seizure disorder off antiepileptic, hydrocephalus s/p shunt, bipolar who initially was admitted to the mental health unit for depression and suicidal ideation on 07/16/2023 was transferred to the ICU recurrent seizure-like activity and was reported she had numerous ones and she reported she had absence seizure that led into a generalized tonic-clonic seizure without any resolution of her seizure with Ativan or Keppra seem that the patient was in clinical status epilepticus. Recurrent seizure-like activity and initially clinical status epilepticus but electrographically episodes are nonepileptic in nature---resolved. The EEG captures the episodes are non-epileptic in nature. Had total two EEG which are negative for seizure. Respiratory distress and has aspiration pneumonia Intubated on a ventilator and is on sedation due to above--extubated History of seizure disorder and is not on any antiepileptic drugs. It seems she had blank stares and work-up and was told no seizures (adopted father notified nurse). Recent depression and suicidal ideation Hydrocephalus s/p shunt Dwarfism Bipolar Major depression Alcohol use Plan: Patient was initially placed on Keppra 1500 mg IV every [address] Marie has decreased the dose of Keppra to 1000mg IV every 12 hours. He also started patient on Lamictal 25 mg daily on 07/21/2023 for mood and antiepileptic co verage. He recommended to continue Lamictal 25mg daily and then after 1 week to be on 25mg bid then add 25mg every week until goal 100mg bid. Please look for any skin rash since Lamictal can cause Ozzy Hesham syndrome. We will increase the dose of Lamictal to 25 mg twice daily from tomorrow mo rning. Seizure precautions seizure pads Per [place] DMV becuse of seizure, avoid driving for 6 months until seizure free, avoid heights, swim unassisted or use heavy machinery. Will defer the rest of the medical management to primary and other specialists Neurology will follow sporadically.
[2023-07-26] MEDS: guaiFENesin-DM 100-10MG/5ML 10 ML CUP PO PRN (19:40)
[2023-07-26] MEDS: lamoTRIgine 25 MG TAB PO SCH (20:11)
[2023-07-26] MEDS: POTASSIUM CHLORIDE 10 MEQ in WATER FOR INJECTION 1 100ML.BAG IVPB SCH (22:17)
[2023-07-27 00:15] LABS: Glucose,Whole Blood 105 mg/dL (70-110)
[2023-07-27 06:11] LABS: HCT 34.7 % (34.0-46.0); HGB 11.2 gm/dL (11.4-16.0); MCH 30.7 pg (25.0-35.0); MCHC 32.3 g/dL (31.0-37.0); MCV 95.1 fL (80.0-100.0); Mean Platelet Volume 8.2; Platelet Count 269 k/uL (150-450); RBC 3.65 m/uL (3.80-5.40); RDW 13.2 % (11.5-15.5); WBC 13.1 k/uL (3.8-10.6)
[2023-07-27 06:23] LABS: African American GFR (CKD) >90 (>60 ml/min/1.73 sqM); Anion Gap 4 mmol/L; Blood Urea Nitrogen 10 mg/dL (7-17); Calcium 8.4 mg/dL (8.4-10.2); Carbon Dioxide 29 mmol/L (22-30); Chloride 100 mmol/L (98-107); Glucose 111 mg/dL (74-99); Non-African American GFR(CKD) >90 (>60 ml/min/1.73 sqM); Potassium 3.7 mmol/L (3.5-5.1); Sodium 133 mmol/L (137-145)
[2023-07-27 06:39] LABS: Glucose,Whole Blood 101 mg/dL (70-110)
[2023-07-27] MEDS ORDERED: Potassium Replacement Protocol 1 EACH MISC MISCELLANE PRN (06:51)
--- NOTE | 2023-07-27 07:44 | XR ---
EXAMINATION TYPE: XR chest 1V portable DATE OF EXAM: 07/27/2023 COMPARISON: 07/26/2023 INDICATION: Short of breath TECHNIQUE: Single frontal view of the chest is obtained. FINDINGS: The heart size is normal. The pulmonary vasculature is normal. Lower lobe infiltrates are present. Some right upper lobe infiltrate may be present. Catheter overlies the right chest. PEG tube is present within the abdomen. IMPRESSION: 1. Bilateral lower lobe infiltrates, continued follow-up is recommended
[2023-07-27] MEDS: POTASSIUM BICARBONATE/CIT AC 20 MEQ TABLET.EFF NG-TUBE SCH (08:17)
--- NOTE | 2023-07-27 08:45 | P.PN ---
Subjective Progress Note Date: 07/27/23 CHIEF COMPLAINT: Depression HISTORY OF PRESENT ILLNESS: Patient currently in ICU. She is status post PEG tube placement yesterday. She is sitting up at bedside chair. No complaints of pain. She remains on high flow oxygen but down to 4 L. Patient seen and examined with Dr. Jimenez PHYSICAL EXAM: VITAL SIGNS: Reviewed. GENERAL: Well-developed in no acute distress. ABDOMEN: Soft. Nondistended. Nontender. PEG tube site clean dry and intact NEUROLOGIC: Alert and oriented. Cranial nerves II through XII grossly intact. ASSESSMENT: 1. Dysphagia 2. Moderate protein calorie malnutrition 3. Failed swallow eval PLAN: -Consult dietitian to start tube feedings today at 5:00pm Physician Alliance Manager note has been reviewed by physician. Signing provider agrees with the documented findings, assessment, and plan of care. Objective - Vital Signs Vital signs: Vital Signs Temp 98.2 F 07/27/23 08:00 Pulse 75 07/27/23 08:31 Resp 27 H 07/27/23 08:00 BP 101/59 07/27/23 08:00 Pulse Ox 96 07/27/23 08:21 FiO2 60 07/26/23 09:49 Intake & Output 07/26/23 07/27/23 07/27/23 18:59 06:59 18:59 Intake Total 1130 600 100 Output Total 1210 415 Balance -80 185 100 Weight 57.1 kg Intake: IV 1130 600 100 Ampicillin-Sulbactam 1.5 100 gm In Sodium Chloride 0.9 % 50 ml @ 100 mls/hr IVPB Q6H [facility] Rx#:[id number] Dextrose 5% in Water 1, 150 600 100 000 ml @ 50 mls/hr IV . Q20H [facility] Rx#:[id number] Sodium Chloride 0.45% 1, 380 000 ml @ 40 mls/hr IV . Q24H [facility] Rx#:[id number] Output: Urine 1210 415 Other: Voiding Method Indwelling Catheter Indwelling Catheter # Voids 1 # Bowel Movements 1 - Labs CBC & Chem 7: 07/27/23 05:58 07/27/23 05:58 Labs: Abnormal Lab Results - Last 24 Hours (Table) 07/26/23 07/26/23 07/26/23 Range/Units 08:34 08:34 11:52 WBC 12.5 H (3.8-10.6) k/uL RBC 3.76 L (3.80-5.40) m/uL Hgb (11.4-16.0) gm/dL Neutrophils # (Manual) 9.00 H (1.3-7.7) k/uL Metamyelocytes # (Man) 0.13 H (0) k/uL Myelocytes # (Manual) 0.13 H (0) k/uL Sodium (137-145) mmol/L Potassium (3.5-5.1) mmol/L Creatinine 0.31 L (0.52-1.04) mg/dL Glucose (74-99) mg/dL POC Glucose (mg/dL) 67 L (70-110) mg/dL Albumin 3.2 L (3.5-5.0) g/dL 07/26/23 07/26/23 07/27/23 Range/Units 12:26 19:31 05:58 WBC 13.1 H (3.8-10.6) k/uL RBC 3.65 L (3.80-5.40) m/uL Hgb 11.2 L (11.4-16.0) gm/dL Neutrophils # (Manual) (1.3-7.7) k/uL Metamyelocytes # (Man) (0) k/uL Myelocytes # (Manual) (0) k/uL Sodium (137-145) mmol/L Potassium 3.4 L (3.5-5.1) mmol/L Creatinine (0.52-1.04) mg/dL Glucose (74-99) mg/dL POC Glucose (mg/dL) 199 H (70-110) mg/dL Albumin (3.5-5.0) g/dL 07/27/23 Range/Units 05:58 WBC (3.8-10.6) k/uL RBC (3.80-5.40) m/uL Hgb (11.4-16.0) gm/dL Neutrophils # (Manual) (1.3-7.7) k/uL Metamyelocytes # (Man) (0) k/uL Myelocytes # (Manual) (0) k/uL Sodium 133 L (137-145) mmol/L Potassium (3.5-5.1) mmol/L Creatinine 0.35 L (0.52-1.04) mg/dL Glucose 111 H (74-99) mg/dL POC Glucose (mg/dL) (70-110) mg/dL Albumin (3.5-5.0) g/dL
--- NOTE | 2023-07-27 10:51 | P.PN ---
Subjective Progress Note Date: 07/27/23 Hospital Course: 27-year-old female with history of seizure disorder off of antiepileptics, hydrocephalus status post shunt, bipolar disorder presented from mental health unit for status epilepticus. Patient was admitted to mental health unit for depression and suicidal ideation on 07/16/2023. Patient was noted to have multiple episodes of absence seizure, rapid response was called. She was given multiple doses of IV Ativan, and continued to have seizure-like activity, and also has some generalized tonic-clonic activity. She was taken to the ICU, loaded with Keppra and Dilantin, and was intubated for airway protection. Currently patient is in the medical ICU intubated and sedated. Undergoing further workup. Head CT was completed, did not show any acute process, ventriculostomy changes without evidence of hydrocephalus. Patient does have a prior history of pseudoseizures. Was extensively worked up outpatient, negative for any seizure disorder. Currently weaning off of sedation. Repeat EEG did not show any seizure-like activity. Patient is now extubated. Likely had aspiration pneumonia as well as acute pulmonary edema. Received occasional IV Lasix, and also on IV Unasyn. Still continues to have frequent aspirations. Patient now requiring more supplemental oxygen. Was on tube feeds, plan for PEG tube placement. Echocardiogram shows LVEF 55 to 60%, RVSP 45 Subjective: Pt reports improvement in breathing, denies pain. Gen: In NAD, non-toxic HEENT: normocephalic, atraumatic, hearing acuity is intant, mucous membranes moist CVS: perfusing all extremities well, no pitting edema, Respiratory: symmetric chest expansion, no accessory muscle use, GI: soft, NTTP, ND, : no suprapubic tenderness, no CVA tenderness MSK/Derm: no rashes, cyanosis Neuro: CN II-XII intact, no motor weakness, Psych: cooperative, euthymic mood, judgment and insight is intact Assessment and Plan: Patient is critically ill, in medical ICU, prognosis guarded. Active: Acute hypoxic respiratory failure Aspiration pneumonia Acute pulmonary edema Hypernatremia, resolved -Relationship Mgr following, -Patient maintained on half-normal saline at 40 cc an hour -Continue IV Unasyn 1.5 g IV every 6 hours -Sputum cultures consistent with normal respiratory marixa -s/p PEG tube on 07/25, plan to start feeding today -Continue to wean oxygen Hypokalemia -Repeat BMP and magnesium tomorrow Questionable status epilepticus, nausea likely History of pseudoseizures History of hydrocephalus status post shunt -Neurology following, Keppra 1 g IV every 12 hours, also on Lamictal 25 mg daily -On IV Ativan as needed for seizures, monitor for sedation Asthma -DuoNebs every 4 hours, and as needed Bipolar disorder Anxiety disorder Depression with suicidal ideation -On BuSpar 10 3 times daily, Zoloft 75 daily -Thiamine 100 mg daily -Psychiatry consulted: Patient cannot leave AMA. Normocytic anemia, resolved Hypomagnesemia, resolved Metabolic acidosis, resolved DVT ppx: Subcu heparin Code status: Full code Anticipated discharge place: Pending clinical course Anticipated discharge time: Pending clinical course Objective - Vital Signs Vital signs: Vital Signs Temp 98.2 F 07/27/23 08:00 Pulse 79 07/27/23 10:00 Resp 28 H 07/27/23 10:00 BP 124/84 07/27/23 10:00 Pulse Ox 93 L 07/27/23 10:00 FiO2 60 07/26/23 09:49 Intake & Output 07/26/23 07/27/23 07/27/23 18:59 06:59 18:59 Intake Total 1130 600 200 Output Total 1210 415 Balance -80 185 200 Weight 57.1 kg 57.1 kg Intake: IV 1130 600 200 Ampicillin-Sulbactam 1.5 100 gm In Sodium Chloride 0.9 % 50 ml @ 100 mls/hr IVPB Q6H [facility] Rx#:[id number] Dextrose 5% in Water 1, 150 600 200 000 ml @ 50 mls/hr IV . Q20H [facility] Rx#:[id number] Sodium Chloride 0.45% 1, 380 000 ml @ 40 mls/hr IV . Q24H [facility] Rx#:[id number] Output: Urine 1210 415 Other: Voiding Method Indwelling Catheter Indwelling Catheter # Voids 1 # Bowel Movements 1 - Labs CBC & Chem 7: 07/27/23 05:58 07/27/23 05:58 Labs: Abnormal Lab Results - Last 24 Hours (Table) 07/26/23 07/26/23 07/26/23 Range/Units 08:34 11:52 12:26 WBC (3.8-10.6) k/uL RBC (3.80-5.40) m/uL Hgb (11.4-16.0) gm/dL Neutrophils # (Manual) 9.00 H (1.3-7.7) k/uL Metamyelocytes # (Man) 0.13 H (0) k/uL Myelocytes # (Manual) 0.13 H (0) k/uL Sodium (137-145) mmol/L Potassium (3.5-5.1) mmol/L Creatinine (0.52-1.04) mg/dL Glucose (74-99) mg/dL POC Glucose (mg/dL) 67 L 199 H (70-110) mg/dL 07/26/23 07/27/23 07/27/23 Range/Units 19:31 05:58 05:58 WBC 13.1 H (3.8-10.6) k/uL RBC 3.65 L (3.80-5.40) m/uL Hgb 11.2 L (11.4-16.0) gm/dL Neutrophils # (Manual) (1.3-7.7) k/uL Metamyelocytes # (Man) (0) k/uL Myelocytes # (Manual) (0) k/uL Sodium 133 L (137-145) mmol/L Potassium 3.4 L (3.5-5.1) mmol/L Creatinine 0.35 L (0.52-1.04) mg/dL Glucose 111 H (74-99) mg/dL POC Glucose (mg/dL) (70-110) mg/dL
[2023-07-27] MEDS: CARBAMIDE PEROXIDE 6.5% DROPS 15 ML BTL RIGHT EAR STA (11:32)
[2023-07-27 11:39] LABS: Glucose,Whole Blood 119 mg/dL (70-110)
[2023-07-27] MEDS: DEXTROSE 5%-0.45% NACL 1,000 ML IV SCH (12:00)
--- NOTE | 2023-07-27 13:21 | P.PN ---
Progress Note - Text Progress Note Date: 07/27/23 Interval history: Patient was seen today for psychiatric follow-up. Patient's nurse states that patient has been doing fairly well, improving medically and respiratory vernon. She apparently will be downgraded to general medical floors tomorrow. Apparently patient now has a PEG tube in place to help with feeding. Nurse claims that patient has been doing better in terms of her mood, more future oriented and denying any suicidal thoughts, she also states that patient initially was depressed because she did not have a place to go to upon discharge however now is able to stay with her father when she is released from the hospital. Patient was seen at the bedside, she had a gurgling speech, she was fairly directable, appropriate in her answers, states that she is doing better now overall. Claims that she is not feeling depressed or anxious. Adamantly claims that she does not want to go back to [facility]. She claims that she was homeless however her father was able to take Arent upon discharge. States that she is having some difficulty with sleep at times, was agreeable to try trazodo ne as needed for tonight. She has not been taking Lamictal due to it not being able to be crushed and given to her and PEG tube, however was agreeable to try Depakote as it is helped her in the past. At this time she is adamantly denying any suicidal homicidal ideations intent or plan. Denying any auditory or visual hallucinations. MENTAL STATUS EXAM: General Appearance: Patient appears to be stated age, dwarfism/short stature, disheveled, sitting up in ICU bed, wearing hospital gown. Behavior: Patient is sitting up in bed, attempts to cooperate. Speech: Patient's speech is mostly garbled, coherent, appropriate Mood/Affect: Patient reports their mood is "good", affect is congruent. Suicidality/Homicidality: Patient denies having any suicidal or homicidal ideation intent or plan today. Perceptions: Patient denies any visual hallucinations and denies any auditory hallucinations. Though content/process: There is no evidence of any delusional thought content, more future oriented, appropriate. No paranoia. Memory and concentration: Alert and oriented to person, place, not time. Judgment and insight: Improving IMPRESSIONS: Delirium, multifactorial (seizures, acute hypoxic respiratory failure, intubation and sedation, metabolic acidosis, possible aspiration pneumonia, polypharmacy), resolved Unspecified depressive disorder, rule out bipolar depression Borderline personality disorder Cannabis use disorder, mild PLAN: -At this time patient does not meet criteria for psychiatric inpatient admission. -Delirium precautions recommended with patient including - avoiding use of narcotics and DIVORCE ATTORNEY sedatives, limit anticholinergic medications when possible, frequent re-orientation, minimize use of restraints, open window shades during the day and close them at night. -Would recommend the following medication changes/additions: Continue psychiatric medications as ordered: Acamprasate 666 mg TID, Xanax 0.5 mg Q8HR PRN for anxiety, Buspar 10 mg TID, discontinued Lamictal due to it not being able to be crushed and given to her through PEG tube. Patient is agreeable to be put back on Depakote 250 mg twice daily for mood stabilization. Melatonin 5 mg QHS, Zoloft 75 mg daily. Added trazodone 50 mg nightly as needed for insomnia. -discontinue 1:1 sitter for safety at this time as patient is penny for safety and denying suicidal thoughts. -Patient currently follows up with nurse practitioner at [facility] on a monthly basis, can continue to do so once discharged. -Neurology will continue to follow, can attempt to wean patient off of Keppra. -Communicated plan to patient's nurse. -At this time psychiatry will sign off -Please contact with any questions.
--- NOTE | 2023-07-27 13:40 | P.PN ---
Subjective Progress Note Date: 07/27/23 Principal diagnosis: Acute hypoxic respiratory failure secondary to aspiration pneumonia Patient is a 27-year-old white female with past medical history significant for asthma, seizure disorder, hydrocephalus status post PROCESS DEVELOPMENT CHEMIST shunt, bipolar disorder and major depression, migraines, and alcohol use disorder. Patient presented to the emergency room back on 07/16/2023 with suicidal ideation. She was sent in from [facility] to be admitted for inpatient psych evaluation. No actual suicidal attempts were reported. Patient was admitted to the [facility] unit. Late last night, a rapid response was called for seizures. Patient reportedly was found on the ground in the hallway. The sound physician that responded to the event, noted possible absence seizure's. These progressed to generalized tonic-clonic activity. She was given several doses of Ativan, a total of 7 mg, with no significant response. She was also loaded with Keppra and Dilantin per direction of the neurologist. Despite these pharmacological interventions, she continues to have seizure like activity. She is currently moved to the intensive care unit. She continues to have intermittent generalized tonic-clonic seizures every 2 to 5 minutes. Lasting approximately 30 seconds to 1 minute. No complete recovery in between. Moving all 4 extremities. Eyes are midline without nystagmus. No tongue biting. No urinary or fecal incontinence. Currently, appears postictal and will occasionally answer simple commands. On room air. SpO2 96%. No reported aspiration events. Remaining vi helga signs are also stable. Neurologist was consulted, who recommends intubation and sedation until seizures can be controlled. AUTOMOTIVE COLLISION ESTIMATOR responded the bedside, performed rapid sequence intubation. Postintubation chest x-ray demonstrates endotracheal tube tip above the carroll and below the clavicle. Nasogastric tube courses below the diaphragm could be advanced at least 5 cm. Current ventilator settings include assist-control, respiratory rate 16, tidal volume 300, FiO2 100%, PEEP of 5. Postintubation ABG shows a PaO2 of 311, pCO2 of 45, pH of 7.3. FiO2 was appropriately weaned. She is sedated with propofol which is currently at 50 mcg/kg/min. She is currently asynchronous with mechanical ventilator and breath stacking. Peak airway pressures 28. CT of the brain was carried out which did not show any acute intracranial process. There was a ventriculostomy changes without evidence of hydrocephalus list. Urine toxicology screen positive for marijuana, but are otherwise unremarkable. No fevers. Recently started on BuSpar, and also on Zoloft. CBC unremarkable, no leukocytosis. Most recent BMP: Includes a sodium 140, potassium 3.4, chloride 111, serum bicarb 20, BUN 13, creatinine 0.46, glucose 82. Patient has no family or next of kin listed in the EMR. She is listed as homeless. We will attempt to reach out for possible contacts. On today's evaluation of 07/19/2023, patient is being seen for a follow-up. Remains dependent on mechanical ventilator. Remains on propofol which is running at 50 mcg/kg/min. No seizure activity has been noted. No tonic or clonic activity. The patient has some tremor especially when she is stimulated. Nurse at infusion has been discontinued. Pressors have been discontinued and the patient is currently off norepinephrine and she is on normal citrate of 75 cc an hour. While being on the mechanical ventilator, she is on assist-control mode with a rate of 60, tidal volume of 300, FiO2 of 40% with a PEEP of 5. Overall fluid balance is +835 cc over the past 24 hours. Blood gas was not obtained this morning as the patient is a difficult poke. Will monitor the end- tidal CO2. The patient remains on Keppra 1.5 g every 12 hours. IV fluids are in the form of normal saline at 75 cc an hour. She is afebrile. Blood work from today shows a white cell count of 8.6 with a hemoglobin 10.3 and a platelet count of 187. BUN is at 4 mg of 0.31 and a sodium level is at 144. EEG from yesterday showed no seizure activity. Neurology on the case. 07/20/2023, the patient is being seen for a follow-up. Remains intubated on the mechanical ventilator. Sedation holiday was given and the patient became quite restless, asynchronous with mechanical ventilator, tachypneic and tachycardic and was having excessive tremors. Based on that, the patient was placed back on sedation and this morning she remains on propofol at 40 mcg/kg/min and Versed 4 mg an hour. A repeat EEG was done while the patient on the Versed and the patient does not show any seizure activity. While on the mechanical ventilator, she is on assist-control mode with rate of 60, tidal volume 300, FiO2 of 40% with a PEEP of 5. End-tidal CO2 is 37. IV fluids currently running at 75 cc an hour and the patient is on vital high-protein at rate of 16 cc an hour. The patient had a follow-up chest x-ray today that showed smaller lung volumes and evidence of increased pulm vascular markings. ET tube is around 5 cm above the carroll. NG tube is in place. There is also a PROCESS DEVELOPMENT CHEMIST shunt in place. There is diffuse bilateral pulmonary haziness. Blood work shows a white cell count of 8.9, hemoglobin of 10.4, potassium is at 2.7, bicarb is at 22 with a sodium level of 140, BUN is at 2 with a creatinine of 0.4. Hemodynamically stable and she is currently on no pressors. 07/21/2023, the patient is extubated. The patient was kept on Precedex. Earlier this morning, the patient was found to be more lethargic and based on that, the Precedex was discontinued and the mental status improved. Nevertheless, the patient had some difficulty in breathing and excessive respiratory congestion and mucus production. Initially she was on 5 L and she was brought up to 11 L and later on placed on 100% nonrebreather facemask. Aggressive pulmonary toileting was done. Cough subsequently subsided and the patient is currently on 11 L of oxygen nasal cannula. Precedex is currently off. Fluid balance is -2.7 L over the past 24 hours. Chest x-ray shows small lung volumes and the patient has increased pulm vascular markings and congestion and possibly right lower lobe pulm infiltrates. She has a recent cough and based on excessive respiratory secretions, the patient was started on IV Unasyn. IV fluids were placed on KVO. No seizure activity has been noted and the patient remains on Keppra. She is communicating. Hemodynamically stable on no pressors. Will go 4 extremities without any limitation. 07/22/2023, the patient is sitting up on a chair and she is currently on Airvo with 50 L and FiO2 of 75%. She remains extubated. Cough is subsided. Not producing much of sputum today. Nevertheless, chest x-ray shows bibasilar pulm infiltrates worse in the right. The patient was given diuretics yesterday and the patient is a negative fluid balance of at least 1.8 L over the past 24 hours. Serum bicarbonate dropped down to 7. The patient was given IV bicarb a total of 100 mEq and following that she was started on a bicarb infusion which is currently running at 100 cc an hour. She remains on IV Unasyn. Swallow mechanism is poor and the patient seems to be aspirating. An official swallow study will be done and the patient will be kept n.p.o. for now. Echocardiogram was ordered. No seizure activity has been noted and the patient remains on IV Keppra. 07/23/2023, the patient remains on Airvo patient is currently on 50 L and FiO2 of 70%. Unable to swallow and she remains at a high risk of aspiration. Based on that, the patient was given NG tube for enteral feeding and nutritional support. Meanwhile, chest x-ray still showing bilateral pulmonary consolidation consistent with bilateral pneumonia. No significant interval change on today's chest x-ray. The patient has a PROCESS DEVELOPMENT CHEMIST shunt in place. Airspace disease seen bilaterally. Cough is improved. No significant sputum production. No seizure activity. White cell count of 12 with a hemoglobin 11.2 and a platelet count of 275, BUN is 9 with a creatinine of 0.3 and sodium level of 148 and a potassium level of 3.1. Remains on IV Unasyn. Hemodynamically stable. No pressors. IV fluids are currently at KVO. Awake and alert and communicating. Patient was reevaluated today on 07/24/2023, remains in the ICU, remains on Airvo at 50 L with 75% FiO2. Remains on antibiotics in the form of Unasyn for aspiration pneumonia patient is receiving for nutrition vital HP at 30 cc/h. Today continues show bilateral airspace disease, infiltrate/pneumonia. Patient tells me that she is feeling better, breathing easier WBC count today is 12.8 hemoglobin 11.8. Sodium is up to 147 potassium 3.4 renal profile is normal bicarb is 35. Sputum blood cultures are nondiagnostic WBC count is 12.8 hemoglobin 11.8 sodium is 147 potassium 3.4 renal profile is normal bicarb is 35. Her chest x-ray is showing stable bilateral diffuse airspace disease Patient was reevaluated today on 07/25/23, remains in the ICU, remains on Airvo at 75% and 50 L flow. Chest x-ray continues to show evidence of bilateral airspace disease, questionable left-sided pleural effusion, and possibly some component of fluid overload, hence the patient will given a trial of diuresis Lasix 20 mg IV push x 1. Continues to have issues with her swallowing, patient is now refusing nasogastric tube placement as it became clogged and had to be removed, patient is extremely reluctant to have another nasogastric tube placed, has if this issue does not resolve the patient may have to have a PEG tube placement. In the meantime continues to be relatively hypoxic, remains on high FiO2, continues to have cough, she has a weak cough unable to clear her secretions. Chest x-ray is not showing much improvement. WBC is 11.5 hemoglobin 10.9 basic metabolic profile is normal potassium is low at 3.0 Reevaluate today 07/26/23, patient remains in the ICU, remains on oral high FiO2, 60% FiO2 50 L flow, patient remains marginal at best. But does not seem to be in any distress, she seems comfortable. Still requiring high FiO2. Patient is showing slight improvement in her chest x-ray, patient did receive Lasix yesterday, and she diuresed significantly. Will maintain the patient on Lasix 20 mg IV push daily for now. Keep IV fluid at 50 cc/h. Patient is supposed to have PEG tube placement today, and this is planned for sometime later this afternoon. Remains on antibiotics for presumptive aspiration pneumonia, remains on seizure medications and she has been seizures free. CBC is relatively normal WBC count is 12.5 hemoglobin 11.4 basic metabolic profile is normal. Renal profile is normal Patient was evaluated today on 07/27/2023, feeling much better today compared to the last few days since admission, remains in the ICU, patient underwent PEG tube placement yesterday, and it will be used for enteral feeding today. X-ray is showing significant improvement in her bilateral infiltrates/edema, patient is now on 2 L nasal cannula remains on Unasyn, remains on Lasix 20 mg IV push daily, remains on D5 4 5 at 50 cc/h WBC count is 13.1 hemoglobin 11.2 electrolytes are normal BUN is 10 creatinine 0.35. Bicarb is 29. Sputum cultures have been nondiagnostic/negative since admission. Again her chest x-ra y was reviewed and her bilateral lower lobe infiltrates are improving Objective - Vital Signs Vital signs: Vital Signs Temp 98.2 F 07/27/23 08:00 Pulse 79 07/27/23 10:00 Resp 28 H 07/27/23 10:00 BP 124/84 07/27/23 10:00 Pulse Ox 93 L 07/27/23 10:00 FiO2 60 07/26/23 09:49 Intake & Output 07/26/23 07/27/23 07/27/23 18:59 06:59 18:59 Intake Total 1130 600 200 Output Total 1210 415 Balance -80 185 200 Weight 57.1 kg 57.1 kg Intake: IV 1130 600 200 Ampicillin-Sulbactam 1.5 100 gm In Sodium Chloride 0.9 % 50 ml @ 100 mls/hr IVPB Q6H [facility] Rx#:[id number] Dextrose 5% in Water 1, 150 600 200 000 ml @ 50 mls/hr IV . Q20H [facility] Rx#:[id number] Sodium Chloride 0.45% 1, 380 000 ml @ 40 mls/hr IV . 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 NOSE: Clear with pink turbinates. THROAT: No erythema or exudates. NECK: No masses, no JVD. CHEST: No chest wall deformity. LUNGS: Crackles and rhonchi persist bilaterally. CVS: S1 and S2 normal with no audible murmur, regular rhythm. No extra heart sounds ABDOMEN: No hepatosplenomegaly, active bowel sounds, no guarding or rigidity. PEG tube is intact. SKIN: No rashes CENTRAL NERVOUS SYSTEM: Alert oriented x 3, no gross focal deficit Musculoskeletal, patient is noted to have dwarfism, no limitation in ranges of motion - Labs CBC & Chem 7: 07/27/23 05:58 07/27/23 05:58 Labs: Abnormal Lab Results - Last 24 Hours (Table) 07/26/23 07/26/23 07/27/23 Range/Units 08:34 19:31 05:58 WBC 13.1 H (3.8-10.6) k/uL RBC 3.65 L (3.80-5.40) m/uL Hgb 11.2 L (11.4-16.0) gm/dL Neutrophils # (Manual) 9.00 H (1.3-7.7) k/uL Metamyelocytes # (Man) 0.13 H (0) k/uL Myelocytes # (Manual) 0.13 H (0) k/uL Sodium (137-145) mmol/L Potassium 3.4 L (3.5-5.1) mmol/L Creatinine (0.52-1.04) mg/dL Glucose (74-99) mg/dL POC Glucose (mg/dL) (70-110) mg/dL 07/27/23 07/27/23 Range/Units 05:58 11:38 WBC (3.8-10.6) k/uL RBC (3.80-5.40) m/uL Hgb (11.4-16.0) gm/dL Neutrophils # (Manual) (1.3-7.7) k/uL Metamyelocytes # (Man) (0) k/uL Myelocytes # (Manual) (0) k/uL Sodium 133 L (137-145) mmol/L Potassium (3.5-5.1) mmol/L Creatinine 0.35 L (0.52-1.04) mg/dL Glucose 111 H (74-99) mg/dL POC Glucose (mg/dL) 119 H (70-110) mg/dL Assessment and Plan Assessment: impression: Acute hypoxic respiratory failure secondary to aspiration pneumonia secondary to status epilepticus Status epilepticus, on Keppra History of seizure disorder History of hydrocephalus, status post PROCESS DEVELOPMENT CHEMIST shunt History of alcohol use disorder Suicidal ideation History of bipolar disorder and major depression History of migraines History of asthma, not currently active Marijuana use Dwarfism and short stature Recommendations: Continue Unasyn for aspiration pneumonia Continue gentle diuresis since her chest x-ray is showing steady improvement since Lasix was added Continue oxygen and titrate accordingly Continue aggressive pulmonary toilet Incentive spirometry Started nutritional support/enteral feeding via PEG tube today Continue to monitor in the ICU for the next 24 hours Continue Oskar Will continue to follow Time with Patient: Less than 30
--- NOTE | 2023-07-27 14:35 | XR ---
EXAMINATION TYPE: XR chest 1V portable DATE OF EXAM: 07/24/2023 COMPARISON: 07/22/2023 HISTORY: Pneumonia TECHNIQUE: Single frontal view of the chest is obtained. FINDINGS: On this report was originally dictated by another radiologist. Is now present and may at 2 :32 PM on 07/27/2023. There is a SENIOR MARKETING DATA ANALYST shunt catheter with bilateral infiltrates and tiny effusion. Osseous structures are sta ble. Heart size mildly prominent. IMPRESSION: Bilateral infiltrate may represent pneumonia or pulmonary edema.
--- NOTE | 2023-07-27 15:01 | FL ---
EXAMINATION TYPE: FL barium swallow w video DATE OF EXAM: 07/27/2023 COMPARISON: NONE HISTORY: Aspiration TECHNIQUE: Fluoroscopy. FINDINGS: Fluoroscopic guidance was provided for the procedure performed in conjunction with the [facility] pathology department. Please see complete report forthcoming from the Speech Pathology departmen t. Various consistencies from thin liquid to honey thick were administered. Fluoroscopy time 2 minutes 25 seconds. Number of images: 201.19 There was aspiration with thin liquids. Honey thick liquids appeared normal without aspiration. There was pooling was observed in the vallecula with honey thick liquids. [place] thick liquids were a ttempted with aspiration of retained pooled contents within the vallecula. IMPRESSION: 1. Aspiration with thin liquids. 2. Aspiration of pooled debris within the vallecula.
[2023-07-27 17:46] LABS: Glucose,Whole Blood 87 mg/dL (70-110)
[2023-07-27] MEDS: traZODone HCL 50 MG TAB PO PRN (19:00)
[2023-07-27] MEDS ORDERED: DIVALPROEX 250 MG TABLET.DR PO SCH (21:00)
[2023-07-27] MEDS: levETIRAcetam ORAL SOLN 500 MG/5 ML CUP PEG/G-TUBE SCH (21:39)
[2023-07-27] MEDS: DIVALPROEX SPRINKLE 125 MG CAP.SPRINK PO SCH (21:39)
[2023-07-27] MEDS ORDERED: BENZONATATE 100 MG CAP PO PRN (23:12)
[2023-07-28] MEDS: diphenhydrAMINE ELIXIR 25 MG/10 ML CUP PO PRN (00:20)
[2023-07-28 01:20] LABS: Glucose,Whole Blood 155 mg/dL (70-110)
[2023-07-28 06:44] LABS: Glucose,Whole Blood 129 mg/dL (70-110)
--- NOTE | 2023-07-28 07:09 | XR ---
EXAMINATION TYPE: XR chest 1V portable DATE OF EXAM: 07/28/2023 COMPARISON: 07/27/2023 HISTORY: Persistent cough TECHNIQUE: Single frontal view of the chest is obtained. FINDINGS: There are no change in the partially consolidated. Bilateral lung opacities. There is no pneumothorax or large pleural effusion. Heart size is normal for the technique. There is a ventricular shunt catheter on the right. No change in the abnormal bilateral glenohumeral joints which appear subluxed or dislocated. IMPRESSION: No change in the acute cardiopulmonary disease as scribed above.
[2023-07-28 07:12] LABS: African American GFR (CKD) >90 (>60 ml/min/1.73 sqM); Anion Gap 5 mmol/L; Basophils # (A) 0.1 k/uL (0-0.2); Basophils % (A) 1 %; Blood Urea Nitrogen 9 mg/dL (7-17); Calcium 8.8 mg/dL (8.4-10.2); Carbon Dioxide 32 mmol/L (22-30); Chloride 98 mmol/L (98-107); Eosinophils # (A) 0.3 k/uL (0-0.7); Eosinophils % (A) 3 %; Glucose 135 mg/dL (74-99); HCT 37.2 % (34.0-46.0); HGB 12.1 gm/dL (11.4-16.0); Lymphocytes % (A) 17 %; MCH 30.3 pg (25.0-35.0); MCHC 32.4 g/dL (31.0-37.0); MCV 93.4 fL (80.0-100.0); Monocytes # (A) 0.6 k/uL (0-1.0); Monocytes % (A) 6 %; Neutrophils # (A) 8.4 k/uL (1.3-7.7); Neutrophils % (A) 73 %; Non-African American GFR(CKD) >90 (>60 ml/min/1.73 sqM); Platelet Count 223 k/uL (150-450); Potassium 3.3 mmol/L (3.5-5.1); RBC 3.98 m/uL (3.80-5.40); RDW 13.5 % (11.5-15.5); Sodium 135 mmol/L (137-145); WBC 11.5 k/uL (3.8-10.6)
[2023-07-28] MEDS ORDERED: Potassium Replacement Protocol 1 EACH MISC MISCELLANE PRN (07:23)
[2023-07-28] MEDS: ACETYLCYSTEINE 800 MG/4 ML VIAL INHALATION SCH (08:16)
[2023-07-28] MEDS: POTASSIUM BICARBONATE/CIT AC 20 MEQ TABLET.EFF NG-TUBE SCH (09:18)
--- NOTE | 2023-07-28 10:34 | P.PN ---
Subjective Progress Note Date: 07/28/23 BENITOEON. No N/V. No F/C. No SOB or CP. Tolerating tube feeds without issue. No Bm but endorses flatus. Objective - Vital Signs Vital signs: Vital Signs Temp 98.1 F 07/28/23 04:00 Pulse 92 07/28/23 08:39 Resp 27 H 07/28/23 07:00 BP 109/65 07/28/23 07:00 Pulse Ox 96 07/28/23 08:21 FiO2 60 07/26/23 09:49 Intake & Output 07/27/23 07/28/23 07/28/23 18:59 06:59 18:59 Intake Total 575 940 30 Balance 575 940 30 Weight 57.1 kg 56.427 kg Intake: IV 525 560 10 Ampicillin-Sulbactam 1.5 50 gm In Sodium Chloride 0.9 % 50 ml @ 100 mls/hr IVPB Q6H [facility] Rx#:[id number] Dextrose 5% in Water 1, 525 400 000 ml @ 50 mls/hr IV . Q20H [facility] Rx#:[id number] KVO NS 110 10 Intake, IV Titration 50 Amount Dextrose 5%-0.45% NaCl 1, 50 000 ml @ 50 mls/hr IV . Q20H [facility] Rx#:[id number] Tube Feeding 210 20 Other 170 Other: Voiding Method Toilet Toilet # Voids 1 1 # Bowel Movements 1 1 - Exam Gen: AxO, NAD Pulm: non-labored respirations Abd: soft, Non-tender, non-distended. No guarding/rebound/rigidity PEG: C/D/I, TF running at 10cc/hr Extrem: no edema seen - Labs CBC & Chem 7: 07/28/23 06:23 07/28/23 06:23 Labs: Abnormal Lab Results - Last 24 Hours (Table) 07/27/23 07/28/23 07/28/23 Range/Units 11:38 01:18 06:23 WBC 11.5 H (3.8-10.6) k/uL Neutrophils # 8.4 H (1.3-7.7) k/uL Sodium (137-145) mmol/L Potassium (3.5-5.1) mmol/L Carbon Dioxide (22-30) mmol/L Creatinine (0.52-1.04) mg/dL Glucose (74-99) mg/dL POC Glucose (mg/dL) 119 H 155 H (70-110) mg/dL 07/28/23 07/28/23 Range/Units 06:23 06:43 WBC (3.8-10.6) k/uL Neutrophils # (1.3-7.7) k/uL Sodium 135 L (137-145) mmol/L Potassium 3.3 L (3.5-5.1) mmol/L Carbon Dioxide 32 H (22-30) mmol/L Creatinine 0.36 L (0.52-1.04) mg/dL Glucose 135 H (74-99) mg/dL POC Glucose (mg/dL) 129 H (70-110) mg/dL Assessment and Plan Assessment: Pt is a 27F who is s/p PEG placement Plan: -Advance TF as tolerated -PRN pain and nausea control -Care per ICU -No further surgical intervention Miguel Gilbert MD General Surgery
--- NOTE | 2023-07-28 10:46 | P.PN ---
Subjective Progress Note Date: 07/28/23 Principal diagnosis: Acute hypoxic respiratory failure secondary to aspiration pneumonia Patient is a 27-year-old white female with past medical history significant for asthma, seizure disorder, hydrocephalus status post ENSEMBLE MEMBER shunt, bipolar disorder and major depression, migraines, and alcohol use disorder. Patient presented to the emergency room back on 07/16/2023 with suicidal ideation. She was sent in from [facility] to be admitted for inpatient psych evaluation. No actual suicidal attempts were reported. Patient was admitted to the [facility] unit. Late last night, a rapid response was called for seizures. Patient reportedly was found on the ground in the hallway. The sound physician that responded to the event, noted possible absence seizure's. These progressed to generalized tonic-clonic activity. She was given several doses of Ativan, a total of 7 mg, with no significant response. She was also loaded with Keppra and Dilantin per direction of the neurologist. Despite these pharmacological interventions, she continues to have seizure like activity. She is currently moved to the intensive care unit. She continues to have intermittent generalized tonic-clonic seizures every 2 to 5 minutes. Lasting approximately 30 seconds to 1 minute. No complete recovery in between. Moving all 4 extremities. Eyes are midline without nystagmus. No tongue biting. No urinary or fecal incontinence. Currently, appears postictal and will occasionally answer simple commands. On room air. SpO2 96%. No reported aspiration events. Remaining vi helga signs are also stable. Neurologist was consulted, who recommends intubation and sedation until seizures can be controlled. TECHNICAL ILLUSTRATOR responded the bedside, performed rapid sequence intubation. Postintubation chest x-ray demonstrates endotracheal tube tip above the carroll and below the clavicle. Nasogastric tube courses below the diaphragm could be advanced at least 5 cm. Current ventilator settings include assist-control, respiratory rate 16, tidal volume 300, FiO2 100%, PEEP of 5. Postintubation ABG shows a PaO2 of 311, pCO2 of 45, pH of 7.3. FiO2 was appropriately weaned. She is sedated with propofol which is currently at 50 mcg/kg/min. She is currently asynchronous with mechanical ventilator and breath stacking. Peak airway pressures 28. CT of the brain was carried out which did not show any acute intracranial process. There was a ventriculostomy changes without evidence of hydrocephalus list. Urine toxicology screen positive for marijuana, but are otherwise unremarkable. No fevers. Recently started on BuSpar, and also on Zoloft. CBC unremarkable, no leukocytosis. Most recent BMP: Includes a sodium 140, potassium 3.4, chloride 111, serum bicarb 20, BUN 13, creatinine 0.46, glucose 82. Patient has no family or next of kin listed in the EMR. She is listed as homeless. We will attempt to reach out for possible contacts. On today's evaluation of 07/19/2023, patient is being seen for a follow-up. Remains dependent on mechanical ventilator. Remains on propofol which is running at 50 mcg/kg/min. No seizure activity has been noted. No tonic or clonic activity. The patient has some tremor especially when she is stimulated. Nurse at infusion has been discontinued. Pressors have been discontinued and the patient is currently off norepinephrine and she is on normal citrate of 75 cc an hour. While being on the mechanical ventilator, she is on assist-control mode with a rate of 60, tidal volume of 300, FiO2 of 40% with a PEEP of 5. Overall fluid balance is +835 cc over the past 24 hours. Blood gas was not obtained this morning as the patient is a difficult poke. Will monitor the end- tidal CO2. The patient remains on Keppra 1.5 g every 12 hours. IV fluids are in the form of normal saline at 75 cc an hour. She is afebrile. Blood work from today shows a white cell count of 8.6 with a hemoglobin 10.3 and a platelet count of 187. BUN is at 4 mg of 0.31 and a sodium level is at 144. EEG from yesterday showed no seizure activity. Neurology on the case. 07/20/2023, the patient is being seen for a follow-up. Remains intubated on the mechanical ventilator. Sedation holiday was given and the patient became quite restless, asynchronous with mechanical ventilator, tachypneic and tachycardic and was having excessive tremors. Based on that, the patient was placed back on sedation and this morning she remains on propofol at 40 mcg/kg/min and Versed 4 mg an hour. A repeat EEG was done while the patient on the Versed and the patient does not show any seizure activity. While on the mechanical ventilator, she is on assist-control mode with rate of 60, tidal volume 300, FiO2 of 40% with a PEEP of 5. End-tidal CO2 is 37. IV fluids currently running at 75 cc an hour and the patient is on vital high-protein at rate of 16 cc an hour. The patient had a follow-up chest x-ray today that showed smaller lung volumes and evidence of increased pulm vascular markings. ET tube is around 5 cm above the carroll. NG tube is in place. There is also a ENSEMBLE MEMBER shunt in place. There is diffuse bilateral pulmonary haziness. Blood work shows a white cell count of 8.9, hemoglobin of 10.4, potassium is at 2.7, bicarb is at 22 with a sodium level of 140, BUN is at 2 with a creatinine of 0.4. Hemodynamically stable and she is currently on no pressors. 07/21/2023, the patient is extubated. The patient was kept on Precedex. Earlier this morning, the patient was found to be more lethargic and based on that, the Precedex was discontinued and the mental status improved. Nevertheless, the patient had some difficulty in breathing and excessive respiratory congestion and mucus production. Initially she was on 5 L and she was brought up to 11 L and later on placed on 100% nonrebreather facemask. Aggressive pulmonary toileting was done. Cough subsequently subsided and the patient is currently on 11 L of oxygen nasal cannula. Precedex is currently off. Fluid balance is -2.7 L over the past 24 hours. Chest x-ray shows small lung volumes and the patient has increased pulm vascular markings and congestion and possibly right lower lobe pulm infiltrates. She has a recent cough and based on excessive respiratory secretions, the patient was started on IV Unasyn. IV fluids were placed on KVO. No seizure activity has been noted and the patient remains on Keppra. She is communicating. Hemodynamically stable on no pressors. Will go 4 extremities without any limitation. 07/22/2023, the patient is sitting up on a chair and she is currently on Airvo with 50 L and FiO2 of 75%. She remains extubated. Cough is subsided. Not producing much of sputum today. Nevertheless, chest x-ray shows bibasilar pulm infiltrates worse in the right. The patient was given diuretics yesterday and the patient is a negative fluid balance of at least 1.8 L over the past 24 hours. Serum bicarbonate dropped down to 7. The patient was given IV bicarb a total of 100 mEq and following that she was started on a bicarb infusion which is currently running at 100 cc an hour. She remains on IV Unasyn. Swallow mechanism is poor and the patient seems to be aspirating. An official swallow study will be done and the patient will be kept n.p.o. for now. Echocardiogram was ordered. No seizure activity has been noted and the patient remains on IV Keppra. 07/23/2023, the patient remains on Airvo patient is currently on 50 L and FiO2 of 70%. Unable to swallow and she remains at a high risk of aspiration. Based on that, the patient was given NG tube for enteral feeding and nutritional support. Meanwhile, chest x-ray still showing bilateral pulmonary consolidation consistent with bilateral pneumonia. No significant interval change on today's chest x-ray. The patient has a ENSEMBLE MEMBER shunt in place. Airspace disease seen bilaterally. Cough is improved. No significant sputum production. No seizure activity. White cell count of 12 with a hemoglobin 11.2 and a platelet count of 275, BUN is 9 with a creatinine of 0.3 and sodium level of 148 and a potassium level of 3.1. Remains on IV Unasyn. Hemodynamically stable. No pressors. IV fluids are currently at KVO. Awake and alert and communicating. Patient was reevaluated today on 07/24/2023, remains in the ICU, remains on Airvo at 50 L with 75% FiO2. Remains on antibiotics in the form of Unasyn for aspiration pneumonia patient is receiving for nutrition vital HP at 30 cc/h. Today continues show bilateral airspace disease, infiltrate/pneumonia. Patient tells me that she is feeling better, breathing easier WBC count today is 12.8 hemoglobin 11.8. Sodium is up to 147 potassium 3.4 renal profile is normal bicarb is 35. Sputum blood cultures are nondiagnostic WBC count is 12.8 hemoglobin 11.8 sodium is 147 potassium 3.4 renal profile is normal bicarb is 35. Her chest x-ray is showing stable bilateral diffuse airspace disease Patient was reevaluated today on 07/25/23, remains in the ICU, remains on Airvo at 75% and 50 L flow. Chest x-ray continues to show evidence of bilateral airspace disease, questionable left-sided pleural effusion, and possibly some component of fluid overload, hence the patient will given a trial of diuresis Lasix 20 mg IV push x 1. Continues to have issues with her swallowing, patient is now refusing nasogastric tube placement as it became clogged and had to be removed, patient is extremely reluctant to have another nasogastric tube placed, has if this issue does not resolve the patient may have to have a PEG tube placement. In the meantime continues to be relatively hypoxic, remains on high FiO2, continues to have cough, she has a weak cough unable to clear her secretions. Chest x-ray is not showing much improvement. WBC is 11.5 hemoglobin 10.9 basic metabolic profile is normal potassium is low at 3.0 Reevaluate today 07/26/23, patient remains in the ICU, remains on oral high FiO2, 60% FiO2 50 L flow, patient remains marginal at best. But does not seem to be in any distress, she seems comfortable. Still requiring high FiO2. Patient is showing slight improvement in her chest x-ray, patient did receive Lasix yesterday, and she diuresed significantly. Will maintain the patient on Lasix 20 mg IV push daily for now. Keep IV fluid at 50 cc/h. Patient is supposed to have PEG tube placement today, and this is planned for sometime later this afternoon. Remains on antibiotics for presumptive aspiration pneumonia, remains on seizure medications and she has been seizures free. CBC is relatively normal WBC count is 12.5 hemoglobin 11.4 basic metabolic profile is normal. Renal profile is normal Patient was evaluated today on 07/27/2023, feeling much better today compared to the last few days since admission, remains in the ICU, patient underwent PEG tube placement yesterday, and it will be used for enteral feeding today. X-ray is showing significant improvement in her bilateral infiltrates/edema, patient is now on 2 L nasal cannula remains on Unasyn, remains on Lasix 20 mg IV push daily, remains on D5 4 5 at 50 cc/h WBC count is 13.1 hemoglobin 11.2 electrolytes are normal BUN is 10 creatinine 0.35. Bicarb is 29. Sputum cultures have been nondiagnostic/negative since admission. Again her chest x-ra y was reviewed and her bilateral lower lobe infiltrates are improving Reevaluate today on 07/28/2023 el in the ICU, doing fairly well, her chest x- ray continues show bilateral airspace disease with consolidations bilaterally consistent with pneumonia/aspiration pneumonia. Patient is now requiring 6 L nasal cannula and her O2 sats is 96%. Continues to have some issues with clearing her phlegm, patient is receiving enteral feeding via PEG tube today. Overall the patient is improved, but not quite ready to be transferred out of the ICU, hence I am keeping her in the ICU since the patient remains marginal at bestWBC count today is 11.5 hemoglobin is 12.1 basic metabolic profile is normal except for low potassium of 3.3 renal profile is normal sputum cultures have been nondiagnostic Objective - Vital Signs Vital signs: Vital Signs Temp 98.1 F 07/28/23 04:00 Pulse 92 07/28/23 08:39 Resp 27 H 07/28/23 07:00 BP 109/65 07/28/23 07:00 Pulse Ox 96 07/28/23 08:21 FiO2 60 07/26/23 09:49 Intake & Output 07/27/23 07/28/23 07/28/23 18:59 06:59 18:59 Intake Total 575 940 30 Balance 575 940 30 Weight 57.1 kg 56.427 kg Intake: IV 525 560 10 Ampicillin-Sulbactam 1.5 50 gm In Sodium Chloride 0.9 % 50 ml @ 100 mls/hr IVPB Q6H [facility] Rx#:[id number] Dextrose 5% in Water 1, 525 400 000 ml @ 50 mls/hr IV . Q20H [facility] Rx#:[id number] KVO NS 110 10 Intake, IV Titration 50 Amount Dextrose 5%-0.45% NaCl 1, 50 000 ml @ 50 mls/hr IV . Q20H [facility] Rx#:[id number] Tube Feeding 210 20 Other 170 Other: Voiding Method Toilet Toilet # Voids 1 1 1 # Bowel Movements 1 1 1 - Exam GENERAL EXAM: 27-year-old white female dwarf on 6 L nasal cannula with O2 saturation of 96% EYES: PERRLA, EOMI, nonicteric. NOSE: Clear with pink turbinates. THROAT: No erythema or exudates. NECK: No masses, no JVD. CHEST: No chest wall deformity. LUNGS: Crackles persist bilaterally, scattered rhonchi. CVS: S1 and S2 normal with no audible murmur, regular rhythm. No extra heart sounds ABDOMEN: No hepatosplenomegaly, active bowel sounds, no guarding or rigidity. PEG tube is intact. SKIN: No rashes CENTRAL NERVOUS SYSTEM: Alert oriented x 3, no gross focal deficit Musculoskeletal, patient is noted to have dwarfism, no limitation in ranges of motion - Labs CBC & Chem 7: 07/28/23 06:23 07/28/23 06:23 Labs: Abnormal Lab Results - Last 24 Hours (Table) 07/27/23 07/28/23 07/28/23 Range/Units 11:38 01:18 06:23 WBC 11.5 H (3.8-10.6) k/uL Neutrophils # 8.4 H (1.3-7.7) k/uL Sodium (137-145) mmol/L Potassium (3.5-5.1) mmol/L Carbon Dioxide (22-30) mmol/L Creatinine (0.52-1.04) mg/dL Glucose (74-99) mg/dL POC Glucose (mg/dL) 119 H 155 H (70-110) mg/dL 07/28/23 07/28/23 Range/Units 06:23 06:43 WBC (3.8-10.6) k/uL Neutrophils # (1.3-7.7) k/uL Sodium 135 L (137-145) mmol/L Potassium 3.3 L (3.5-5.1) mmol/L Carbon Dioxide 32 H (22-30) mmol/L Creatinine 0.36 L (0.52-1.04) mg/dL Glucose 135 H (74-99) mg/dL POC Glucose (mg/dL) 129 H (70-110) mg/dL Assessment and Plan Assessment: impression: Acute hypoxic respiratory failure secondary to aspiration pneumonia secondary to status epilepticus Status epilepticus, on Keppra History of seizure disorder History of hydrocephalus, status post ENSEMBLE MEMBER shunt History of alcohol use disorder Suicidal ideation History of bipolar disorder and major depression History of migraines History of asthma, not currently active Marijuana use Dwarfism and short stature Recommendations: Continue Unasyn for aspiration pneumonia Continue to gently diurese the patient Will add Mucomyst to her albuterol today and hopefully the patient clear her secretions easily Continue oxygen and titrate accordingly Continue aggressive pulmonary toilet, continue chest PT. Continue incentive spirometry Need GI and DVT prophylaxis. Continue nutritional support/enteral feeding via PEG tube Continue monitoring in the ICU since her FiO2 requirement has gone up over the last 24 hours Continue Pravinra Will continue to follow Time with Patient: Less than 30
--- NOTE | 2023-07-28 10:59 | P.PN ---
Subjective Progress Note Date: 07/28/23 Hospital Course: 27-year-old female with history of seizure disorder off of antiepileptics, hydrocephalus status post shunt, bipolar disorder presented from mental health unit for status epilepticus. Patient was admitted to mental health unit for depression and suicidal ideation on 07/16/2023. Patient was noted to have multiple episodes of absence seizure, rapid response was called. She was given multiple doses of IV Ativan, and continued to have seizure-like activity, and also has some generalized tonic-clonic activity. She was taken to the ICU, loaded with Keppra and Dilantin, and was intubated for airway protection. Currently patient is in the medical ICU intubated and sedated. Undergoing further workup. Head CT was completed, did not show any acute process, ventriculostomy changes without evidence of hydrocephalus. Patient does have a prior history of pseudoseizures. Was extensively worked up outpatient, negative for any seizure disorder. Currently weaning off of sedation. Repeat EEG did not show any seizure-like activity. Patient is now extubated. Likely had aspiration pneumonia as well as acute pulmonary edema. Received occasional IV Lasix, and also on IV Unasyn. Still continues to have frequent aspirations. Patient now requiring more supplemental oxygen. Was on tube feeds, plan for PEG tube placement. Echocardiogram shows LVEF 55 to 60%, RVSP 45 Subjective: Pt reports improvement in breathing, denies pain. Gen: In NAD, non-toxic HEENT: normocephalic, atraumatic, hearing acuity is intact, mucous membranes moist CVS: perfusing all extremities well, no pitting edema, Respiratory: symmetric chest expansion, no accessory muscle use, GI: soft, NTTP, ND, : no suprapubic tenderness, no CVA tenderness MSK/Derm: no rashes, cyanosis Neuro: CN II-XII intact, no motor weakness, Psych: cooperative, euthymic mood, judgment and insight is intact Assessment and Plan: Patient is critically ill, in medical ICU, prognosis guarded. Active: Acute hypoxic respiratory failure Aspiration pneumonia Acute pulmonary edema Hypernatremia, resolved -Local Owner Operator Truck Driver following, -Patient maintained on half-normal saline at 40 cc an hour -Continue IV Unasyn 1.5 g IV every 6 hours -Sputum cultures consistent with normal respiratory marixa -s/p PEG tube on 07/25, feeding at 20cc/hr, goal is 40cc/hr -agree with pulmonary toilet, mucomyst, albuterol -Continue to wean oxygen Hypokalemia -Repeat BMP and magnesium tomorrow Questionable status epilepticus, nausea likely History of pseudoseizures History of hydrocephalus status post shunt -Neurology following, Keppra 1 g IV every 12 hours, also on Lamictal 25 mg daily -On IV Ativan as needed for seizures, monitor for sedation Asthma -DuoNebs every 4 hours, and as needed Bipolar disorder Anxiety disorder Depression with suicidal ideation -On BuSpar 10 3 times daily, Zoloft 75 daily -Thiamine 100 mg daily -Psychiatry consulted: Patient cannot leave AMA. Normocytic anemia, resolved Hypomagnesemia, resolved Metabolic acidosis, resolved DVT ppx: Subcu heparin Code status: Full code Anticipated discharge place: Pending clinical course Anticipated discharge time: Pending clinical course Objective - Vital Signs Vital signs: Vital Signs Temp 98.4 F 07/28/23 08:00 Pulse 100 07/28/23 10:00 Resp 24 07/28/23 10:00 BP 102/70 07/28/23 10:00 Pulse Ox 96 07/28/23 10:00 FiO2 60 07/26/23 09:49 Intake & Output 07/27/23 07/28/23 07/28/23 18:59 06:59 18:59 Intake Total 575 940 130 Balance 575 940 130 Weight 57.1 kg 56.427 kg Intake: IV 525 560 20 Ampicillin-Sulbactam 1.5 50 gm In Sodium Chloride 0.9 % 50 ml @ 100 mls/hr IVPB Q6H [facility] Rx#:[id number] Dextrose 5% in Water 1, 525 400 000 ml @ 50 mls/hr IV . Q20H [facility] Rx#:[id number] KVO NS 110 20 Intake, IV Titration 50 50 Amount Dextrose 5%-0.45% NaCl 1, 50 50 000 ml @ 50 mls/hr IV . Q20H [facility] Rx#:[id number] Tube Feeding 210 30 Other 170 30 Other: Voiding Method Toilet Toilet # Voids 1 1 1 # Bowel Movements 1 1 1 - Labs CBC & Chem 7: 07/28/23 06:23 07/28/23 06:23 Labs: Abnormal Lab Results - Last 24 Hours (Table) 07/27/23 07/28/2307/27/24 Range/Units 11:38 01:18 06:23 WBC 11.5 H (3.8-10.6) k/uL Neutrophils # 8.4 H (1.3-7.7) k/uL Sodium (137-145) mmol/L Potassium (3.5-5.1) mmol/L Carbon Dioxide (22-30) mmol/L Creatinine (0.52-1.04) mg/dL Glucose (74-99) mg/dL POC Glucose (mg/dL) 119 H 155 H (70-110) mg/dL 07/28/23 07/28/23 Range/Units 06:23 06:43 WBC (3.8-10.6) k/uL Neutrophils # (1.3-7.7) k/uL Sodium 135 L (137-145) mmol/L Potassium 3.3 L (3.5-5.1) mmol/L Carbon Dioxide 32 H (22-30) mmol/L Creatinine 0.36 L (0.52-1.04) mg/dL Glucose 135 H (74-99) mg/dL POC Glucose (mg/dL) 129 H (70-110) mg/dL
[2023-07-28 11:46] LABS: Glucose,Whole Blood 115 mg/dL (70-110)
--- NOTE | 2023-07-28 12:03 | P.PN ---
Subjective Progress Note Date: 07/27/23 07/27/2023: Patient was seen for a follow-up. Patient has not had any more seizure. She had undergone PEG placement yesterday. Patient continues to be very congested. 07/26/2023: Patient was seen for a follow-up. Patient is laying comfortably in the bed. Sitter was present. No further seizures reported. 07/24/2023: Patient was initially seen Dr. Jeff Marie. Please refer to his note for details. Patient is a 27-year-old female with history of nonepileptic seizure, was in psych unit and had recurrent seizure-like spells and was placed on mechanical ventilator. Patient was extubated on 07/20/2023. Patient had 2 EEGs performed, both of which are normal. Patient had an episode recorded during the EEG which was nonepileptic. Dr. Marie was weaning down the Keppra and recommended to go up on the Lamictal. Patient has aspiration pneumonia. No seizures reported by the nursing staff. Some of the workup during this hospital visit consisted of: Sodium is 142, serum glucose is 103, plasma lactic acid vein is 0.7 Prolactin is 40.7 Calcium on presentation was 8.8. Magnesium is 2.0. CT head is reported as no acute intracranial process. Ventriculostomy changes without evidence for hydrocephalus. History reviewed the CT and I agree there is no acute or subacute changes. The patient does have tape of the vent riculostomy on the right side Initial routine EEG: Is abnormal. The background slowing is suggestive of mild encephalopathy. There is no focal slowing, epileptiform discharge or seizure on EEG. The excessive beta activity is likely due to medication effect (Ativan, Versed and Propofol). Repeat Routine EEG on 07/19/2023: Is abnormal. The background slowing is suggestive of mild encepahlopathy. The episode that was recorded is non- epileptic in nature. No seizure or epileptiform discharges. Objective - Vital Signs Vital signs: Vital Signs Temp 98.5 F 07/27/23 12:00 Pulse 77 07/27/23 13:00 Resp 34 H 07/27/23 13:00 BP 112/78 07/27/23 13:00 Pulse Ox 92 L 07/27/23 13:00 FiO2 60 07/26/23 09:49 Intake & Output 07/26/23 07/27/23 07/27/23 18:59 06:59 18:59 Intake Total 1130 600 350 Output Total 1210 415 Balance -80 185 350 Weight 57.1 kg 57.1 kg Intake: IV 1130 600 350 Ampicillin-Sulbactam 1.5 100 gm In Sodium Chloride 0.9 % 50 ml @ 100 mls/hr IVPB Q6H [facility] Rx#:[id number] Dextrose 5% in Water 1, 150 600 350 000 ml @ 50 mls/hr IV . Q20H [facility] Rx#:[id number] Sodium Chloride 0.45% 1, 380 000 ml @ 40 mls/hr IV . Q24H [facility] Rx#:[id number] Output: Urine 1210 415 Other: Voiding Method Indwelling Catheter Indwelling Catheter # Voids 1 1 # Bowel Movements 1 1 - Exam Patient is laying comfortably in the bed. Patient is on oxygen by nasal cannula. Patient states that she uses a walker to get around. She has been using the walker for "quite a while". Speech and language functions are normal. Patient is hard of hearing. Face is symmetric. Patient moves all 4 extremities equally. Patient's ankle dorsiflexion is at least 5-bilaterally. Batting Machine Operator is 4+, deltoid 5 bilaterally. - Labs CBC & Chem 7: 07/28/23 06:23 07/28/23 06:23 Labs: Abnormal Lab Results - Last 24 Hours (Table) 07/26/23 07/27/23 07/27/23 Range/Units 19:31 05:58 05:58 WBC 13.1 H (3.8-10.6) k/uL RBC 3.65 L (3.80-5.40) m/uL Hgb 11.2 L (11.4-16.0) gm/dL Sodium 133 L (137-145) mmol/L Potassium 3.4 L (3.5-5.1) mmol/L Creatinine 0.35 L (0.52-1.04) mg/dL Glucose 111 H (74-99) mg/dL POC Glucose (mg/dL) (70-110) mg/dL 07/27/23 Range/Units 11:38 WBC (3.8-10.6) k/uL RBC (3.80-5.40) m/uL Hgb (11.4-16.0) gm/dL Sodium (137-145) mmol/L Potassium (3.5-5.1) mmol/L Creatinine (0.52-1.04) mg/dL Glucose (74-99) mg/dL POC Glucose (mg/dL) 119 H (70-110) mg/dL Assessment and Plan Assessment: This is a 27-year-old woman with history of seizure disorder off antiepileptic, hydrocephalus s/p shunt, bipolar who initially was admitted to the mental health unit for depression and suicidal ideation on 07/16/2023 was transferred to the ICU recurrent seizure-like activity and was reported she had numerous ones and she reported she had absence seizure that led into a generalized tonic-clonic seizure without any resolution of her seizure with Ativan or Keppra seem that the patient was in clinical status epilepticus. Recurrent seizure-like activity and initially clinical status epilepticus but electrographically episodes are nonepileptic in nature---resolved. The EEG captures the episodes are non-epileptic in nature. Had total two EEG which are negative for seizure. Respiratory distress and has aspiration pneumonia Dysphagia, failed swallow. Status post PEG placement 07/26/2023. Intubated on a ventilator and is on sedation due to above--extubated History of seizure disorder and is not on any antiepileptic drugs. It seems she had blank stares and work-up and was told no seizures (adopted father notified nurse). Recent depression and suicidal ideation Hydrocephalus s/p shunt Dwarfism Bipolar Major depression Alcohol use Plan: Patient was initially placed on Keppra 1500 mg IV every [address] Marie has decreased the dose of Keppra to 1000mg IV every 12 hours. She has not had any more seizures. We will decrease Keppra to 750 mg twice daily and maintain on this dose. Patient has PEG tube placement, and will receive it through the PEG. Patient also on Depakote 250 mg twice daily. Lamictal was started, but apparently patient has been n.p.o., and Lamictal cannot be crushed to be given by PEG tube. She has not received Lamictal at all since this hospitalization. We will discontinue Lamictal. Seizure precautions seizure pads Check acetylcholine receptor antibodies Per [place] DMV becuse of seizure, avoid driving for 6 months until seizure free, avoid heights, swim unassisted or use heavy machinery. Will defer the rest of the medical management to primary and other specialists Neurologically, otherwise she is clear. Recommend patient follow-up with neurologist outpatient. Dr. Marie starting neurology service from Sunday.
[2023-07-28 17:51] LABS: Glucose,Whole Blood 109 mg/dL (70-110)
[2023-07-29 00:09] LABS: Glucose,Whole Blood 149 mg/dL (70-110)
[2023-07-29 04:36] LABS: Anion Gap 4 mmol/L; Blood Urea Nitrogen 8 mg/dL (7-17); Calcium 8.9 mg/dL (8.4-10.2); Carbon Dioxide 32 mmol/L (22-30); Chloride 100 mmol/L (98-107); Glucose 148 mg/dL (74-99); Potassium 3.3 mmol/L (3.5-5.1); Sodium 136 mmol/L (137-145)
[2023-07-29 04:37] LABS: African American GFR (CKD) >90 (>60 ml/min/1.73 sqM); Non-African American GFR(CKD) >90 (>60 ml/min/1.73 sqM)
[2023-07-29 04:42] LABS: HCT 35.7 % (34.0-46.0); HGB 11.7 gm/dL (11.4-16.0); MCH 31.4 pg (25.0-35.0); MCHC 32.7 g/dL (31.0-37.0); MCV 95.9 fL (80.0-100.0); Mean Platelet Volume 8.1; Platelet Count 181 k/uL (150-450); RBC 3.72 m/uL (3.80-5.40); RDW 13.5 % (11.5-15.5); WBC 11.9 k/uL (3.8-10.6)
[2023-07-29] MEDS ORDERED: Potassium Replacement Protocol 1 EACH MISC MISCELLANE PRN (05:37)
[2023-07-29] MEDS: POTASSIUM BICARBONATE/CIT AC 20 MEQ TABLET.EFF NG-TUBE SCH (06:51)
--- NOTE | 2023-07-29 07:00 | XR ---
EXAMINATION TYPE: XR chest 1V DATE OF EXAM: 07/29/2023 COMPARISON: 07/28/2023 HISTORY: Cough TECHNIQUE: Single frontal view of the chest is obtained. FINDINGS: There is a ventriculoperitoneal shunt catheter. There is a PEG tube. There is no change in the bilateral infiltrates. The heart size is normal. There is no pleural effusion or pneumothorax. The osseous structures are intact. IMPRESSION: No change in the acute cardiopulmonary process.
[2023-07-29 07:05] LABS: Glucose,Whole Blood 104 mg/dL (70-110)
[2023-07-29 11:30] LABS: Glucose,Whole Blood 127 mg/dL (70-110)
--- NOTE | 2023-07-29 11:43 | P.PN ---
Subjective Progress Note Date: 07/29/23 Hospital Course: 27-year-old female with history of seizure disorder off of antiepileptics, hydrocephalus status post shunt, bipolar disorder presented from mental health unit for status epilepticus. Patient was admitted to mental health unit for depression and suicidal ideation on 07/16/2023. Patient was noted to have multiple episodes of absence seizure, rapid response was called. She was given multiple doses of IV Ativan, and continued to have seizure-like activity, and also has some generalized tonic-clonic activity. She was taken to the ICU, loaded with Keppra and Dilantin, and was intubated for airway protection. Currently patient is in the medical ICU intubated and sedated. Undergoing further workup. Head CT was completed, did not show any acute process, ventriculostomy changes without evidence of hydrocephalus. Patient does have a prior history of pseudoseizures. Was extensively worked up outpatient, negative for any seizure disorder. Currently weaning off of sedation. Repeat EEG did not show any seizure-like activity. Patient was extubated. Likely had aspiration pneumonia as well as acute pulmonary edema. Received occasional IV Lasix, and also on IV Unasyn. Continued to have frequent aspirations, was on tube feeds, rec'd PEG tube on 07/25. Uptitrated to goal feeds by 07/27. Echocardiogram shows LVEF 55 to 60%, RVSP 45. Continued to require oxygen and unasyn for aspiration pneumonia. Started on pulmonary toilet, mucomyst, and albuterol PRN on 07/27. Stepped down to floor on 07/28. Dispo is pending clearance from JP raygoza. Plan is for patient to go home with home care, TFs, oxygen. Subjective: No new complaints today. No acute events overnight. Gen: In NAD, non-toxic HEENT: normocephalic, atraumatic, hearing acuity is intact, mucous membranes [address] CVS: perfusing all extremities well, no pitting edema, Respiratory: symmetric chest expansion, no accessory muscle use, GI: soft, NTTP, ND, : no suprapubic tenderness, no CVA tenderness MSK/Derm: no rashes, cyanosis Neuro: CN II-XII intact, no motor weakness, Psych: cooperative, euthymic mood, judgment and insight is intact Assessment and Plan: Active: Acute hypoxic respiratory failure Aspiration pneumonia Acute pulmonary edema Hypernatremia, resolved -Cartography Technician following, -Patient maintained on half-normal saline at 40 cc an hour -Continue IV Unasyn 1.5 g IV every 6 hours, now day #10 -s/p PEG tube on 07/25, feeding at 40cc/hr -continue pulmonary toilet, mucomyst, albuterol -Continue to wean oxygen Hypokalemia -replacement protocol -Repeat BMP and magnesium tomorrow Questionable status epilepticus, nausea likely History of pseudoseizures History of hydrocephalus status post shunt -Neurology following, Keppra 750 mg every 12 hours, also on depakote 250 mg BID -On IV Ativan as needed for seizures, monitor for sedation Asthma -DuoNebs every 4 hours, and as needed Bipolar disorder Anxiety disorder Depression with suicidal ideation -On BuSpar 10 3 times daily, Zoloft 75 daily -Thiamine 100 mg daily -Psychiatry consulted: Patient cannot leave AMA. Normocytic anemia, resolved Hypomagnesemia, resolved Metabolic acidosis, resolved DVT ppx: Subcu heparin Code status: Full code Anticipated discharge place: Pending clinical course Anticipated discharge time: Pending clinical course Objective - Vital Signs Vital signs: Vital Signs Temp 98.3 F 07/29/23 08:00 Pulse 108 H 07/29/23 09:16 Resp 20 07/29/23 08:00 BP 109/72 07/29/23 08:00 Pulse Ox 96 07/29/23 08:00 FiO2 60 07/26/23 09:49 Intake & Output 07/28/23 07/29/23 07/29/23 18:59 06:59 18:59 Intake Total 1200 1160 380 Balance 1200 1160 380 Weight 56.064 kg Intake: IV 220 615 200 Ampicillin-Sulbactam 1.5 100 50 gm In Sodium Chloride 0.9 % 50 ml @ 100 mls/hr IVPB Q6H [facility] Rx#:[id number] Dextrose 5%-0.45% NaCl 1, 525 200 000 ml @ 50 mls/hr IV . Q20H [facility] Rx#:[id number] KVO NS 120 40 Intake, IV Titration 550 50 Amount Dextrose 5%-0.45% NaCl 1, 550 50 000 ml @ 50 mls/hr IV . Q20H [facility] Rx#:[id number] Tube Feeding 220 360 150 Other 210 135 30 Other: Voiding Method Toilet Toilet Toilet # Voids 1 1 1 # Bowel Movements 1 1 - Labs CBC & Chem 7: 07/29/23 03:44 07/29/23 03:44 Labs: Abnormal Lab Results - Last 24 Hours (Table) 07/28/23 07/29/23 07/29/23 Range/Units 11:44 00:08 03:44 WBC 11.9 H (3.8-10.6) k/uL RBC 3.72 L (3.80-5.40) m/uL Sodium (137-145) mmol/L Potassium (3.5-5.1) mmol/L Carbon Dioxide (22-30) mmol/L Creatinine (0.52-1.04) mg/dL Glucose (74-99) mg/dL POC Glucose (mg/dL) 115 H 149 H (70-110) mg/dL 07/29/23 Range/Units 03:44 WBC (3.8-10.6) k/uL RBC (3.80-5.40) m/uL Sodium 136 L (137-145) mmol/L Potassium 3.3 L (3.5-5.1) mmol/L Carbon Dioxide 32 H (22-30) mmol/L Creatinine 0.32 L (0.52-1.04) mg/dL Glucose 148 H (74-99) mg/dL POC Glucose (mg/dL) (70-110) mg/dL
--- NOTE | 2023-07-29 12:14 | P.PN ---
Subjective Progress Note Date: 07/29/23 Principal diagnosis: Acute hypoxic respiratory failure secondary to aspiration pneumonia Patient is a 27-year-old white female with past medical history significant for asthma, seizure disorder, hydrocephalus status post [employer] shunt, bipolar disorder and major depression, migraines, and alcohol use disorder. Patient presented to the emergency room back on 07/16/2023 with suicidal ideation. She was sent in from [facility] to be admitted for inpatient psych evaluation. No actual suicidal attempts were reported. Patient [facility]. Late last night, a rapid response was called for seizures. Patient reportedly was found on the ground in the hallway. The sound physician that responded to the event, noted possible absence seizure's. These progressed to generalized tonic-clonic activity. She was given several doses of Ativan, a total of 7 mg, with no significant response. She was also loaded with Keppra and Dilantin per direction of the neurologist. Despite these pharmacological interventions, she continues to have seizure like activity. She is currently moved to the intensive care unit. She continues to have intermittent generalized tonic-clonic seizures every 2 to 5 minutes. Lasting approximately 30 seconds to 1 minute. No complete recovery in between. Moving all 4 extremities. Eyes are midline without nystagmus. No tongue biting. No urinary or fecal incontinence. Currently, appears postictal and will occasionally answer simple commands. On room air. SpO2 96%. No reported aspiration events. Remaining vi helga signs are also stable. Neurologist was consulted, who recommends intubation and sedation until seizures can be controlled. CRM ANALYST responded the bedside, performed rapid sequence intubation. Postintubation chest x-ray demonstrates endotracheal tube tip above the carroll and below the clavicle. Nasogastric tube courses below the diaphragm could be advanced at least 5 cm. Current ventilator settings include assist-control, respiratory rate 16, tidal volume 300, FiO2 100%, PEEP of 5. Postintubation ABG shows a PaO2 of 311, pCO2 of 45, pH of 7.3. FiO2 was appropriately weaned. She is sedated with propofol which is currently at 50 mcg/kg/min. She is currently asynchronous with mechanical ventilator and breath stacking. Peak airway pressures 28. CT of the brain was carried out which did not show any acute intracranial process. There was a ventriculostomy changes without evidence of hydrocephalus list. Urine toxicology screen positive for marijuana, but are otherwise unremarkable. No fevers. Recently started on BuSpar, and also on Zoloft. CBC unremarkable, no leukocytosis. Most recent BMP: Includes a sodium 140, potassium 3.4, chloride 111, serum bicarb 20, BUN 13, creatinine 0.46, glucose 82. Patient has no family or next of kin listed in the EMR. She is listed as homeless. We will attempt to reach out for possible contacts. On today's evaluation of 07/19/2023, patient is being seen for a follow-up. Remains dependent on mechanical ventilator. Remains on propofol which is running at 50 mcg/kg/min. No seizure activity has been noted. No tonic or clonic activity. The patient has some tremor especially when she is stimulated. Nurse at infusion has been discontinued. Pressors have been discontinued and the patient is currently off norepinephrine and she is on normal citrate of 75 cc an hour. While being on the mechanical ventilator, she is on assist-control mode with a rate of 60, tidal volume of 300, FiO2 of 40% with a PEEP of 5. Overall fluid balance is +835 cc over the past 24 hours. Blood gas was not obtained this morning as the patient is a difficult poke. Will monitor the end- tidal CO2. The patient remains on Keppra 1.5 g every 12 hours. IV fluids are in the form of normal saline at 75 cc an hour. She is afebrile. Blood work from today shows a white cell count of 8.6 with a hemoglobin 10.3 and a platelet count of 187. BUN is at 4 mg of 0.31 and a sodium level is at 144. EEG from yesterday showed no seizure activity. Neurology on the case. 07/20/2023, the patient is being seen for a follow-up. Remains intubated on the mechanical ventilator. Sedation holiday was given and the patient became quite restless, asynchronous with mechanical ventilator, tachypneic and tachycardic and was having excessive tremors. Based on that, the patient was placed back on sedation and this morning she remains on propofol at 40 mcg/kg/min and Versed 4 mg an hour. A repeat EEG was done while the patient on the Versed and the patient does not show any seizure activity. While on the mechanical ventilator, she is on assist-control mode with rate of 60, tidal volume 300, FiO2 of 40% with a PEEP of 5. End-tidal CO2 is 37. IV fluids currently running at 75 cc an hour and the patient is on vital high-protein at rate of 16 cc an hour. The patient had a follow-up chest x-ray today that showed smaller lung volumes and evidence of increased pulm vascular markings. ET tube is around 5 cm above the carroll. NG tube is in place. There is also a [employer] shunt in place. There is diffuse bilateral pulmonary haziness. Blood work shows a white cell count of 8.9, hemoglobin of 10.4, potassium is at 2.7, bicarb is at 22 with a sodium level of 140, BUN is at 2 with a creatinine of 0.4. Hemodynamically stable and she is currently on no pressors. 07/21/2023, the patient is extubated. The patient was kept on Precedex. Earlier this morning, the patient was found to be more lethargic and based on that, the Precedex was discontinued and the mental status improved. Nevertheless, the patient had some difficulty in breathing and excessive respiratory congestion and mucus production. Initially she was on 5 L and she was brought up to 11 L and later on placed on 100% nonrebreather facemask. Aggressive pulmonary toileting was done. Cough subsequently subsided and the patient is currently on 11 L of oxygen nasal cannula. Precedex is currently off. Fluid balance is -2.7 L over the past 24 hours. Chest x-ray shows small lung volumes and the patient has increased pulm vascular markings and congestion and possibly right lower lobe pulm infiltrates. She has a recent cough and based on excessive respiratory secretions, the patient was started on IV Unasyn. IV fluids were placed on KVO. No seizure activity has been noted and the patient remains on Keppra. She is communicating. Hemodynamically stable on no pressors. Will go 4 extremities without any limitation. 07/22/2023, the patient is sitting up on a chair and she is currently on Airvo with 50 L and FiO2 of 75%. She remains extubated. Cough is subsided. Not producing much of sputum today. Nevertheless, chest x-ray shows bibasilar pulm infiltrates worse in the right. The patient was given diuretics yesterday and the patient is a negative fluid balance of at least 1.8 L over the past 24 hours. Serum bicarbonate dropped down to 7. The patient was given IV bicarb a total of 100 mEq and following that she was started on a bicarb infusion which is currently running at 100 cc an hour. She remains on IV Unasyn. Swallow mechanism is poor and the patient seems to be aspirating. An official swallow study will be done and the patient will be kept n.p.o. for now. Echocardiogram was ordered. No seizure activity has been noted and the patient remains on IV Keppra. 07/23/2023, the patient remains on Airvo patient is currently on 50 L and FiO2 of 70%. Unable to swallow and she remains at a high risk of aspiration. Based on that, the patient was given NG tube for enteral feeding and nutritional support. Meanwhile, chest x-ray still showing bilateral pulmonary consolidation consistent with bilateral pneumonia. No significant interval change on today's chest x-ray. The patient has a [employer] shunt in place. Airspace disease seen bilaterally. Cough is improved. No significant sputum production. No seizure activity. White cell count of 12 with a hemoglobin 11.2 and a platelet count of 275, BUN is 9 with a creatinine of 0.3 and sodium level of 148 and a potassium level of 3.1. Remains on IV Unasyn. Hemodynamically stable. No pressors. IV fluids are currently at KVO. Awake and alert and communicating. Patient was reevaluated today on 07/24/2023, remains in the ICU, remains on Airvo at 50 L with 75% FiO2. Remains on antibiotics in the form of Unasyn for aspiration pneumonia patient is receiving for nutrition vital HP at 30 cc/h. Today continues show bilateral airspace disease, infiltrate/pneumonia. Patient tells me that she is feeling better, breathing easier WBC count today is 12.8 hemoglobin 11.8. Sodium is up to 147 potassium 3.4 renal profile is normal bicarb is 35. Sputum blood cultures are nondiagnostic WBC count is 12.8 hemoglobin 11.8 sodium is 147 potassium 3.4 renal profile is normal bicarb is 35. Her chest x-ray is showing stable bilateral diffuse airspace disease Patient was reevaluated today on 07/25/23, remains in the ICU, remains on Airvo at 75% and 50 L flow. Chest x-ray continues to show evidence of bilateral airspace disease, questionable left-sided pleural effusion, and possibly some component of fluid overload, hence the patient will given a trial of diuresis Lasix 20 mg IV push x 1. Continues to have issues with her swallowing, patient is now refusing nasogastric tube placement as it became clogged and had to be removed, patient is extremely reluctant to have another nasogastric tube placed, has if this issue does not resolve the patient may have to have a PEG tube placement. In the meantime continues to be relatively hypoxic, remains on high FiO2, continues to have cough, she has a weak cough unable to clear her secretions. Chest x-ray is not showing much improvement. WBC is 11.5 hemoglobin 10.9 basic metabolic profile is normal potassium is low at 3.0 Reevaluate today 07/26/23, patient remains in the ICU, remains on oral high FiO2, 60% FiO2 50 L flow, patient remains marginal at best. But does not seem to be in any distress, she seems comfortable. Still requiring high FiO2. Patient is showing slight improvement in her chest x-ray, patient did receive Lasix yesterday, and she diuresed significantly. Will maintain the patient on Lasix 20 mg IV push daily for now. Keep IV fluid at 50 cc/h. Patient is supposed to have PEG tube placement today, and this is planned for sometime later this afternoon. Remains on antibiotics for presumptive aspiration pneumonia, remains on seizure medications and she has been seizures free. CBC is relatively normal WBC count is 12.5 hemoglobin 11.4 basic metabolic profile is normal. Renal profile is normal Patient was evaluated today on 07/27/2023, feeling much better today compared to the last few days since admission, remains in the ICU, patient underwent PEG tube placement yesterday, and it will be used for enteral feeding today. X-ray is showing significant improvement in her bilateral infiltrates/edema, patient is now on 2 L nasal cannula remains on Unasyn, remains on Lasix 20 mg IV push daily, remains on D5 4 5 at 50 cc/h WBC count is 13.1 hemoglobin 11.2 electrolytes are normal BUN is 10 creatinine 0.35. Bicarb is 29. Sputum cultures have been nondiagnostic/negative since admission. Again her chest x-ra y was reviewed and her bilateral lower lobe infiltrates are improving Reevaluate today on 07/28/2023 el in the ICU, doing fairly well, her chest x- ray continues show bilateral airspace disease with consolidations bilaterally consistent with pneumonia/aspiration pneumonia. Patient is now requiring 6 L nasal cannula and her O2 sats is 96%. Continues to have some issues with clearing her phlegm, patient is receiving enteral feeding via PEG tube today. Overall the patient is improved, but not quite ready to be transferred out of the ICU, hence I am keeping her in the ICU since the patient remains marginal at bestWBC count today is 11.5 hemoglobin is 12.1 basic metabolic profile is normal except for low potassium of 3.3 renal profile is normal sputum cultures have been nondiagnostic Patient was treated today on 07/29/2023, patient is feeling better today, able to clear her secretions better, breathing easier, she is now on 4 L nasal cannula and her O2 sats is 96%. Significant improvement noted in the last couple of days, and again her chest x-ray is showing improvement WBC count today is 11.9 hemoglobin 11.7 electrolytes are normal renal profile remains normal. Remains on antibiotics in the form of Unasyn. Remains on bronchodilators, and yesterday we added Mucomyst. Objective - Vital Signs Vital signs: Vital Signs Temp 98.3 F 07/29/23 08:00 Pulse 108 H 07/29/23 09:16 Resp 20 07/29/23 08:00 BP 109/72 07/29/23 08:00 Pulse Ox 96 07/29/23 08:00 FiO2 60 07/26/23 09:49 Intake & Output 07/28/23 07/29/23 07/29/23 18:59 06:59 18:59 Intake Total 1200 1160 590 Balance 1200 1160 590 Weight 56.064 kg Intake: IV 220 615 300 Ampicillin-Sulbactam 1.5 100 50 gm In Sodium Chloride 0.9 % 50 ml @ 100 mls/hr IVPB Q6H LA [facility] Rx#:[id number] Dextrose 5%-0.45% NaCl 1, 525 300 000 ml @ 50 mls/hr IV . Q20H LA [facility]NA Rx#:[id number] KVO NS 120 40 Intake, IV Titration 550 50 Amount Dextrose 5%-0.45% NaCl 1, 550 50 000 ml @ 50 mls/hr IV . Q20H LA [facility]NA Rx#:[id number] Tube Feeding 220 360 230 Other 210 135 60 Other: Voiding Method Toilet Toilet Toilet # Voids 1 1 1 # Bowel Movements 1 1 - Exam GENERAL EXAM: 27-year-old white female dwarf on 4 L nasal cannula, not in distress EYES: PERRLA, EOMI, nonicteric. NOSE: Clear with pink turbinates. THROAT: No erythema or exudates. NECK: No masses, no JVD. CHEST: No chest wall deformity. LUNGS: Diminished breath sounds at the bases with minimal crackles bilaterally. No rhonchi no wheezes CVS: S1 and S2 normal with no audible murmur, regular rhythm. No extra heart sounds ABDOMEN: No hepatosplenomegaly, active bowel sounds, no guarding or rigidity. PEG tube is intact. SKIN: No rashes CENTRAL NERVOUS SYSTEM: Alert oriented x 3, no gross focal deficit Musculoskeletal, patient is noted to have dwarfism, no limitation in ranges of motion - Labs CBC & Chem 7: 07/29/23 03:44 07/29/23 03:44 Labs: Abnormal Lab Results - Last 24 Hours (Table) 07/29/23 07/29/23 07/29/23 Range/Units 00:08 03:44 03:44 WBC 11.9 H (3.8-10.6) k/uL RBC 3.72 L (3.80-5.40) m/uL Sodium 136 L (137-145) mmol/L Potassium 3.3 L (3.5-5.1) mmol/L Carbon Dioxide 32 H (22-30) mmol/L Creatinine 0.32 L (0.52-1.04) mg/dL Glucose 148 H (74-99) mg/dL POC Glucose (mg/dL) 149 H (70-110) mg/dL 07/29/23 Range/Units 11:28 WBC (3.8-10.6) k/uL RBC (3.80-5.40) m/uL Sodium (137-145) mmol/L Potassium (3.5-5.1) mmol/L Carbon Dioxide (22-30) mmol/L Creatinine (0.52-1.04) mg/dL Glucose (74-99) mg/dL POC Glucose (mg/dL) 127 H (70-110) mg/dL Assessment and Plan Assessment: impression: Acute hypoxic respiratory failure secondary to aspiration pneumonia secondary to status epilepticus Status epilepticus, on Keppra History of seizure disorder History of hydrocephalus, status post [employer] shunt History of alcohol use disorder Suicidal ideation History of bipolar disorder and major depression History of migraines History of asthma, not currently active Marijuana use Dwarfism and short stature Dysphagia requiring PEG tube placement for enteral feeding/nutritional support Recommendations: Continue Unasyn for aspiration pneumonia Continue Lasix. Continue Mucomyst with albuterol Continue oxygen and titrate accordingly Continue aggressive pulmonary toilet, continue chest PT. Continue incentive spirometry Continue GI and DVT prophylaxis Continue nutritional support/enteral feeding via PEG tube Titrate FiO2 accordingly Continue Oskar Will recommend transferring the patient out of the ICU to a medical surgical floor today. Patient will eventually need rehab. Placement Will continue to follow Time with Patient: Less than 30
--- NOTE | 2023-07-29 12:45 | P.PN ---
Subjective Progress Note Date: 07/29/23 the patient's PEG tube site is clean and dry. She is tolerating tube feeds. Objective - Vital Signs Vital signs: Vital Signs Temp 98.3 F 07/29/23 08:00 Pulse 103 H 07/29/23 12:18 Resp 20 07/29/23 08:00 BP 109/72 07/29/23 08:00 Pulse Ox 96 07/29/23 08:00 FiO2 60 07/26/23 09:49 Intake & Output 07/28/23 07/29/23 07/29/23 18:59 06:59 18:59 Intake Total 1200 1160 590 Balance 1200 1160 590 Weight 56.064 kg Intake: IV 220 615 300 Ampicillin-Sulbactam 1.5 100 50 gm In Sodium Chloride 0.9 % 50 ml @ 100 mls/hr IVPB Q6H [facility] Rx#:[id number] Dextrose 5%-0.45% NaCl 1, 525 300 000 ml @ 50 mls/hr IV . Q20H LA [facility] Rx#:[id number] KVO NS 120 40 Intake, IV Titration 550 50 Amount Dextrose 5%-0.45% NaCl 1, 550 50 000 ml @ 50 mls/hr IV . Q20H LA [facility]NA Rx#:[id number] Tube Feeding 220 360 230 Other 210 135 60 Other: Voiding Method Toilet Toilet Toilet # Voids 1 1 1 # Bowel Movements 1 1 - Labs CBC & Chem 7: 07/29/23 03:44 07/29/23 12:10 Labs: Abnormal Lab Results - Last 24 Hours (Table) 07/29/23 07/29/23 07/29/23 Range/Units 00:08 03:44 03:44 WBC 11.9 H (3.8-10.6) k/uL RBC 3.72 L (3.80-5.40) m/uL Sodium 136 L (137-145) mmol/L Potassium 3.3 L (3.5-5.1) mmol/L Carbon Dioxide 32 H (22-30) mmol/L Creatinine 0.32 L (0.52-1.04) mg/dL Glucose 148 H (74-99) mg/dL POC Glucose (mg/dL) 149 H (70-110) mg/dL 07/29/23 Range/Units 11:28 WBC (3.8-10.6) k/uL RBC (3.80-5.40) m/uL Sodium (137-145) mmol/L Potassium (3.5-5.1) mmol/L Carbon Dioxide (22-30) mmol/L Creatinine (0.52-1.04) mg/dL Glucose (74-99) mg/dL POC Glucose (mg/dL) 127 H (70-110) mg/dL
[2023-07-29 18:05] LABS: Glucose,Whole Blood 106 mg/dL (70-110)
[2023-07-29 23:20] LABS: Glucose,Whole Blood 127 mg/dL (70-110)
[2023-07-30 02:00] LABS: Glucose,Whole Blood 110 mg/dL (70-110)
[2023-07-30 05:27] VITALS: RESP 24
[2023-07-30 06:12] LABS: Glucose,Whole Blood 115 mg/dL (70-110)
--- NOTE | 2023-07-30 10:23 | XR ---
EXAMINATION TYPE: XR chest 1V portable DATE OF EXAM: 07/30/2023 9:59 AM CLINICAL INDICATION:Female, 27 years old with history of sob; [facility] COMPARISON: Chest radiographs from 07/29/2023 TECHNIQUE: XR chest 1V portable Frontal view of the chest. FINDINGS: Lungs/Pleura: Diffuse haziness throughout the lungs. There is no evidence of pleural effusion, focal consolidation, or pneumothorax. Pulmonary vascularity: Unremarkable. Heart/mediastinum: Cardiomediastinal silhouette is unremarkable. Musculoskeletal: No acute osseous pathology. PEG tube in place. Ventriculoperitoneal shunt tubing in place. IMPRESSION: Diffuse hazy opacities throughout the lungs correlate for pneumonia versus pulmonary vascular congest ion.
--- NOTE | 2023-07-30 11:40 | P.DS ---
Providers Date of admission: 07/17/23 21:45 Expected date of discharge: 07/30/23 Attending physician: Romero Schmidt MD Consults: 07/17/23 22:09 Consult Physician Routine Consulting Provider: Rolando Leach Consult Reason/Comments: ICU admission Do you want consulting provider notified?: Already Contacted Placement Type Exists?: Yes 07/17/23 22:13 Consult Physician Routine Consulting Provider: Rebeca Alvarez Consult Reason/Comments: Seizures Do you want consulting provider notified?: Yes Placement Type Exists?: Yes 07/19/23 11:39 Consult Physician Routine Consulting Provider: Chandu Tobar Consult Reason/Comments: depression and suicidal Do you want consulting provider notified?: Yes 07/25/23 10:23 Consult Physician Routine Consulting Provider: Carlitos Jimenez Consult Reason/Comments: PEG tube placement Do you want consulting provider notified?: Yes Primary care physician: Ludmila Christiansen MD Hospital Course: Acute hypoxic respiratory failure Aspiration pneumonia Acute pulmonary edema Hypernatremia, resolved Hypokalemia Questionable status epilepticus, nausea likely History of pseudoseizures History of hydrocephalus status post shunt Asthma Bipolar disorder Anxiety disorder Depression with suicidal ideation Normocytic anemia, resolved Hypomagnesemia, resolved Metabolic acidosis, resolved Hospital Course: 27-year-old female with history of seizure disorder off of antiepileptics, hydrocephalus status post shunt, bipolar disorder presented from mental health unit for status epilepticus. Patient was admitted to mental health unit for depression and suicidal ideation on 07/16/2023. Patient was noted to have multiple episodes of absence seizure, rapid response was called. She was given multiple doses of IV Ativan, and continued to have seizure-like activity, and also has some generalized tonic-clonic activity. She was taken to the ICU, loaded with Keppra and Dilantin, and was intubated for airway protection. Currently patient is in the medical ICU intubated and sedated. Undergoing further workup. Head CT was completed, did not show any acute process, ventriculostomy changes without evidence of hydrocephalus. Patient does have a prior history of pseudoseizures. Was extensively worked up outpatient, negative for any seizure disorder. Currently weaning off of sedation. Repeat EEG did not show any seizure-like activity. Patient was extubated. Likely had aspiration pneumonia as well as acute pulmonary edema. Received occasional IV Lasix, and also on IV Unasyn. Continued to have frequent aspirations, was on t ube feeds, rec'd PEG tube on 07/25. Uptitrated to goal feeds by 07/27. Echocardiogram shows LVEF 55 to 60%, RVSP 45. Continued to require oxygen and unasyn for aspiration pneumonia. Started on pulmonary toilet, mucomyst, and albuterol PRN on 07/27. Stepped down to floor on 07/28. Patient was subsequently cleared for discharge by pulmonology infectious disease. Patient was still requiring oxygen on discharge and was set up for home oxygen, tube feeds were up to goal. Patient was prescribed an additional 4 days of Augmentin to complete a 14-day course of antibiotics. Patient will follow-up with primary care physician, pulmonology. I spent 40 minutes coordinating this discharge Gen: In NAD, non-toxic HEENT: normocephalic, atraumatic, hearing acuity is intact, mucous membranes moist CVS: perfusing all extremities well, no pitting edema, Respiratory: symmetric chest expansion, no accessory muscle use, GI: soft, NTTP, ND, : no suprapubic tenderness, no CVA tenderness MSK/Derm: no rashes, cyanosis Neuro: CN II-XII intact, no motor weakness, Psych: cooperative, euthymic mood, judgment and insight is intact Patient Condition at Discharge: Good Plan - Discharge Summary New Discharge Prescriptions: New Furosemide [Lasix] 20 mg PO DAILY #30 tab busPIRone HCl [Buspar] 10 mg PO TID #90 tab Divalproex Sprinkle [Depakote Sprinkle] 250 mg PO BID #120 cap traZODone HCL [Desyrel] 50 mg PO HS PRN #30 tab PRN Reason: Insomnia levETIRAcetam ORAL SOLN [Keppra Oral Soln] 750 mg PEG/G-TUBE BID #225 ml Acetaminophen Tab [Tylenol] 650 mg PO Q4HR PRN tab PRN Reason: Fever And/Or Mild Pain Amoxic-Pot Clav 875-125Mg [Augmentin 875-125] 1 tab PO BID 4 Days #8 tab Continue Ondansetron [Zofran] 4 mg PO DAILY Omeprazole 20 mg PO DAILY Fluticasone/Vilanterol [Fluticasone-Vilanterol 100-25] 1 puff INHALATION RT- DAILY Albuterol Sulfate [Proair Hfa] 2 puff INHALATION RT-Q6H PRN PRN Reason: Shortness Of Breath Cholecalciferol (Vitamin D3) [Vitamin D3 (50 Mcg = 2000 Iu)] 50 mcg PO DAILY Acamprosate Calcium [Campral] 666 mg PO TID tiZANidine [Zanaflex] 2 mg PO HS PRN PRN Reason: Muscle Pain Sertraline [Zoloft] 75 mg PO DAILY Discontinued Rimegepant Sulfate [Nurtec Odt] 75 mg PO DAILY PRN PRN Reason: Migraine Headache Meloxicam [Mobic] 15 mg PO DAILY lamoTRIgine [lamoTRIgine ODT ([place]) Dose Pack] See Taper PO DIRECTED Discharge Medication List Albuterol Sulfate [Proair Hfa] 2 puff INHALATION RT-Q6H PRN 08/24/20 [History] Acamprosate Calcium [Campral] 666 mg PO TID 07/16/23 [History] Cholecalciferol (Vitamin D3) [Vitamin D3 (50 Mcg = 2000 Iu)] 50 mcg PO DAILY 07/16/23 [History] Fluticasone/Vilanterol [Fluticasone-Vilanterol 100-25] 1 puff INHALATION RT- DAILY 07/16/23 [History] Omeprazole 20 mg PO DAILY 07/16/23 [History] Ondansetron [Zofran] 4 mg PO DAILY 07/16/23 [History] Sertraline [Zoloft] 75 mg PO DAILY 07/16/23 [History] tiZANidine [Zanaflex] 2 mg PO HS PRN 07/16/23 [History] Acetaminophen Tab [Tylenol] 650 mg PO Q4HR PRN tab 07/30/23 [Rx] Amoxic-Pot Clav 875-125Mg [Augmentin 875-125] 1 tab PO BID 4 Days #8 tab 07/30/23 [Rx] Divalproex Sprinkle [Depakote Sprinkle] 250 mg PO BID #120 cap 07/30/23 [Rx] Furosemide [Lasix] 20 mg PO DAILY #30 tab 07/30/23 [Rx] busPIRone HCl [Buspar] 10 mg PO TID #90 tab 07/30/23 [Rx] levETIRAcetam ORAL SOLN [Keppra Oral Soln] 750 mg PEG/G-TUBE BID #225 ml 07/30/23 [Rx] traZODone HCL [Desyrel] 50 mg PO HS PRN #30 tab 07/30/23 [Rx] Discharge Disposition: HOME WITH HOME HEALTH SERVICES
[2023-07-30 11:53] LABS: Glucose,Whole Blood 122 mg/dL (70-110)
--- NOTE | 2023-07-30 12:07 | P.PN ---
Subjective Progress Note Date: 07/30/23 Patient is a 27-year-old white female with past medical history significant for asthma, seizure disorder, hydrocephalus status post JEWEL INSPECTOR shunt, bipolar disorder and major depression, migraines, and alcohol use disorder. Patient presented to the emergency room back on 07/16/2023 with suicidal ideation. She was sent in from [facility] to be admitted for inpatient psych evaluation. No actual suicidal attempts were reported. Patient was admitted to the [facility] mental health unit. Late last night, a rapid response was called for seizures. Patient reportedly was found on the ground in the hallway. The sound physician that responded to the event, noted possible absence seizure's. These progressed to generalized tonic-clonic activity. She was given several doses of Ativan, a total of 7 mg, with no significant response. She was also loaded with Keppra and Dilantin per direction of the neurologist. Despite these pharmacological interventions, she continues to have seizure like activity. She is currently moved to the intensive care unit. She continues to have intermittent generalize d tonic-clonic seizures every 2 to 5 minutes. Lasting approximately 30 seconds to 1 minute. No complete recovery in between. Moving all 4 extremities. Eyes are midline without nystagmus. No tongue biting. No urinary or fecal incontinence. Currently, appears postictal and will occasionally answer simple commands. On room air. SpO2 96%. No reported aspiration events. Remaining vital signs are also stable. Neurologist was consulted, who recommends intubation and sedation until seizures can be controlled. SHANK STAPLER responded the bedside, performed rapid sequence intubation. Postintubation chest x-ray demonstrates endotracheal tube tip above the carroll and below the clavicle. Nasogastric tube courses below the diaphragm could be advanced at least 5 cm. Current ventilator settings include assist-control, respiratory rate 16, tidal volume 300, FiO2 100%, PEEP of 5. Postintubation ABG shows a PaO2 of 311, pCO2 of 45, pH of 7.3. FiO2 was appropriately weaned. She is sedated with propofol which is currently at 50 mcg/kg/min. She is currently asynchronous with mechanical ventilator and breath stacking. Peak airway pressures 28. CT of the brain was carried out which did not show any acute intracranial process. There was a ventriculostomy changes without evidence of hydrocephalus list. Urine toxicology screen positive for marijuana, but are otherwise unremarkable. No fevers. Recently started on BuSpar, and also on Zoloft. CBC unremarkable, no leukocytosis. Most recent BMP: Includes a sodium 140, potassium 3.4, chloride 111, serum bicarb 20, BUN 13, creatinine 0.46, glucose 82. Patient has no family or next of kin listed in the EMR. She is listed as homeless. We will attempt to reach out for possible contacts. On today's evaluation of 07/19/2023, patient is being seen for a follow-up. Remains dependent on mechanical ventilator. Remains on propofol which is running at 50 mcg/kg/min. No seizure activity has been noted. No tonic or clonic activity. The patient has some tremor especially when she is stimulated. Nurse at infusion has been discontinued. Pressors have been discontinued and the patient is currently off norepinephrine and she is on normal citrate of 75 cc an hour. While being on the mechanical ventilator, she is on assist-control mode with a rate of 60, tidal volume of 300, FiO2 of 40% with a PEEP of 5. Overall fluid balance is +835 cc over the past 24 hours. Blood gas was not obtained this morning as the patient is a difficult poke. Will monitor the end- tidal CO2. The patient remains on Keppra 1.5 g every 12 hours. IV fluids are in the form of normal saline at 75 cc an hour. She is afebrile. Blood work from today shows a white cell count of 8.6 with a hemoglobin 10.3 and a platelet count of 187. BUN is at 4 mg of 0.31 and a sodium level is at 144. EEG from yesterday showed no seizure activity. Neurology on the case. 07/20/2023, the patient is being seen for a follow-up. Remains intubated on the mechanical ventilator. Sedation holiday was given and the patient became quite restless, asynchronous with mechanical ventilator, tachypneic and tachycardic and was having excessive tremors. Based on that, the patient was placed back on sedation and this morning she remains on propofol at 40 mcg/kg/min and Versed 4 mg an hour. A repeat EEG was done while the patient on the Versed and the patient does not show any seizure activity. While on the mechanical ventilator, she is on assist-control mode with rate of 60, tidal volume 300, FiO2 of 40% with a PEEP of 5. End-tidal CO2 is 37. IV fluids currently running at 75 cc an hour and the patient is on vital high-protein at rate of 16 cc an hour. The patient had a follow-up chest x-ray today that showed smaller lung volumes and evidence of increased pulm vascular markings. ET tube is around 5 cm above the carroll. NG tube is in place. There is also a JEWEL INSPECTOR shunt in place. There is diffuse bilateral pulmonary haziness. Blood work shows a white cell count of 8 .9, hemoglobin of 10.4, potassium is at 2.7, bicarb is at 22 with a sodium level of 140, BUN is at 2 with a creatinine of 0.4. Hemodynamically stable and she is currently on no pressors. 07/21/2023, the patient is extubated. The patient was kept on Precedex. Earlier this morning, the patient was found to be more lethargic and based on that, the Precedex was discontinued and the mental status improved. Nevertheless, the patient had some difficulty in breathing and excessive respiratory congestion and mucus production. Initially she was on 5 L and she was brought up to 11 L and later on placed on 100% nonrebreather facemask. Aggressive pulmonary toileting was done. Cough subsequently subsided and the patient is currently on 11 L of oxygen nasal cannula. Precedex is currently off. Fluid balance is -2.7 L over the past 24 hours. Chest x-ray shows small lung volumes and the patient has increased pulm vascular markings and congestion and possibly right lower lobe pulm infiltrates. She has a recent cough and based on excessive respiratory secretions, the patient was started on IV Unasyn. IV fluids were placed on KVO. No seizure activity has been noted and the patient remains on Keppra. She is communicating. Hemodynamically stable on no pressors. Will go 4 extremities without any limitation. 07/22/2023, the patient is sitting up on a chair and she is currently on Airvo with 50 L and FiO2 of 75%. She remains extubated. Cough is subsided. Not producing much of sputum today. Nevertheless, chest x-ray shows bibasilar pulm infiltrates worse in the right. The patient was given diuretics yesterday and the patient is a negative fluid balance of at least 1.8 L over the past 24 hours. Serum bicarbonate dropped down to 7. The patient was given IV bicarb a total of 100 mEq and following that she was started on a bicarb infusion which is currently running at 100 cc an hour. She remains on IV Unasyn. Swallow mechanism is poor and the patient seems to be aspirating. An official swallow study will be done and the patient will be kept n.p.o. for now. Echocardiogram was ordered. No seizure activity has been noted and the patient remains on IV Keppra. 07/23/2023, the patient remains on Airvo patient is currently on 50 L and FiO2 of 70%. Unable to swallow and she remains at a high risk of aspiration. Based on that, the patient was given NG tube for enteral feeding and nutritional support. Meanwhile, chest x-ray still showing bilateral pulmonary consolidation consistent with bilateral pneumonia. No significant interval change on today's chest x-ray. The patient has a JEWEL INSPECTOR shunt in place. Airspace disease seen bilaterally. Cough is improved. No significant sputum production. No seizure activity. White cell count of 12 with a hemoglobin 11.2 and a platelet count of 275, BUN is 9 with a creatinine of 0.3 and sodium level of 148 and a potassium level of 3.1. Remains on IV Unasyn. Hemodynamically stable. No pressors. IV fluids are currently at KVO. Awake and alert and communicating. Patient was reevaluated today on 07/24/2023, remains in the ICU, remains on Airvo at 50 L with 75% FiO2. Remains on antibiotics in the form of Unasyn for aspiration pneumonia patient is receiving for nutrition vital HP at 30 cc/h. Today continues show bilateral airspace disease, infiltrate/pneumonia. Patient tells me that she is feeling better, breathing easier WBC count today is 12.8 hemoglobin 11.8. Sodium is up to 147 potassium 3.4 renal profile is normal bicarb is 35. Sputum blood cultures are nondiagnostic WBC count is 12.8 hemoglobin 11.8 sodium is 147 potassium 3.4 renal profile is normal bicarb is 35. Her chest x-ray is showing stable bilateral diffuse airspace disease Patient was reevaluated today on 07/25/23, remains in the ICU, remains on Airvo at 75% and 50 L flow. Chest x-ray continues to show evidence of bilateral airspace disease, questionable left-sided pleural effusion, and possibly some component of fluid overload, hence the patient will given a trial of diuresis Lasix 20 mg IV push x 1. Continues to have issues with her swallowing, patient is now refusing nasogastric tube placement as it became clogged and had to be removed, patient is extremely reluctant to have another nasogastric tube placed, has if this issue does not resolve the patient may have to have a PEG tube placement. In the meantime continues to be relatively hypoxic, remains on high FiO2, continues to have cough, she has a weak cough unable to clear her secretions. Chest x-ray is not showing much improvement. WBC is 11.5 hemoglobin 10.9 basic metabolic profile is normal potassium is low at 3.0 Reevaluate today 07/26/23, patient remains in the ICU, remains on oral high FiO2, 60% FiO2 50 L flow, patient remains marginal at best. But does not seem to be in any distress, she seems comfortable. Still requiring high FiO2. Patient is showing slight improvement in her chest x-ray, patient did receive Lasix yesterday, and she diuresed significantly. Will maintain the patient on Lasix 20 mg IV push daily for now. Keep IV fluid at 50 cc/h. Patient is supposed to have PEG tube placement today, and this is planned for sometime later this afternoon. Remains on antibiotics for presumptive aspiration pneumonia, remains on seizure medications and she has been seizures free. CBC is relatively normal WBC count is 12.5 hemoglobin 11.4 basic metabolic profile is normal. Renal profile is normal Patient was evaluated today on 07/27/2023, feeling much better today compared to the last few days since admission, remains in the ICU, patient underwent PEG tube placement yesterday, and it will be used for enteral feeding today. X-ray is showing significant improvement in her bilateral infiltrates/edema, patient is now on 2 L nasal cannula remains on Unasyn, remains on Lasix 20 mg IV push daily, remains on D5 4 5 at 50 cc/h WBC count is 13.1 hemoglobin 11.2 electrolytes are normal BUN is 10 creatinine 0.35. Bicarb is 29. Sputum cultures have been nondiagnostic/negative since admission. Again her chest x- ray was reviewed and her bilateral lower lobe infiltrates are improving Reevaluate today on 07/28/2023 el in the ICU, doing fairly well, her chest x- ray continues show bilateral airspace disease with consolidations bilaterally consistent with pneumonia/aspiration pneumonia. Patient is now requiring 6 L nasal cannula and her O2 sats is 96%. Continues to have some issues with clearing her phlegm, patient is receiving enteral feeding via PEG tube today. Overall the patient is improved, but not quite ready to be transferred out of the ICU, hence I am keeping her in the ICU since the patient remains marginal at bestWBC count today is 11.5 hemoglobin is 12.1 basic metabolic profile is normal except for low potassium of 3.3 renal profile is normal sputum cultures have been nondiagnostic Patient was treated today on 07/29/2023, patient is feeling better today, able to clear her secretions better, breathing easier, she is now on 4 L nasal cannula and her O2 sats is 96%. Significant improvement noted in the last couple of days, and again her chest x-ray is showing improvement WBC count today is 11.9 hemoglobin 11.7 electrolytes are normal renal profile remains normal. Remains on antibiotics in the form of Unasyn. Remains on bronchodilators, and yesterday we added Mucomyst. The patient is seen today July 30, 2023 in follow-up in the intensive care unit. She is currently sitting up in bed. Awake and alert in no acute distress. She is doing quite a bit better. She is maintaining good O2 saturations in the 90s on room air. She is being nourished with vital AF via her PEG tube. Chest x-ray shows diffuse hazy opacities. Sputum culture revealed no growth. Glucose 122. She has been afebrile. Hemodynamically stable. She remains on antibiotics in the form of Unasyn. She remains on IV diuretics. She remains on bronchodilators. Heparin for DVT prophylaxis. Objective - Vital Signs Vital signs: Vital Signs Temp 98.4 F 07/30/23 08:00 Pulse 109 H 07/30/23 11:25 Resp 24 07/30/23 08:00 BP 107/74 07/30/23 08:00 Pulse Ox 85 L 07/30/23 11:25 FiO2 60 07/26/23 09:49 Intake & Output 07/29/23 07/30/23 07/30/23 18:59 06:59 18:59 Intake Total 1190 690 Output Total 0 0 Balance 1190 690 Weight 57.3 kg Intake: IV 600 650 Ampicillin-Sulbactam 1.5 50 gm In Sodium Chloride 0.9 % 50 ml @ 100 mls/hr IVPB Q6H [facility] Rx#:[id number] Dextrose 5%-0.45% NaCl 1, 550 650 000 ml @ 50 mls/hr IV . Q20H [facility] Rx#:[id number] Tube Feeding 470 40 Other 120 Output: Urine 0 0 Other: Voiding Method Toilet Toilet # Voids 1 2 - Exam GENERAL EXAM: Reveals a pleasant 27-year-old female dwarf on room air, not in distress EYES: PERRLA, EOMI, nonicteric. NOSE: Clear with pink turbinates. THROAT: No erythema or exudates. NECK: No masses, no JVD. CHEST: No chest wall deformity. LUNGS: Diminished breath sounds at the bases with minimal crackles bilaterally. No rhonchi no wheezes CVS: S1 and S2 normal with no audible murmur, regular rhythm. No extra heart sounds ABDOMEN: No hepatosplenomegaly, active bowel sounds, no guarding or rigidity. PEG tube is intact. SKIN: No rashes CENTRAL NERVOUS SYSTEM: Alert oriented x 3, no gross focal deficit Musculoskeletal, patient is noted to have dwarfism, no limitation in ranges of motion - Labs CBC & Chem 7: 07/29/23 03:44 07/29/23 12:10 Labs: Abnormal Lab Results - Last 24 Hours (Table) 07/29/23 07/30/23 07/30/23 Range/Units 23:18 06:11 11:51 POC Glucose (mg/dL) 127 H 115 H 122 H (70-110) mg/dL Assessment and Plan Assessment: Acute hypoxic respiratory failure secondary to aspiration pneumonia secondary to status epilepticus Status epilepticus, on Keppra History of seizure disorder History of hydrocephalus, status post JEWEL INSPECTOR shunt History of alcohol use disorder Suicidal ideation History of bipolar disorder and major depression History of migraines History of asthma, not currently active Marijuana use Dwarfism and short stature Dysphagia requiring PEG tube placement for enteral feeding/nutritional support Plan: The patient was seen and evaluated Chest x-ray, labs and medications reviewed The patient is anxious to go live with her father She could be evaluated for home oxygen Complete a course of antibiotics Continue with PEG tube feedings Continue with Keppra Continue oral diuretics Follow-up in our office in 1 week I have personally seen and examined the patient, performed the documentation and the assessment and plan as written. Number of minutes spent on the visit: 10.
[2023-07-30 13:21] VITALS: BP 107/74; PULSE 109; TEMP 98.4
[2023-07-30 13:32] VITALS: BMI 38.5
== END 2023-07-30 15:40 | disposition home health service (06) | DRG 137 ==
LOC: 2SICU 21:45 → UNDOADMIN 21:46 → 2SICU 21:46
PROVIDERS: ADMIT Internal Medicine; ATTEND Internal Medicine
PROC: 5A1945Z Respiratory Ventilation, 24-96 Consecutive Hours (ICD-10-PCS; principal; 2023-07-17)
PROC: 0BH17EZ Insertion of Endotracheal Airway into Trachea, Via Natural or Artificial Opening (ICD-10-PCS; principal; 2023-07-17)
PROC: 3E0G76Z Introduction of Nutritional Substance into Upper GI, Via Natural or Artificial Opening (ICD-10-PCS; 2023-07-18)
PROC: 0DH67UZ Insertion of Feeding Device into Stomach, Via Natural or Artificial Opening (ICD-10-PCS; 2023-07-18)
PROC: 02HV33Z Insertion of Infusion Device into Superior Vena Cava, Percutaneous Approach (ICD-10-PCS; 2023-07-18)
PROC: 0CHY7BZ Insertion of Airway into Mouth and Throat, Via Natural or Artificial Opening (ICD-10-PCS; 2023-07-18)
PROC: 3E0G76Z Introduction of Nutritional Substance into Upper GI, Via Natural or Artificial Opening (ICD-10-PCS; 2023-07-26)
PROC: 0DH63UZ Insertion of Feeding Device into Stomach, Percutaneous Approach (ICD-10-PCS; 2023-07-26)
PROC: 05HD33Z Insertion of Infusion Device into Right Cephalic Vein, Percutaneous Approach (ICD-10-PCS; 2023-07-27)
DX: J69.0 Pneumonitis due to inhalation of food and vomit (principal); G40.401 Other generalized epilepsy and epileptic syndromes, not intractable, with status epilepticus; E34.328 Other genetic causes of short stature; E87.0 Hyperosmolality and hypernatremia; J96.01 Acute respiratory failure with hypoxia; E87.20 Acidosis, unspecified; F10.10 Alcohol abuse, uncomplicated; F12.10 Cannabis abuse, uncomplicated; G91.9 Hydrocephalus, unspecified; F05 Delirium due to known physiological condition; G93.40 Encephalopathy, unspecified; J45.909 Unspecified asthma, uncomplicated; E44.0 Moderate protein-calorie malnutrition; Z68.38 Body mass index [BMI] 38.0-38.9, adult; R45.851 Suicidal ideations; R13.10 Dysphagia, unspecified; D64.9 Anemia, unspecified; F31.9 Bipolar disorder, unspecified; E83.42 Hypomagnesemia; E87.6 Hypokalemia; G43.909 Migraine, unspecified, not intractable, without status migrainosus; F17.200 Nicotine dependence, unspecified, uncomplicated; F41.9 Anxiety disorder, unspecified; F60.3 Borderline personality disorder; H57.04 Mydriasis; Z79.1 Long term (current) use of non-steroidal anti-inflammatories (NSAID); Z79.899 Other long term (current) drug therapy; Z91.51 Personal history of suicidal behavior; Z98.2 Presence of cerebrospinal fluid drainage device; Z71.3 Dietary counseling and surveillance; Z63.4 Disappearance and death of family member
CPT/HCPCS: 36410; 36600; 43246; 70450; 71045; 74230; 76937; 80048; 80051; 82040; 82805; 82947; 83605; 83735; 84132; 84146; 85025; 85027; 86041; 87070; 87205; 93306; 94002; 94003; 94640; 94667; 94668; 95816

== ENCOUNTER → 2023-08-10 | Outpatient (CLI) | payer OTHER ==
--- NOTE | 2023-08-10 10:49 | XR ---
EXAMINATION TYPE: XR chest 2V DATE OF EXAM: 08/10/2023 COMPARISON: 07/30/2023 TECHNIQUE: PA and lateral views submitted. HISTORY: Postpneumonia FINDINGS: There is bilateral areas of consolidation. No pleural effusion or pneumothorax. A WIRE FRAME LAMP SHADE MAKER shunt catheter s een. There is a PEG tube noted. Coarsened interstitium with no pneumothorax. IMPRESSION: 1. Bilateral lower lobe infiltrate greater on the left slightly improved. 2. Persistent interstitial pattern could represent an interstitial pneumonitis or mild venous congest ion.
== END | disposition home or self-care (01) ==
LOC: RADXRMAIN 10:17
PROVIDERS: ATTEND Internal Medicine
DX: J18.9 Pneumonia, unspecified organism (principal); R91.8 Other nonspecific abnormal finding of lung field
CPT/HCPCS: 71046